=== PATIENT | female | born 1950 | race Caucasian/White ===

== ENCOUNTER 2018-11-11 14:20 | Outpatient (REF) | payer MEDICARE, OTHER, SELFPAY ==
[2018-11-11 16:08] LABS: Bilirubin Negative (Negative); Blood Negative (Negative); Clarity Clear; Glucose Negative (Negative); Ketones Negative (Negative); Leukocyte Esterase Negative (Negative); Nitrite Negative (Negative); Urobilinogen 0.2 EU/dL (Up TO 0.2); pH 5.5 (5-8)
== END 2018-11-11 14:40 ==
LOC: NCHCN 14:20
PROVIDERS: PCP Internal Medicine; Visit Provider Internal Medicine
DX: N39.0 Urinary tract infection, site not specified (principal)
CPT/HCPCS: 87077; 81003; 87086

== ENCOUNTER 2019-03-13 08:30 | Outpatient (CLI) | payer MEDICARE, OTHER, SELFPAY ==
--- NOTE | 2019-03-13 10:46 | DI.RAD_ITS ---
SYMPTOMS/DIAGNOSIS: COUGH, R05 PA AND LATERAL CHEST: Comparison is made with [id number]. The cardiac and mediastinal contours have a normal appearance. The lungs show mild fibrotic changes. No superimposed infiltrate, effusion or pulmonary edema is seen. IMPRESSION: No acute abnormality.
== END 2019-03-13 08:50 ==
PROVIDERS: PCP Internal Medicine; Visit Provider Nurse Practitioner Family
DX: R05 Cough (principal)
CPT/HCPCS: 71046

== ENCOUNTER 2019-08-12 14:28 | Emergency (ER) | payer MEDICARE, OTHER, SELFPAY ==
[2019-08-12] VITALS (8 sets, daily range): BP systolic 141–218; BP diastolic 62–135; PULSE 66–82; RESP 18–20; TEMP 36.5; O2SAT 96–97
[2019-08-12 14:53] LABS: Bilirubin Negative (Negative); Blood Trace-lysed (Negative); Clarity Clear (Clear); Glucose Negative (Negative); Ketones Negative (Negative); Leukocyte Esterase Trace (Negative); Nitrite Negative (Negative); Specific Gravity 1.015 (1.005-1.025); Urobilinogen 0.2 EU/dL (Up TO 0.2)
[2019-08-12 15:09] LABS: Bacteria Negative HPF (Negative); C & S Indicated? No; Casts Negative LPF (Negative); Crystals Negative HPF (Negative); Epithelial Cells Few HPF (Negative); Mucus Negative (Negative); Other Cells Mod Transitional (Negative); RBC 0-2 (0-2)
[2019-08-12] MEDS: Ondansetron 4 MG/2 ML VIAL IVP (15:16)
--- NOTE | 2019-08-12 15:29 | ED.GENADUL_ITS ---
Discharge Plan Disposition Patient Disposition: HOME Condition: Fair Discharge Details Chief Complaint: FlankPain Clinical Impression: Kidney stone on left side Primary Care Provider: Alexandr Youssef ED Provider: Amanda Lee Home Meds and New Rx's Prescriptions: New tamsulosin [Flomax] 0.4 mg capsule 0.4 mg PO QHS Qty: 7 RF: 0 oxycodone 5 mg capsule 5 mg PO Q6H PRN (Reason: use for severe pain ) Qty: 5 RF: 0 ondansetron HCl [Zofran] 4 mg tablet 4 mg PO Q8H Qty: 5 RF: 0 No Action metoprolol succinate 100 MG tablet extended release 24 hr 50 mg PO DAILY RF: 0 glipizide 5 MG tablet 10 mg PO DAILY RF: 0 rosuvastatin [Crestor] 40 MG tablet 40 mg PO DAILY RF: 0 losartan 50 MG tablet 100 mg PO DAILY RF: 0 furosemide 20 MG tablet 20 mg PO DAILY RF: 0 cyclobenzaprine 10 MG tablet 10 mg PO DAILY RF: 0 felodipine 5 MG tablet extended release 24 hr 5 mg PO DAILY RF: 0 (DME) FreeStyle Lite Strips 1 EACH strip 1 ea Miscellaneous TID RF: 0 pantoprazole 20 MG tablet,delayed release (DR/EC) 20 mg PO DAILY RF: 0 Novolin N NPH U-100 Insulin 100 UNIT/1 ML suspension 55 Sub-Q DAILY RF: 0 aspirin 81 MG tablet,chewable 81 mg PO DAILY RF: 0 cholecalciferol (vitamin D3) 2,000 UNIT tablet 4,000 unit PO DAILY RF: 0 Codeine Phosphate/Guaifenesin [Guaifen-Codeine 100-10 mg/5 ml] 5 ML liquid 5 ml PO Q6H PRN RF: 0 Discharge Instructions Instructions: Kidney Stones (ED) Additional Instructions: Drink plenty of fluids. Use Flomax as prescribed until stone expulsion. Use pain medication only if needed for severe pain. Use caution at night due to sedation, do not drive, drink, work while taking this medication. Follow-up closely with your primary care doctor. Use nausea medication if needed for nausea or vomiting. Return for any worsening, concerns, fever, pain lasting greater than 3 days or for worsening symptoms sooner if needed Discharge Data Discharge Date/Time-TO BE ENTERED AT DEPARTURE: 08/12/19 19:00 Medical Decision Making <Walter Noe NP - Last Filed: 08/14/19 14:26> Patient presenting the emergency department for chief complaint of left flank pain. Patient states that she was seated doing some sewing at approximately 10 AM this morning started having sudden severe sharp left-sided flank pain. Patient denies any injury or trauma or lifting mechanisms or motions. Patient does state approximately 30 years ago she had a similar event which was a kidney stone. Patient does state some associated nausea but no vomiting, no fever no chills, no chest pain, denies other symptoms. Physical exam shows mild left CVA tenderness otherwise unremarkable exam. Plan to do labs, urinalysis, and renal colic CT.. Pending results patient given IV fluids, Zofran, and morphine <RAMYA Child - Last Filed: 08/12/19 18:51> Accepted patient sign out pending CAT scan evaluation. Patient's pain was improved with the 4 mg of morphine provided then pain returned another 2 mg of morphine was provided. Patient CT scan ultimately reveals a left distal ureterolithiasis resulting in mild left hydronephrosis. Patient also noted to have renal cysts which were discussed. Patient was unaware of renal cysts. Patient was also noted to have a abdominal aneurysm dilation of the infrarenal abdominal aorta which was measured at 3.1 cm previous imaging reveals an infrarenal abdominal aneurysm on 03/08/2015 so no significant change has been present. Patient is requesting discharge home at this time. Will provide short amount of pain medication in conjunction to nausea medication for symptom medic relief and Flomax until stone expulsion. Patient agrees with plan of care. Discussed follow-up with primary care doctor and expectations for improvement. The patient was stable and requested discharge. Prior to discharge, my usual and customary return precautions were reviewed with the patient - this included follow-up instructions and reasons to return to the Emergency Department if conditions worsens, does not improve as expected, or other new concerns arise. HPI <Walter Noe NP - Last Filed: 08/14/19 14:26> General Mode of arrival: ambulatory . Date/Time Provider Initiated Documentation: 08/12/19 14:38 . Limitations to Documentation: no limitations . Information obtained by: RN notes reviewed . History of Present Illness 68 year old F presents to the emergency department with the chief complaint of Left flank pain, described as moderate, with intensity rated at 8. Quality is described as sharp, and is localized to the left (Flank). Patient started experiencing this hour(s) (4) and it has been constant. No relieving factors improve symptom(s), No exacerbating factors reported . Patient notes no other symptoms.. Patient did receive the following treatments prior to arrival, none Related Data Home Medications Medication Instructions Recorded Confirmed furosemide 20 mg PO DAILY tab-cap 09/14/15 08/12/19 glipizide 10 mg PO DAILY tab-cap 09/14/15 08/12/19 losartan 100 mg PO DAILY tab-cap 09/14/15 08/12/19 metoprolol succinate 50 mg PO DAILY tab-cap 09/14/15 08/12/19 rosuvastatin [Crestor] 40 mg PO DAILY tab-cap 09/14/15 08/12/19 Codeine Phosphate/Guaifenesin 5 ml PO Q6H PRN 11/18/17 [Guaifen-Codeine 100-10 mg/5 ml] aspirin 81 mg PO DAILY tab-cap 11/18/17 08/12/19 blood sugar diagnostic [Freestyle strip 11/18/17 08/12/19 Lite Strips] cholecalciferol (vitamin D3) 4,000 unit PO DAILY 11/18/17 01/31/18 cyclobenzaprine 10 mg PO DAILY tab-cap 11/18/17 01/31/18 felodipine 5 mg PO DAILY tab-cap 11/18/17 08/12/19 insulin NPH isoph U-100 human 55 SUB-Q DAILY 11/18/17 [Novolin N Vial] pantoprazole 20 mg PO DAILY tab-cap 11/18/17 08/12/19 ondansetron HCl [Zofran] 4 mg PO Q8H #5 tab 08/12/19 oxycodone 5 mg PO Q6H PRN #5 cap 08/12/19 tamsulosin [Flomax] 0.4 mg PO QHS #7 cap 08/12/19 Previous Rx's Medication Instructions Recorded ondansetron HCl [Zofran] 4 mg PO Q8H #5 tab 08/12/19 oxycodone 5 mg PO Q6H PRN #5 cap 08/12/19 tamsulosin [Flomax] 0.4 mg PO QHS #7 cap 08/12/19 Allergies Allergy/AdvReac Type Severity Reaction Status Date / Time metformin Allergy Severe Unverified 08/12/19 14:48 amlodipine Allergy Unknown Unverified 08/12/19 14:48 atorvastatin calcium Allergy Unknown Unverified 08/12/19 14:48 [From Lipitor] celecoxib [From Celebrex] Allergy Unknown Unverified 08/12/19 14:48 diltiazem Allergy Unknown Unverified 08/12/19 14:48 duloxetine HCl Allergy Unknown Unverified 08/12/19 14:48 [From Cymbalta] gabapentin Allergy Unknown Unverified 08/12/19 14:48 lansoprazole [From Prevacid] Allergy Unknown Unverified 08/12/19 14:48 lisinopril Allergy Unknown Unverified 08/12/19 14:48 General Stated Complaint: FlankPain YG: 3 Review of Systems <Walter Noe NP - Last Filed: 08/14/19 14:26> Constitutional Constitutional: Denies chills, Denies fever(s) and Reports poor appetite Cardiovascular Cardiovascular: Denies chest pain and Denies dyspnea Respiratory Respiratory: Denies cough and Denies dyspnea Gastrointestinal Gastrointestinal: Reports as per HPI, Denies abdominal pain, Denies melena, Denies change in bowel habits, Denies constipation, Denies diarrhea, Reports nausea and Denies vomiting Genitourinary Genitourinary: Reports as per HPI, Denies hematuria, Denies dysuria, Reports flank pain and Denies urinary incontinence Integumentary/Breasts Skin/Breast: Denies rash PFSH <Walter Noe NP - Last Filed: 08/14/19 14:26> Medical History Adenomatous colon polyp Adrenal adenoma Carpal tunnel syndrome of right wrist Chronic kidney disease, stage 2, mildly decreased GFR Diabetes type 2, uncontrolled Diabetic retinopathy Dyspepsia Fibromyalgia Hyperlipidemia Hypertension Osteoarthritis of both hands Sleep apnea, obstructive Telangiectasia Surgical History Colonoscopy - IV Sedation 2010 EGD - IV Sedation excision cyst of breast 2008 Social History Smoking/Tobacco Use Status: Former Tobacco Use Alcohol Intake: never Drug use: Never Do you feel safe at home: Yes Exam <Walter Noe NP - Last Filed: 08/14/19 14:26> Const General: cooperative Orientation: alert, awake and oriented x3 Resp Effort & Inspection: normal respiratory effort and able to speak in complete sentences Auscultation: clear to auscultation bilaterally Cardio Rate: regular rate Rhythm: regular rhythm Heart Sounds: S1 normal and S2 normal GI Palpation: soft, no hepatosplenomegaly, not firm, no guarding, no masses, no pulsatile masses, not rigid, no splenomegaly and tender Auscultation: normal bowel sounds Back/Spine/Pelvis Back: CVA tenderness (Mild left) Neuro General: alert, awake, oriented x3, gait normal and moves all extremities Course <Walter Noe NP - Last Filed: 08/14/19 14:26> Vital Signs Vital signs: Vital Signs Temperature 36.5 C 08/12/19 14:41 Pulse 70 08/12/19 14:41 Respiratory Rate 18 08/12/19 14:41 Blood Pressure 141/121 H 08/12/19 14:41 Pulse Oximetry 96 08/12/19 14:41 Temperature 36.5 C 08/12/19 14:41 Temperature Source Skin 08/12/19 14:41 Pulse 70 08/12/19 14:41 Respiratory Rate 18 08/12/19 14:41 Respiratory Effort Non-Labored 08/12/19 14:48 Blood Pressure 141/121 H 08/12/19 14:41 Blood Pressure Position Sitting 08/12/19 14:41 Pulse Oximetry 96 08/12/19 14:41 Oxygen Delivery Method Room Air 08/12/19 14:41 Oxygen Flow Rate 0 08/12/19 14:41 Pain Level 10 08/12/19 14:41 Lab/Test Results Lab/Test Results: Laboratory Tests Range/Units 08/12/19 14:43 Urine Color (Yellow) Yellow Urine Clarity (Clear) Clear Urine pH (5-8) 5.0 Ur Specific Kirkman (1.005-1.025) 1.015 Urine Protein (Negative) mg/dL 30 H Urine Ketones (Negative) mg/dL Negative Urine Blood (Negative) Trace-lysed H Urine Nitrite (Negative) Negative Urine Bilirubin (Negative) Negative Urine Urobilinogen (Up TO 0.2) EU/dL 0.2 Ur Leukocyte Esterase (Negative) Trace H Urine RBC (0-2) 0-2 Urine WBC (0-5) HPF 3-5 Ur Epithelial Cells (Negative) HPF Few Urine Crystals (Negative) HPF Negative Urine Bacteria (Negative) HPF Negative Urine Casts (Negative) LPF Negative Urine Mucus (Negative) Negative Urine Other (Negative) Mod transitional Ur Culture Indicated? No Urine Glucose (Negative) mg/dL Negative Sign Out <Walter Noe NP - Last Filed: 08/14/19 14:26> Sign Out Data: Sign Out Comment: Patient presenting to the emergency department for flank pain, patient pending CT imaging. Last updated by Walter Noe NP at 08/12/19 16:10
[2019-08-12 15:36] LABS: Abs Immature Grans 0.02 k/cumm (0.0-0.09); Absolute Basophil Count 0.05 k/cumm (0.0-0.2); Absolute Eosinophil Count 0.08 k/cumm (0.0-0.7); Absolute Lymphocyte Count 1.25 k/cumm (1.2-3.4); Absolute Monocyte Count 0.28 k/cumm (0.11-0.7); Absolute Neutrophil Count 6.69 k/cumm (1.2-6.7); Basophils % 0.6; HCT 42.3 % (36.0-46.0); HGB 13.5 g/dL (12.0-15.5); Immature Grans % 0.2; Lymphocytes % 14.9; Mean Corp. HGB Concentration 31.9 g/dL (32.0-36.0); Mean Corpuscular Hemoglobin 28.7 pg (27.0-33.0); Mean Corpuscular Volume 89.8 fL (80-95); Mean Platelet Volume 12.1 fL (8.0-11.0); Monocytes % 3.3; Platelet Count 184 x1000/uL (130-400); RBC 4.71 m/cumm (4.00-5.20); RBC Distribution Width 14.2 % (11.7-14.6); White Blood Cell Count 8.37 k/cumm (4.4-10.8)
[2019-08-12 15:47] LABS: ALT 10 U/L (14-59); AST 19 U/L (15-37); Albumin 3.8 g/dL (3.4-5.0); Alkaline Phosphatase 86 U/L (46-116); Anion Gap 11.3 mmol/L (3-11); BUN 37 mg/dL (7-18); Bilirubin, Total 0.3 mg/dL (0.2-1.0); CO2 25.7 mmol/L (21.0-32.0); CREATININE 1.94 mg/dL (0.55-1.02); Calcium 9.7 mg/dL (8.5-10.1); Chloride 104 mmol/L (98-107); Estimated GFR 25.59 (mL/min/1.73m2); Glucose 159 mg/dL (70-100); Sodium 141 mmol/L (136-145); Total Protein 8.6 g/dL (6.4-8.2)
[2019-08-12] MEDS: Normal Saline 500 ML IV (16:10)
--- NOTE | 2019-08-12 17:00 | DI.CT_ITS ---
EXAM: CT RENAL COLIC WO CLINICAL HISTORY: Left flank pain, H/O KIDNEY STONES TECHNIQUE: Noncontrast. COMPARISON: UPPER ABD WITHOUT CONTRAST from 05/26/2018 FINDINGS: There is a 3 millimeter stone seen at the distal left ureter causing mild to moderate left hydroneph rosis. The left kidney appears somewhat atrophic. There are bilateral renal cysts. The bladder is unremarkable. The liver, gallbladder, spleen, pancreas, and adrenals appear normal. No bowel dilata tion or inflammatory changes are seen. There is no evidence of appendicitis or free fluid. IMPRESSION: 3 millimeter stone at the distal left ureter causing [id number] left hydronephrosis. Left prabha l atrophy and bilateral renal cysts.
--- NOTE | 2019-08-12 17:25 | DI.VRAD_ITS ---
PROCEDURE INFORMATION: Exam: CT Abdomen And Pelvis Without Contrast Exam date and time: 08/12/2019 4:53 PM Clinical history: 68 years old, female; Abdominal pain; Patient HX: Left sided flank pain. HX of kidney stones in the . TECHNIQUE: Imaging protocol: Computed tomography of the abdomen and pelvis without contrast. Radiation optimization: All CT scans at this facility use at least one of these dose optimization techniques: automated exposure control; mA and/or kV adjustment per patient size (includes targeted exams where dose is matched to clinical indication); or iterative reconstruction. COMPARISON: CT ABD PELVIS WO CONTRAST 03/08/2015 9:23 AM FINDINGS: Lungs: Minimal dependent changes within the lung bases, likely atelectasis. Liver: Unremarkable. No mass. Gallbladder and bile ducts: Normal. No calcified stones. No ductal dilation. Pancreas: Unremarkable. No ductal dilation. Spleen: Unremarkable. No splenomegaly. Adrenals: Normal. No mass. Kidneys and ureters: Right renal cyst measuring 2.4 cm. 3 mm calcification at the anterior cortex of the right kidney midpole on axial image 43 of series 2 is likely vascular (versus nonobstructing stone). Severe left renal atrophy. Exophytic cyst measuring 12 mm within the upper pole of the left kidney. 3 mm stone in the left distal ureter (axial images 99 and 100 of series 2 and coronal reformatted image 64). There is mild left hydroureteronephrosis and stranding of the left peripelvic and periureteral fat. Stomach and bowel: Mild colonic diverticulosis without diverticulitis. Unremarkable stomach and small bowel. Appendix: No evidence of appendicitis. Intraperitoneal space: No free air. No significant fluid collection. Vasculature: Moderate severe atherosclerosis of the abdominal aorta and branch vessels. Mild aneurysmal dilatation of the infrarenal abdominal aorta with an AP diameter of 3.1 cm. Lymph nodes: No enlarged lymph nodes. Bladder: Unremarkable as visualized. Reproductive: Unremarkable as visualized. Bones/joints: Degenerative spondylosis of the lower thoracic and lumbar spine. Soft tissues: Unremarkable. IMPRESSION: 1. Left distal ureterolithiasis resulting in mild left hydroureteronephrosis. 2. Left renal atrophy and cyst. 3. Right renal cyst and probable renal vascular calcification (versus tiny nonobstructing right renal stone). Dictated and Authenticated by: Andrew Cárdenas MD. Ordering:SHIRAZ Watson MD
== END 2019-08-12 19:00 | disposition home or self-care (01) ==
PROVIDERS: Nurse Practitioner Family; Emergency Provider Physician Assistant; PCP Internal Medicine
DX: N13.1 Hydronephrosis with ureteral stricture, not elsewhere classified (principal); N18.9 Chronic kidney disease, unspecified; E11.22 Type 2 diabetes mellitus with diabetic chronic kidney disease; I12.9 Hypertensive chronic kidney disease with stage 1 through stage 4 chronic kidney disease, or unspecified chronic kidney disease
CPT/HCPCS: 36416; 80053; 82962; 96361; 96365; 96375; 96376; 99284; 74176; 81003; 81015; 85025; J2405

== ENCOUNTER 2020-06-13 11:04 | Outpatient (REF) | payer MEDICARE, OTHER, SELFPAY ==
[2020-06-13 21:16] LABS: BUN 30 mg/dL (7-18); CREATININE 1.83 mg/dL (0.55-1.02); Calcium 8.8 mg/dL (8.5-10.1); Chloride 107 mmol/L (98-107); Estimated GFR 27.29 (mL/min/1.73m2); Glucose 210 mg/dL (74-106); Potassium 3.8 mmol/L (3.5-5.1); Sodium 144 mmol/L (136-145)
[2020-06-13 21:27] LABS: Vitamin D 25 Total 36.1 ng/ml (30-100)
== END 2020-06-13 11:24 ==
LOC: NCHCN 11:04
PROVIDERS: PCP Internal Medicine; Visit Provider Internal Medicine
DX: E11.9 Type 2 diabetes mellitus without complications (principal); I10 Essential (primary) hypertension; M81.0 Age-related osteoporosis without current pathological fracture
CPT/HCPCS: 80048; 82306

== ENCOUNTER 2021-03-28 12:45 | Outpatient (REF) | payer MEDICARE, OTHER, SELFPAY ==
[2021-03-28 21:28] LABS: Anion Gap 8.7 mmol/L (3-11); BUN 34 mg/dL (7-18); CO2 28.3 mmol/L (21.0-32.0); CREATININE 1.7 mg/dL (0.55-1.02); Calcium 9.2 mg/dL (8.5-10.1); Chloride 106 mmol/L (98-107); Estimated GFR 29.63 (mL/min/1.73m2); Glucose 256 mg/dL (74-106); Potassium 4.2 mmol/L (3.5-5.1); Sodium 143 mmol/L (136-145)
== END 2021-03-28 12:46 | disposition home or self-care (01) ==
LOC: NCHCN 12:45
PROVIDERS: PCP Internal Medicine; Visit Provider Internal Medicine
DX: I10 Essential (primary) hypertension (principal)
CPT/HCPCS: 80048

== ENCOUNTER 2021-03-30 20:56 | Outpatient (REF) | payer MEDICARE, OTHER, SELFPAY | END 2021-03-30 20:57 | disposition home or self-care (01) | LOC: NCHCN 20:56 | PROVIDERS: PCP Internal Medicine; Visit Provider Internal Medicine | DX: K52.9 Noninfective gastroenteritis and colitis, unspecified (principal) | CPT/HCPCS: 87329; 82272; 83630 ==

== ENCOUNTER 2021-04-10 06:10 | Day surgery (SDC) | payer MEDICARE, OTHER, SELFPAY ==
[2021-04-10] MEDS: Tropicam./Phenyleph. (1/2.5%) 5 ML BTL OD ×3 (06:40→06:50)
[2021-04-10 06:44] VITALS: BP 144/65; PULSE 52; RESP 16; TEMP 36.5; O2SAT 94
--- NOTE | 2021-04-10 07:08 | W.ANESPRE ---
General Info Date of Service Date Performed: 04/10/21 Height: 5 ft 5 in Weight: 88.7 kg Body Mass Index (BMI): 32.5 Surgical Procedure: Operation Date: 04/10/21 07:40 Proposed Procedures Side Surgeon p Cataract Extraction with IOL Implant Right Howie Shabazz MD Meds Allergies and Home Medications Allergies Allergy/AdvReac Type Severity Reaction Status Date / Time metformin Allergy Severe Diarrhea Unverified 04/10/21 06:43 amlodipine Allergy Unknown Diarrhea Unverified 04/10/21 06:43 atorvastatin calcium Allergy Unknown Diarrhea Unverified 04/10/21 06:43 [From Lipitor] celecoxib [From Celebrex] Allergy Unknown Other (See Unverified 04/10/21 06:43 Comment) diltiazem Allergy Unknown Other (See Unverified 04/10/21 06:43 Comment) duloxetine HCl Allergy Unknown Other (See Unverified 04/10/21 06:43 [From Cymbalta] Comment) gabapentin Allergy Unknown Other (See Unverified 04/10/21 06:43 Comment) lansoprazole [From Prevacid] Allergy Unknown Other (See Unverified 04/10/21 06:43 Comment) lisinopril Allergy Unknown Other (See Unverified 04/10/21 06:43 Comment) Home Medication Medication Instructions Recorded furosemide 20 mg PO DAILY tab-cap 09/14/15 glipizide 10 mg PO BID tab-cap 09/14/15 losartan 100 mg PO HS tab-cap 09/14/15 metoprolol succinate 100 mg PO HS tab-cap 09/14/15 rosuvastatin [Crestor] 40 mg PO HS tab-cap 09/14/15 blood sugar diagnostic [Freestyle strip 11/18/17 Lite Strips] felodipine 5 mg PO DAILY tab-cap 11/18/17 pantoprazole 40 mg PO HS tab-cap 11/18/17 semaglutide [Rybelsus] 3 mg PO DAILY 04/07/21 ropinirole 0.5 mg PO HS 04/10/21 Current Visit Medications: Current Medications Generic Name Dose Route Start Last Admin Trade Name Freq PRN Reason Stop Dose Admin Acetaminophen 1,000 mg 04/10/21 06:00 Acetaminophen 500 Mg Tab PO Q4H PRN PRN Miscellaneous Medication 0 ml 04/10/21 06:00 Prednisolone 1%, Moxifloxacin 0.5%, Nepafenac 0.1% 5ml Btl OD DIRECTED MAURICIO Miscellaneous Medication 0 ml 04/10/21 06:00 04/10/21 06:50 Tropicam./Phenyleph. (1/2.5%) 5 Ml Btl OD 1 drp DIRECTED MAURICIO Administration Tetracaine HCl 0 ml 04/10/21 06:00 Tetracaine 0.5% 4 Ml Btl OD DIRECTED MAURICIO PFSH Active Problems Active Problems: Problem Status Onset Code Nuclear sclerotic cataract of right eye H25.11 Posterior subcapsular age-related cataract, right eye H25.041 Medical History Medical History Adenomatous colon polyp Adrenal adenoma Carpal tunnel syndrome of right wrist Chronic kidney disease, stage 2, mildly decreased GFR Diabetes type 2, uncontrolled Diabetic retinopathy Dyspepsia Fibromyalgia Hyperlipidemia Hypertension Osteoarthritis of both hands Sleep apnea, obstructive Telangiectasia Surgical History Surgical History (Updated 04/10/21 @ 06:41 by Shae Gamble) Colonoscopy - IV Sedation 2010 EGD - IV Sedation excision cyst of breast 2009 History of carpal tunnel surgery Hx of tubal ligation Tobacco Smoking/Tobacco Use Status: Former Tobacco Use Alcohol Alcohol Intake: never Substance Use Substance use: Never Substance use type: does not use Vital Signs and Lab Results Vital Signs Most Recent Vital Signs in EMR: Most Recent Vital Signs Temp Pulse Resp BP Pulse Ox 36.5 C 52 L 16 144/65 H 94 04/10/21 06:44 04/10/21 06:44 04/10/21 06:44 04/10/21 06:44 04/10/21 06:44 Point of Care Results Point of Care Results: Finger Stick Blood Glucose 161 04/10/21 06:35 Lab Results Blood Type / Crossmatch: No Data to Display Complete Blood Count: No Data to Display Complete Metabolic Panel: Sodium Level 143 mmol/L (136-145) 03/28/21 12:45 03/28/21 Potassium Level 4.2 mmol/L (3.5-5.1) 03/28/21 12:45 03/28/21 Chloride Level 106 mmol/L (98-107) 03/28/21 12:45 03/28/21 Carbon Dioxide Level 28.3 mmol/L (21.0-32.0) 03/28/21 12:45 03/28/21 Blood Urea Nitrogen 34 mg/dL (7-18) H 03/28/21 12:45 03/28/21 Creatinine 1.7 mg/dL (0.55-1.02) H 03/28/21 12:45 03/28/21 Calcium Level 9.2 mg/dL (8.5-10.1) 03/28/21 12:45 03/28/21 Glucose Level 256 mg/dL (74-106) H 03/28/21 12:45 03/28/21 Liver Function Panel: No Data to Display Coagulation Panel: No Data to Display Cardiac Panel: No Data to Display Arterial Blood Gas: No Data to Display Venous Blood Gas: No Data to Display Pancreas Panel: No Data to Display Thyroid Panel: No Data to Display Infectious Disease: No Data to Display Blood Cultures: No Data to Display Toxicology Panel: No Data to Display Imaging and Studies Imaging and Studies Carotid Artery Summary:: 04/05/2014 Mild right and moderate left carotid stenosis is demonstrated. Please see the cerebrovascular ultrasound worksheet for further details. Anesthesia Assessment and Plan Anesthesia History Personal History: No History of Anesthesia Complications Family History: No Family History of Anesthesia Complications Exercise Tolerance Exercise Tolerance: Metabolic Equivalents>4 Pertinent Negatives Pertinent Negatives: No Symptoms of GERD, No Major Cardiovascular Symptoms or Complaints, No Major Pulmonary Symptoms or Complaints and No History of CVA/TIA Cardiac & Pulmonary Exam Cardiac Exam: Normal S1/S2 Heart Sounds Pulmonary Exam: Clear Bilateral Breath Sounds Airway Exam Known Difficult Airway: No Mallampati Class: 2 Mouth Opening: Normal (> 3cm) Thyromental Distance: Greater than 3 cm Neck Range of Motion: Full ROM Neck Circumference: Normal Teeth Condition: Normal Dentition ASA Classification ASA Score: ASA 2 Emergency Case?: No NPO Status NPO Status: NPO Clears >2 hours, Solids >8 hours Anesthesia Plan Resuscitation Status: Full Code Anesthesia Technique: MAC Anesthesia Airway Planned: Natural Airway Monitors Used: Standard Monitors
[2021-04-10 07:17] VITALS: BMI 32.5
[2021-04-10] MEDS: Balanced Salt Soln.-PLUS 500 ML BAG (07:35)
[2021-04-10] MEDS: Lidocaine 1% Pres-Free 5 ML VIAL (07:36)
[2021-04-10] MEDS: Povidone-Iodine Ophth 30 ML BTL (07:37)
[2021-04-10] MEDS: Lidocaine 2% Jelly 6 ML SYR (07:37)
[2021-04-10] MEDS: Tetracaine 0.5% 4 ML BTL OD (07:39)
--- NOTE | 2021-04-10 07:44 | W.ANESPOSTOP ---
Postoperative Evaluation Date, Time and Location Date Performed: 04/10/21 Time Performed: 08:05 Patient Location: Day Surgery Unit Vital Signs Most Recent Imported Vital Signs: Most Recent Vital Signs Temp Pulse Resp BP Pulse Ox 36.5 C 52 L 16 144/65 H 94 04/10/21 06:44 04/10/21 06:44 04/10/21 06:44 04/10/21 06:44 04/10/21 06:44 Most Recent Manually Entered Vital Signs: Adult Blood Pressure: 136/59 Heart Rate: 66 Respirations: 16 Oxygen Saturation (%): 97 Temperature (C): 36.7 C Pain Score (0-10 Scale): 0 Pain Score Most Recent Pain Score: Most Recent Pain Score Pain Level 0 04/10/21 06:44 Assessment Mental Status: Awake (Alert & Oriented to Patient Baseline) Airway and Respiratory Function: Patent airway with normal (patient baseline) respiratory exam Cardiovascular Function: Hemodynamically Stable Hydration Status: Adequately Hydrated Nausea & Vomiting: No Nausea or Vomiting Pain: Pt. Denies Any Pain Peripheral Nerve Block: Other (Local by Dr. Shabazz)
--- NOTE | 2021-04-10 08:04 | W.PM.DSUDISC ---
Discharge Plan Disposition Patient Disposition: HOME Condition: Good Discharge Details Reason For Visit: CATARACT Attending Provider: Howie Shabazz Primary Care Provider: Alexandr Youssef Home Meds and New Rx's Prescriptions: No Action metoprolol succinate 100 MG tablet extended release 24 hr 100 mg PO HS RF: 0 glipizide 5 MG tablet 10 mg PO BID RF: 0 rosuvastatin [Crestor] 40 MG tablet 40 mg PO HS RF: 0 losartan 50 MG tablet 100 mg PO HS RF: 0 furosemide 20 MG tablet 20 mg PO DAILY RF: 0 felodipine 5 MG tablet extended release 24 hr 5 mg PO DAILY RF: 0 (DME) FreeStyle Lite Strips 1 EACH strip 1 ea Miscellaneous TID RF: 0 pantoprazole 20 MG tablet,delayed release (DR/EC) 40 mg PO HS RF: 0 Rybelsus 3 mg tablet 3 mg PO DAILY RF: 0 ropinirole 0.5 mg tablet 0.5 mg PO HS RF: 0 Discharge Instructions Stand Alone Forms: Post-op Topical Cataract, Magali Gibbs (DSU) Discharge Orders Discharge Orders: Discharge Order (Routine); Ordered 04/10/21 Ordered By: Howie Shabazz DS: Diagnosis Discharge Diagnosis (1) Nuclear sclerotic cataract of right eye: Status: Resolved (2) Posterior subcapsular age-related cataract, right eye: Status: Resolved
[2021-04-10 08:05] VITALS: BP 136/59; PULSE 69; RESP 16; TEMP 36.7; O2SAT 98
--- NOTE | 2021-04-10 08:05 | ROE_ITS ---
Date of service: 04/10/21 Time of Service: 08:05 Operative Note Operative Note DATE OF PROCEDURE: 04/10/21 PRE-OP DIAGNOSIS: Nuclear/posterior subcapsular cataract, right eye POST-OP DIAGNOSIS: same PROCEDURE: Cataract extraction using phacoemulsification with intraocular lens implant, right eye SURGEON: Howie Shabazz ANESTHESIA TYPE: Local By Surgeon and MAC Refer to Anesthesia Record ESTIMATED BLOOD LOSS: 0 PATHOLOGY: none sent COMPLICATIONS: None Patient was transported to: same day Patient's condition: stable Implants: Joshua [employer] / [employer] Tecnis [id number] intraocular lens Indications: Progressive decreased vision due to cataract, right eye Procedure Description: CATARACT SURGERY OPERATIVE REPORT PREOPERATIVE DIAGNOSIS: Nuclear/posterior subcapsular cataract, right eye POSTOPERATIVE DIAGNOSIS: Same OPERATION: Cataract extraction using phacoemulsification with posterior chamber intraocular lens implant, right eye. IOL: IOL Merchandise Team Manager/Model: [employer] / CLAUDIA Tecnis ZCB00 IOL Power: + +22.0 diopters IOL Serial Number: [id number] Optic Diameter: 6.0mm Haptic/Overall Diameter: 13.0mm PHACO INFO: Carmelo [employer] Vision System with OZil and Active [employer]uidics Cumulative Dispersed Energy (CDE): 5.95 seconds SURGEON: Howie Shabazz MD, DARIEL ANESTHESIA: Monitored Anesthesia Care (MAC), with local sub-tenon's anesthetic infiltration COMPLICATIONS: None SPECIMENS: None INDICATIONS FOR PROCEDURE: The patient is a 70-year-old lady with history of diminished visual acuity in her right eye secondary to the development of nuclear and posterior subcapsular cataract. She is significantly symptomatic that she desires cataract surgery and attempt to improve and maximize her vision. The option of cataract surgery was offered to the patient and she felt she was symptomatic enough that she wished to proceed. PROCEDURE: The correct surgical eye was identified and marked as the right eye and the pupil was dilated in the preoperative area using mydriatics and cycloplegics. The dilated pupil size was 7.0 mm. She elected to proceed without oral sedation. The patient was brought to the operating room where cardiopulmonary monitoring was instituted and surgical time-out was performed, confirming the correct operative eye and IOL power. Topical anesthesia was administered and ophthalmic povidone-iodine 5% was instilled into the conjunctival fornices. Lidocaine gel was applied to the cornea and the venice-ocular area was prepped with Betadine 10% solution and draped in the usual sterile fashion for intraocular surgery, including an aperture drape. A Tegaderm transparent film dressing was cut in half and used to cover the lashes and lid margins. Care was taken to sequester the lashes and lid margins under the Tegaderm dressing. A lid speculum was placed between the lids of the operative eye and the Chano-Te operating microscope was maneuvered into position. Bravo scissors were then used to make a conjunctival buttonhole approximately 6mm posterior to the limbus in the inferonasal quadrant. Blunt dissection was carried out to expose bare sclera, and a blunt-tipped sub-tenon?s anesthesia cannula was introduced and passed posteriorly along the globe where non- preserved plain lidocaine was injected into posterior sub-Tenon?s space. A sideport knife was used to make a paracentesis port inferiortemporally. Intraocular phenylephrine/lidocaine was injected into the anterior chamber. The anterior chamber was then filled with viscoelastic. A 2.4mm keratome knife was used to create a half-thickness groove at the limbus and then to construct a three-plane near-clear corneal tunnel extending 2.0mm into clear cornea in the superiortemporal position. . A flap was raised on the anterior capsule and capsulorhexis forceps were used to complete a continuous curvilinear capsulorhexis of 5.0 mm. Balanced salt solution was then used to perform cortical cleaving hydrodissection and nuclear hydrodelineation until the lens could be freely rotated within the capsular bag. The lens nucleus was then disassembled and removed within the capsular bag and iris plane using phacoemulsification. Residual cortical material was removed using the I/A handpiece. The posterior capsule was carefully polished to remove as much residual lens epithelial cells as safely possible. The capsular bag was then inflated and the anterior chamber deepened with viscoelastic. The lens implant described above was inserted into the capsular bag using the CLAUDIA Cachil Dehe Injector. A Kuglen hook was used to dial the IOL into position. Residual viscoelastic was then removed first from posterior to the IOL, then from the anterior chamber using the I/A handpiece. The lens implant was noted to center nicely within the capsular bag. The incisions were stromally hydrated, and the anterior chamber was reformed using BSS. Then 0.5cc of moxifloxacin 1.0mg/ml were injected into the capsular bag and anterior chamber. The incisions were checked with a Weck spear and found to be secure. Several drops of ophthalmic povidone-iodine 5% were then applied to the eye followed by two drops of Imprimis combination prednisolone/moxifloxacin/nepafenac solution. The drapes were removed and a clear plastic protective eye shield was placed over the eye. The patient was then returned to Same Day Surgery in stable condition.
[2021-04-10 08:06] VITALS: BP 136/59; PULSE 66; RESP 16; TEMPC 36.7; O2SAT 97
== END 2021-04-10 08:32 | disposition home or self-care (01) ==
PROVIDERS: PCP Internal Medicine; Visit Provider Ophthalmology
PROC: (CPT 66984; principal; 2021-04-10 07:30)
DX: H25.041 Posterior subcapsular polar age-related cataract, right eye (principal); E11.22 Type 2 diabetes mellitus with diabetic chronic kidney disease; N18.2 Chronic kidney disease, stage 2 (mild); I12.9 Hypertensive chronic kidney disease with stage 1 through stage 4 chronic kidney disease, or unspecified chronic kidney disease
CPT/HCPCS: 66984; V2632

== ENCOUNTER 2021-07-26 02:10 | Outpatient (CLI) | payer MEDICARE, OTHER, SELFPAY ==
--- NOTE | 2021-07-26 | DI.MAMMO_ITS ---
Exam(s) MAMMO SCREENING EXAM: MAMMO SCREENING CLINICAL HISTORY: SCREENING,Z12.31. TECHNIQUE: Bilateral full field digital CC and MLO mammographic images were obtained with 3D tomosyn thesis and utilizing computer aided detection (CAD). COMPARISON: Prior mammograms dating back to 2012, the most recent being July 2017. FINDINGS: There has been no significant change in the appearance and distribution of the fibroglandular tissue. There are no new spiculated masses nor malignant appearing microcalcification groups. There is no significant architectural distortion nor skin thickening-retraction. IMPRESSION: No radiographic evidence of malignancy. BI-RADS Category 1 - Negative Breast Density - Category B - Scattered areas of fibroglandular density Breast density Category C or D implies that the patient has dense breast tissue. Dense breast tissue can make it harder to find cancer on a mammogram. Dense breast tissue is also associated with an incr eased risk of breast cancer. This information about the result of the mammogram report was provided to the patient to raise their awareness. Use this report when you speak with the patient about their risks for breast cancer, which includes their family history. At that time, you may recommend additional screening tests (Ultrasoun d or MRI) as these tests may add significant information. A negative radiographic report should not delay biopsy if a dominant or clinically suspicious mass is present. Up to ten percent of cancers are not identified on mammography. A negative report may reinforce clinical impression. Adenosis and dense breasts may obscure an underlying neoplasm. False positive reports average 6 to 10%. Patient will receive a letter notifying them of these results.
== END 2021-07-26 02:30 ==
PROVIDERS: PCP Internal Medicine; Visit Provider Family Medicine
DX: Z12.31 Encounter for screening mammogram for malignant neoplasm of breast (principal)
CPT/HCPCS: 77063; 77067

== ENCOUNTER 2021-10-10 00:49 | Outpatient (CLI) | payer MEDICARE, OTHER, SELFPAY ==
--- NOTE | 2021-10-10 08:45 | DI.NM_ITS ---
APPROVED REPORT Exam: Exercise Treadmill Patient Location: Out-Patient Room/Bed: Stress Nurse: Lisa Villalba RN Ordering Provider:HUGO BRODY, Contact Number: [phone] BMI: 33.46 Baseline Rhythm: Sinus Rhythm Comment: slight ST depressions noted in inferior leads Indications: EXERTIONAL CHEST PAIN. Medical History Medical History: CKD stage II, Dyspepsia, DM II, Fibromyalgia, Diabetic retinopathy, HTN, HLD, GEOVANNA Cardiac Medications: Semaglutide, Rosuvastatin, Pantoprazole, Metoprolol succinate, Losartan, Glipizi de, Furosemide, Felodipine Allergies: Metformin, amlodipine, atorvastatin, celebrex, diltiazem, cymbalta, gabapentin, lansoprazo le, lisinopril Cardiac Risk Factors: Diabetes (non-insulin), HTN, Hyperlipidemia, Diabetes (non-insulin), Smoking (f ormer) Previous Cardiac Procedures: None Pretest Chest Pain Characteristics: No chest pain Exercise History: Sedentary Physical Disabilities: Hips Lung Sounds: Clear to auscultation Heart Sounds: Regular Stress Test Details Test: Exercise stress testing was performed using a modified Eliu protocol. Nuclear Acquisition: Rest Tc-99m/Stress Tc-99m 1 day Rest Isotope: Tc-99m Sestamibi. Dose: 10.0 Date: 10/10/2021 Injection Time: 0900 Stress Isotope: Tc-99m Sestamibi. Dose: 33.4 Date: 10/10/2021 Injection Time: 1025 HR Resting HR Supine: 77 bpm Max Heart Rate (APMHR): 149.001396 bpm Resting HR Standin bpm Target HR (85% APMHR): 126.527337 bpm Max HR Achieved: 138 bpm % of APMHR: 92.62 Recovery HR: 94 bpm HR response to stress: Normal HR response to stress Comment: Metoprolol succinate held for 48 hours. BP Resting BP Supine: 162/76 mmHg Resting BP Standin/76 mmHg Max BP: 202/62 mmHg Recovery BP: 162/72 mmHg BP response to stress: Normal blood pressure response to stress. Comment: Hypertensive at baseline. ECG Resting ECG: Sinus Rhythm Ectopy: None Comment: slight ST depressions noted in inferior leads Stress ECG: Sinus Tachycardia ST Change: Horizontal ST depression, Upsloping ST depression Lead(s): inferior leads, V6 Stage: [address] Deviation: 1 mm Arrhythmia: None Recovery ECG: Sinus Rhythm Recovery ST Change: Horizontal ST depression Lead(s): inferior leads, V6 Recovery ST Deviation: 2 mm Recovery Arrhythmia: PVCs Comment: ST changes returning to baseline by min 21 of recovery. Clinical Reason for Termination: Dyspnea, Fatigue Stress Symptoms: Dyspnea, General Fatigue Exercise duration: 4 min36 sec Highest Stage Reached: Stage 2: 2.5 mph at 12% grade. Exercise capacity: 5.71 METs Langley Treadmill Score: 0.4 Rate Pressure Product: [id number] Stress ECG Conclusion 1. Electrocardiogram was within normal limits 2. Patient exercised on the Eliu protocol and completed a workload of 5.71 METS, limited by shortnes s of breath and fatigue 3. Normal heart rate and blood pressure response to exercise. Patient achieved 92% of predicted hear t rate for age 4. Electrocardiographically the test was consistent with myocardial ischemia with 2 [address] dep ression noted in the inferior leads, [address] segments became downsloping in rec overy and persisted for approximately 20 minutes 5. Premature ventricular contractions were noted in recovery Langley Treadmill Score is 0.4 which is Moderate risk. Stress Test Summary STAGE Time (mins) Speed (mph) Grade (%) HR BP SYMPTOMS METS Supine 77 162/76 Standing 85 164/76 1 3 1.7 10 121 178/76 94%, mild SOB 4.6 1 min recovery 128 202/62 SpO2 95% 3 min recovery 110 196/64 6 min recovery 100 178/72 Onset of chest pain, lightheadedness 9 min recovery 97 172/70 12 min recovery 94 162/68 Symptoms resolved. 18 97 164/74 21 162/72 Modified Eliu Protocol. Speed decreased in stage II to encourage continuation of exercise post isoto pe injection. Patient reports onset of lightheadedness and 6/10 sternal chest pain described as a bu rning ache at 4 min 43 sec into recovery. 6 min 38 sec into recovery patient reports decrease of ches t discomfort to 3/10 but radiation of pain down right arm. Chest pain and lightheadedness resolved by 10 min 20 sec into recovery periord. MPI Conclusion Normal myocardial perfusion without evidence of ischemia or prior infarction EF 71% Normal wall motion Radiologist Interpretation Radiologist Interpretation by: Andrew Denny MD Interpretation Date/Time: 10/10/2021 16:13:30
== END 2021-10-10 01:09 ==
PROVIDERS: PCP Internal Medicine; Visit Provider Family Medicine
DX: R07.89 Other chest pain (principal); E11.22 Type 2 diabetes mellitus with diabetic chronic kidney disease; I12.9 Hypertensive chronic kidney disease with stage 1 through stage 4 chronic kidney disease, or unspecified chronic kidney disease; N18.2 Chronic kidney disease, stage 2 (mild); E78.5 Hyperlipidemia, unspecified; Z87.891 Personal history of nicotine dependence; I25.5 Ischemic cardiomyopathy; I49.3 Ventricular premature depolarization
CPT/HCPCS: 78452; 93016; 93018; 93017

== ENCOUNTER 2022-01-02 15:49 | Outpatient (REF) | payer MEDICARE, OTHER, SELFPAY ==
[2022-01-02 15:22] LABS: Bilirubin Negative (Negative); Blood Negative (Negative); Clarity Clear (Clear); Glucose Negative (Negative); Ketones Negative (Negative); Leukocyte Esterase Small (Negative); Nitrite Negative (Negative); Urobilinogen 0.2 EU/dL (Up TO 0.2)
[2022-01-02 15:32] LABS: Abs Immature Grans 0.01 10^3/uL (0.0-0.06); Absolute Basophil Count 0.04 10^3/uL (0.0-0.2); Absolute Eosinophil Count 0.12 10^3/uL (0.0-0.7); Absolute Lymphocyte Count 1.13 10^3/uL (1.2-3.4); Absolute Neutrophil Count 3.65 10^3/uL (1.2-6.7); Basophils % 0.8; Eosinophils % 2.3; HCT 32.8 % (36.0-46.0); HGB 9.9 g/dL (11.2-15.7); Immature Grans % 0.2; Lymphocytes % 21.5; MCH 26.4 pg (27.0-33.0); MCHC 30.2 % (32.0-36.0); MCV 87.5 fL (80-95); MPV 12.8 fL (8.0-11.0); Monocytes % 5.7; Neutrophils % 69.5; Nucleated RBC 0 %; Platelet Count 149 10^3/uL (130-400); RBC 3.75 10^6/uL (3.93-5.22); RDW 15.1 % (11.7-14.6); RDW-SD 48.5 fL; WBC 5.25 10^3/uL (4.4-10.8)
[2022-01-02 15:39] LABS: Hemoglobin A1C 7.8 % (<5.7)
[2022-01-02 15:40] LABS: Bacteria Few HPF (Negative); C & S Indicated? Yes; Casts Negative LPF (Negative); Crystals Negative HPF (Negative); Epithelial Cells Few HPF (Negative); Mucus Negative (Negative); RBC Negative HPF (0-2)
[2022-01-02 15:42] LABS: Iron 33 ug/dL (50-170); Total Iron Binding Capacity 448 ug/dL (250-450); Transferrin Sat 7 % (15-50)
[2022-01-02 15:54] LABS: ALT 26 U/L (14-59); AST 17 U/L (15-37); Albumin 3.7 g/dL (3.4-5.0); Alkaline Phosphatase 76 U/L (46-116); Anion Gap 14.7 mmol/L (3-11); BUN 32 mg/dL (7-18); Bilirubin, Total 0.3 mg/dL (0.2-1.0); CO2 20.3 mmol/L (21.0-32.0); CREATININE 1.9 mg/dL (0.55-1.02); Calcium 8.9 mg/dL (8.5-10.1); Chloride 107 mmol/L (98-107); Estimated GFR 25.98 (mL/min/1.73m2); Ferritin 13 ng/mL (8-252); Glucose 179 mg/dL (74-106); Potassium 4.1 mmol/L (3.5-5.1); Sodium 142 mmol/L (136-145); Total Protein 7.8 g/dL (6.4-8.2)
== END 2022-01-02 15:50 | disposition home or self-care (01) ==
LOC: NCHCN 15:49
PROVIDERS: PCP Internal Medicine; Visit Provider Family Medicine
DX: N18.4 Chronic kidney disease, stage 4 (severe) (principal); E11.9 Type 2 diabetes mellitus without complications; I10 Essential (primary) hypertension; D64.9 Anemia, unspecified
CPT/HCPCS: 80053; 81003; 81015; 82728; 83036; 83540; 83550; 85025; 87086

== ENCOUNTER → 2022-01-23 10:50 | Outpatient (BNVA) | payer MEDICARE, OTHER, SELFPAY | PROVIDERS: PCP Internal Medicine; Referring Provider Internal Medicine; Visit Provider Surgery | DX: R06.00 Dyspnea, unspecified (principal); I25.10 Atherosclerotic heart disease of native coronary artery without angina pectoris; D64.9 Anemia, unspecified | CPT/HCPCS: 99214 ==

== ENCOUNTER → 2022-01-25 02:33 | Outpatient (CLI) | payer MEDICARE, OTHER, SELFPAY ==
--- NOTE | 2022-01-25 13:00 | DI.US_ITS ---
APPROVED REPORT EXAM: Comprehensive 2D, Doppler, and color-flow Echocardiogram Patient Location: Out-Patient Director Oncology: Zoe Sinclair RDCS (AE) Indications: HTN, CAD REGALADO Other Information Study Quality: Adequate Conclusion Normal left ventricular wall thickness and chamber size. Estimated ejection fraction is 55 to 60%. Wall motion is normal Normal right ventricular size and systolic function Both atria are normal in size There is no structural or hemodynamically significant valvular disease Normal estimated right ventricular systolic pressure 27 mmHg Wall motion Left Ventricle The left ventricle is normal size. The left ventricular systolic function is normal. The left ventric ular ejection fraction is within the normal range. There is normal left ventricular wall thickness. T here is normal LV segmental wall motion. There is no ventricular septal defect visualized. LVEF is 55 -60%. Right Ventricle The right ventricle is normal size. The right ventricular systolic function is normal. The RVSP is 27 .0mmHg. Atria The left atrium size is normal. The right atrium size is normal. The interatrial septum is intact wit h no evidence for an atrial septal defect. Aortic Valve The aortic valve is normal in structure. Aortic valve is trileaflet. There is no aortic valvular sten osis. No aortic regurgitation is present. Mitral Valve Mitral valve leaflets are mildly thickened. No evidence of mitral valve stenosis. Trace to mild ferny l regurgitation. Tricuspid Valve The tricuspid valve is normal in structure. There is no tricuspid valve stenosis. Trace to mild tricu spid regurgitation. Pulmonic Valve The pulmonary valve is normal in structure. There is no pulmonic valvular stenosis. Trace to mild pul rajwinder regurgitation. Great Vessels The aortic root is normal in size. The ascending aorta is normal in size. IVC is normal in size and c ollapses >50% with inspiration. Pericardium There is no pericardial effusion. 2D Dimensions IVSD d PLAX 0.88 cm F: 0.6-1.0 LV Vol A2C d MOD 84.8 mL LVPW d PLAX 0.90 cm F: 0.6 - 1.0 LV Vol A4C d MOD 92.8 mL LVID d PLAX 4.94 cm F: 3.8 - 5.2 LA vol/ BSA A2C s A-L 13.3 mL/m2 LVDs 3.30 cm F: 2.2 - 3.5 LA Area A2C s MOD 12.61 cm2 Ao Root d 2.59 cm F: 2.7 - 3.3 LV EF A4C MOD 55.5 % RA Area A4C 12.86 cm2 LV EF A2C MOD 60.0 % RA Vol/ BSA A4C s A-L 16.1 mL/m2 LV EF Biplane MOD 57.8 % Ao Asc Diam d 2.82 cm F: 2.3 - 3.1 SV 51.79 mL LV EF Teichholz 61.1 % SV Index 26.82 mL/m2 LVEF (Breen's) 57.81 % F: 54 - 74 LV Volume 68.00 mL F: 46 - 106 LV Volume Index 35.23 mL/m2 F: 29 - 61 LV Vol Biplane MOD 89.6 mL FS 32.80 % M-Mode TAPSE 2.05 cm (M/F) >1.7 LV Diastology MV E' medial 0.094 (>0.07 m/s) E/A Ratio 1.0 LV E/e MED 8.15 (<14) MV E Vmax 0.77 (0.4-1.3 m/s) MV E' lateral 0.097 (>0.1 m/s) MV A Vmax 0.80 (0.4-1.3 m/s) LV E/e LAT 7.95 (<14) MV E/A Ratio 0.94 MV E/E' medial 8.16 MV E/E' lateral 7.95 Aortic Valve LVOT Area 3.07 cm2 AoV Area Vmax 2.39 cm2 LVOT Vmax 1.42 m/s AoV Area/ BSA (Vmax) 1.24 cm2/m2 LVOT Mean Reji. 0.76 m/s JAVID Mean Reji. 2.00 cm2 LVOT Peak Grad 8.0 mmHg JAVID Mean Reji. Index 1.04 cm2/m2 LVOT Mean Grad 3.0 mmHg LVOT VTI 0.343 m LVOT Diam s 1.95 cm AoV Vmax 1.82 m/s Velocity Ratio 0.78 AoV Mean Reji. 1.17 m/s AoV Peak Grad 13.2 mmHg LVOT SV 105.28 mL AoV Mean Grad 6.3 mmHg AoV VTI 0.379 m AoV Area VTI 2.78 cm2 AoV Area/ BSA (VTI) 1.44 cm/m2 Mitral Valve MV DT 231 (160-240 msec) MV PHT 67 msec MV Area PHT 3.29 cm2 MV VTI 0.246 m MV Area VTI 4.27 (4.0-6.0 cm2) Pulmonary Valve PV Vmax 1.11 (0.5-1.5 m/s) RVOT Peak Gr. 2.46 mmHg PV Peak Grad 4.9 mmHg RVOT Mean Gr. 1.15 mmHg PV Mean Grad 2.3 mmHg RVOT VTI 0.202 m PV VTI 0.249 m RVOT Vmax 0.78 m/s Tricuspid Valve TR Peak Grad 23.9 mmHg TR Vmax 2.45 m/s RA Pressure 3.00 mmHg RVSP (TR) 27.0 mmHg
== END ==
PROVIDERS: PCP Family Medicine; Visit Provider Family Medicine
DX: I10 Essential (primary) hypertension (principal); R06.09 Other forms of dyspnea; I25.10 Atherosclerotic heart disease of native coronary artery without angina pectoris
CPT/HCPCS: 93306

== ENCOUNTER 2022-02-05 02:15 | Outpatient (CLI) | payer MEDICARE, OTHER, SELFPAY ==
[2022-02-05 12:13] LABS: Source Nasal/Nares
[2022-02-05 14:45] LABS: COVID-19 PCR Negative (Negative)
== END 2022-02-05 02:16 | disposition home or self-care (01) ==
PROVIDERS: PCP Family Medicine; Visit Provider Surgery
DX: Z20.822 Contact with and (suspected) exposure to COVID-19 (principal); Z01.818 Encounter for other preprocedural examination
CPT/HCPCS: 87635; U0005

== ENCOUNTER 2022-03-02 02:08 | Outpatient (CLI) | payer MEDICARE, OTHER, SELFPAY ==
[2022-03-02 11:10] LABS: Source Nasal/Nares
[2022-03-02 13:14] LABS: COVID-19 PCR Negative (Negative)
== END 2022-03-02 02:09 | disposition home or self-care (01) ==
LOC: LBO 02:08
PROVIDERS: PCP Family Medicine; Visit Provider Surgery
DX: Z20.822 Contact with and (suspected) exposure to COVID-19 (principal); Z01.818 Encounter for other preprocedural examination
CPT/HCPCS: 87635; U0005

== ENCOUNTER 2022-03-05 06:53 | Day surgery (SDC) | payer MEDICARE, OTHER, SELFPAY ==
--- NOTE | 2022-03-05 06:27 | ENDO_ITS ---
Date of service: 03/05/22 Time of Service: 08:51 Endoscopy Report DATE OF PROCEDURE: 03/05/22 PRE-OP DIAGNOSIS: Anemia PROCEDURE: 1. EGD with biopsies 2. Colonoscopy with polypectomy SURGEON: Jessa Paige ANESTHESIA TYPE: General:No Airway PATHOLOGY: other (pylorus, antrum, gastric polyp bx, GE junction bx, polyps x3) COMPLICATIONS: None DISPOSITION: same day INDICATIONS: Ms. Khalil is a pleasant 71-year-old female who was noticed to be anemic.? She also has some shortness of breath for which she is scheduled to have PFTs done at [facility] on January 30.? She had an abnormal stress test and underwent a cardiac catheterization.? This showed nonobstructive cardiovascular disease and the recommendation was for medical management.? She is on a low-dose aspirin as well as some blood pressure medications.? She does have an echo ordered for February 06.? We have rescheduled that with the radiology department to January 25.? We discussed the upper and lower endoscopy and the reason to do these.? I reviewed the risks and the benefits with her especially in light of her cardiac history.? As long as her echo looks okay and her PFTs look okay I think were okay to proceed although she is at higher risk of complications.? I will make sure that anesthesia is okay with it.? We have her tentatively scheduled for February 07. Risks, benefits and complications have been reviewed. Complications include but are not limited to bleeding, pain, perforation, missed small lesion/polyp, sore throat, aspiration and adverse reaction to the medications. Questions were entertained and answered to their satisfaction and they wished to proceed. No guarantees were given or implied. Proceed with colonoscopy and upper endoscopy PREP: Miralax/Dulcolax PROCEDURE START TIME: 08:51 PROCEDURE END TIME: 09:25 COLONOSCOPY RETRACTION TIME: 18 minutes FINDINGS: inflammation of the pylorus and antrum Gastric polyps internal and external hemorrhoids Diverticulosis polyps PROCEDURE DESCRIPTION: After informed consent was obtained the patient was take to the procedure room and placed in a supine position. Monitors were applied and a time out was done. The patients name, date of , procedure type, allergies to medications and metal in their body was reviewed. A bite block was placed and t he patient was sedated. Once sedated and comfortable the gastroscope was advanced through the oropharynx which was grossly normal into the esophagus. The proximal and mid- esophagus were normal. In the distal esophagus there was no inflammation noted. The scope was advanced into the stomach and through the pylorus into the 3rd portion of the duodenum. The duodenum was noted to be normal. The scope was retracted back into the stomach. There was mild inflammation noted in the antrum and at the pylorus. Biopsies were done to rule out H. pylori. There were no ulcers. The scope was retro-flexed. The cardia and fundus were noted to be normal. There was no hiatal hernia noted. The scope was retracted back into the esophagus and biopsies were done of the GE junction to rule out Eastman's. The Z line was regular. The GE junction was at 38 cm. While the patient was still sedated they were placed in a left decubitous position. A rectal exam was done. External exam showed external hemorrhoids and rectal prolapse. Internal exam revealed a normal sphincter tone and no palpable masses. The scope was then introduced and retro-flexed. Internal grade 1 hemorrhoids were identified. No masses or polyps were identified on retroflexion. The scope was then advanced to the cecum without difficulty. The ileocecal valve and appendiceal orifice were identified. The prep was adeuqate. The scope was then slowly retracted over 18 minutes back into the rectum. Polyps were removed with hot snare in the ascending colon and sigmoid colon and with cold forceops in the ascending colon. There was mild diverticulosis noted in the descending and sigmoid colon. The scope was removed and the patient was woken up and taken back to Same day surgery in stable condition. The patient tolerated the procedure well and there were no immediate complications.
--- NOTE | 2022-03-05 06:31 | W.PM.DSUDISC ---
Discharge Plan Disposition Patient Disposition: HOME Condition: Good Discharge Details Reason For Visit: colo/egd Attending Provider: Jessa Paige Primary Care Provider: Rome Guerra Home Meds and New Rx's Prescriptions: New lidocaine 4 % gel 1 applic topical TID PRNQty: 10 0RF Rx Instructions: apply small amount to rectum for pain Continued nitroglycerin 0.4 mg tablet, sublingual 0.4 mg sublingual Q5M PRN0RF Rx Instructions: do not exceed 3 doses per episode ferrous gluconate 324 mg (37.5 mg iron) tablet 324 mg PO DAILY 0RF metoprolol succinate 100 MG tablet extended release 24 hr 100 mg PO HS 0RF Label Comments: 11-20-17 PER PT 200 MG QD. glipizide 5 MG tablet 10 mg PO BID 0RF rosuvastatin [Crestor] 40 MG tablet 40 mg PO HS 0RF losartan 50 MG tablet 100 mg PO HS 0RF furosemide 20 MG tablet 40 mg PO DAILY 0RF felodipine 5 MG tablet extended release 24 hr 10 mg PO DAILY 0RF (DME) FreeStyle Lite Strips 1 EACH strip 1 ea Miscellaneous TID 0RF pantoprazole 20 MG tablet,delayed release (DR/EC) 40 mg PO HS 0RF aspirin [Adult Low Dose Aspirin] 81 mg tablet,delayed release (DR/EC) 81 mg PO DAILY 0RF Januvia 25 mg tablet 25 mg PO DAILY 0RF ropinirole 0.5 mg tablet 0.5 mg PO HS 0RF Label Comments: Take 1 tablet by mouth at bedtime Discontinued bisacodyl [Dulcolax (bisacodyl)] 5 mg tablet,delayed release (DR/EC) 5 mg PO ONCE Qty: 4 0RF Rx Instructions: Take according to provider's instructions for colonoscopy prep. polyethylene glycol 3350 17 gram/dose powder 17 g PO ONCE Qty: 238 0RF Rx Instructions: To be taken as directed by prescriber's office for colonoscopy prep. Discharge Instructions Instructions: Hemorrhoids (DC), Diverticulosis (DC), Colorectal Polyps (DC), Rubber Band Ligation (DC) Additional Instructions: Findings: Inflammation in the stomach colorectal polyps, diverticulosis, internal and external hemorrhoids Follow up: depends on bx results Please call if you develop: fevers >101.5 Nausea or Vomiting Abdominal pain that is not transient Rectal bleeding that is more then a tbsp A hard abdomen and inability to pass gas DAY SURGERY UNIT POST ENDOSCOPY INSTRUCTIONS Instructions for everyone who is given Anesthesia: For your safety, please do the following for the next 24 Hours: a. Do not drive or operate dangerous equipment b. Do not drink alcohol beverages or use any recreational drugs for the first 24 hours or while taking pain medications. The medications in your body may have a reaction that can be dangerous. c. Do not make any important decisions or sign any important papers 1. Generally there are no restrictions on your activity after a day or so has gone by, but you may feel a bit fatigued for a few days. 2. After you arrive home you may have a light meal and return to a normal diet as you can tolerate it without feeling sick to your stomach. 3. After surgery, you may feel pain or discomfort. This should be only transient, but if it persists please contact your doctor. 4. If there are any questions regarding the findings of your procedure, please feel free to contact your doctor. 6. If you are unable to contact your doctor with a problem, contact the hospital at [phone]. 7. Continue all your regular medications unless directed otherwise. I understand the above instructions and have no questions. Signature of Patient or Responsible Adult Escort Date/Time Name of Responsible Adult Escort Signature of Nurse Date/Time Activity:: Activity as Tolerated Diet:: As Tolerated Discharge Orders Discharge Orders: Discharge Order (Routine); Ordered 03/05/22 Ordered By: Jessa Paige
--- NOTE | 2022-03-05 06:32 | W.PREOPHP ---
Assessment and Plan Assessment and plan (1) Anemia: Status: Chronic Assessment and plan: Ms. Khalil is a pleasant 71-year-old female who was noticed to be anemic.? She also has some shortness of breath for which she is scheduled to have PFTs done at [facility] on January 30.? She had an abnormal stress test and underwent a cardiac catheterization.? This showed nonobstructive cardiovascular disease and the recommendation was for medical management.? She is on a low-dose aspirin as well as some blood pressure medications.? She does have an echo ordered for February 06.? We have rescheduled that with the radiology department to January 25.? We discussed the upper and lower endoscopy and the reason to do these.? I reviewed the risks and the benefits with her especially in light of her cardiac history.? We discussed internal hemorrhoid banding today. Risks, benefits and complications have been reviewed. Complications include but are not limited to bleeding, pain, perforation, missed small lesion/polyp, sore throat, aspiration and adverse reaction to the medications. Questions were entertained and answered to their satisfaction and they wished to proceed. No guarantees were given or implied. Proceed with colonoscopy and upper endoscopy (2) Positive fecal occult blood test: Status: Acute History of Present Illness Narrative: Ms. Khalil is a pleasant 71-year-old female who was referred by her primary care physician for a colonoscopy.? She was noted to have some shortness of breath, dizziness and fatigue back in September.? She underwent a stress test which did show some ischemic changes.? She then underwent a cardiac catheterization which showed nonobstructive coronary artery disease with elevated left ventricular end diastolic pressure.? She does have a prescription for nitro but has not used that for over a month.? She has an echocardiogram scheduled for February 06 and a lung test on January 30 at [facility].? While she was being worked up for all of the symptoms she was also noted to be anemic.? Her hemoglobin and hematocrit dropped from 13.5 and 42.3-9.9 and 32.8.? She has had a lot of diarrhea in the past and tried using Imodium and other medications without improvement.? She is now on iron supplementation and has soft stools.? She does state that she does have some stool incontinence at times.? She also complains of intermittent emesis in the morning.? She has noted some blood when she has a bout of emesis.? She is on pantoprazole for reflux. Anesthesia: general (without airway) Previous surgical intolerances: No Previous surgical complications: No Pulmonary risk factors: age > 60 (PFT's at [facility] on 01/30) Date of surgery: 02/07/22 ( as long as ECHO and PFT's are OK) Planned procedure: Yes Sleep apnea risks: No Can climb one flight of stairs (12-13 steps) in less than 30 seconds without stopping and without symptoms: No The surgery proposed for this patient is: moderate to high risk Active cardiac conditions: yes- non-obstructive coronary artery disease Active risk factors: SOB and non-obstructive CAD, anemia ASA (acetylsalicylic acid): yes- stop 5 days prior Beta blockers: yes Review of Systems All systems reviewed & are unremarkable except as noted in HPI and below PFSH All Active Problems Positive fecal occult blood test (Acute) Anemia (Chronic) Coronary artery disease (Chronic) REGALADO (dyspnea on exertion) (Acute) Medical History Adenomatous colon polyp Adrenal adenoma Carpal tunnel syndrome of right wrist Chronic kidney disease, stage 2, mildly decreased GFR Diabetes type 2, uncontrolled Diabetic retinopathy Dyspepsia Fibromyalgia Hyperlipidemia Hypertension Osteoarthritis of both hands Restless leg Sleep apnea, obstructive Telangiectasia Surgical History Colonoscopy - IV Sedation 2010- villous adenoma 2015- Tubular adenoma EGD - IV Sedation excision cyst of breast 2008 History of cardiac cath History of carpal tunnel surgery History of cataract surgery Hx of tubal ligation Social History Smoking/Tobacco Use Status: Former Tobacco Use Quit Date: 05/10/14 Smoking risk assessment performed?: Yes Alcohol Intake: never Drug use: Never Substance use type: does not use Do you feel safe at home: Yes Do you feel safe in your relationship?: Yes Meds Allergies and Home Medications Allergies Allergy/AdvReac Type Severity Reaction Status Date / Time metformin Allergy Severe Diarrhea Unverified 03/05/22 07:34 amlodipine Allergy Unknown Diarrhea Unverified 03/05/22 07:34 atorvastatin calcium Allergy Unknown Diarrhea Unverified 03/05/22 07:34 [From Lipitor] celecoxib [From Celebrex] Allergy Unknown GERD Unverified 03/05/22 07:34 diltiazem Allergy Unknown Other (See Unverified 03/05/22 07:34 Comment) duloxetine HCl Allergy Unknown Other (See Unverified 03/05/22 07:34 [From Cymbalta] Comment) gabapentin Allergy Unknown Other (See Unverified 03/05/22 07:34 Comment) lansoprazole [From Prevacid] Allergy Unknown Other (See Unverified 03/05/22 07:34 Comment) lisinopril Allergy Unknown Other (See Unverified 03/05/22 07:34 Comment) Home Medications Medication Instructions Recorded Confirmed Type furosemide 20 mg tablet 40 mg PO DAILY tab-cap 09/14/15 03/05/22 History glipizide 5 mg tablet 10 mg PO BID tab-cap 09/14/15 03/05/22 History losartan 50 mg tablet 100 mg PO HS tab-cap 09/14/15 03/05/22 History metoprolol succinate 100 mg 100 mg PO HS tab-cap 09/14/15 03/05/22 History tablet,extended release 24 hr rosuvastatin 40 mg tablet (Crestor) 40 mg PO HS tab-cap 09/14/15 03/05/22 History blood sugar diagnostic (FreeStyle strip 11/18/17 03/05/22 History Lite Strips) felodipine 5 mg tablet,extended 10 mg PO DAILY tab-cap 11/18/17 03/05/22 History release 24 hr pantoprazole 20 mg tablet,delayed 40 mg PO HS tab-cap 11/18/17 03/05/22 History release ropinirole 0.5 mg tablet 0.5 mg PO HS 04/10/21 03/05/22 History aspirin 81 mg tablet,delayed 81 mg PO DAILY 01/23/22 03/05/22 History release (Adult Low Dose Aspirin) bisacodyl 5 mg tablet,delayed 5 mg PO ONCE #4 tab 01/23/22 03/05/22 Rx release (Dulcolax (bisacodyl)) ferrous gluconate 324 mg (37.5 mg 324 mg PO DAILY 01/23/22 03/05/22 History iron) tablet nitroglycerin 0.4 mg sublingual 0.4 mg SUBLINGUAL Q5M PRN 01/23/22 03/05/22 History tablet polyethylene glycol 3350 17 17 g PO ONCE #238 g 01/23/22 03/05/22 Rx gram/dose oral powder sitagliptin 25 mg tablet (Januvia) 25 mg PO DAILY 01/23/22 03/05/22 History Exam Const General: cooperative, comfortable and no acute distress HENMT Head: normocephalic and atraumatic Resp Effort & Inspection: normal respiratory effort Auscultation: clear to auscultation bilaterally Cardio Rate: regular rate Rhythm: regular rhythm
[2022-03-05 07:08] VITALS: BP 137/83; PULSE 64; RESP 16; TEMP 36.2; O2SAT 96
[2022-03-05] MEDS: Lactated Ringers 1,000 ML 80 ML IV (07:47)
--- NOTE | 2022-03-05 08:03 | W.ANESPRE ---
General Info Date of Service Date Performed: 03/05/22 Height: 5 ft 4 in Weight: 85.4 kg Body Mass Index (BMI): 32.3 Surgical Procedure: Operation Date: 03/05/22 09:05 Proposed Procedure Side Surgeon p Colonoscopy/Gastroscopy Jessa Paige MD Meds Allergies and Home Medications Allergies Allergy/AdvReac Type Severity Reaction Status Date / Time metformin Allergy Severe Diarrhea Unverified 03/05/22 07:34 amlodipine Allergy Unknown Diarrhea Unverified 03/05/22 07:34 atorvastatin calcium Allergy Unknown Diarrhea Unverified 03/05/22 07:34 [From Lipitor] celecoxib [From Celebrex] Allergy Unknown GERD Unverified 03/05/22 07:34 diltiazem Allergy Unknown Other (See Unverified 03/05/22 07:34 Comment) duloxetine HCl Allergy Unknown Other (See Unverified 03/05/22 07:34 [From Cymbalta] Comment) gabapentin Allergy Unknown Other (See Unverified 03/05/22 07:34 Comment) lansoprazole [From Prevacid] Allergy Unknown Other (See Unverified 03/05/22 07:34 Comment) lisinopril Allergy Unknown Other (See Unverified 03/05/22 07:34 Comment) Home Medication Medication Instructions Recorded furosemide 20 mg tablet 40 mg PO DAILY tab-cap 09/14/15 glipizide 5 mg tablet 10 mg PO BID tab-cap 09/14/15 losartan 50 mg tablet 100 mg PO HS tab-cap 09/14/15 metoprolol succinate 100 mg 100 mg PO HS tab-cap 09/14/15 tablet,extended release 24 hr rosuvastatin 40 mg tablet (Crestor) 40 mg PO HS tab-cap 09/14/15 blood sugar diagnostic (FreeStyle strip 11/18/17 Lite Strips) felodipine 5 mg tablet,extended 10 mg PO DAILY tab-cap 11/18/17 release 24 hr pantoprazole 20 mg tablet,delayed 40 mg PO HS tab-cap 11/18/17 release ropinirole 0.5 mg tablet 0.5 mg PO HS 04/10/21 aspirin 81 mg tablet,delayed 81 mg PO DAILY 01/23/22 release (Adult Low Dose Aspirin) bisacodyl 5 mg tablet,delayed 5 mg PO ONCE #4 tab 01/23/22 release (Dulcolax (bisacodyl)) ferrous gluconate 324 mg (37.5 mg 324 mg PO DAILY 01/23/22 iron) tablet nitroglycerin 0.4 mg sublingual 0.4 mg SUBLINGUAL Q5M PRN 01/23/22 tablet polyethylene glycol 3350 17 17 g PO ONCE #238 g 01/23/22 gram/dose oral powder sitagliptin 25 mg tablet (Januvia) 25 mg PO DAILY 01/23/22 Current Visit Medications: Current Medications Generic Name Dose Route Start Last Admin Trade Name Freq PRN Reason Stop Dose Admin Hyoscyamine Sulfate 0.125 mg 03/05/22 06:34 Hyoscyamine 0.125 Mg Sl/Oral/Chew SL DIRECTED PRN Ringer's Solution 1,000 mls @ 80 mls/hr 03/05/22 06:00 03/05/22 07:47 IV 04/01/22 23:59 80 mls/hr INFUSION MAURICIO Administration IV Miscellaneous Supplies 1 each 03/05/22 06:00 Iv Access IV 04/01/22 23:59 DIRECTED MAURICIO Ondansetron HCl 4 mg 03/05/22 06:34 Ondansetron 4 Mg/2 Ml Vial IVP Q4H PRN PRN Nausea / Vomiting Sodium Chloride 0 ml 03/05/22 06:00 Normal Saline Flush 10 Ml Syr IV 04/01/22 23:59 PRN PRN Sodium Chloride 0 ml 03/05/22 06:00 Normal Saline 10 Ml Vial IJ 04/01/22 23:59 DIRECTED PRN Sterile Water 0 ml 03/05/22 06:00 Water,Injection,Sterile 10 Ml Vial IJ 04/01/22 23:59 DIRECTED PRN PFSH Active Problems Active Problems: Problem Status Onset Code Nuclear sclerotic cataract of right eye H25.11 Posterior subcapsular age-related cataract, right eye H25.041 Positive fecal occult blood test R19.5 Anemia D64.9 Coronary artery disease I25.10 REGALADO (dyspnea on exertion) R06.00 Medical History Medical History Adenomatous colon polyp Adrenal adenoma Carpal tunnel syndrome of right wrist Chronic kidney disease, stage 2, mildly decreased GFR Diabetes type 2, uncontrolled Diabetic retinopathy Dyspepsia Fibromyalgia Hyperlipidemia Hypertension Osteoarthritis of both hands Restless leg Sleep apnea, obstructive Telangiectasia Surgical History Surgical History Colonoscopy - IV Sedation 2010- villous adenoma 2015- Tubular adenoma EGD - IV Sedation excision cyst of breast 2009 History of cardiac cath History of carpal tunnel surgery History of cataract surgery Hx of tubal ligation Tobacco Smoking/Tobacco Use Status: Former Tobacco Use Alcohol Alcohol Intake: never Substance Use Substance use: Never Substance use type: does not use Vital Signs and Lab Results Vital Signs Most Recent Vital Signs in EMR: Most Recent Vital Signs Temp Pulse Resp BP Pulse Ox 36.2 C L 64 16 137/83 96 03/05/22 07:08 03/05/22 07:08 03/05/22 07:08 03/05/22 07:08 03/05/22 07:08 Point of Care Results Point of Care Results: Finger Stick Blood Glucose 217 03/05/22 07:18 Lab Results Blood Type / Crossmatch: No Data to Display Complete Blood Count: No Data to Display Complete Metabolic Panel: No Data to Display Liver Function Panel: No Data to Display Coagulation Panel: No Data to Display Cardiac Panel: No Data to Display Arterial Blood Gas: No Data to Display Venous Blood Gas: No Data to Display Pancreas Panel: No Data to Display Thyroid Panel: No Data to Display Infectious Disease: Coronavirus (COVID-19)(PCR) Negative (Negative) 03/02/22 07:05 03/02/22 Coronavirus 2019 Source Nasal/Nares 03/02/22 07:05 03/02/22 Blood Cultures: No Data to Display Toxicology Panel: No Data to Display Imaging and Studies Imaging and Studies Study information below may be from another EMR and interpreted by another provider. Please see original notes in EMR for more complete details. Stress Test Summary: Stress ECG Conclusion 1. Electrocardiogram was within normal limits 2. Patient exercised on the Eliu protocol and completed a workload of 5.71 METS, limited by shortness of breath and fatigue 3. Normal heart rate and blood pressure response to exercise. Patient achieved 92% of predicted heart rate for age 4. Electrocardiographically the test was consistent with myocardial ischemia with 2 to [address] depression noted in the inferior leads, [address] segments became downsloping in recovery and persisted for approximately 20 minutes 5. Premature ventricular contractions were noted in recovery Langley Treadmill Score is 0.4 which is Moderate risk. Echocardiogram Summary: Conclusion Normal left ventricular wall thickness and chamber size. Estimated ejection fraction is 55 to 60%. Wall motion is normal Normal right ventricular size and systolic function Both atria are normal in size There is no structural or hemodynamically significant valvular disease Normal estimated right ventricular systolic pressure 27 mmHg Carotid Artery Summary:: 04/05/2014 Mild right and moderate left carotid stenosis is demonstrated. Please see the cerebrovascular ultrasound worksheet for further details. Anesthesia Assessment and Plan Anesthesia History Personal History: No History of Anesthesia Complications Family History: No Family History of Anesthesia Complications Exercise Tolerance Exercise Tolerance: Metabolic Equivalents<4 Pertinent Negatives Pertinent Negatives: No Symptoms of GERD (Food related only) and No Major Cardiovascular Symptoms or Complaints Cardiac & Pulmonary Exam Cardiac Exam: Normal S1/S2 Heart Sounds Pulmonary Exam: Clear Bilateral Breath Sounds Cardiac and Pulmonary Comment:: REGALADO secondary to anemia Implantable Cardiac Device Does patient have a Pacemaker or an ICD?: No Airway Exam Known Difficult Airway: No Mallampati Class: 2 Mouth Opening: Normal (> 3cm) Thyromental Distance: Greater than 3 cm Neck Range of Motion: Full ROM Neck Circumference: Normal Teeth Condition: Normal Dentition ASA Classification ASA Score: ASA 3 Emergency Case?: No NPO Status NPO Status: NPO Clears >2 hours, Solids >8 hours Anesthesia Plan Resuscitation Status: Full Code Anesthesia Technique: General Anesthesia Airway Planned: Natural Airway Monitors Used: Standard Monitors
[2022-03-05 08:17] VITALS: BMI 32.3
--- NOTE | 2022-03-05 08:52 | STOM_PTH ---
PATIENT: Brynn Khalil LOC: [facility] U#:[id number] AGE/SX: 71/F ROOM: RE03/05/[address]: Jessa Paige MD : [id number] BED: DIS: 03/05/2022 SPEC #: [id number] RECD: 03/05/22 12:54 STATUS: MARLENE RE #: [id number] DENISE: 03/05/22 08:[address]: Jessa Paige DEPT: Surgical Specimen RECD BY: Reyna Mahan ENTERED: 03/05/22 12:55 SP TYPE: STOMACH OTHR DR: Rome Guerra Tissues: 1 - STOMACH BIOPSY 2 - STOMACH BIOPSY 3 - STOMACH BIOPSY 4 - ESOPHAGUS BIOPSY 5 - BIOPSY BOWEL 6 - BIOPSY BOWEL Procedures: GROSS AND MICRO LEVEL 4 Comments: [id number]
--- NOTE | 2022-03-05 09:38 | W.ANESPOSTOP ---
Postoperative Evaluation Date, Time and Location Date Performed: 03/05/22 Time Performed: 09:38 Patient Location: Day Surgery Unit Vital Signs Most Recent Imported Vital Signs: Most Recent Vital Signs Temp Pulse Resp BP Pulse Ox 36.2 C L 64 16 137/83 96 03/05/22 07:08 03/05/22 07:08 03/05/22 07:08 03/05/22 07:08 03/05/22 07:08 Most Recent Manually Entered Vital Signs: Adult Blood Pressure: 97/58 Heart Rate: 61 Respirations: 12 Oxygen Saturation (%): 97 Temperature (C): 36.4 C Pain Score (0-10 Scale): 0 Pain Score Most Recent Pain Score: Most Recent Pain Score Pain Level 3 03/05/22 07:08 Assessment Mental Status: Awake (Alert & Oriented to Patient Baseline) Airway and Respiratory Function: Patent airway with normal (patient baseline) respiratory exam Cardiovascular Function: Hemodynamically Stable Hydration Status: Adequately Hydrated Nausea & Vomiting: No Nausea or Vomiting Pain: Pt. Denies Any Pain Peripheral Nerve Block: Patient did not receive a nerve block
[2022-03-05 09:39] VITALS: BP 97/58; PULSE 61; RESP 12; TEMPC 36.4; O2SAT 97
[2022-03-05 09:40] VITALS: BP 97/58; PULSE 58; RESP 20; TEMP 36.3; O2SAT 96
[2022-03-05 10:05] VITALS: BP 112/76; PULSE 64; RESP 18; TEMP 36.5; O2SAT 96
== END 2022-03-05 10:56 | disposition home or self-care (01) ==
LOC: SUR 06:53
PROVIDERS: PCP Family Medicine; Visit Provider Surgery
PROC: (CPT 45385; principal; 2022-03-05 09:00)
PROC: (CPT 45385; 2022-03-05 09:00)
DX: D64.9 Anemia, unspecified (principal); R19.5 Other fecal abnormalities; K63.5 Polyp of colon; K31.7 Polyp of stomach and duodenum; K29.70 Gastritis, unspecified, without bleeding; K57.30 Diverticulosis of large intestine without perforation or abscess without bleeding; K64.4 Residual hemorrhoidal skin tags; E11.22 Type 2 diabetes mellitus with diabetic chronic kidney disease; N18.2 Chronic kidney disease, stage 2 (mild); I12.9 Hypertensive chronic kidney disease with stage 1 through stage 4 chronic kidney disease, or unspecified chronic kidney disease; E11.319 Type 2 diabetes mellitus with unspecified diabetic retinopathy without macular edema; K64.0 First degree hemorrhoids; K31.9 Disease of stomach and duodenum, unspecified; K22.89 Other specified disease of esophagus
CPT/HCPCS: 45385; 45380; 43239; 88305

== ENCOUNTER 2022-04-04 10:19 | Outpatient (REF) | payer MEDICARE, OTHER, SELFPAY ==
[2022-04-04 14:27] LABS: HCT 39.7 % (36.0-46.0); HGB 12.7 g/dL (11.2-15.7); MCH 29.7 pg (27.0-33.0); MCV 93 fL (80-95); MPV 11.7 fL (8.0-11.0); Platelet Count 121 10^3/uL (130-400); RBC 4.28 10^6/uL (3.93-5.22); RDW 15.6 % (11.7-14.6); RDW-SD 53.1 fL; WBC 5.23 10^3/uL (4.4-10.8)
[2022-04-04 15:00] LABS: Ferritin 53 ng/mL (8-252)
== END 2022-04-04 10:20 | disposition home or self-care (01) ==
LOC: NCHCN 10:19
PROVIDERS: PCP Family Medicine; Visit Provider Family Medicine
DX: D64.9 Anemia, unspecified (principal)
CPT/HCPCS: 85027; 82728

== ENCOUNTER 2022-07-04 10:15 | Outpatient (REF) | payer MEDICARE, OTHER, SELFPAY ==
[2022-07-04 16:41] LABS: Anion Gap 10.2 mmol/L (3-11); BUN 42 mg/dL (7-18); CO2 22.8 mmol/L (21.0-32.0); Calcium 9.1 mg/dL (8.5-10.1); Chloride 109 mmol/L (98-107); Estimated GFR 26.05 (mL/min/1.73m2); Glucose 225 mg/dL (74-106); Potassium 4.1 mmol/L (3.5-5.1); Sodium 142 mmol/L (136-145)
[2022-07-04 16:51] LABS: Bilirubin Negative (Negative); Blood Trace-intact (Negative); Clarity Clear (Clear); Glucose Negative (Negative); Ketones Negative (Negative); Leukocyte Esterase Trace (Negative); Nitrite Negative (Negative); Urobilinogen 0.2 EU/dL (Up TO 0.2); pH 5.5 (5-8)
[2022-07-04 17:21] LABS: RBC Negative HPF (0-2)
[2022-07-04 17:22] LABS: Bacteria Negative HPF (Negative); C & S Indicated? Yes; Casts Negative LPF (Negative); Crystals Negative HPF (Negative); Epithelial Cells Negative HPF (Negative); Mucus Negative (Negative); Other Cells Few Renal (Negative)
== END 2022-07-04 10:16 | disposition home or self-care (01) ==
LOC: NCHCN 10:15
PROVIDERS: PCP Family Medicine; Visit Provider Family Medicine
DX: I10 Essential (primary) hypertension (principal); E11.9 Type 2 diabetes mellitus without complications; N18.4 Chronic kidney disease, stage 4 (severe); N90.89 Other specified noninflammatory disorders of vulva and perineum; L29.2 Pruritus vulvae; R82.998 Other abnormal findings in urine
CPT/HCPCS: 80048; 81003; 81015; 85014; 85018; 87086

== ENCOUNTER → 2022-07-05 02:18 | Outpatient (CLI) | payer MEDICARE, OTHER, SELFPAY ==
--- NOTE | 2022-07-05 | DI.RAD_ITS ---
Exam(s) XR SHOULDER RT COMPLETE 2+V EXAM: XR SHOULDER RT COMPLETE 2+V CLINICAL HISTORY: TENDINITIS RT SHOULDER, M75.81, PAIN. TECHNIQUE: 2D digital imaging was performed of the right shoulder. Five images were obtained. AP, Grashey, Y-view and axillary views were obtained. COMPARISON: No exams were available for comparison FINDINGS: BONES: No acute fracture is present. No bony destructive lesion is seen. JOINTS: No dislocation present. Mild degenerative changes of the acromioclavicular joint. Glenohumer al joint is well maintained. SOFT TISSUE: Normal. IMPRESSION: Mild degenerative changes of the AC joint. DATA REPOSITORY: RADIATION DOSE DELIVERED:
== END ==
PROVIDERS: PCP Family Medicine; Visit Provider Family Medicine
DX: M19.011 Primary osteoarthritis, right shoulder (principal)
CPT/HCPCS: 73030

== ENCOUNTER 2022-10-04 15:38 | Outpatient (REF) | payer MEDICARE, OTHER, SELFPAY ==
[2022-10-04 20:49] LABS: HCT 36.9 % (36.0-46.0); HGB 11.7 g/dL (11.2-15.7); MCH 29.8 pg (27.0-33.0); MCHC 31.7 % (32.0-36.0); MCV 94 fL (80-95); MPV 12.3 fL (8.0-11.0); Platelet Count 143 10^3/uL (130-400); RBC 3.93 10^6/uL (3.93-5.22); RDW 13.1 % (11.7-14.6); RDW-SD 45.2 fL; WBC 6.16 10^3/uL (4.4-10.8)
[2022-10-04 23:04] LABS: Anion Gap 12.3 mmol/L (3-11); BUN 56 mg/dL (7-18); CO2 23.7 mmol/L (21.0-32.0); CREATININE 2.8 mg/dL (0.55-1.02); Calcium 9.3 mg/dL (8.5-10.1); Chloride 103 mmol/L (98-107); Ferritin 50 ng/mL (8-252); Glucose 239 mg/dL (74-106); Potassium 4.9 mmol/L (3.5-5.1); Sodium 139 mmol/L (136-145)
== END 2022-10-04 15:39 | disposition home or self-care (01) ==
LOC: NCHCN 15:38
PROVIDERS: PCP Family Medicine; Visit Provider Family Medicine
DX: I10 Essential (primary) hypertension (principal); D64.9 Anemia, unspecified; I50.9 Heart failure, unspecified
CPT/HCPCS: 80048; 85027; 82728

== ENCOUNTER 2023-01-02 18:00 | Outpatient (REF) | payer MEDICARE, OTHER, SELFPAY ==
[2023-01-02 21:25] LABS: Anion Gap 10.7 mmol/L (3-11); BUN 59 mg/dL (7-18); CO2 26.3 mmol/L (21.0-32.0); CREATININE 2.6 mg/dL (0.55-1.02); Calcium 10.1 mg/dL (8.5-10.1); Chloride 105 mmol/L (98-107); Glucose 276 mg/dL (74-106); Potassium 5.3 mmol/L (3.5-5.1); Sodium 142 mmol/L (136-145)
== END 2023-01-02 18:01 | disposition home or self-care (01) ==
LOC: NCHCN 18:00
PROVIDERS: PCP Family Medicine; Visit Provider Family Medicine
DX: E11.9 Type 2 diabetes mellitus without complications (principal); I10 Essential (primary) hypertension
CPT/HCPCS: 80048

== ENCOUNTER 2023-04-03 10:37 | Outpatient (REF) | payer MEDICARE, OTHER, SELFPAY ==
[2023-04-03 15:29] LABS: ALT 27 U/L (14-59); AST 18 U/L (15-37); Alkaline Phosphatase 70 U/L (46-116); Anion Gap 8.9 mmol/L (3-11); BUN 63 mg/dL (7-18); Bilirubin, Total 0.4 mg/dL (0.2-1.0); CO2 24.1 mmol/L (21.0-32.0); CREATININE 2.3 mg/dL (0.55-1.02); Calcium 9.7 mg/dL (8.5-10.1); Chloride 106 mmol/L (98-107); Glucose 221 mg/dL (74-106); Potassium 4.9 mmol/L (3.5-5.1); Sodium 139 mmol/L (136-145); Total Protein 8.1 g/dL (6.4-8.2)
== END 2023-04-03 10:38 | disposition home or self-care (01) ==
LOC: NCHCN 10:37
PROVIDERS: PCP Family Medicine; Visit Provider Family Medicine
DX: E11.9 Type 2 diabetes mellitus without complications (principal); N18.4 Chronic kidney disease, stage 4 (severe); I10 Essential (primary) hypertension
CPT/HCPCS: 80053

== ENCOUNTER 2023-07-05 10:39 | Outpatient (CLI) | payer MEDICARE, OTHER, SELFPAY ==
[2023-07-05 10:33] LABS: HGB 12.7 g/dL (11.2-15.7); MCH 29.8 pg (27.0-33.0); MCHC 32.6 % (32.0-36.0); MCV 92 fL (80-95); MPV 12.2 fL (8.0-11.0); Platelet Count 139 10^3/uL (130-400); RBC 4.26 10^6/uL (3.93-5.22); RDW 12.8 % (11.7-14.6); RDW-SD 42.5 fL; WBC 5.53 10^3/uL (4.4-10.8)
[2023-07-05 10:50] LABS: Hemoglobin A1C 8.9 % (<5.7)
[2023-07-05 10:51] LABS: Anion Gap 10.5 mmol/L (3-11); BUN 36 mg/dL (7-18); CO2 23.5 mmol/L (21.0-32.0); CREATININE 2.3 mg/dL (0.55-1.02); Chloride 106 mmol/L (98-107); Glucose 277 mg/dL (74-106); Sodium 140 mmol/L (136-145)
== END 2023-07-05 10:40 | disposition home or self-care (01) ==
LOC: LBO 10:40
PROVIDERS: PCP Family Medicine; Visit Provider Internal Medicine Nephrology
DX: N18.4 Chronic kidney disease, stage 4 (severe) (principal); E87.5 Hyperkalemia; E11.9 Type 2 diabetes mellitus without complications; D64.9 Anemia, unspecified
CPT/HCPCS: 36415; 80048; 85027; 83036

== ENCOUNTER 2023-07-08 06:50 | Inpatient (IN) | payer MEDICARE, OTHER, SELFPAY ==
[2023-07-08] VITALS (93 sets, daily range): BP systolic 125–179; BP diastolic 50–110; PULSE 69–111; RESP 16–39; TEMP 36–37.6; O2SAT 88–99
--- NOTE | 2023-07-08 07:00 | RT.EKG_ITS ---
APPROVED REPORT Exam: Resting ECG Reason for Exam: sob Patient Location: E HR:78 bpm ECG Measurements Heart Rate 78 AXIS LA 157 P 46 QRSd 110 QRS -11 QT 384 T 33 QTc 437 Conclusion Sinus rhythm...normal P axis, V-rate 60- 99 Physician: no stemi
--- NOTE | 2023-07-08 07:15 | DI.RAD_ITS ---
Exam(s) XR PORTABLE CHEST AP EXAM: XR PORTABLE CHEST AP CLINICAL HISTORY: Shortness of breath. TECHNIQUE: 2D digital imaging was performed. COMPARISON: CR XR CHEST 2V PA LATERAL from 03/13/2019 FINDINGS: Single AP portable view. Heart size is upper normal. The mediastinum is not widened. Lungs are clear. No infiltrates nor obvious pleural effusions. IMPRESSION: No acute pulmonary findings on this single AP portable view of the chest. DATA REPOSITORY: RADIATION DOSE DELIVERED:
--- NOTE | 2023-07-08 07:15 | ED.GENADUL_ITS ---
Discharge Plan Discharge Details Chief Complaint: GenMedical Primary Care Provider: Rome Guerra ED Provider: Terence Garcia Home Meds and New Rx's Prescriptions: No Action nitroglycerin 0.4 mg tablet, sublingual 0.4 mg sublingual Q5M PRN Rx Instructions: do not exceed 3 doses per episode ferrous gluconate 324 mg (37.5 mg iron) tablet 324 mg PO DAILY Patient Comments: pt states not taking metoprolol succinate 100 MG tablet extended release 24 hr 100 mg PO HS Patient Comments: 11-20-17 PER PT 200 MG QD. glipizide 5 MG tablet 10 mg PO BID rosuvastatin [Crestor] 40 MG tablet 40 mg PO HS losartan 50 MG tablet 100 mg PO HS Patient Comments: pt states not taking furosemide 20 MG tablet 40 mg PO DAILY felodipine 5 MG tablet extended release 24 hr 10 mg PO DAILY (DME) FreeStyle Lite Strips 1 EACH strip 1 ea Miscellaneous TID pantoprazole 20 MG tablet,delayed release (DR/EC) 40 mg PO HS aspirin [Adult Low Dose Aspirin] 81 mg tablet,delayed release (DR/EC) 81 mg PO DAILY Januvia 25 mg tablet 25 mg PO DAILY lidocaine 4 % gel 1 applic topical TID PRNQty: 10 0RF Rx Instructions: apply small amount to rectum for pain spironolactone 25 mg tablet 25 mg PO DAILY Patient Comments: Take 1 tablet by mouth every morning ropinirole 0.5 mg tablet 0.5 mg PO HS Patient Comments: Take 1 tablet by mouth at bedtime Medical Decision Making HPI This is a 72-year-old diabetic female with a history of hypertension hyperli pidemia arriving to the emergency department via private vehicle in the setting of multiple complaints. Patient reports that for the past week she has not felt well. Last night she noticed a fever cough. She also developed some nausea with vomiting. She has not had any diarrhea but she did develop a generalized throbbing headache. She attempted treatment at home with acetaminophen but subsequently vomited. She has no history of PE nor DVT. She is not having chest pain but she does endorse some shortness of breath. She lives at home with her . She has no sick contacts currently. She has not taken any ibuprofen. She does not have a sore throat. She denies routine tobacco, ethanol, and illicits. She has not taken any recent falls. General: Well-appearing in no acute distress speaking in complete sentences. Head: Normocephalic, atraumatic. Eye: Extraocular eye movements intact. No conjunctival injection. No scleral icterus. Ear, nose, mouth, throat: Grossly normal inspection. Normal voice, handling secretions normally. Neck: Trachea midline. Cardiovascular: Well-perfused distal extremities. Regular rate and rhythm. No murmurs. Respiratory: Nonlabored respiration. Clear lungs bilaterally. Back: Scattered telangiectasias to back diffusely. Gastrointestinal: Nondistended abdomen. Soft nontender. Musculoskeletal: No edema. Moving all 4 extremities spontaneously. Scattered telangiectasias to bilateral lower extremities. Skin: Normal for age and race, grossly normal temperature and turgor. No acute rash. Neurologic: Alert and appropriate, no apparent acute deficits. GCS 15. Cranial nerves II through XII intact grossly. 5 out of 5 bilateral upper and lower extremity strength. Psychiatric: Mood and manner are appropriate. Grooming and personal hygiene are appropriate. MDM This is an overall well-appearing normothermic and not tachycardic 72-year-old female with fever cough nausea vomiting and headache most likely secondary to a viral etiology given lack of focal lung abnormalities. Nonetheless based on the patient's age will obtain a chest x-ray to assess for pneumonia and labs to calculate a port score. Patient's vital signs are notable for a hypertension and she has not yet taken her home furosemide. While she is undergoing her evaluation we will hold this medication at this point in time. Her vitals are not consistent with SIRS criteria and she is not septic appearing so I did not order blood cultures and lactate nor did I treat empirically with antibiotics. She is not having chest pain to suggest ACS however will undergo an ECG given shortness of breath and her age. My suspicion is low for ACS so I did not order a troponin. I considered PE however the patient was not having calf pain, has no prior history of PE and given her cough I felt PE was less likely. No pain out of proportion to suggest necrotizing soft tissue infection. Clear sounds bilaterally so doubt pneumothorax. Patient appears hydrated so we will defer IV fluids at this point in time. No recent foreign travel to suggest an atypical infection. Not immunocompromised beyond diabetes to suggest increased risk for opportunistic infection. No history of tobacco use nor COPD to suggest benefit from steroids nor albuterol and furthermore no wheezes. Patient has been vomiting however does not have chest pain so my suspicion for pneumomediastinum and esophageal rupture are exceedingly low. Patient does endorse that generalized pounding headache which began last night. Her headache was not sudden in onset and so my suspicion for subarachnoid hemorrhage is exceedingly low so I do not feel that she requires a CT head as she is neurologically intact. We will sign patient out to the oncoming daytime provider pending all labs and imaging. HPI General Date/Time Provider Initiated Documentation: 07/08/23 06:55 . Related Data Home Medications Medication Instructions Recorded Confirmed furosemide 20 mg tablet 40 mg PO DAILY 09/14/15 07/08/23 glipizide 5 mg tablet 10 mg PO BID 09/14/15 07/08/23 losartan 50 mg tablet 100 mg PO HS 09/14/15 07/08/23 metoprolol succinate 100 mg 100 mg PO HS 09/14/15 07/08/23 tablet,extended release 24 hr rosuvastatin 40 mg tablet (Crestor) 40 mg PO HS 09/14/15 07/08/23 blood sugar diagnostic (FreeStyle 11/18/17 07/08/23 Lite Strips) felodipine 5 mg tablet,extended 10 mg PO DAILY 11/18/17 07/08/23 release 24 hr pantoprazole 20 mg tablet,delayed 40 mg PO HS 11/18/17 07/08/23 release ropinirole 0.5 mg tablet 0.5 mg PO HS 04/10/21 07/08/23 aspirin 81 mg tablet,delayed 81 mg PO DAILY 01/23/22 07/08/23 release (Adult Low Dose Aspirin) ferrous gluconate 324 mg (37.5 mg 324 mg PO DAILY 01/23/22 07/08/23 iron) tablet nitroglycerin 0.4 mg sublingual 0.4 mg sublingual Q5M PRN 01/23/22 07/08/23 tablet sitagliptin phosphate 25 mg tablet 25 mg PO DAILY 01/23/22 07/08/23 (Januvia) lidocaine 4 % topical gel 1 applic topical TID PRN #10 grams 03/05/22 07/08/23 spironolactone 25 mg tablet 25 mg PO DAILY 07/08/23 07/08/23 Previous Rx's Medication Instructions Recorded lidocaine 4 % topical gel 1 applic topical TID PRN #10 grams 03/05/22 Allergies Allergy/AdvReac Type Severity Reaction Status Date / Time metformin Allergy Severe Diarrhea Unverified 07/08/23 07:00 amlodipine Allergy Unknown Diarrhea Unverified 07/08/23 07:00 atorvastatin calcium Allergy Unknown Diarrhea Unverified 07/08/23 07:00 [From Lipitor] celecoxib [From Celebrex] Allergy Unknown GERD Unverified 07/08/23 07:00 diltiazem Allergy Unknown Other (See Unverified 07/08/23 07:00 Comment) duloxetine HCl Allergy Unknown Other (See Unverified 07/08/23 07:00 [From Cymbalta] Comment) gabapentin Allergy Unknown Other (See Unverified 07/08/23 07:00 Comment) lansoprazole [From Prevacid] Allergy Unknown Other (See Unverified 07/08/23 07:00 Comment) lisinopril Allergy Unknown Other (See Unverified 07/08/23 07:00 Comment) General Stated Complaint: GenMedical YG: 3 PFSH All Active Problems (Updated 03/09/22 @ 07:30 by Christen Shah RN) GERD (gastroesophageal reflux disease) (Chronic) Gastritis (Acute) Tubular adenoma of colon (Acute) Positive fecal occult blood test (Acute) Anemia (Chronic) Coronary artery disease (Chronic) REGALADO (dyspnea on exertion) (Acute) Medical History (Updated 03/09/22 @ 07:30 by Christen Shah RN) Adenomatous colon polyp Adrenal adenoma Carpal tunnel syndrome of right wrist Chronic kidney disease, stage 2, mildly decreased GFR Diabetes type 2, uncontrolled Diabetic retinopathy Dyspepsia Fibromyalgia Hyperlipidemia Hypertension Osteoarthritis of both hands Restless leg Sleep apnea, obstructive Telangiectasia Surgical History (Updated 03/09/22 @ 07:30 by Christen Shah RN) Colonoscopy - IV Sedation 2010- villous adenoma 2015- Tubular adenoma EGD - IV Sedation excision cyst of breast 2008 H/O esophagogastroduodenoscopy (~02/2022) History of cardiac cath History of carpal tunnel surgery History of cataract surgery History of colonoscopy (~02/2022) Hx of tubal ligation Social History Smoking/Tobacco Use Status: Former Tobacco Use Quit Date: 05/10/14 Smoking risk assessment performed?: Yes Alcohol Intake: never Drug use: Never Substance use type: does not use Housing: house Do you feel safe at home: Yes Do you feel safe in your relationship?: Yes Course Vital Signs Vital signs: Vital Signs Temperature 37.6 C 07/08/23 06:53 Pulse 82 07/08/23 06:53 Respiratory Rate 16 07/08/23 06:53 Blood Pressure 179/88 H 07/08/23 06:53 Pulse Oximetry 99 07/08/23 06:53 Temperature 37.6 C 07/08/23 06:53 Temperature Source Oral 07/08/23 06:53 Pulse 82 07/08/23 06:53 Respiratory Rate 16 07/08/23 06:53 Respiratory Effort Normal, Non-Labored 07/08/23 06:58 Blood Pressure 179/88 H 07/08/23 06:53 Blood Pressure Position Sitting 07/08/23 06:53 Pulse Oximetry 99 07/08/23 06:53 Oxygen Delivery Method Room Air 07/08/23 06:53 Oxygen Flow Rate 0 07/08/23 06:53
[2023-07-08 07:37] LABS: Abs Immature Grans 0.02 10^3/uL (0.0-0.06); Absolute Basophil Count 0.04 10^3/uL (0.0-0.2); Absolute Eosinophil Count 0.03 10^3/uL (0.0-0.7); Absolute Lymphocyte Count 0.28 10^3/uL (1.2-3.4); Absolute Monocyte Count 0.57 10^3/uL (0.1-0.8); Absolute Neutrophil Count 4.81 10^3/uL (1.2-6.7); Basophils % 0.7; Eosinophils % 0.5; HCT 37.9 % (36.0-46.0); HGB 12.3 g/dL (11.2-15.7); Immature Grans % 0.3; Lymphocytes % 4.9; MCH 29.9 pg (27.0-33.0); MCHC 32.5 % (32.0-36.0); MCV 92 fL (80-95); MPV 12.1 fL (8.0-11.0); Monocytes % 9.9; Neutrophils % 83.7; Platelet Count 116 10^3/uL (130-400); RBC 4.12 10^6/uL (3.93-5.22); RDW 12.9 % (11.7-14.6); RDW-SD 43.2 fL; WBC 5.75 10^3/uL (4.4-10.8)
[2023-07-08] MEDS: Ondansetron 4 MG/2 ML VIAL IVP (07:37)
[2023-07-08] MEDS: ACETAMINOPHEN 1,000 MG/100 ML BTL 400 MG IVPB (07:38)
[2023-07-08 07:48] LABS: Anion Gap 9.2 mmol/L (3-11); BUN 37 mg/dL (7-18); CO2 24.8 mmol/L (21.0-32.0); CREATININE 2.1 mg/dL (0.55-1.02); Calcium 9.2 mg/dL (8.5-10.1); Chloride 101 mmol/L (98-107); Estimated GFR 24.42 (mL/min/1.73m2); Glucose 248 mg/dL (74-106); Potassium 4.1 mmol/L (3.5-5.1); Sodium 135 mmol/L (136-145)
[2023-07-08 07:50] LABS: Prothrombin Time 10.4 sec (9.3-11.0)
[2023-07-08 08:15] LABS: Influenza A PCR Negative (Negative); Influenza B PCR Negative (Negative); RSV PCR Negative (Negative)
[2023-07-08 08:22] LABS: COVID-19 PCR Positive (Negative); Source Nasopharynx
[2023-07-08] MEDS: Dexamethasone 10 MG/ML VIAL 12 MG IVP (08:30)
--- NOTE | 2023-07-08 08:37 | W.EDPROG ---
Date of service: 07/08/23 Time of Service: 08:37 Medical Decision Making Patient was signed out to me by my colleague Dr. Garcia. Please refer to his HPI, physical exam, assessment and plan. At time of signout we are awaiting laboratory work-up and chest x-ray results. Labs demonstrate lymphopenia, chest x-ray read as negative. Laboratory work-up demonstrates chronic CKD, relatively unchanged. Electrolytes stable. COVID is positive, influenza and RSV are negative. Patient did transition to mild hypoxemia in the mid to high 80s. She was transitioned to 2 L supplemental oxygen. Decision was made to start remdesivir at 200 mg and also administer 12 of Decadron. Patient tolerated this well. She is saturating well on supplemental oxygen 2 L at this time. Discussed the case with the hospitalist , he agrees with the assessment and plan. I have extensively reviewed the treatment plan with the patient. I have addressed all patient concerns at this time. I have also discussed the plan with the admitting physician and they agree with the current assessment and plan and have agreed to assume responsibility for the patient. All parties demonstrate verbal understanding and agreement with our assessment and plan at this time. The documentation in this chart was dictated using [employer] dictation software. Please excuse any dictation errors. Discharge Plan Disposition Patient Disposition: Admit to [facility] Condition: Improving Discharge Details Chief Complaint: GenMedical Clinical Impression: COVID-19, Hypoxemia Primary Care Provider: Rome uGerra ED Provider: Remy Michelle Home Meds and New Rx's Prescriptions: No Action nitroglycerin 0.4 mg tablet, sublingual 0.4 mg sublingual Q5M PRN Rx Instructions: do not exceed 3 doses per episode ferrous gluconate 324 mg (37.5 mg iron) tablet 324 mg PO DAILY Patient Comments: pt states not taking metoprolol succinate 100 MG tablet extended release 24 hr 100 mg PO HS Patient Comments: 18 PER PT 200 MG QD. glipizide 5 MG tablet 10 mg PO BID rosuvastatin [Crestor] 40 MG tablet 40 mg PO HS losartan 50 MG tablet 100 mg PO HS Patient Comments: pt states not taking furosemide 20 MG tablet 40 mg PO DAILY felodipine 5 MG tablet extended release 24 hr 10 mg PO DAILY (DME) FreeStyle Lite Strips 1 EACH strip 1 ea Miscellaneous TID pantoprazole 20 MG tablet,delayed release (DR/EC) 40 mg PO HS aspirin [Adult Low Dose Aspirin] 81 mg tablet,delayed release (DR/EC) 81 mg PO DAILY Januvia 25 mg tablet 25 mg PO DAILY lidocaine 4 % gel 1 applic topical TID PRNQty: 10 0RF Rx Instructions: apply small amount to rectum for pain spironolactone 25 mg tablet 25 mg PO DAILY Patient Comments: Take 1 tablet by mouth every morning ropinirole 0.5 mg tablet 0.5 mg PO HS Patient Comments: Take 1 tablet by mouth at bedtime
[2023-07-08] MEDS: REMDESIVIR 200 MG in Normal Saline 250 ML 250 MG IVPB (08:53)
[2023-07-08 10:08] LABS: Lab Add On Test DONE
[2023-07-08 10:19] LABS: C-Reactive Protein 0.66 mg/dL (0.0-0.3)
[2023-07-08 10:44] LABS: D-Dimer 624 ng/mlFEU (<500)
--- NOTE | 2023-07-08 12:26 | HPE_ITS ---
Date of service: 07/08/23 Time of Service: 12:26 Assessment and Plan Assessment and plan (1) COVID-19: Status: Acute Assessment and plan: Initially she was not hypoxic but during her ED evaluation her O2 saturations decreased into the upper 80's. Admitted while on 2L NC At time of my evaluation she was off NC and O2 saturation was 94%. Remdesivir 200mg IV administered in the ED. Will continue with 100mg IV daily. Dexamethasone 12mg IV given in the ED. Cont with 6mg po daily. IS Prone positioning as tolerated. Monitor CRP and d-dimer. (2) Hypoxemia: Status: Acute Assessment and plan: Secondary to Covid infection. Likely pneumonia even though not noted on CXR. Supplemental O2 as needed. Improved. (3) Anemia: Status: Chronic Assessment and plan: Chronic but now with a normal hgb. (4) Coronary artery disease: Status: Chronic Assessment and plan: Not c/o CP Cont aspirin and metoprolol. (5) Chronic kidney disease, stage 2, mildly decreased GFR: Assessment and plan: Creatinine 2.1. Improved from previous levels during the course of this year. Monitor. Avoid dehydration and nephrotoxic agents. (6) Diabetes type 2, uncontrolled: (7) Hyperlipidemia: Assessment and plan: Cont Januvia Hold glipizide. SS insulin. ACHS glucose monitoring (8) Hypertension: Assessment and plan: Cont Plendil, metoprolol. Monitor. (9) Restless leg: Assessment and plan: Cont ropinirole. History of Present Illness History of Present Illness Chief Complaint: Fever, cough Narrative: This is a 72 yo female with a PMH of CAD, DM, CKD, HTN, HLD, anemia. She presented to the ED and described appx 1 week of not feeling well. The night before presentation she developed a cough and fever along with some nausea and emesis. She also describes a current headache. Acetaminophen taken at home but she subsequently vomited. No CP/palpitations. Mild shortness of breath. No known sick contacts. In the ED she was afebrile with a BP of 179/88. RA saturation initially of 99%; sat. did decrease to 88% and she was placed on 2L NC. WBC count normal. + lymphopenia. Hgb 12.3. Na 135. K normal. Creatinine 2.1. COVID +. CXR showed no acute pulmonary findings. Remdesivir and dexamethasone initiated in the ED. Review of Systems All systems reviewed & are unremarkable except as noted in HPI and below PFSH All Active Problems COVID-19 (Acute) Hypoxemia (Acute) GERD (gastroesophageal reflux disease) (Chronic) Gastritis (Acute) Tubular adenoma of colon (Acute) Positive fecal occult blood test (Acute) Anemia (Chronic) Coronary artery disease (Chronic) REGALADO (dyspnea on exertion) (Acute) Medical History Adenomatous colon polyp Adrenal adenoma Carpal tunnel syndrome of right wrist Chronic kidney disease, stage 2, mildly decreased GFR Diabetes type 2, uncontrolled Diabetic retinopathy Dyspepsia Fibromyalgia Hyperlipidemia Hypertension Osteoarthritis of both hands Restless leg Sleep apnea, obstructive Telangiectasia Surgical History Colonoscopy - IV Sedation 2010- villous adenoma 2015- Tubular adenoma EGD - IV Sedation excision cyst of breast 2008 H/O esophagogastroduodenoscopy (~02/2022) History of cardiac cath History of carpal tunnel surgery History of cataract surgery History of colonoscopy (~02/2022) Hx of tubal ligation Social History Smoking/Tobacco Use Status: Former Tobacco Use Quit Date: 05/10/14 Smoking risk assessment performed?: Yes Alcohol Intake: never Drug use: Never Substance use type: does not use Housing: house Do you feel safe at home: Yes Do you feel safe in your relationship?: Yes Meds Allergies and Home Medications Allergies Allergy/AdvReac Type Severity Reaction Status Date / Time metformin Allergy Severe Diarrhea Unverified 07/08/23 07:00 amlodipine Allergy Unknown Diarrhea Unverified 07/08/23 07:00 atorvastatin calcium Allergy Unknown Diarrhea Unverified 07/08/23 07:00 [From Lipitor] celecoxib [From Celebrex] Allergy Unknown GERD Unverified 07/08/23 07:00 diltiazem Allergy Unknown Other (See Unverified 07/08/23 07:00 Comment) duloxetine HCl Allergy Unknown Other (See Unverified 07/08/23 07:00 [From Cymbalta] Comment) gabapentin Allergy Unknown Other (See Unverified 07/08/23 07:00 Comment) lansoprazole [From Prevacid] Allergy Unknown Other (See Unverified 07/08/23 0 7:00 Comment) lisinopril Allergy Unknown Other (See Unverified 07/08/23 07:00 Comment) Home Medications Medication Instructions Recorded Confirmed Type furosemide 20 mg tablet 40 mg PO DAILY 09/14/15 07/08/23 History glipizide 5 mg tablet 10 mg PO BID 09/14/15 07/08/23 History losartan 50 mg tablet 100 mg PO HS 09/14/15 07/08/23 History metoprolol succinate 100 mg 100 mg PO HS 09/14/15 07/08/23 History tablet,extended release 24 hr rosuvastatin 40 mg tablet (Crestor) 40 mg PO HS 09/14/15 07/08/23 History blood sugar diagnostic (FreeStyle 11/18/17 07/08/23 History Lite Strips) felodipine 5 mg tablet,extended 10 mg PO DAILY 11/18/17 07/08/23 History release 24 hr pantoprazole 20 mg tablet,delayed 40 mg PO HS 11/18/17 07/08/23 History release ropinirole 0.5 mg tablet 0.5 mg PO HS 04/10/21 07/08/23 History aspirin 81 mg tablet,delayed 81 mg PO DAILY 01/23/22 07/08/23 History release (Adult Low Dose Aspirin) ferrous gluconate 324 mg (37.5 mg 324 mg PO DAILY 01/23/22 07/08/23 History iron) tablet nitroglycerin 0.4 mg sublingual 0.4 mg sublingual Q5M PRN 01/23/22 07/08/23 History tablet sitagliptin phosphate 25 mg tablet 25 mg PO DAILY 01/23/22 07/08/23 History (Januvia) lidocaine 4 % topical gel 1 applic topical TID PRN #10 grams 03/05/22 07/08/23 Rx spironolactone 25 mg tablet 25 mg PO DAILY 07/08/23 07/08/23 History Exam Narrative Exam Narrative: Gen: Pt is sitting on edge of bed. NAD. Pleasant and cooperative. HEENT: MMM, sclera clear. Hearing grossly normal. Lungs: clear w/o crackles, wheezes. Nonlabored breathing. CV: RRR Abd: soft, NT Exts: No edema, calf tenderness Psych: A&O x 3. Affect appropriate. Results Labs 07/08/23 07:29 07/08/23 07:29 Labs: Laboratory Results - last 24 hr 07/08/23 07/08/23 07/08/23 07:23 07:29 07:29 WBC 5.75 RBC 4.12 Hgb 12.3 Hct 37.9 MCV 92 MCH 29.9 MCHC 32.5 RDW 12.9 Plt Count 116 L MPV 12.1 H Immature Gran % 0.3 Neutrophils % 83.7 Lymphocytes % 4.9 Monocytes % 9.9 Eosinophils % 0.5 Basophils % 0.7 Nucleated RBC % 0.0 Absolute Neutrophils 4.81 Absolute Lymphocytes 0.28 L Absolute Monocytes 0.57 Absolute Eosinophils 0.03 Absolute Basophils 0.04 PT INR D-Dimer Sodium 135 L Potassium 4.1 Chloride 101 Carbon Dioxide 24.8 Anion Gap 9.2 BUN 37 H Creatinine 2.1 H Est GFR (CKD-EPI 2020) 24.42 Glucose 248 H Calcium 9.2 C-Reactive Protein COVID-19 Source Nasopharynx SARS-CoV-2 (PCR) Positive A Influenza Type A (PCR) Negative Influenza Type B (PCR) Negative RSV (PCR) Negative Add-On Test Request 07/08/23 07/08/23 07/08/23 07:29 07:29 07:29 WBC RBC Hgb Hct MCV MCH MCHC RDW Plt Count MPV Immature Gran % Neutrophils % Lymphocytes % Monocytes % Eosinophils % Basophils % Nucleated RBC % Absolute Neutrophils Absolute Lymphocytes Absolute Monocytes Absolute Eosinophils Absolute Basophils PT 10.4 INR 1.0 D-Dimer Sodium Potassium Chloride Carbon Dioxide Anion Gap BUN Creatinine Est GFR (CKD-EPI 2020) Glucose Calcium C-Reactive Protein 0.66 H COVID-19 Source SARS-CoV-2 (PCR) Influenza Type A (PCR) Influenza Type B (PCR) RSV (PCR) Add-On Test Request DONE 07/08/23 07:29 WBC RBC Hgb Hct MCV MCH MCHC RDW Plt Count MPV Immature Gran % Neutrophils % Lymphocytes % Monocytes % Eosinophils % Basophils % Nucleated RBC % Absolute Neutrophils Absolute Lymphocytes Absolute Monocytes Absolute Eosinophils Absolute Basophils PT INR D-Dimer 624 H Sodium Potassium Chloride Carbon Dioxide Anion Gap BUN Creatinine Est GFR (CKD-EPI 2020) Glucose Calcium C-Reactive Protein COVID-19 Source SARS-CoV-2 (PCR) Influenza Type A (PCR) Influenza Type B (PCR) RSV (PCR) Add-On Test Request Last Vital Signs Temp 37.1 C 07/08/23 10:32 Pulse 73 07/08/23 10:32 Resp 18 07/08/23 10:32 BP 162/68 H 07/08/23 10:32 Pulse Ox 95 07/08/23 10:32 Time Spent Time spent with Patient: 40-54 minutes Time was spent: preparing to see the patient(eg.review tests), obtaining and/or reviewing separately otained hiistory, ordering medications,tests, procedures, referring, communicating with other health customer care manager, indepentently interpreting results, counseling the patient and care coordination
[2023-07-08] MEDS: Insulin Aspart 300 UNITS/3 ML PEN SC ×3 (12:44→22:43)
[2023-07-08] MEDS: Enoxaparin 80 MG/0.8 ML SYR SC (12:46)
[2023-07-08] MEDS: Acetaminophen 325 MG TAB PO ×2 (14:18→21:34)
--- NOTE | 2023-07-08 14:30 | RESPIRATORY ---
DISCUSSED WITH PT IF SHE HAD A CPAP UNIT AND SHE EXPLAINED THAT SHE HAD ISSUES WITH AIR COMING OUT OF HER MOUTH. ADVISED BY RT TO REVISIT WITH WHO PROVIDED HER UNIT TO SEE IF OTHER MASKS WOULD BE OF BENEFIT FOR HER AND HAVE HER TO BE ABLE TO WEAR THE CPAP WHILE SLEEPING
[2023-07-08 17:22] LABS: Glucose 423 mg/dL (74-106)
[2023-07-08] MEDS: Insulin Glargine 300 UNITS/3 ML PEN 20 UNITS SC (17:45)
[2023-07-08] MEDS: Rosuvastatin 10 MG TAB PO (21:17)
[2023-07-08] MEDS: rOPINIRole 0.5 MG TAB PO (21:17)
[2023-07-08] MEDS: Pantoprazole 20 MG TABCR 40 MG PO (21:18)
[2023-07-08] MEDS: Lidocaine 5% Patch 1 PATCH TP (21:19)
[2023-07-08] MEDS: Metoprolol CR 100 MG TABCR PO (21:20)
[2023-07-09 06:05] LABS: Abs Immature Grans 0.01 10^3/uL (0.0-0.06); Absolute Basophil Count 0.01 10^3/uL (0.0-0.2); Absolute Lymphocyte Count 0.65 10^3/uL (1.2-3.4); Absolute Monocyte Count 0.53 10^3/uL (0.1-0.8); Absolute Neutrophil Count 2.29 10^3/uL (1.2-6.7); Basophils % 0.3; HCT 37.5 % (36.0-46.0); HGB 12.5 g/dL (11.2-15.7); Immature Grans % 0.3; Lymphocytes % 18.6; MCH 30.6 pg (27.0-33.0); MCHC 33.3 % (32.0-36.0); MCV 92 fL (80-95); MPV 12.7 fL (8.0-11.0); Monocytes % 15.2; Neutrophils % 65.6; Platelet Count 125 10^3/uL (130-400); RBC 4.08 10^6/uL (3.93-5.22); RDW-SD 43.8 fL; WBC 3.49 10^3/uL (4.4-10.8)
[2023-07-09 06:25] LABS: Anion Gap 9.8 mmol/L (3-11); BUN 49 mg/dL (7-18); C-Reactive Protein 1.74 mg/dL (0.0-0.3); CO2 24.2 mmol/L (21.0-32.0); CREATININE 2.3 mg/dL (0.55-1.02); Calcium 9.5 mg/dL (8.5-10.1); Chloride 103 mmol/L (98-107); Glucose 256 mg/dL (74-106); Potassium 4.7 mmol/L (3.5-5.1); Sodium 137 mmol/L (136-145)
[2023-07-09 06:56] LABS: D-Dimer 612 ng/mlFEU (<500)
--- NOTE | 2023-07-09 07:11 | RESPIRATORY ---
Follow up to the note by Respiratory from yesterday in regards to home cpap unit- patient advised she had so many issues with mask/leak that she sent the cpap machine back to the DME.
--- NOTE | 2023-07-09 07:51 | DSE_ITS ---
Date of service: 07/09/23 Time of Service: 08:03 DS: Diagnosis Discharge Diagnosis (1) COVID-19: Status: Acute Asessment and Plan: Brief period of hypoxia in the ED; now resolved and off supplemental O2. Acute lymphopenia consistent with COVID infection; improving. CXR did not indicate an active pneumonia. She is feeling much better. Appetite is good. No weakness or lethargy. She received only the initial dose of dexamethasone IV in the ED. No further steroids given d/t significant blood glucose elevation. (2) Hypoxemia: Status: Acute Asessment and Plan: Resolved. (3) Anemia: Status: Chronic Asessment and Plan: Currently normocytic. (4) Coronary artery disease: Status: Chronic Asessment and Plan: No angina or other concerns for ACS. Cont aspirin and metoprolol. (5) Chronic kidney disease, stage 2, mildly decreased GFR: Asessment and Plan: Creatinine 2.1, 2.3. This appears to be consistent with her baseline / other values earlier this year. (6) Diabetes type 2, uncontrolled: Asessment and Plan: A1c 8.9 Glucose elevated after dose of IV dexamethasone for COVID treatment. No further steroids administered. Given a dose of Glargine the evening of admission with SS insulin correction dosing. Cont home glipizide and januvia. F/U with PCP regarding poor glucose control. (7) Hyperlipidemia: Asessment and Plan: Rosuvastatin dosage decreased to renal function. (8) Hypertension: (9) Restless leg: Asessment and Plan: On metoprolol and Plendil. Discharge Plan Disposition Patient Disposition: Home Condition: Good Discharge Details Reason For Visit: COVID - 19 Admit Date/Time: 07/08/23 08:36 Admit Provider: Howie Little Attending Provider: Howie Little Primary Care Provider: Rome Guerra Hospital Course Hospital Course: This is a 72 yo female with a PMH of CAD, DM, CKD, HTN, HLD, anemia.? She presented to the ED and described appx 1 week of not feeling well.? The night before presentation she developed a cough and fever along with some nausea and emesis.? She also describes a current headache.? Acetaminophen taken at home but she subsequently vomited.? No CP/palpitations.? Mild shortness of breath.? No known sick contacts. In the ED she was afebrile with a BP of 179/88.? RA saturation initially of 99%; sat. did decrease to 88% and she was placed on 2L NC. WBC count normal.? + lymphopenia.? Hgb 12.3. Na 135. K normal.? Creatinine 2.1. COVID +. CXR showed no acute pulmonary findings. Remdesivir and dexamethasone initiated in the ED. See Diagnosis PCP f/u in 1-2 weeks. Home Meds and New Rx's Prescriptions: New rosuvastatin 10 mg tablet 10 mg PO DAILY Qty: 30 0RF Continued nitroglycerin 0.4 mg tablet, sublingual 0.4 mg sublingual Q5M PRN Rx Instructions: do not exceed 3 doses per episode ferrous gluconate 324 mg (37.5 mg iron) tablet 324 mg PO DAILY Patient Comments: pt states not taking metoprolol succinate 100 MG tablet extended release 24 hr 100 mg PO HS Patient Comments: 11-20-17 PER PT 200 MG QD. glipizide 5 MG tablet 10 mg PO BID losartan 50 MG tablet 100 mg PO HS Patient Comments: pt states not taking furosemide 20 MG tablet 40 mg PO DAILY felodipine 5 MG tablet extended release 24 hr 10 mg PO DAILY pantoprazole 20 MG tablet,delayed release (DR/EC) 40 mg PO HS aspirin [Adult Low Dose Aspirin] 81 mg tablet,delayed release (DR/EC) 81 mg PO DAILY Januvia 25 mg tablet 25 mg PO DAILY lidocaine 4 % gel 1 applic topical TID PRNQty: 10 0RF Rx Instructions: apply small amount to rectum for pain spironolactone 25 mg tablet 25 mg PO DAILY Patient Comments: Take 1 tablet by mouth every morning ropinirole 0.5 mg tablet 0.5 mg PO HS Patient Comments: Take 1 tablet by mouth at bedtime Discontinued rosuvastatin [Crestor] 40 MG tablet 40 mg PO HS No Action (DME) FreeStyle Lite Strips 1 EACH strip 1 ea Miscellaneous TID Discharge Instructions Additional Instructions: Wear the N95 provided mask when in public for 4 days. Stand Alone Forms: Nursing Discharge Form Referrals: Rome Guerra MD [Primary Care Provider] - Activity:: Activity as Tolerated Equipment/Supplies:: No Equipment Needed Diet:: Resume home diet DS: Summary Time Spent with Patient providing and/or coordinating discharge services: Greater than 30 minutes Status at Discharge Functional status at discharge: independent ambulation Overall status at discharge: patient is progressing back to baseline Mental Status: mental status grossly normal Speech and Movement: speech and movement normal Mood: congruent mood Affect: normal affect Exam Narrative Exam Narrative: Gen: Pt is sitting in recliner. NAD. Pleasant and cooperative. States her appetite is good and feels much better. HEENT: MMM, sclera clear. Hearing grossly normal. Lungs: clear w/o crackles, wheezes. Nonlabored breathing. CV: RRR Abd: soft, NT Exts: No edema, calf tenderness Psych: A&O x 3. Affect appropriate. Psych Mental Status: mental status grossly normal Speech and Movement: speech and movement normal Mood: congruent mood Affect: normal affect DS: Data Vitals/I&O Vitals and I&O: Vital Signs Temperature 36.0 C L 07/08/23 19:53 Temperature Source Temporal Artery Scan 07/08/23 19:53 Pulse 88 07/08/23 19:53 Pulse Rhythm Regular 07/08/23 19:09 Pulse 69 07/08/23 10:10 Respiratory Rate 18 07/08/23 19:53 Respiratory Effort Non-Labored 07/08/23 19:09 Respiratory Depth Normal 07/08/23 19:09 Respiratory Pattern Normal 07/08/23 19:09 Blood Pressure 153/78 H 07/08/23 19:53 Blood Pressure Mean 115 07/08/23 10:04 Blood Pressure Position Sitting 07/08/23 06:53 Pulse Oximetry 96 07/08/23 19:53 Oxygen Delivery Method Room Air 07/08/23 19:53 Oxygen Flow Rate 0 07/08/23 19:53 Pain Level 0 07/08/23 19:53 Comment directed by RN to not wake the p.t 07/09/23 03:00 Comment 2L NC 07/08/23 08:10 Intake & Output 07/08/23 07/08/23 07/09/23 11:59 23:59 11:59 Intake Total 360 / 360 Balance 360 / 360 Weight 88.904 kg 89.4 kg Intake: IV 360 / 360 Other: Urine Appearance Clear Comment indepedant Voiding Methods Toilet Toilet Data Completed and Pending Labs on day of discharge: Labs from last 24 hours 07/09/23 07/09/23 07/09/23 05:42 05:42 05:42 WBC 3.49 L RBC 4.08 Hgb 12.5 Hct 37.5 MCV 92 MCH 30.6 MCHC 33.3 RDW 13.0 Plt Count 125 L MPV 12.7 H Immature Gran % 0.3 Neutrophils % 65.6 Lymphocytes % 18.6 Monocytes % 15.2 Eosinophils % 0.0 Basophils % 0.3 Nucleated RBC % 0.0 Absolute Neutrophils 2.29 Absolute Lymphocytes 0.65 L Absolute Monocytes 0.53 Absolute Eosinophils 0.00 Absolute Basophils 0.01 PT INR D-Dimer 612 H Sodium 137 Potassium 4.7 Chloride 103 Carbon Dioxide 24.2 Anion Gap 9.8 BUN 49 H Creatinine 2.3 H Est GFR (CKD-EPI 2020) 21.90 Glucose 256 H Calcium 9.5 C-Reactive Protein 1.74 H COVID-19 Source SARS-CoV-2 (PCR) Influenza Type A (PCR) Influenza Type B (PCR) RSV (PCR) Add-On Test Request 07/08/23 07/08/23 07/08/23 16:58 07:29 07:29 WBC RBC Hgb Hct MCV MCH MCHC RDW Plt Count MPV Immature Gran % Neutrophils % Lymphocytes % Monocytes % Eosinophils % Basophils % Nucleated RBC % Absolute Neutrophils Absolute Lymphocytes Absolute Monocytes Absolute Eosinophils Absolute Basophils PT INR D-Dimer 624 H Sodium Potassium Chloride Carbon Dioxide Anion Gap BUN Creatinine Est GFR (CKD-EPI 2020) Glucose 423 H Calcium C-Reactive Protein 0.66 H COVID-19 Source SARS-CoV-2 (PCR) Influenza Type A (PCR) Influenza Type B (PCR) RSV (PCR) Add-On Test Request 07/08/23 07/08/23 07/08/23 07:29 07:29 07:23 WBC RBC Hgb Hct MCV MCH MCHC RDW Plt Count MPV Immature Gran % Neutrophils % Lymphocytes % Monocytes % Eosinophils % Basophils % Nucleated RBC % Absolute Neutrophils Absolute Lymphocytes Absolute Monocytes Absolute Eosinophils Absolute Basophils PT 10.4 INR 1.0 D-Dimer Sodium Potassium Chloride Carbon Dioxide Anion Gap BUN Creatinine Est GFR (CKD-EPI 2020) Glucose Calcium C-Reactive Protein COVID-19 Source Nasopharynx SARS-CoV-2 (PCR) Positive A Influenza Type A (PCR) Negative Influenza Type B (PCR) Negative RSV (PCR) Negative Add-On Test Request DONE 07/08/23 08:47 Blood Blood Culture - Pending 07/08/23 08:41 Blood Blood Culture - Pending Preliminary micro results at discharge 07/08/23 08:47 Blood Culture - Pending Blood 07/08/23 08:41 Blood Culture - Pending Blood [facility] All Active Problems COVID-19 (Acute) Hypoxemia (Acute) GERD (gastroesophageal reflux disease) (Chronic) Gastritis (Acute) Tubular adenoma of colon (Acute) Positive fecal occult blood test (Acute) Anemia (Chronic) Coronary artery disease (Chronic) REGALADO (dyspnea on exertion) (Acute) Medical History Adenomatous colon polyp Adrenal adenoma Carpal tunnel syndrome of right wrist Chronic kidney disease, stage 2, mildly decreased GFR Diabetes type 2, uncontrolled Diabetic retinopathy Dyspepsia Fibromyalgia Hyperlipidemia Hypertension Osteoarthritis of both hands Restless leg Sleep apnea, obstructive Telangiectasia Surgical History Colonoscopy - IV Sedation 2010- villous adenoma 2015- Tubular adenoma EGD - IV Sedation excision cyst of breast 2008 H/O esophagogastroduodenoscopy (~02/2022) History of cardiac cath History of carpal tunnel surgery History of cataract surgery History of colonoscopy (~02/2022) Hx of tubal ligation Social History Smoking/Tobacco Use Status: Former Tobacco Use Quit Date: 05/10/14 Smoking risk assessment performed?: Yes Alcohol Intake: never Drug use: Never Substance use type: does not use Housing: house Do you feel safe at home: Yes Do you feel safe in your relationship?: Yes Time Spent with Patient Time Spent with Patient: <45 minutes Time was spent: preparing to see the patient(eg.review tests), obtaining and/or reviewing separately otained hiistory, ordering medications,tests, procedures, referring, communicating with other health hospice patient care secretary, indepentently interpreting results and counseling the patient
[2023-07-09] MEDS: Felodipine 2.5 MG TABCR 10 MG PO (08:27)
[2023-07-09] MEDS: Aspirin E.C. 81 MG TABEC PO (08:27)
[2023-07-09] MEDS: Furosemide 20 MG TAB 40 MG PO (08:27)
[2023-07-09] MEDS: Insulin Aspart 300 UNITS/3 ML PEN SC (08:28)
[2023-07-09 08:35] VITALS: BP 146/93; PULSE 62; RESP 18; TEMP 36.6; O2SAT 96
[2023-07-09] MEDS: glipiZIDE 5 MG TAB PO (09:46)
== END 2023-07-09 09:55 | disposition home or self-care (01) | DRG 179 ==
LOC: ER 08:40 → MS 10:44
PROVIDERS: Emergency Medicine; Admitting Provider Family Medicine; Emergency Provider Student in an Organized Health Care Education/Training Program; PCP Family Medicine; Visit Provider Family Medicine
DX: U07.1 COVID-19 (principal); R09.02 Hypoxemia; D64.9 Anemia, unspecified; I25.10 Atherosclerotic heart disease of native coronary artery without angina pectoris; N18.2 Chronic kidney disease, stage 2 (mild); E11.65 Type 2 diabetes mellitus with hyperglycemia; E11.22 Type 2 diabetes mellitus with diabetic chronic kidney disease; E78.5 Hyperlipidemia, unspecified; Z79.84 Long term (current) use of oral hypoglycemic drugs; I12.9 Hypertensive chronic kidney disease with stage 1 through stage 4 chronic kidney disease, or unspecified chronic kidney disease; G25.81 Restless legs syndrome; K21.9 Gastro-esophageal reflux disease without esophagitis; Z86.010 Personal history of colon polyps; E11.319 Type 2 diabetes mellitus with unspecified diabetic retinopathy without macular edema; M79.7 Fibromyalgia; G47.33 Obstructive sleep apnea (adult) (pediatric); M19.042 Primary osteoarthritis, left hand; M19.041 Primary osteoarthritis, right hand; D72.810 Lymphocytopenia; R51.9 Headache, unspecified
CPT/HCPCS: 36415; 80048; 82947; 87040; 87637; 93005; 96365; 96367; 96375; 99285; 71045; 85025; 85379; 85610; 86140; 93010; 99222; 99239; J0131; J0248; J1100; J1650; J2405

== ENCOUNTER 2023-10-24 19:52 | Outpatient (REF) | payer MEDICARE, OTHER, SELFPAY ==
[2023-10-24 17:49] LABS: Hemoglobin A1C 8.5 % (<5.7)
== END 2023-10-24 19:53 | disposition home or self-care (01) ==
LOC: NCHCN 19:52
PROVIDERS: PCP Family Medicine; Visit Provider Family Medicine
DX: E11.9 Type 2 diabetes mellitus without complications (principal)
CPT/HCPCS: 83036

== ENCOUNTER 2024-01-07 17:52 | Outpatient (REF) | payer MEDICARE, OTHER, SELFPAY ==
[2024-01-07 14:37] LABS: Abs Immature Grans 0.04 10^3/uL (0.0-0.06); Absolute Basophil Count 0.09 10^3/uL (0.0-0.2); Absolute Lymphocyte Count 1.01 10^3/uL (1.2-3.4); Absolute Neutrophil Count 7.32 10^3/uL (1.2-6.7); Eosinophils % 2.2; HCT 40.9 % (36.0-46.0); HGB 12.9 g/dL (11.2-15.7); Immature Grans % 0.4; MCH 28.7 pg (27.0-33.0); MCHC 31.5 % (32.0-36.0); MCV 91 fL (80-95); Monocytes % 5.5; Neutrophils % 79.9; Platelet Count 194 10^3/uL (130-400); RBC 4.49 10^6/uL (3.93-5.22); RDW-SD 47.2 fL; WBC 9.16 10^3/uL (4.4-10.8)
[2024-01-07 15:06] LABS: ALT 20 U/L (14-59); AST 13 U/L (15-37); Albumin 3.5 g/dL (3.4-5.0); Alkaline Phosphatase 96 U/L (46-116); Anion Gap 12.5 mmol/L (3-11); BUN 35 mg/dL (7-18); Bilirubin, Total 0.5 mg/dL (0.2-1.0); CO2 26.5 mmol/L (21.0-32.0); CREATININE 2.5 mg/dL (0.55-1.02); Calcium 9.7 mg/dL (8.5-10.1); Chloride 104 mmol/L (98-107); Estimated GFR 19.69 (mL/min/1.73m2); Glucose 233 mg/dL (74-106); Potassium 3.9 mmol/L (3.5-5.1); Sodium 143 mmol/L (136-145); Total Protein 7.8 g/dL (6.4-8.2)
== END 2024-01-07 17:53 | disposition home or self-care (01) ==
LOC: NCHCN 17:52
PROVIDERS: PCP Family Medicine; Referring Provider Family Medicine; Visit Provider Family Medicine
DX: J18.9 Pneumonia, unspecified organism (principal)
CPT/HCPCS: 80053; 85025

== ENCOUNTER 2024-01-11 11:27 | Emergency (ER) | payer MEDICARE, OTHER, SELFPAY ==
[2024-01-11] VITALS (16 sets, daily range): BP systolic 136–149; BP diastolic 52–74; PULSE 78–98; RESP 9–25; TEMP 37; O2SAT 88–100
--- NOTE | 2024-01-11 11:30 | RT.EKG_ITS ---
APPROVED REPORT Exam: Resting ECG Reason for Exam: dyspnea Patient Location: E HR:78 bpm ECG Measurements Heart Rate 78 AXIS NM 164 P 46 QRSd 104 QRS -22 QT 391 T 32 QTc 446 Conclusion Sinus rhythm...normal P axis, V-rate 60- 99 Inferior infarct, old...Q >35mS, II III aVF
--- NOTE | 2024-01-11 11:30 | DI.RAD_ITS ---
Exam(s) XR CHEST 2V PA LATERAL EXAM: XR CHEST 2V PA LATERAL CLINICAL HISTORY: cough, dyspnea. TECHNIQUE: 2D digital imaging was performed. COMPARISON: CR XR PORTABLE CHEST AP from 07/08/2023 FINDINGS: 2 views: Heart size is normal. The mediastinum is not widened. Lungs are clear. No infiltrates nor pleural effusions. IMPRESSION: No acute pulmonary findings. DATA REPOSITORY: RADIATION DOSE DELIVERED:
--- NOTE | 2024-01-11 11:44 | ED.GENADUL_ITS ---
Discharge Plan Disposition Patient Disposition: Home Condition: Stable Discharge Details Clinical Impression: Acute upper respiratory infection Primary Care Provider: Rome Guerra ED Provider: Derek Dye Home Meds and New Rx's Prescriptions: New prednisone 20 mg tablet 60 mg PO DAILY 4 Days Qty: 12 0RF Continued nitroglycerin 0.4 mg tablet, sublingual 0.4 mg sublingual Q5M PRN Rx Instructions: do not exceed 3 doses per episode metoprolol succinate 100 MG tablet extended release 24 hr 100 mg PO HS Patient Comments: 11-20-17 PER PT 200 MG QD. furosemide 20 MG tablet 40 mg PO DAILY felodipine 5 MG tablet extended release 24 hr 10 mg PO DAILY pantoprazole 20 MG tablet,delayed release (DR/EC) 40 mg PO HS aspirin [Adult Low Dose Aspirin] 81 mg tablet,delayed release (DR/EC) 81 mg PO DAILY glipizide 5 mg tablet 10 mg PO DAILY ropinirole 1 mg tablet 1 mg PO DAILY rosuvastatin 40 mg tablet 40 mg PO DAILY Trulicity 1.5 mg/0.5 mL pen injector 1.5 mg subcut QWEEK spironolactone 25 mg tablet 25 mg PO DAILY Patient Comments: Take 1 tablet by mouth every morning amoxicillin-pot clavulanate 875-125 mg tablet 1 tab PO Q12H Patient Comments: TAKE ONE TABLET BY MOUTH EVERY 12 HOURS FOR 7 DAYS melatonin 10 mg capsule 10 mg PO HS PRN acetaminophen [Tylenol] 325 mg capsule 500 mg PO BID insulin glargine [Lantus Solostar U-100 Insulin] 100 unit/mL (3 mL) insulin pen 14 unit SUBCUT DAILY multivitamin [Daily Multi-Vitamin] Tablet 1 tab PO DAILY cholecalciferol (vitamin D3) [Vitamin D3] 25 mcg (1,000 unit) capsule 25 mcg PO DAILY sodium bicarbonate 650 mg tablet 1,300 mg PO DAILY Discontinued ferrous gluconate 324 mg (37.5 mg iron) tablet 324 mg PO DAILY Patient Comments: pt states not taking Tradjenta 5 mg tablet 5 mg PO DAILY lidocaine 4 % gel 1 applic topical TID PRNQty: 10 0RF Rx Instructions: apply small amount to rectum for pain No Action (DME) FreeStyle Lite Strips 1 EACH strip 1 ea Miscellaneous TID Discharge Instructions Additional Instructions: Your blood work did not show any concerning findings from baseline at this time. Your kidney function is at your baseline. Follow-up with your primary care provider especially if not improving this week. You should also discuss with them at some point if you should have formal testing for chronic obstructive pulmonary disease which can occur when you smoke for a prolonged periods of time If you feel more ill, have worsening difficulty breathing or chest pain to the emergency department HPI General Date/Time Provider Initiated Documentation: 01/11/24 11:28 . Limitations to Documentation: no limitations . Information obtained by: patient . History of Present Illness 73 year old F presents to the emergency department with the chief complaint of Cough, described as moderate, Patient started experiencing this week(s) (3) and it has been intermittent. No relieving factors improve symptom(s), No exacerbating factors reported . Patient notes fever/chills and shortness of breath; denies chest pain. Related Data Home Medications Medication Instructions Recorded Confirmed furosemide 20 mg tablet 40 mg PO DAILY 09/14/15 01/11/24 metoprolol succinate 100 mg 100 mg PO HS 09/14/15 01/11/24 tablet,extended release 24 hr blood sugar diagnostic (FreeStyle 11/18/17 01/11/24 Lite Strips) felodipine 5 mg tablet,extended 10 mg PO DAILY 11/18/17 01/11/24 release 24 hr pantoprazole 20 mg tablet,delayed 40 mg PO HS 11/18/17 01/11/24 release aspirin 81 mg tablet,delayed 81 mg PO DAILY 01/23/22 01/11/24 release (Adult Low Dose Aspirin) nitroglycerin 0.4 mg sublingual 0.4 mg sublingual Q5M PRN 01/23/22 01/11/24 tablet spironolactone 25 mg tablet 25 mg PO DAILY 07/08/23 01/11/24 dulaglutide 1.5 mg/0.5 mL 1.5 mg subcut QWEEK 12/11/23 01/11/24 subcutaneous pen injector (Trulicity) glipizide 5 mg tablet 10 mg PO DAILY 12/11/23 01/11/24 ropinirole 1 mg tablet 1 mg PO DAILY 12/11/23 01/11/24 rosuvastatin 40 mg tablet 40 mg PO DAILY 12/11/23 01/11/24 acetaminophen 325 mg capsule 500 mg PO BID 01/11/24 01/11/24 (Tylenol) amoxicillin 875 mg-potassium 1 tab PO Q12H 01/11/24 01/11/24 clavulanate 125 mg tablet cholecalciferol (vitamin D3) 25 25 mcg PO DAILY 01/11/24 01/11/24 mcg (1,000 unit) capsule (Vitamin D3) insulin glargine 100 unit/mL (3 14 unit subcut DAILY 01/11/24 01/11/24 mL) subcutaneous pen (Lantus Solostar U-100 Insulin) melatonin 10 mg capsule 10 mg PO HS PRN 01/11/24 01/11/24 multivitamin (Daily Multi-Vitamin 1 tab PO DAILY 01/11/24 01/11/24 tablet) prednisone 20 mg tablet 60 mg (3 x 20 mg) PO DAILY 4 days 01/11/24 #12 tabs sodium bicarbonate 650 mg tablet 1,300 mg PO DAILY 01/11/24 01/11/24 Previous Rx's Medication Instructions Recorded prednisone 20 mg tablet 60 mg (3 x 20 mg) PO DAILY 4 days 01/11/24 #12 tabs Allergies Allergy/AdvReac Type Severity Reaction Status Date / Time metformin Allergy Severe Diarrhea Unverified 01/11/24 12:16 amlodipine Allergy Unknown Diarrhea Unverified 01/11/24 12:16 atorvastatin calcium Allergy Unknown Diarrhea Unverified 01/11/24 12:16 [From Lipitor] celecoxib [From Celebrex] Allergy Unknown GERD Unverified 01/11/24 12:16 diltiazem Allergy Unknown Other (See Unverified 01/11/24 12:16 Comment) duloxetine HCl Allergy Unknown Other (See Unverified 01/11/24 12:16 [From Cymbalta] Comment) gabapentin Allergy Unknown Other (See Unverified 01/11/24 12:16 Comment) lansoprazole [From Prevacid] Allergy Unknown Other (See Unverified 01/11/24 12:16 Comment) lisinopril Allergy Unknown Other (See Unverified 01/11/24 12:16 Comment) General Stated Complaint: RespSymp YG: 3 Review of Systems All systems reviewed & are unremarkable except as noted in HPI and below Constitutional Constitutional: Reports chills and Denies weakness Cardiovascular Cardiovascular: Denies chest pain and Reports dyspnea Respiratory Respiratory: Reports cough and Reports dyspnea Gastrointestinal Gastrointestinal: Denies abdominal pain, Denies nausea and Denies vomiting Musculoskeletal Musculoskeletal: Denies joint swelling Integumentary/Breasts Skin/Breast: Denies rash Neurologic Neurologic: Denies weakness Exam Const General: no acute distress Orientation: alert HENMT Head: normal to inspection Ears: external ears normal General nose exam: external nose normal Mouth: moist mucous membranes Eyes General: appearance normal, both eyes and all related structures Neck Neck: normal visual inspection Resp Effort & Inspection: able to speak in complete sentences Auscultation: wheezes Cardio Jugular venous pressure: no JVD Rate: regular rate Heart Sounds: no murmurs Skin General skin exam: no rashes or lesions noted Neuro General: patient alert and patient oriented x3 Extrem General: normal to inspection and no calf tenderness bilaterally Psych Mental Status: mental status grossly normal Course Vital Signs Vital signs: Vital Signs Temperature 37.0 C 01/11/24 11:32 Pulse 82 01/11/24 11:32 Respiratory Rate 18 01/11/24 11:32 Blood Pressure 136/74 01/11/24 11:32 Pulse Oximetry 93 01/11/24 11:32 Temperature 37.0 C 01/11/24 11:37 Temperature Source Oral 01/11/24 11:37 Pulse 82 01/11/24 11:37 Respiratory Rate 18 01/11/24 11:37 Respiratory Effort Short of Breath 01/11/24 11:39 Respiratory Depth Shallow 01/11/24 11:39 Blood Pressure 136/74 01/11/24 11:37 Blood Pressure Position Sitting 01/11/24 11:37 Pulse Oximetry 93 01/11/24 11:37 Oxygen Delivery Method Room Air 01/11/24 11:37 Oxygen Flow Rate 0 01/11/24 11:37 Pain Level 0 01/11/24 11:37 Medical Decision Making 73-year-old female with a former history of smoking, coronary artery disease, chronic kidney disease, who comes in with 3 weeks of intermittent cough and chills. Also notes some dyspnea with exertion. She saw her PCP who started her on Augmentin on Saturday but despite this still feels unwell so came here for an evaluation. She arrives oriented x 4 appears mildly fatigued but is able to speak in full sentences. She has wheezing in both upper and lower lobes bilaterally on lung auscultation. No JVD, no leg swelling or calf tenderness. Given her history of smoking and lung exam findings suspect component of COPD, will treat with Solu-Medrol and DuoNeb and reassess. Will also obtain EKG, troponin, CBC, CMP, proBNP, and a chest x-ray to evaluate for infiltrate. She has no evidence of DVT on exam and lung exam findings are consistent with a respiratory illness as are her symptoms so doubt pulmonary embolism at this time Labs shows no significant changes from baseline, kidney function is stable, proBNP minimally elevated. X-ray unremarkable, troponin negative and given well over 3 hours of symptoms do not feel delta troponin indicated. Room air sat currently 95%, she is speaking in full sentences lung sounds now clear and she states she feels much better. Suspect she has underlying COPD, will provide an albuterol inhaler to use as needed and also prednisone for 4 more days. Advised to follow-up with her PCP and return precautions given Differential Diagnosis Differential Diagnosis: Monia, COVID, anemia, CHF, COPD Medical Records Medical records reviewed: Yes I reviewed the patient's medical records. Lab Data Lab results reviewed: Yes I reviewed the patient's lab results. ECG Data Attestation: I personally reviewed and interpreted this ECG (s) as follows: Prior ECG tracings: available for review Interpretation: Sinus rhythm, rate of 78, NC 164, no STEMI Quality:SDOH Health Related Social Needs: No Data to Display PFSH All Active Problems (Updated 01/11/24 @ 13:20 by Derek Dye MD) Acute upper respiratory infection (Acute) COVID-19 (Acute) GERD (gastroesophageal reflux disease) (Chronic) Gastritis (Acute) Tubular adenoma of colon (Acute) Positive fecal occult blood test (Acute) Coronary artery disease (Chronic) REGALADO (dyspnea on exertion) (Acute) Medical History Adenomatous colon polyp Adrenal adenoma Carpal tunnel syndrome of right wrist Chronic kidney disease, stage 2, mildly decreased GFR Diabetes type 2, uncontrolled Diabetic retinopathy Dyspepsia Fibromyalgia Hyperlipidemia Hypertension Osteoarthritis of both hands Restless leg Sleep apnea, obstructive Telangiectasia Surgical History Colonoscopy - IV Sedation 2010- villous adenoma 2015- Tubular adenoma EGD - IV Sedation excision cyst of breast 2008 H/O esophagogastroduodenoscopy (~02/2022) History of cardiac cath History of carpal tunnel surgery History of cataract surgery History of colonoscopy (~02/2022) Hx of tubal ligation Social History Smoking/Tobacco Use Status: Former Tobacco Use Quit Date: 05/10/14 Smoking risk assessment performed?: Yes Alcohol Intake: never Drug use: Never Substance use type: does not use Housing: house Do you feel safe at home: Yes Do you feel safe in your relationship?: Yes
[2024-01-11] MEDS: Albuterol/Ipratropium 3 ML UPD VIAL UPD ×2 (12:06→12:43)
[2024-01-11] MEDS: Normal Saline Flush 10 ML SYR IVP (12:06)
[2024-01-11] MEDS: methylPREDNISolone SUCC 125 MG VIAL IVP (12:06)
[2024-01-11 12:10] LABS: Abs Immature Grans 0.02 10^3/uL (0.0-0.06); Absolute Basophil Count 0.06 10^3/uL (0.0-0.2); Absolute Eosinophil Count 0.19 10^3/uL (0.0-0.7); Absolute Lymphocyte Count 1.32 10^3/uL (1.2-3.4); Absolute Monocyte Count 0.51 10^3/uL (0.1-0.8); BE (Venous) 4 mmol/L (-2-3); Basophils % 0.7; Eosinophils % 2.3; HCO3 (Venous) 28 mmol/L (23-28); HCT 40.3 % (36.0-46.0); HGB 12.8 g/dL (11.2-15.7); Immature Grans % 0.2; Lymphocytes % 15.9; MCH 28.9 pg (27.0-33.0); MCHC 31.8 % (32.0-36.0); MCV 91 fL (80-95); MPV 11.5 fL (8.0-11.0); Monocytes % 6.1; Neutrophils % 74.8; O2 Sat (Venous) 81 %; Platelet Count 175 10^3/uL (130-400); RBC 4.43 10^6/uL (3.93-5.22); RDW 13.8 % (11.7-14.6); RDW-SD 46.1 fL; TCO2 (Venous) 26 mmol/L (24-29); pCO2 (Venous) 45 mmHg (41-51); pH (Venous) 7.41 (7.31-7.41); pO2 (Venous) 44 mmHg
[2024-01-11 12:24] LABS: INR 1.1 (0.9-1.1); PTT Activated 27.3 sec (23.6-32.8); Prothrombin Time 11.1 sec (9.1-11.1)
[2024-01-11 12:42] LABS: ALT 19 U/L (14-59); AST 12 U/L (15-37); Albumin 3.3 g/dL (3.4-5.0); Alkaline Phosphatase 100 U/L (46-116); Anion Gap 9.4 mmol/L (3-11); BUN 25 mg/dL (7-18); Bilirubin, Total 0.5 mg/dL (0.2-1.0); CO2 28.6 mmol/L (21.0-32.0); CREATININE 2.4 mg/dL (0.55-1.02); Calcium 9.7 mg/dL (8.5-10.1); Chloride 102 mmol/L (98-107); Estimated GFR 20.68 (mL/min/1.73m2); Glucose 243 mg/dL (74-106); Magnesium 1.9 mg/dL (1.8-2.4); Potassium 3.5 mmol/L (3.5-5.1); Sodium 140 mmol/L (136-145); TSH (W/Ref FT4) 1.25 uIU/mL (0.36-3.74); Total Protein 8.2 g/dL (6.4-8.2); Troponin I < 50 ng/L (< or =60)
[2024-01-11 12:43] LABS: Bilirubin Negative (Negative); Blood Negative (Negative); Clarity Clear (Clear); Glucose Negative (Negative); Ketones Negative (Negative); Leukocyte Esterase Trace (Negative); Nitrite Negative (Negative); Urobilinogen 0.2 mg/dL (Up to 0.2); pH 5.5 (5-8)
[2024-01-11 12:48] LABS: COVID-19 PCR Negative (Negative); Influenza A PCR Negative (Negative); Influenza B PCR Negative (Negative); RSV PCR Negative (Negative)
[2024-01-11 12:49] LABS: Source Nasopharynx
[2024-01-11 12:51] LABS: Bacteria Rare HPF (Negative); C & S Indicated? Yes; Casts Negative LPF (Negative); Crystals Negative HPF (Negative); Epithelial Cells Few HPF (Negative); Mucus Negative (Negative); Other Cells Few Renal (Negative); RBC Negative HPF (0-2)
[2024-01-11 12:58] LABS: Procalcitonin < 0.1 ng/mL
[2024-01-11 13:01] LABS: NT-proBNP 644 pg/mL (<300)
[2024-01-11] MEDS: Albuterol HFA 8 GM 60 PUFF INH IH (13:36)
[2024-01-11] MEDS: Inhaler, Assist Device 1 EACH MC (13:37)
== END 2024-01-11 13:46 | disposition home or self-care (01) ==
PROVIDERS: Emergency Provider Emergency Medicine; PCP Family Medicine
DX: J06.9 Acute upper respiratory infection, unspecified (principal); E11.319 Type 2 diabetes mellitus with unspecified diabetic retinopathy without macular edema; I12.9 Hypertensive chronic kidney disease with stage 1 through stage 4 chronic kidney disease, or unspecified chronic kidney disease; E11.22 Type 2 diabetes mellitus with diabetic chronic kidney disease; N18.2 Chronic kidney disease, stage 2 (mild); Z11.52 Encounter for screening for COVID-19; Z79.4 Long term (current) use of insulin; Z79.84 Long term (current) use of oral hypoglycemic drugs; E78.5 Hyperlipidemia, unspecified
CPT/HCPCS: 36415; 80053; 82805; 84145; 87637; 93005; 94640; 96374; 99285; 71046; 81003; 81015; 83735; 83880; 84443; 84484; 85025; 85610; 85730; 87086; 93010; 99284; J2930; J7620

== ENCOUNTER 2024-01-28 11:42 | Day surgery (SDC) | payer MEDICARE, OTHER, SELFPAY ==
[2024-01-28 11:58] VITALS: BP 127/82; PULSE 85; RESP 16; TEMP 36.7; O2SAT 96
--- NOTE | 2024-01-28 12:17 | W.PM.DSUDISC ---
Date of service: 01/28/24 Time of Service: 12:18 Discharge Plan Disposition Patient Disposition: Home Condition: Good Discharge Details Reason For Visit: Laura MALONE Attending Provider: Balwinder Fox Primary Care Provider: Rome Guerra Home Meds and New Rx's Prescriptions: New hydrocodone-acetaminophen 5-325 mg tablet 1 tab PO Q6H PRN (Reason: pain) Qty: 10 0RF acetaminophen 500 mg tablet 1,000 mg PO TID Qty: 90 0RF ibuprofen 600 mg tablet 600 mg PO TID PRN (Reason: pain) Qty: 90 0RF Continued nitroglycerin 0.4 mg tablet, sublingual 0.4 mg sublingual Q5M PRN Rx Instructions: do not exceed 3 doses per episode Jardiance 10 mg tablet 10 mg PO DAILY metoprolol succinate 100 MG tablet extended release 24 hr 100 mg PO HS Patient Comments: 11-20-17 PER PT 200 MG QD. furosemide 20 MG tablet 40 mg PO DAILY felodipine 5 MG tablet extended release 24 hr 10 mg PO DAILY (DME) FreeStyle Lite Strips 1 EACH strip 1 ea Miscellaneous TID pantoprazole 20 MG tablet,delayed release (DR/EC) 40 mg PO HS aspirin [Adult Low Dose Aspirin] 81 mg tablet,delayed release (DR/EC) 81 mg PO DAILY glipizide 5 mg tablet 10 mg PO DAILY ropinirole 1 mg tablet 1 mg PO DAILY rosuvastatin 40 mg tablet 40 mg PO DAILY Trulicity 1.5 mg/0.5 mL pen injector 1.5 mg subcut QWEEK spironolactone 25 mg tablet 25 mg PO DAILY Patient Comments: Take 1 tablet by mouth every morning melatonin 10 mg capsule 10 mg PO HS PRN insulin glargine [Lantus Solostar U-100 Insulin] 100 unit/mL (3 mL) insulin pen 14 unit SUBCUT DAILY multivitamin [Daily Multi-Vitamin] Tablet 1 tab PO DAILY cholecalciferol (vitamin D3) [Vitamin D3] 25 mcg (1,000 unit) capsule 25 mcg PO DAILY sodium bicarbonate 650 mg tablet 1,300 mg PO DAILY Discontinued acetaminophen [Tylenol] 325 mg capsule 500 mg PO BID Discharge Instructions Additional Instructions: Open Carpal Tunnel Discharge Instructions Activity: You should keep the hand elevated as much as possible for the first few days. You may use your fingers as tolerated but avoid trying to do too much too soon. You may perform light activities with the splint in place. Dressing/Cast: Your initial dressing should stay in place for at least 48 to 72 hours. You may loosen the WALDO wrap if you feel it is too tight and then rewrap more loosely. After this time, you may take the dressing down and get the hand wet but otherwise keep covered with light gauze or Band-Aid. You also may choose to keep the initial dressing in place until follow-up. Medications: - You should take Tylenol and Ibuprofen for baseline pain control. - You have Hydrocodone for breakthrough pain. - You may apply ice over the thumb. Follow-up: 7-10 days Referrals: Balwinder Fox MD [ [facility] STAFF PHYSICIAN] - Activity:: Elevate Remove Dressings/Wound Care:: Do Not Remove Shower/Bathe:: Cover Diet:: As Tolerated Discharge Orders Discharge Orders: Discharge Order (Routine); Ordered 01/28/24 Ordered By: Nabil Zaragoza
[2024-01-28] MEDS: Sodium Bicarbonate 50 MEQ/50 ML VIAL (13:18)
[2024-01-28] MEDS: Lidocaine 1% Multi-Dose W/EPI 1/100,000 50 ML VIAL (13:18)
[2024-01-28 13:42] VITALS: BP 143/90; PULSE 85; RESP 16; TEMP 36.6; O2SAT 96
--- NOTE | 2024-01-28 13:51 | ROE_ITS ---
Date of service: 01/28/24 Time of Service: 13:15 Operative Note Operative Note DATE OF PROCEDURE: 01/28/24 PRE-OP DIAGNOSIS: Open Carpal Tunnel Release - Left Wrist POST-OP DIAGNOSIS: same PROCEDURE: Open Carpal Tunnel Release - Left Wrist SURGEON: Balwinder Fox ANESTHESIA TYPE: Local By Surgeon Refer to Anesthesia Record ESTIMATED BLOOD LOSS: 0 PATHOLOGY: none sent COMPLICATIONS: None Patient was transported to: same day Patient's condition: stable Indications: Brynn is a 73 year old female who I have seen for carpal tunnel syndrome. She had a previous open carpal tunnel release on the right side with excellent results. I reviewed the risk of the procedure to include bleeding, infection, pain, stiffness, continued numbness, damage to nerves and vessels, damage to muscles and tendons, need for repeat procedures. Despite these risk, patient desired to proceed. Findings: There was a tightened transverse carpal ligament. It was released fully released. The median nerve was inspected and showed no signs of adhesions or injury. Procedure Description: Brynn was greeted in the preoperative holding area. The correct site was identified and marked. The consent was reviewed the patient and signed. The history physical was updated. Patient was taken back to the operating room and placed in the supine position with the left hand placed on a hand table. A nonsterile tourniquet was placed high up onto the arm but not used. The hand and forearm was then prepped with ChloraPrep and draped in standard fashion. Prophylactic antibiotics in the form of cefazolin were given. A timeout was performed for safe surgery. The surgical site was then injected and anesthetized with 1% lidocaine with epinephrine buffered with sodium bicarbonate. The radial border of the fourth ray was marked on the skin as well as any other pertinent surface anatomy. Using 15 blade the skin was incised sharply. Blunt dissection was carried down to the level of the palmar fascia. This was sharply divided making sure to protect any crossing neurovascular branches. Once this was divided the fibers of the transverse carpal ligament were identified. Using a Deforest, I was able to place this underneath a portion of the transverse carpal ligament. A knife was then used to cut directly onto the Deforest. This release the transverse carpal ligament. Using the Deforest to protect underlying tendons and the median nerve, I released the remainder of the transverse carpal ligament. It was notably thickened and tight. A scissor was used to complete the far aspects after making sure there is no interposed tissue. There is notable separation of the leaflets. Elevating, lifting up, the radial flap of the transverse carpal ligament exposed the median nerve. Any adhesions between it and the transverse carpal ligament were released. He was fully inspected and showed no signs of injury or damage. The wound was then fully irrigated. The skin and deeper tissues were closed with a interrupted 4-0 nylon suture. The tourniquet was deflated and there was return of blood flow to all digits. No excessive bleeding from the wound. 4 x 4 gauze was applied followed by Kerlix wrap and an Mekhi wrap. The hand was placed into a removable brace. At the end the case all counts are correct. The patient tolerated the procedure well and was transferred back to the day surgery area in a stable condition.
== END 2024-01-28 13:56 | disposition home or self-care (01) ==
PROVIDERS: PCP Family Medicine; Visit Provider Student in an Organized Health Care Education/Training Program
PROC: (CPT 64721; principal; 2024-01-28 14:30)
DX: G56.02 Carpal tunnel syndrome, left upper limb (principal)
CPT/HCPCS: 64721; J2004

== ENCOUNTER → 2024-02-07 10:53 | Outpatient (BNVA) | payer MEDICARE, OTHER, SELFPAY | PROVIDERS: PCP Family Medicine; Referring Provider Family Medicine | DX: Z47.89 Encounter for other orthopedic aftercare (principal); M25.541 Pain in joints of right hand ==

== ENCOUNTER → 2024-02-27 10:16 | Outpatient (BNVA) | payer MEDICARE, OTHER, SELFPAY | PROVIDERS: PCP Family Medicine; Referring Provider Family Medicine; Visit Provider Student in an Organized Health Care Education/Training Program | DX: Z47.89 Encounter for other orthopedic aftercare (principal); R60.0 Localized edema; G56.02 Carpal tunnel syndrome, left upper limb ==

== ENCOUNTER → 2024-03-09 09:39 | Outpatient (BNVA) | payer MEDICARE, OTHER, SELFPAY | PROVIDERS: PCP Family Medicine; Referring Provider Family Medicine; Visit Provider Student in an Organized Health Care Education/Training Program | DX: Z47.89 Encounter for other orthopedic aftercare (principal); G56.02 Carpal tunnel syndrome, left upper limb ==

== ENCOUNTER 2024-03-19 05:16 | Outpatient (CLI) | payer MEDICARE, OTHER, SELFPAY ==
[2024-03-19 12:29] LABS: Anion Gap 4.4 mmol/L (3-11); BUN 47 mg/dL (7-18); CO2 26.6 mmol/L (21.0-32.0); CREATININE 2.9 mg/dL (0.55-1.02); Calcium 9.4 mg/dL (8.5-10.1); Chloride 109 mmol/L (98-107); Estimated GFR 16.48 (mL/min/1.73m2); Glucose 110 mg/dL (74-106); Sodium 140 mmol/L (136-145)
== END 2024-03-19 05:17 | disposition home or self-care (01) ==
PROVIDERS: PCP Family Medicine; Visit Provider Internal Medicine Nephrology
DX: N18.4 Chronic kidney disease, stage 4 (severe) (principal); E87.5 Hyperkalemia
CPT/HCPCS: 36415; 80048

== ENCOUNTER 2024-08-05 13:35 | Outpatient (CLI) | payer MEDICARE, OTHER, SELFPAY ==
--- NOTE | 2024-08-05 | DI.RAD_ITS ---
Exam(s) XR THUMB LT EXAM: XR THUMB LT CLINICAL HISTORY: PAIN LT THUMB, M79.645. TECHNIQUE: 2D digital imaging was performed. Three views. COMPARISON: None. FINDINGS: BONES: No acute fracture is present. No bony destructive lesion is seen. JOINTS: No dislocation present. Mild degenerative changes of the interphalangeal joint of the thumb. SOFT TISSUE: Normal. IMPRESSION: Mild degenerative changes of the interphalangeal joint of the thumb. DATA REPOSITORY: RADIATION DOSE DELIVERED:
--- NOTE | 2024-08-05 | DI.RAD_ITS ---
Exam(s) XR FINGER RT MIDDLE EXAM: XR FINGER RT MIDDLE CLINICAL HISTORY: PAIN IN FINGER RT HAND, M79.644. TECHNIQUE: 2D digital imaging was performed. Three views. COMPARISON: No exams were available for comparison FINDINGS: BONES: No acute fracture is present. No bony destructive lesion is seen. JOINTS: No dislocation present. Minimal degenerative changes of the interphalangeal joints. SOFT TISSUE: Normal. IMPRESSION: Minimal degenerative changes of the interphalangeal joints. DATA REPOSITORY: RADIATION DOSE DELIVERED:
== END 2024-08-05 13:55 ==
LOC: DI 13:35
PROVIDERS: PCP Family Medicine; Visit Provider Family Medicine
DX: M18.12 Unilateral primary osteoarthritis of first carpometacarpal joint, left hand (principal); M79.644 Pain in right finger(s)
CPT/HCPCS: 73140

== ENCOUNTER 2024-11-16 13:15 | Outpatient (REF) | payer MEDICARE, OTHER, SELFPAY ==
--- OUTSIDE RECORDS SUMMARY | 2024-11-16 13:18 | XMS_ITS | Continuity of Care Document ---
Author Organization [place] - [facility] [place] Address [address] [place] [address] Assessment Encounter Date Assessment Date Assessment LastModified by Organization Details LastModified Time 10/27/2024 10/27/2024 Future Nursing Orders: Lab work to include cmp, phosphorus, pth, cbc in approx 3 weeks. Primary diagnosis includes ckd, dm2, htn. Results to [facility] Winston always. [email or web address] Not available 10/28/2024 21:32:56 Plan of Treatment Reminders Order Date Submit Date Provider Last Modified By Organization Details Last Modified Time Details Appointments Nurse Visit 30 2024 11:30A M Del Valle Nursing Staff Not available Not available Not available Annual Chronic Care (65+) 30 2024 10:00A M ROME BRODY Not available Not available Not available Lab hemoglobi n A1C, fingersti ck 2023 024 [facility], [address] [place] [address], [id number], 10/27/2024 14:55:05 Referral None recorded. Procedures None recorded. Surgeries None recorded. Imaging None recorded. Medication Orders None recorded. Patient TargetsNo targets recorded. Patient Instructions Encounter Date Encounter Id Patient Instructions Last Modified By Organization Details Last Modified Time 10/27/2024 [id number] Dear gdr, Thank you for visiting us today. We appreciate your dedication to managing your health effectively. Here's a summary of the daly points from our discussion: - Continue monitoring your diabetes; your A1C level remains at 7.3. - Stop taking spironolactone and start losartan as per the new prescription. - Maintain your current diabetes medications: glipizide, Jardiance, insulin, and Trulicity. - Avoid turmeric to prevent nosebleeds. - Your blood pressure and weight are stable. - A urine test is due, but we will collect the sample next time. - Blood work is scheduled for around the or of this month. - Ensure your nephrology consult details are correct for the rescheduled appointment on the with Dr. Winston at [facility]. - No new vaccines are needed as your vaccinations are up to date. - Manage hand swelling with caution due to your kidney condition; avoid Advil, and note that Tylenol has been less effective. - Continue to monitor your hand injury and head bump symptoms. Please feel free to reach out if you have any questions or need further clarification on your care plan. Best regards, Dr. Rome Brody MD Family Medicine [email or web address] Not available 10/27/2024 14:47:09 Reason for Referral None Reported. Results Created Date Observation Date Name Description Value Unit Range Abnormal Flag Note LastModifiedBy Organization Detail LastModifiedTime 10/27/20 24 10/27/2024 hemog lobin A1C, finge rstic k hemoglobin A1C 7.3 % <5.7 Not Available [address], [address], 10/27/2024 14:10:57 Result Notes None recorded. Problems Name Problem SNOMED Code Status Onset Date Resolution Date Notes Provider Name and Address Organization Details Recorded Time Obstruct marcelo sleep apnea syndrome 92193411 Active 2008 rec. CPAP, intolera nt. RF 05/10/[address], [place], [address] , [facility] 4 11:16:00 [facility] hyperten devin 79748579 [facility] 4 18:23:15 Type 2 diabetes mellitus without complica tion 227978343 Active 2008 Jasendivina Burger [facility] 4 18:26:43 Hyperlip idemia 21688480 Active [address], [facility] [address] , [facility], [facility] 4 23:23:22 Chronic kidney disease stage 4 065865749 Active 2013 Left renal atrophy on CT scan Jul 2019, 04/2023 Jasen Burger [facility], [facility]. 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 4 18:26:30 Vomiting 387558676 Completed 201504/10/2016 Problem Code: R11.10; Problem Code Type: ICD-10; Not Available [facility] 3 04:28:30 Diarrhea 99449765 Completed 201504/10/2016 Problem Code: R19.7; Problem Code Type: ICD-10; Not Available [facility] 3 04:28:31 Senile osteopor osis 75781674 Active 2016 [facility]. 4 18:26:38 History of urinary stone 885764729 Active 2018 distal left ureteral stone Jul [facility] 4 18:24:15 Adult health examinat ion Active [address], [place], [address] , [facility] 4 08:04:27 Gastroes ophageal reflux disease without esophagi tis 177511233 [facility] 2019 [facility] 4 18:22:38 Disorder of shoulder 273179758 Completed 202109/03/2022 Problem Code: M75.81; Problem Code Type: ICD-10; Not Available [facility] 3 04:28:31 Vulval and/or perineal noninfla mmatory disorder s 302581740 Completed 202109/03/2022 Problem Code: N90.89; Problem Code Type: ICD-10; Not Available [facility] 3 04:28:32 Heart failure 75034277 Active 2021 LVEF >= 50% Jasen Burger [facility] 4 18:23:43 Fibromya lgia 566955439 Active MD [address], [place], [address] , [facility] 4 23:23:16 Hyperten sive disorder 98399537 Completed 200407/24/2023 Not Available [facility] 3 04:28:32 Abdomina l pain 85604284 Completed 201412/05/2015 Problem Code: R10.9; Problem Code Type: ICD-10; Not Available [facility] 3 04:28:32 Cataract 484839246 Completed 202006/30/2021 Problem Code: H26.9; Problem Code Type: ICD-10; Not Available [facility] 3 04:28:33 Pre-surg charlee testing Completed 201407/31/2016 Problem Code: Z01.812; Problem Code Type: ICD-10; Not Available [facility] 3 04:28:33 Plantar fascial fibromat osis 85378651 Completed 201706/30/2021 Problem Code: M72.2; Problem Code Type: ICD-10; Not Available [facility] 3 04:28:33 Disorder of the urinary system 680583795 Completed 201806/30/2021 Problem Code: N39.9; Problem Code Type: ICD-10; Not Available [facility] 3 04:28:33 Adult health examinat ion Completed 201407/31/2016 Problem Code: Z00.00; Problem Code Type: ICD-10; ROME BRODY MD [address], [place], [address] , [facility] 4 08:04:27 Chest pain 93968926 Completed 202001/02/2022 Problem Code: R07.89; Problem Code Type: ICD-10; Not Available [facility] 3 04:28:33 Diarrhea 59151879 Completed 201706/30/2021 Not Available [facility] 3 04:28:34 Dysuria 02137420 Completed 201412/05/2015 Problem Code: R30.0; Problem Code Type: ICD-10; Not Available [facility] 3 04:28:34 Acute pharyngi tis 640559509 Completed 201803/25/2020 Problem Code: J02.9; Problem Code Type: ICD-10; Not Available [facility] 3 04:28:34 Acute bronchit is 85419590 Completed 201612/16/2017 Problem Code: J20.9; Problem Code Type: ICD-10; Not Available [facility] 3 04:28:34 Dyspnea 522153990 Completed 202104/04/2022 Problem Code: R06.09; Problem Code Type: ICD-10; Not Available [facility] 3 04:28:34 Dysuria 47118077 Completed 201802/10/2019 Problem Code: R30.0; Problem Code Type: ICD-10; Not Available [facility] 3 04:28:34 Telangie ctasia disorder 251286487 Completed 200107/24/2023 Not Available [facility] 3 04:28:35 Pain in finger of right hand 41977209644 9109 Completed 201506/30/2021 Problem Code: M79.644; Problem Code Type: ICD-10; ROME BRODY MD [address], [place], [address] , [facility] 5 21:22:25 Pain in right arm 400096914 Completed 201407/31/2016 Problem Code: M79.601; Problem Code Type: ICD-10; Not Available [facility] 3 04:28:35 Hypergly cemia due to type 2 diabetes mellitus 83923174194 9109 Completed 200807/24/2023 Problem Code: E11.65; Problem Code Type: ICD-10; Not Available [facility] 3 04:28:35 Pre-surg charlee evaluati on Completed 202006/30/2021 Problem Code: Z01.818; Problem Code Type: ICD-10; Not Available [facility] 3 04:28:35 Melena 2109067 Completed 202104/04/2022 Problem Code: K92.1; Problem Code Type: ICD-10; Not Available [facility] 3 04:28:36 Retinopa thy Completed 201307/24/2023 Not Available [facility] 3 04:28:36 Sleep apnea 93866713 Completed 200807/24/2023 Not Available [facility] 3 04:28:36 Screenin g mammogra phy Completed 202009/29/2021 Problem Code: Z12.31; Problem Code Type: ICD-10; Not Available [facility] 3 04:28:36 Peripher al nerve disease 225364176 Completed 200507/24/2023 Not Available [facility] 3 04:28:36 Fibromyo sitis 48781312 Completed 200407/24/2023 Not Available [facility] 3 04:28:36 Adjustme nt disorder with depresse d mood 42942463 Completed 201607/29/2017 Problem Code: F43.21; Problem Code Type: ICD-10; Not Available [facility] 3 04:28:37 Indigest ion 362170231 Completed 200407/24/2023 Not Available [facility] 3 04:28:37 Itching of skin 658525529 Completed 202110/05/2022 Problem Code: L29.8; Problem Code Type: ICD-10; Not Available [facility] 3 04:28:37 Kidney stone 01362198 Completed 201803/25/2020 Problem Code: N20.0; Problem Code Type: ICD-10; Not Available [facility] 3 04:28:37 Headache 93061761 Completed 201506/30/2021 Problem Code: R51; Problem Code Type: ICD-10; Not Available [facility] 3 04:28:38 Cough 91742664 Completed 201803/25/2020 Problem Code: R05; Problem Code Type: ICD-10; Not Available [facility] 3 04:28:38 Pain of right shoulder joint 33678655569 994801 Completed 201601/30/2018 Problem Code: M25.511; Problem Code Type: ICD-10; ROME BRODY MD [address], [place], [address] , [facility]. 4 23:23:07 Tobacco dependen ce syndrome 97888328 Completed 200405/20/2015 Problem Code: 305.1; Problem Code Type: ICD-9; Not Available [facility] 3 04:28:38 Pain in right hip joint 15676255227 9102 Completed 201803/25/2020 Problem Code: M25.551; Problem Code Type: ICD-10; Not Available [facility] 3 04:28:38 Carpal tunnel syndrome of right wrist 31490256476 9108 Completed 201406/30/2021 Problem Code: G56.01; Problem Code Type: ICD-10; Not Available [facility] 3 04:28:39 Systemic lupus erythema tosus 98443890 Completed 200106/30/2021 Problem Code: M32.9; Problem Code Type: ICD-10; Not Available [facility] 3 04:28:39 Nonulcer dyspepsi a 1802327 Completed 200406/30/2021 Problem Code: K30; Problem Code Type: ICD-10; Not Available [facility] 3 04:28:39 Chronic kidney disease stage 2 164701045 Completed 201307/24/2023 Problem Code: 585.2; Problem Code Type: ICD-9; Not Available [facility] 3 04:28:39 Paresthe manohar 08661675 Completed 201507/24/2023 Problem Code: R20.2; Problem Code Type: ICD-10; Not Available [facility] 3 04:28:40 Screenin g for osteopor osis Completed 201608/22/2017 Problem Code: Z13.820; Problem Code Type: ICD-10; Not Available [facility] 3 04:28:40 Hydronep hrosis 98877445 Completed 201803/25/2020 Problem Code: N13.39; Problem Code Type: ICD-10; Not Available [facility] 3 04:28:40 Coronary arterios clerosis 42847518 Active 2022 occass. angina ROME BRODY MD [address], [place], [address] , [facility]. 4 21:52:45 History of SARS-CoV -2 18649692677 7515091 Completed 202201/21/2024 Problem Code: Z86.16; Problem Code Type: ICD-10; Jasen Burger null, [facility] 4 18:24:55 Carpal tunnel syndrome 97839047 Active 2015 mild via nerve conducti on test MD [address], [facility] [address] , [facility] 4 08:04:33 Carpal tunnel syndrome of left wrist 55684313568 9102 Active 2023 Catherine Anthony RN null, [facility] 4 16:19:33 Obesity 027267589 Active [address], [address] , [facility] 4 23:23:12 Hemorrho ids 06807631 Active [address], [place] [address] , [facility] 4 23:23:28 Edema of lower extremit y 108201042 Active [address], [facility] [address] , [facility] 5 21:22:05 Problem Notes None recorded. Procedures Surgical History Date Name Laterality Status Provider Name and Address Organization Details Recorded Time 4 Carpal tunnel surgery completed Catherine Anthony RN [facility] 01/28/2024 16:21:07 2 Colonoscopy completed FREDRICK ANDERSEN MA [facility] 10/23/2023 16:53:37 Imaging Results None recorded. Procedure Notes None recorded. Medical Equipment None Reported. Allergies Allergen ID Allergen Name Allergen Category Reaction Reaction Severity Criticality Documentation Date Start Date Code Code System Note Provider Name and Address Organization Details Recorded Time 29288 gabapenti n medicatio n other mild Not available 09/06/20232006 49045 RxNorm GI Aller gyRea ction : 'GI'; Not Available [facility] 3 16:26:01 18126 lisinopri l medicatio n diarrhea mild Not available 09/06/20232004 23017 RxNorm Jasen Burger [facility] 4 18:27:40 14527 Cymbalta medicatio n nausea mild Not available 09/06/20232014 99294 4 RxNorm nause a Not Available [facility] 3 16:26:02 30655 Lipitor medicatio n myalgias (muscle pain) mild Not available 09/06/20232004 92921 5 RxNorm MYALG IA Not Available [facility] 3 16:26:02 72167 Cardizem medicatio n dizziness mild Not available 09/06/20232013 76878 4 RxNorm dizzi ness Not Available [facility] 3 16:26:03 69022 amlodipin e / benazepri l medicatio n dizziness mild Not available 09/06/20232011 77419 3 RxNorm Jasen Burger [facility] 4 18:27:25 78189 Prevacid medicatio n dizziness mild Not available 09/06/20232005 71582 RxNorm Jasen Burger [facility] 4 18:27:46 39312 Celebrex medicatio n other moderate Not available 01/21/20242014 53657 7 RxNorm acid reflu x Jasen Burger [facility] 4 18:28:18 02566 metformin medicatio n other severe Not available 01/21/20242016 6809 RxNorm Renal issue s Jasen Burger [facility] 4 18:29:01 18298 turmeric extract food,medi cation other mild low 10/27/2024 04071 83 RxNorm nose bleed s FREDRICK ANDERSEN MA null, [place] - [facility], [facility]. 14:01:25 Medications Name Sig Start Date Stop Date Status Note LastModified by Organization Details LastModified Time verapamil ER (SR) 120 mg tablet,ex tended release Take 1 tablet by mouth daily 2015 active Not Available Not Available Not Avai lable losartan 50 mg tablet 1 tablet daily active Not Available Not Available No t Available cyclobenz aprine 10 mg tablet Take 1 tab by mouth at bedtime as needed 01/30 completed Not Available Not Available Not Available Flomax 0.4 mg capsule Take 1 tab by mouth daily until stone expulsio n 03/25 completed [facility] Not Available Not Available Not Available furosemid e 40 mg tablet TAKE 1 TABLET EVERY MORNING active Not Available Not Available No t Available pioglitaz one 15 mg tablet Take 1 tablet every day by oral route in the morning. 07/22 completed Not Available Not Available Not Available metformin 500 mg tablet 1TAB bid 07/22 completed Not Available Not Available Not Available imipramin e 50 mg tablet 2 at bedtime 04/13 completed Not Available Not Available Not Available naproxen 375 mg tablet Take 1 tablet by mouth twice a day. 06/15 completed Not Available Not Available Not Available ropinirol e 1 mg tablet TAKE 1 TABLET AT BEDTIME active Not Available Not Available No t Available Vitamin C 500 mg tablet 1 once a day 07/04 completed Not Available Not Available Not Available Phenergan 12.5 mg tablet 1 tab q 8 hr 2014 active Not Available Not Available Not Avai lable azithromy brian 250 mg tablet Take 2 by mouth now, then take 1 by mouth daily x 4 days 11/06 completed Not Available Not Available Not Available Novolin N NPH U-100 Insulin isophane 100 unit/mL subcutane ous susp INJECT 55 UNITS IN THE MORNING 03/25 completed Not Available Not Available Not Available metoprolo l succinate ER 50 mg tablet,ex tended release 24 hr Take 1 by mouth daily 2014 active Not Available Not Available Not Avai lable hydrocodo ne 5 mg-acetam inophen 325 mg tablet TAKE ONE TABLET BY MOUTH EVERY 8 HOURS NEEDED FOR PAIN 04/22 completed Not Available Not Available Not Available Nicorette 2 mg gum 1 gum q 2 hr 06/08 completed Not Available Not Available Not Available sucralfat e 1 gram tablet Take 1 tablet every night 06/30 completed Not Available Not Available Not Available Flonase 50 mcg/DOSE nasal inhaler 2 SPRAY bid 01/23 completed Not Available Not Available Not Available ondansetr on HCl 4 mg tablet 1 q8h prn 03/25 completed Not Available Not Available Not Available glipizide 10 mg tablet TAKE 1 TABLET EVERY MORNING active Not Available Not Available No t Available prednison e 20 mg tablet TAKE THREE TABLETS BY MOUTH EVERY DAY FOR 4 DAYS 01/21 completed Not Available Not Available Not Available felodipin e ER 5 mg tablet,ex tended release 24 hr TAKE 1 TABLET DAILY 10/24 completed Not Available Not Available Not Available alendrona te 70 mg tablet Take 1 tab by mouth once weekly 11/01 completed Not Available Not Available Not Available metoprolo l succinate ER 100 mg tablet,ex tended release 24 hr TAKE 1 TABLET DAILY active Not Available Not Available No t Available Atrovent 0.03 % nasal spray 2 sprays in each nostril twice times daily 05/20 completed Not Available Not Available Not Available Sarina Low Dose Aspirin 81 mg tablet,de layed release active Not Available Not Available Not Available Insulin Syringe MicroFine 1 mL 27 gauge x 5/8 inject insulin daily 03/25 completed Not Available Not Available Not Available clotrimaz ole 1 % vaginal cream Apply 1 a small amount to affected area twice a day Apply external ly for up to 7 days 04/03 completed Not Available Not Available Not Available Nexium 40 mg capsule,d elayed release take 1 capsule daily 05/19 completed Not Available Not Available Not Available metronida zole 500 mg tablet 1 TAB BID 05/01 completed Not Available Not Available Not Available amlodipin e 5 mg tablet 1TAB qd 06/10 completed Not Available Not Available Not Available prochlorp erazine maleate 10 mg tablet take 1 every 6 hours for nausea or headache . 04/13 completed Not Available Not Available Not Available simvastat in 80 mg tablet 1 qhs 04/24 completed Not Available Not Available Not Available Reglan 10 mg tablet 1 ac and hs 01/11 completed Not Available Not Available Not Available spironola ctone 25 mg tablet Take 1 tablet by mouth every morning 04/22 completed Not Available Not Available Not Available amoxicill in 500 mg tablet 1 TAB twice daily 02/15 completed Not Available Not Available Not Available pantopraz ole 20 mg tablet,de layed release Take 2 tabs PO at bedtime. 2017 active Not Available Not Available Not Avai lable Guaiatuss in AC 10 mg-100 mg/5 mL oral liquid Take 1-2 tsp by mouth every six hours as needed for cough 12/16 completed Not Available Not Available Not Available Celebrex 100 mg capsule 1TAB bid 10/02 completed Not Available Not Available Not Available Metrogel Vaginal 0.75 % (37.5 mg/5 gram) 1APP PV QHS 02/21 completed Not Available Not Available Not Available lorazepam 0.5 mg tablet take 1 hour before MRI 04/13 completed Not Available Not Available Not Available calcium 500 mg (as calcium carbonate 1,250 mg) tablet Take 1 tab by mouth daily 03/25 completed Not Available Not Available Not Available Imodium A-D 2 mg tablet Take once a day 03/28 completed Not Available Not Available Not Available ropinirol e 0.25 mg tablet take 1 tab 30 minutes before bed time for 2 nights, then increase to 2 tabs before bed time. 2015 active Not Available Not Available Not Avai lable dexametha sone 1 mg tablet take at 11 PM the night before your fasting blood test the next morning. 08/11 completed Not Available Not Available Not Available amitripty line 10 mg tablet 1 TAB QHS 03/30 completed Not Available Not Available Not Available sodium bicarbona te 650 mg tablet 1 tablet by mouth twice a day One in AM and one in PM- [place] [facility] [place] Kid[place]. active Not Available Not Available No t Available amlodipin e 10 mg tablet 1TAB qd 05/26 completed Not Available Not Available Not Available benzonata te 100 mg capsule TAKE ONE CAPSULE BY MOUTH EVERY 8 HOURS NEEDED FOR COUGH 01/21 completed Not Available Not Available Not Available doxycycli ne monohydra te 100 mg capsule Take 1 tab by mouth twice daily. 11/01 completed Not Available Not Available Not Available cephalexi n 500 mg capsule TAKE ONE CAPSULE BY MOUTH THREE TIMES A DAY FOR 5 DAYS 04/22 completed Not Available Not Available Not Available pantopraz ole 40 mg tablet,de layed release TAKE 1 TABLET DAILY active Not Available Not Available No t Available ferrous sulfate 325 mg (65 mg iron) tablet 1 once a day 07/04 completed Not Available Not Available Not Available ropinirol e 0.5 mg tablet TAKE 2 TABLETS AT BEDTIME 04/03 completed Not Available Not Available Not Available oxycodone 5 mg capsule 1 q 6 hrs prn 03/25 completed er Not Available Not Available Not Available nitroglyc levy 0.4 mg sublingua l tablet Place 1 tablet as needed by sublingu al route as needed. active Not Available Not Available No t Available Prevalite 4 gram powder for susp in a packet 11/02 completed Not Available Not Available Not Available felodipin e ER 10 mg tablet,ex tended release 24 hr TAKE 1 TABLET DAILY (DOSE CHANGE) active Not Available Not Available No t Available verapamil ER (SR) 240 mg tablet,ex tended release Take 1 by mouth daily 05/08 completed Not Available Not Available Not Available furosemid e 20 mg tablet Take 1 tablet once a day 06/20 completed Not Available Not Available Not Available Diltiazem HCL ER 120 mg capsule,e xtended release 1cap daily 06/01 completed Not Available Not Available Not Available lorazepam 1 mg tablet take 30-60 minutes before MRI 10/14 completed Not Available Not Available Not Available ibuprofen 600 mg tablet TAKE ONE TABLET BY MOUTH THREE TIMES A DAY NEEDED FOR PAIN 04/22 completed Not Available Not Available Not Available Garamycin 0.3 % eye drops 3GTTS QID 01/23 completed Not Available Not Available Not Available imipramin e 10 mg tablet 1 qhs 04/13 completed Not Available Not Available Not Available losartan 100 mg tablet Take 1 tablet by mouth once a day 05/06 completed Not Available Not Available Not Available metformin ER 500 mg tablet,ex tended release 24 hr Take 1 tab by mouth daily 04/13 completed Not Available Not Available Not Available imipramin e 25 mg tablet 2TAB qhs 05/05 completed Not Available Not Available Not Available glipizide 5 mg tablet TAKE 2 TABLETS IN THE MORNING AND 2 TABLETS IN THE EVENING 04/03 completed Not Available Not Available Not Available naproxen 500 mg tablet 1 bid 01/17 completed Not Available Not Available Not Available Diltiazem HCl CR 240 mg capsule,e xtended release 1cap daily 10/02 completed Not Available Not Available Not Available amoxicill in 875 mg-potass ium clavulana te 125 mg tablet TAKE ONE TABLET BY MOUTH EVERY 12 HOURS FOR 7 DAYS 01/21 completed Not Available Not Available Not Available Ventolin HFA 90 mcg/actua tion aerosol inhaler 2 puffs every 6 hours 11/01 completed Not Available Not Available Not Available Diltiazem HCl CR 120 mg capsule,e xtended release 1cap daily 10/02 completed Not Available Not Available Not Available Potassium -99 99 mg tablet Take once a day PO 03/25 completed Not Available Not Available Not Available Bactrim 400 mg-80 mg tablet 1 BID 05/20 completed Not Available Not Available Not Available lidocaine 3 %-hydroco rtisone 0.5 % rectal cream Insert 1 applicat orful twice a day by rectal route. 2023 active Not Available Not Available Not Avai lable rosuvasta tin 10 mg tablet TAKE ONE TABLET BY MOUTH EVERY DAY 10/24 completed Not Available Not Available Not Available rosuvasta tin 40 mg tablet TAKE 1 TABLET EVERY NIGHT active Not Available Not Available No t Available Prilosec OTC 20 mg tablet,de layed release 1 CAP bid 06/29 completed Not Available Not Available Not Available Cymbalta 30 mg capsule,d elayed release 1CAP daily 02/28 completed Not Available Not Available Not Available Lyrica 25 mg capsule 1 three times daily 05/20 completed Not Available Not Available Not Available Lyrica 50 mg capsule Take 1 capsule by mouth twice a day 02/05 completed generic lyrica-p regabali n caused lighthea dedness, and stomach issues Not Available Not Available Not Available Tylenol-C odeine #3 1TAB every six hours 03/05 completed Not Available Not Available Not Available BD Ultra-Fin e Short Pen Needle 31 gauge x 5/16 Inject insulin subcutan eously as directed . active Not Available Not Available No t Available Januvia 25 mg tablet Take 1 tablet by mouth every morning 10/24 completed 07/27/23 Not Available Not Available Not Available Celebrex 50 mg capsule 1 q hs 07/19 completed Not Available Not Available Not Available Lantus Solostar U-100 Insulin 100 unit/mL (3 mL) subcutane ous pen START WITH 8 UNITS INJECTED UNDER THE SKIN AT BEDTIME, INCREASE GRADUALL Y TO MAXIMUM OF 20 UNITS AT BEDTIME. active Not Available Not Available No t Available diclofena c 1 % topical gel Apply 1 gram to affected area twice a day right shoulder 02/05 completed Not Available Not Available Not Available 1st Tier Unifine Pentips 31 gauge x 1/4 needle use on pen 12/14 completed Not Available Not Available Not Available Vitamin D3 50 mcg (2,000 unit) capsule 2 QD 03/25 completed [facility] [place] Available Not Available Not Available Aerochamb er Mini use with the inhaler every 6 hours 11/01 completed Not Available Not Available Not Available Tradjenta 5 mg tablet Take 1 tablet by mouth every morning 11/13 completed thigh pain Not Available Not Available Not Available Fiber Gummies active Not Available Not Available Not Available Advocate Syringes 0.5 mL 30 gauge x 5/16 use with NPH insulin as directed 04/11 completed Not Available Not Available Not Available Freestyle InsuLinx Test Strips Use 1 strip via meter four times a day 02/16 completed Not Available Not Available Not Available BD Insulin Syringe Ultra-Fin e 0.5 mL 31 gauge x 5/16 USE WITH NPH INSULIN DIRECTED 2017 active Not Available Not Available Not Avai lable Tanzeum 30 mg/0.5 mL subcutane ous pen injector inject 30 mg subcutan eously once a week. 03/23 completed Not Available Not Available Not Available Bydureon 2 mg/0.65 mL subcutane ous pen injector 2 mg by subcutan ous injectio n once a week 12/05 completed Not Available Not Available Not Available Jardiance 10 mg tablet Take 1 tablet by mouth daily active Not Available Not Available No t Available Trulicity 1.5 mg/0.5 mL subcutane ous pen injector inject 1 1/2 mg subcutan eously once a week 01/21 completed UTD with care Not Available Not Available Not Available Trulicity 0.75 mg/0.5 mL subcutane ous pen injector Inject 3/4 mg subcutan eously once a week for 4 weeks, then 1.5mg weekly 10/24 completed Not Available Not Available Not Available Metamucil 3.4 gram/5.4 gram oral powder 2 teaspoon once a day 04/22 completed Not Available Not Available Not Available turmeric 500 mg-black pepper extract 3 mg capsule Take 1 capsule twice a day by oral route. 10/27 completed Not Available Not Available Not Available Rybelsus 3 mg tablet Take 1 tablet by mouth every morning 05/06 completed Not Available Not Available Not Available Trulicity 3 mg/0.5 mL subcutane ous pen injector Inject 3 mg subcutan eously once a week active Not Available Not Available No t Available albuterol 90 mcg-budes onide 80 mcg/actua tion HFA aerosol inhaler Inhale 2 inhalati ons every 4-6 hours by inhalati on route as needed. 04/22 completed Not Available Not Available Not Available Vitals Date Recorded Body height Body mass index (BMI) Body weight Heart rate Body temperature Systolic blood pressure Diastolic blood pressure Provider Name and Address Organization Details Last Updated DateTime 165.1 cm 32.6 kg/m2 97256.1 g 68 /min 98 [degF] 126 mm[Hg] 76 mm[Hg] [facility] 14:00:40 Social History Question Answer Notes LastModified by Organizat ion Details LastModified Time Tobacco Smoking Status Former Smoker ROME BRODY MD [address], [place], [address], [facility] 01/22/2024 11:14:16 When Did You Quit Smoking? 15+yearssinc elastcigaret te Information not available 01/22/2024 What Was The Date Of Your Most Recent Tobacco Screening? 10/27/2024 [email or web address] Information not available 10/27/2024 What Is Your Current Pack Years? 30ormorepack years Information not available 01/22/2024 At What Age Did You Start Smoking Tobacco? 14 Information not available 01/22/2024 How Many Years Have You Smoked Tobacco? 48 Information not available 01/22/2024 Do You Or Have You Ever Used Any Other Forms Of Tobacco Or Nicotine? No Information not available 01/22/2024 Sex: Female Functional Status None recorded. Mental Status None recorded. Family History Relationship Description Onset Age of this Age Resolved Age Notes LastModified by Organization Details LastModified Time Brother Family history of acute medical disorder reflux [email or web address] Not available 2022 03:50:14 Notes:*Problem: Brother pres umed fundoplication for reflux Family History of: Breast cancer: maternal great aunt breast cancer - post menopause maternal aunt -- deforming arthritis (? Rheumatoid Arthritis?) Medical History No medical history recorded. Gynecological HistoryNo gynecological history recorded. Obstetrics History GPAL:G 0 P 0 0 0 0 Immunizations Vaccine Type Date Status Note Provider Nam e and Address Organization Details Recorded Time COVID-19, mRNA, LNP-S, PF, sanjay-sucrose, 30 mcg/0.3 mL 4 completed MD [address], [place], [address], [facility] 07/26/2024 23:17:36 Influenza, high-dose, trivalent, PF 4 completed MD [address], [place], [address], [facility] 07/26/2024 23:17:36 Td (adult), 5 Lf tetanus toxoid, preservative free, adsorbed 6 completed Not Available [facility] 09/06/2023 06:19:29 Tdap 6 completed Not Available [facility] 09/06/2023 06:19:29 zoster live 2 completed Not Available [facility] 09/06/2023 06:19:29 Pneumococcal conjugate PCV 13 6 completed Not Available [facility] 09/06/2023 06:19:29 Influenza, high-dose, trivalent, PF 8 completed Not Available [facility] 09/06/2023 06:19:29 Influenza, split virus, trivalent, preservative 6 completed Not Available [facility] 09/06/2023 06:19:29 Influenza, split virus, quadrivalent, preservative 7 completed Not Available [facility] 09/06/2023 06:19:29 Influenza, high-dose, quadrivalent, PF 1 completed Not Available [facility] 09/06/2023 06:19:29 Influenza, high-dose, quadrivalent, PF 2 completed Not Available [facility] 09/06/2023 06:19:29 COVID-19, mRNA, LNP-S, PF, 100 mcg/0.5mL dose or 50 mcg/0.25mL dose 1 completed Not Available [facility] 09/06/2023 06:19:30 COVID-19, mRNA, LNP-S, PF, 100 mcg/0.5mL dose or 50 mcg/0.25mL dose 1 completed Not Available [facility] 09/06/2023 06:19:30 COVID-19, mRNA, LNP-S, PF, 100 mcg/0.5mL dose or 50 mcg/0.25mL dose 1 completed Not Available [facility] 09/06/2023 06:19:30 COVID-19, mRNA, LNP-S, bivalent, PF, 50 mcg/0.5 mL or 25mcg/0.25 mL dose 2 completed Not Available [facility] 09/06/2023 06:19:30 pneumococcal polysaccharide PPV23 7 completed Not Available [facility] 09/06/2023 06:19:30 pneumococcal polysaccharide PPV23 8 completed Not Available [facility] 09/06/2023 06:19:30 influenza, unspecified formulation 2 completed Not Available [facility] 09/06/2023 06:19:30 influenza, unspecified formulation 3 completed ARAVIND KERN, [facility] 10/23/2023 16:54:12 Influenza, high-dose, quadrivalent, PF 3 completed Not Available [facility] 11/08/2023 05:31:09 COVID-19, mRNA, LNP-S, PF, sanjay-sucrose, 30 mcg/0.3 mL 3 completed MD [address], [place], [address], [facility] 10/28/2023 21:49:29 Past Encounters Encounter ID Performer Location Encounter Start Date Encounter Closed Date Diagnosis/Indication Diagnosis SNOMED-CT Code Diagnosis ICD10 Code Diagnosis Note [id number] ROME BRODY MD [address] [place] [address] 10/27/2024 13:44:52 10/27/2024 14:51:02 Type 2 diabetes mellitus without complication 739997991 E11.9 A1C 7.3% Continue current diabetic regimen with Lantus and monitor blood glucose levels closely. . Educated the patient on maintainin g a healthy diet and activity level to aid in weight management . Essential hypertension 86713375 I10 Continue prescribed antihypert ensive therapy. Blood pressure is currently well-contr olled Chronic ki dney disease stage 4 276647308 N18.4 continue nephrology consultati ons and monitor kidney function closely. cmp, phos, pth, cbd in a few weeks, forward to Dr [facility] Concerns Section Related Observation LastModified by Organization Detai ls LastModified Time None Recorded Concern Status LastModified by Organization Details LastModified Time None Recorded Payers Encounter Date Sequence Insurance Name Policy Number Policy Schuler Covered Member ID Schuler Member ID Guarantor Name 10/27/2024 1 [place] [employer] Brynn Khalil [id number] Brynn Khalil 10/27/2024 2 FOR LIFE () 000 Brynn Kemar Khalil [id number] Brynn Khalil Notes Date Note Type Note Provider Name and Address Organization Details Recorded Time 10/27/2024 text/html Creatinine has been gradually climbing. The patient presents for a 3-month diabetes check. They report that their diabetes is well controlled with an A1C of 7.3, which is the same as their previous visit. 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 They also report a bump on their head from hitting it with ice, which has not been relieved by Tylenol. Patient seen her hoof and shoe inspector in about a month, will be due for labs. Prefers to get them done up here for convenience. Will get them ordered here week or so prior. Creatinines have been gradually climbing still unfortunately. MD [address], [place], [address], [facility]. 10/28/2024 21:34:31 OBGyn Episode No OBEpisode recorded.
--- OUTSIDE RECORDS SUMMARY | 2024-11-16 13:18 | XMS_ITS | Data Portability ---
Author Organization [place] - [facility] Address Les Mcgreg[address] [facility] [place] [address] Assessment Encounter Date Assessment Date Assessment LastModified by Organization Details LastModified Time 08/05/2024 08/05/2024 Assessment and Plan: Left Thumb Pain and Swelling - Assessment: Presents with left thumb pain and swelling. Not consistent with de Quervain's tendinitis - Plan: - Order x-ray of left thumb to evaluate for arthritis. - Advise patient to rest the thumb and avoid activities that exacerbate pain. - Recommend trying exgz-uyn-pbze ter turmeric capsules (500 mg) for inflammation. - Consider using a thumb splint or neoprene brace for support. - If arthritis is confirmed, consider referral to customer experience specialist for cortisone injections. Right finger pain plan: X-ray of the right mid finger and hand, also told patient likely arthritic pain. Will contact patient with results when i they return gregg Not available 08/09/2024 12:14:14 10/27/2024 10/27/2024 Future Nursing Orders: Lab work to include cmp, phosphorus, pth, cbc in approx 3 weeks. Primary diagnosis includes ckd, dm2, htn. Results to [facility] nephrology Dr Winston always. [email or web address] Not available 10/28/2024 21:32:56 Plan of Treatment Reminders Order Date Submit Date Provider Last Modified By Organization Details Last Modified Time Details Appointments Nurse Visit 2024 11:30A M [place] Nursing Staff Not available Not available Not available Annual Chronic Care (65+) 30 2024 10:00A M ROME BRODY Not available Not available Not available Lab hemoglobi n A1C, fingersti ck 2023 024 gregg [facility], [address] [place] [address], [phone], 01/22/2024 13:02:34 hemoglobi n A1C, fingersti ck 2023 [facility], [address] [place] [address], [phone], 04/22/2024 11:30:24 hemoglobi n A1C, fingersti ck 2023 024 [facility], [address] [place] [address], [phone], 07/22/2024 11:37:52 hemoglobi n A1C, fingersti ck 2023 [facility], [address] [place] [address], [phone], 10/27/2024 14:55:05 Referral None recorded. Procedures None recorded. Surgeries None recorded. Imaging XR, thumb 2023 [facility] ([facility]), [address] [place] [address] [place], [address], 08/12/2024 09:21:17 XR, finger(s) - third 2023 [facility] ([facility]), [address] [place] [address] [place], [address], 08/12/2024 09:21:26 Medication Orders pioglitaz one 15 mg tablet 2023 024 [facility] [place], [address] [facility], [place], [address], 07/22/2024 10:34:24 lidocaine 3 %-hydroco rtisone 0.5 % rectal cream 2023 024 [id number], [address] [facility], [place], [address], 07/22/2024 10:52:33 Patient TargetsNo targets recorded. Patient Instructions Encounter Date Encounter Id Patient Instructions Last Modified By Organization Details Last Modified Time 04/22/2024 [id number] stop Trulicity. cut Lantus to 14U at night. Start pioglitazone every morning no sooner than Wed next week (after sugars start to climb as Trulicity gets out of your system. [email or web address] Not available 04/22/2024 11:27:02 07/22/2024 [id number] learning about healthy weight jdege Not available 07/22/2024 11:37:52 08/05/2024 [id number] Dear gr, Thank you for visiting us today. We appreciate your commitment to improving your health and addressing your concerns. Here is a summary of the daly instructions from today's consultation: - X-ray: Recommended to determine if the pain in your thumb is due to arthritis. - Medications and Supplements: - Turmeric capsules: 500 mg, available [id number], may help with inflammation. - Tylenol: Continue as needed for pain, but do not exceed the recommended dosage. - Lifestyle Adjustments: - Try to avoid activities that exacerbate your thumb pain. - Consider using a neoprene wrist sleeve or thumb splint for support. - Follow-up Appointments: - Follow up with Alina Conde, nurse practitioner, on August 21 regarding your CPAP therapy. - Ensure to attend your scheduled x-ray appointment. - Additional Recommendations: - Rest the affected area and consider using a brace if pain persists. - Continue with CPAP therapy as advised for your sleep apnea. Please ensure to follow these instructions carefully and keep us updated on your progress. If you have any questions or further issues, do not hesitate to contact our office. Best regards, Dr. Rome Brody MD Family Medicine jdege Not available 08/05/2024 12:09:30 10/27/2024 [id number] Dear gdr, Thank you for visiting us [...] appointment on the with Dr. Winston at [facility]. - No new vaccines are needed [...] Abnormal Flag Note LastModifiedBy Organization Detail LastModifiedTime 01/07/20 24 01/07/2024 COMPL ETE BLOOD COUNT W/DIF F WBC 9.16 10_3/ uL 4.4-10 .8 normal Not Available [address] [place], [address] 01/07/2024 14:41:46 01/07/20 24 01/07/2024 COMPL ETE BLOOD COUNT W/DIF F RBC 4.49 10_6/ uL 3.93-5 .22 normal Not Available [address] [place], [address] 01/07/2024 14:41:46 01/07/20 24 01/07/2024 COMPL ETE BLOOD COUNT W/DIF F HGB 12.9 g/dL 11.2-1 5.7 normal Not Available [address] [place], [address] 01/07/2024 14:41:46 01/07/20 24 01/07/2024 COMPL ETE BLOOD COUNT W/DIF F HCT 40.9 % 36.0-4 6.0 normal Not Available [address] [place], [address] 01/07/2024 14:41:46 01/07/20 24 01/07/2024 COMPL ETE BLOOD COUNT W/DIF F MCV 91 fL 80-95 normal Not Available [address] [place], [address] 01/07/2024 14:41:46 01/07/20 24 01/07/2024 COMPL ETE BLOOD COUNT W/DIF F MCH 28.7 pg 27.0-3 3.0 normal Not Available [address] [place], [address] 01/07/2024 14:41:46 01/07/20 24 01/07/2024 COMPL ETE BLOOD COUNT W/DIF F MCHC 31.5 % 32.0-3 6.0 low Not Available [address] [place], [address] 01/07/2024 14:41:46 01/07/20 24 01/07/2024 COMPL ETE BLOOD COUNT W/DIF F RDW 14.0 % 11.7-1 4.6 normal Not Available [address] [place], [address] 01/07/2024 14:41:46 01/07/20 24 01/07/2024 COMPL ETE BLOOD COUNT W/DIF F platelet count 194 10_3/ uL 130-40 0 normal Not Available [address] [place], [address] 01/07/2024 14:41:46 01/07/20 24 01/07/2024 COMPL ETE BLOOD COUNT W/DIF F MPV 12.0 fL 8.0-11 .0 high Not Available [address] [place], [address] 01/07/2024 14:41:46 01/07/20 24 01/07/2024 COMPL ETE BLOOD COUNT W/DIF F neutrophils % 79.9 Not Available [address] [place], [address] 01/07/2024 14:41:46 01/07/20 24 01/07/2024 COMPL ETE BLOOD COUNT W/DIF F lymphocytes % 11.0 Not Available [address] [place], [address] 01/07/2024 14:41:46 01/07/20 24 01/07/2024 COMPL ETE BLOOD COUNT W/DIF F monocytes % 5.5 Not Available [address] [place], [address] 01/07/2024 14:41:46 01/07/20 24 01/07/2024 COMPL ETE BLOOD COUNT W/DIF F eosinophils % 2.2 Not Available [address] [place], [address] 01/07/2024 14:41:46 01/07/20 24 01/07/2024 COMPL ETE BLOOD COUNT W/DIF F basophils % 1.0 Not Available [address] [place], [address] 01/07/2024 14:41:46 01/07/20 24 01/07/2024 COMPL ETE BLOOD COUNT W/DIF F immature grans % 0.4 Not Available [address] [place], [address] 01/07/2024 14:41:46 01/07/20 24 01/07/2024 COMPL ETE BLOOD COUNT W/DIF F nucleated RBC 0.0 % 0.0-0. 3 normal Not Available [address] [place], [address] 01/07/2024 14:41:46 01/07/20 24 01/07/2024 COMPL ETE BLOOD COUNT W/DIF F absolute neutrophil count 7.32 10_3/ uL 1.2-6. 7 high Not Available [address] [place], [address] 01/07/2024 14:41:46 01/07/20 24 01/07/2024 COMPL ETE BLOOD COUNT W/DIF F absolute lymphocyte count 1.01 10_3/ uL 1.2-3. 4 low Not Available [address] [place], [address] 01/07/2024 14:41:46 01/07/20 24 01/07/2024 COMPL ETE BLOOD COUNT W/DIF F absolute monocyte count 0.50 10_3/ uL 0.1-0. 8 normal Not Available [address] [place], [address] 01/07/2024 14:41:46 01/07/20 24 01/07/2024 COMPL ETE BLOOD COUNT W/DIF F absolute eosinophil count 0.20 10_3/ uL 0.0-0. 7 normal Not Available [address] [place], [address] 01/07/2024 14:41:46 01/07/20 24 01/07/2024 COMPL ETE BLOOD COUNT W/DIF F absolute basophil count 0.09 10_3/ uL 0.0-0. 2 normal Not Available [address] [place], [address] 01/07/2024 14:41:46 01/07/20 24 01/07/2024 COMPR EHENS XU METAB OLIC PANEL calcium 9.7 mg/dL 8.5-10 .1 normal Not Available [address] [place], [address] 01/07/2024 15:09:51 01/07/20 24 01/07/2024 COMPR EHENS XU METAB OLIC PANEL glucose 233 mg/dL 74-106 high Not Available [address] [place], [address] 01/07/2024 15:09:51 01/07/20 24 01/07/2024 COMPR EHENS XU METAB OLIC PANEL BUN 35 mg/dL 7-18 high Not Available [address] [place], [address] 01/07/2024 15:09:51 01/07/20 24 01/07/2024 COMPR EHENS XU METAB OLIC PANEL creatinine 2.5 mg/dL 0.55-1 .02 high Not Available [address] [place], [address] 01/07/2024 15:09:51 01/07/20 24 01/07/2024 COMPR EHENS XU METAB OLIC PANEL estimated GFR 19.69 mL/min /1.73m 2 The eGFR is calcu lated from a serum creat inine using the CKD-E PI 2020 equat ion. Other varia bles requi red for the equat ion are gende r and age; this equat ion does not inclu de a race coeff icien t. This equat ion has simil ar overa ll perfo rmanc e to previ ous equat ions excep t value s may diffe r, in parti cular , in patie nts with highe r value s of eGFR and young er-ag ed adult s. Not Available [address] [place], [address] 01/07/2024 15:09:51 01/07/20 24 01/07/2024 COMPR EHENS XU METAB OLIC PANEL total protein 7.8 g/dL 6.4-8. 2 normal Not Available [address] [place], [address] 01/07/2024 15:09:51 01/07/20 24 01/07/2024 COMPR EHENS XU METAB OLIC PANEL albumin 3.5 g/dL 3.4-5. 0 normal Not Available [address] [place], [address] 01/07/2024 15:09:51 01/07/20 24 01/07/2024 COMPR EHENS XU METAB OLIC PANEL bilirubin, total 0.5 mg/dL 0.2-1. 0 normal Not Available [address] [place], [address] 01/07/2024 15:09:51 01/07/20 24 01/07/2024 COMPR EHENS XU METAB OLIC PANEL alk phos 96 U/L 46-116 normal Not Available [address] [place], [address] 01/07/2024 15:09:51 01/07/20 24 01/07/2024 COMPR EHENS XU METAB OLIC PANEL sodium 143 mmol/ L 136-14 5 normal Not Available [address] [place], [address] 01/07/2024 15:09:51 01/07/20 24 01/07/2024 COMPR EHENS XU METAB OLIC PANEL potassium 3.9 mmol/ L 3.5-5. 1 normal Not Available [address] [place], [address] 01/07/2024 15:09:51 01/07/20 24 01/07/2024 COMPR EHENS XU METAB OLIC PANEL chloride 104 mmol/ L 98-107 normal Not Available [address] [place], [address] 01/07/2024 15:09:51 01/07/20 24 01/07/2024 COMPR EHENS XU METAB OLIC PANEL CO2 26.5 mmol/ L 21.0-3 2.0 normal Not Available [address] [place], [address] 01/07/2024 15:09:51 01/07/20 24 01/07/2024 COMPR EHENS XU METAB OLIC PANEL anion gap 12.5 mmol/ L 3-11 high Not Available [address] [place], [address] 01/07/2024 15:09:51 01/07/20 24 01/07/2024 COMPR EHENS XU METAB OLIC PANEL AST 13 U/L 15-37 low Not Available Roxanne siegel [address] [place], [address] 01/07/2024 15:09:51 01/07/20 24 01/07/2024 COMPR EHENS XU METAB OLIC PANEL ALT 20 U/L 14-59 normal Not Available Roxanne siegel [address] [place], [address] 01/07/2024 15:09:51 01/11/20 24 01/11/2024 VENOU S BLOOD GAS pH (venous) 7.41 7.31-7 .41 normal Not Available [address] [place], [address] 01/11/2024 12:13:15 01/11/20 24 01/11/2024 VENOU S BLOOD GAS pCO2 (venous) 45 mmHg 41-51 normal Not Available Shantal rashid [address] [place], [address] 01/11/2024 12:13:15 01/11/2001/11/2024 VENOU S BLOOD GAS pO2 (venous) 44 mmHg Not Available [address] [place], [address] 01/11/2024 12:13:15 01/11/2001/11/2024 VENOU S BLOOD GAS TCO2 (venous) 26 mmol/ L 24-29 normal Not Available [address] [place], [address] 01/11/2024 12:13:15 01/11/2001/11/2024 VENOU S BLOOD GAS HCO3 (venous) 28 mmol/ L 23-28 normal Not Available [address] [place], [address] 01/11/2024 12:13:15 01/11/2001/11/2024 VENOU S BLOOD GAS BE (venous) 4 mmol/ L -2-3 high Not Available [address] [place], [address] 01/11/2024 12:13:15 01/11/2001/11/2024 VENOU S BLOOD GAS O2 sat (venous) 81 % Not Available [address] [place], [address] 01/11/2024 12:13:15 01/11/2001/11/2024 COMPL ETE BLOOD COUNT W/DIF F WBC 8.30 10_3/ uL 4.4-10 .8 normal Not Available [address] [place], [address] 01/11/2024 12:13:17 01/11/2001/11/2024 COMPL ETE BLOOD COUNT W/DIF F RBC 4.43 10_6/ uL 3.93-5 .22 normal Not Available [address] [place], [address] 01/11/2024 12:13:17 01/11/2001/11/2024 COMPL ETE BLOOD COUNT W/DIF F HGB 12.8 g/dL 11.2-1 5.7 normal Not Available [address] [place], [address] 01/11/2024 12:13:17 01/11/20 24 01/11/2024 COMPL ETE BLOOD COUNT W/DIF F HCT 40.3 % 36.0-4 6.0 normal Not Available [address] [place], [address] 01/11/2024 12:13:17 01/11/20 24 01/11/2024 COMPL ETE BLOOD COUNT W/DIF F MCV 91 fL 80-95 normal Not Available [address] [place], [address] 01/11/2024 12:13:17 01/11/20 24 01/11/2024 COMPL ETE BLOOD COUNT W/DIF F MCH 28.9 pg 27.0-3 3.0 normal Not Available [address] [place], [address] 01/11/2024 12:13:17 01/11/20 24 01/11/2024 COMPL ETE BLOOD COUNT W/DIF F MCHC 31.8 % 32.0-3 6.0 low Not Available [address] [place], [address] 01/11/2024 12:13:17 01/11/20 24 01/11/2024 COMPL ETE BLOOD COUNT W/DIF F RDW 13.8 % 11.7-1 4.6 normal Not Available [address] [place], [address] 01/11/2024 12:13:17 01/11/20 24 01/11/2024 COMPL ETE BLOOD COUNT W/DIF F platelet count 175 10_3/ uL 130-40 0 normal Not Available [address] [place], [address] 01/11/2024 12:13:17 01/11/20 24 01/11/2024 COMPL ETE BLOOD COUNT W/DIF F MPV 11.5 fL 8.0-11 .0 high Not Available [address] [place], [address] 01/11/2024 12:13:17 01/11/20 24 01/11/2024 COMPL ETE BLOOD COUNT W/DIF F neutrophils % 74.8 Not Available [address] [facility] [place], [address] 01/11/2024 12:13:17 01/11/20 24 01/11/2024 COMPL ETE BLOOD COUNT W/DIF F lymphocytes % 15.9 Not Available [address] [place], [address] 01/11/2024 12:13:17 01/11/20 24 01/11/2024 COMPL ETE BLOOD COUNT W/DIF F monocytes % 6.1 Not Available [address] [place], [address] 01/11/2024 12:13:17 01/11/20 24 01/11/2024 COMPL ETE BLOOD COUNT W/DIF F eosinophils % 2.3 Not Available [address] [place], [address] 01/11/2024 12:13:17 01/11/20 24 01/11/2024 COMPL ETE BLOOD COUNT W/DIF F basophils % 0.7 Not Available [address] [place], [address] 01/11/2024 12:13:17 01/11/20 24 01/11/2024 COMPL ETE BLOOD COUNT W/DIF F immature grans % 0.2 Not Available [address] [facility] [place], [address] 01/11/2024 12:13:17 01/11/20 24 01/11/2024 COMPL ETE BLOOD COUNT W/DIF F nucleated RBC 0.0 % 0.0-0. 3 normal Not Available [address] [place], [address] 01/11/2024 12:13:17 01/11/20 24 01/11/2024 COMPL ETE BLOOD COUNT W/DIF F absolute neutrophil count 6.20 10_3/ uL 1.2-6. 7 normal Not Available [address] [facility] [place], [address] 01/11/2024 12:13:17 01/11/20 24 01/11/2024 COMPL ETE BLOOD COUNT W/DIF F absolute lymphocyte count 1.32 10_3/ uL 1.2-3. 4 normal Not Available [address] [place], [address] 01/11/2024 12:13:17 01/11/20 24 01/11/2024 COMPL ETE BLOOD COUNT W/DIF F absolute monocyte count 0.51 10_3/ uL 0.1-0. 8 normal Not Available [address] [place], [address] 01/11/2024 12:13:17 01/11/20 24 01/11/2024 COMPL ETE BLOOD COUNT W/DIF F absolute eosinophil count 0.19 10_3/ uL 0.0-0. 7 normal Not Available [address] [place], [address] 01/11/2024 12:13:17 01/11/20 24 01/11/2024 COMPL ETE BLOOD COUNT W/DIF F absolute basophil count 0.06 10_3/ uL 0.0-0. 2 normal Not Available [address] [place], [address] 01/11/2024 12:13:17 01/11/20 24 01/11/2024 PROTH ROMBI N TIME prothrombin time 11.1 sec 9.1-11 .1 normal Not Available [address] [place], [address] 01/11/2024 12:31:17 01/11/20 24 01/11/2024 PROTH ROMBI N TIME INR 1.1 0.9-1. 1 normal Recom sara d INR thera peuti c range s for orall y admin ister ed drugs are as follo ws: -Valeriano dard Inten sity 2.0 to 3.0 -High er Inten sity 3.0 to 4.5 Not Available [address] [place], [address] 01/11/2024 12:31:17 01/11/20 24 01/11/2024 PTT ACTIV ATED PTT activated 27.3 sec 23.6-3 2.8 normal Hepar in Thera peuti c Range for PTT = 52-84 secon ds New Hepar in Thera peuti c Range 12/03 Not Available [address] [place], [address] 01/11/2024 12:31:17 01/11/20 24 01/11/2024 COVID /FLU/ RSV PCR source Shantal rollinsx Not Available [address] [place], [address] 01/11/2024 12:51:19 01/11/20 24 01/11/2024 COVID /FLU/ RSV PCR covid-19 PCR Negati ve negati ve This test has not been FDA clear ed or appro chasity. This test has been autho rized by the FDA under an Emerg ency Use Autho rizat ion for use by autho rized labor atori es. This test has been autho rized only for detec tion of nucle ic acid from the 2018 novel coron a virus (2018 -nCoV ), influ terry A, influ terry B, and respi rator y syncy tial virus (RSV) , and not for the detec tion of any other virus es or patho gens. This test is only autho rized for the durat ion of the decla ratio n that circu mstan maricarmen exist justi fying the autho rizat ion of emerg ency use of in vitro diagn ostic tests for detec tion and/o r diagn osis of nCo under secti on 564(b )(1) of Act, 21 U.S.C ??? 360bb b-3(b )(1), unles s the autho rizat ion is termi nated or revok ed soone r. Negat xu resul ts do not precl ude 2019- nCoV, influ terry, and/o r RSV infec tion and shoul d not be used as the sole basis for treat ment or other patie nt manag ement decis ions. Negat xu resul ts must be combi beatrice with clini maame obser vatio ns, patie nt histo ry, and epide miolo gical infor matio n. Testi ng perfo rmed at [facility] (CLIA #[id number]) on the [employer] id [id number] pert. Not Available [address] [place], [address] 01/11/2024 12:51:19 01/11/20 24 01/11/2024 COVID /FLU/ RSV PCR influenza A PCR Negati ve negati ve Not Available [address] [place], [address] 01/11/2024 12:51:19 01/11/20 24 01/11/2024 COVID /FLU/ RSV PCR influenza B PCR Negati ve negati ve Not Available [address] [place], [address] 01/11/2024 12:51:19 01/11/20 24 01/11/2024 COVID /FLU/ RSV PCR RSV PCR Negati ve negati ve Not Available [address] [place], [address] 01/11/2024 12:51:19 01/11/20 24 01/11/2024 URINA LYSIS color Yellow yellow Not Available Roxanne siegel [address] [place], [address] 01/11/2024 12:53:19 01/11/20 24 01/11/2024 URINA LYSIS clarity Clear clear Not Available Roxanne [address] [place], [address] 01/11/2024 12:53:19 01/11/20 24 01/11/2024 URINA LYSIS specific gravity 1.020 1.005- 1.025 normal Not Available [address] [place], [address] 01/11/2024 12:53:19 01/11/20 24 01/11/2024 URINA LYSIS pH 5.5 5-8 normal Not Available Roxanne [address] [place], [address] 01/11/2024 12:53:19 01/11/20 24 01/11/2024 URINA LYSIS leukocyte esterase Trace negati ve abnormal Not Available [address] [place], [address] 01/11/2024 12:53:19 01/11/20 24 01/11/2024 URINA LYSIS nitrite Negati ve negati ve Not Available [address] [place], [address] 01/11/2024 12:53:19 01/11/20 24 01/11/2024 URINA LYSIS protein Negati ve mg/dL neg-tr lorenzo Not Available [address] [place], [address] 01/11/2024 12:53:19 01/11/20 24 01/11/2024 URINA LYSIS glucose Negati ve mg/dL negati ve Not Available [address] [place], [address] 01/11/2024 12:53:19 01/11/20 24 01/11/2024 URINA LYSIS ketones Negati ve mg/dL negati ve Not Available [address] [place], [address] 01/11/2024 12:53:19 01/11/20 24 01/11/2024 URINA LYSIS urobilinogen 0.2 mg/dL up to 0.2 Not Available [address] [place], [address] 01/11/2024 12:53:19 01/11/20 24 01/11/2024 URINA LYSIS bilirubin Negati ve negati ve Not Available [address] [place], [address] 01/11/2024 12:53:19 01/11/20 24 01/11/2024 URINA LYSIS blood Negati ve negati ve Not Available [address] [place], [address] 01/11/2024 12:53:19 01/11/20 24 01/11/2024 URINA LYSIS color Yellow yellow Not Available Roxanne siegel [address] [place], [address] 01/11/2024 12:53:21 01/11/20 24 01/11/2024 URINA LYSIS clarity Clear clear Not Available Roxanne siegel [address] [place], [address] 01/11/2024 12:53:21 01/11/20 24 01/11/2024 URINA LYSIS specific gravity 1.020 1.005- 1.025 normal Not Available [address] [place], [address] 01/11/2024 12:53:21 01/11/20 24 01/11/2024 URINA LYSIS pH 5.5 5-8 normal Not Available Roxanne siegel [address] [place], [address] 01/11/2024 12:53:21 01/11/20 24 01/11/2024 URINA LYSIS leukocyte esterase Trace negati ve abnormal Not Available [address] [place], [address] 01/11/2024 12:53:21 01/11/20 24 01/11/2024 URINA LYSIS nitrite Negati ve negati ve Not Available [address] [place], [address] 01/11/2024 12:53:21 01/11/20 24 01/11/2024 URINA LYSIS protein Negati ve mg/dL neg-tr lorenzo Not Available [address] [place], [address] 01/11/2024 12:53:21 01/11/20 24 01/11/2024 URINA LYSIS glucose Negati ve mg/dL negati ve Not Available [address] [place], [address] 01/11/2024 12:53:21 01/11/20 24 01/11/2024 URINA LYSIS ketones Negati ve mg/dL negati ve Not Available [address] [place], [address] 01/11/2024 12:53:21 01/11/20 24 01/11/2024 URINA LYSIS urobilinogen 0.2 mg/dL up to 0.2 Not Available [address] [place], [address] 01/11/2024 12:53:21 01/11/20 24 01/11/2024 URINA LYSIS bilirubin Negati ve negati ve Not Available [address] [place], [address] 01/11/2024 12:53:21 01/11/20 24 01/11/2024 URINA LYSIS blood Negati ve negati ve Not Available [address] [place], [address] 01/11/2024 12:53:21 01/11/20 24 01/11/2024 MICRO SCOPI C FINDI NGS WBC 5-10 hpf 0-5 Not Available Roxanne siegel [address] [place], [address] 01/11/2024 12:53:22 01/11/20 24 01/11/2024 MICRO SCOPI C FINDI NGS RBC Negati ve hpf 0-2 Not Available Raquel vernon [address] [place], [address] 01/11/2024 12:53:22 01/11/20 24 01/11/2024 MICRO SCOPI C FINDI NGS epithelial cells Few hpf negati ve Not Available [address] [place], [address] 01/11/2024 12:53:22 01/11/20 24 01/11/2024 MICRO SCOPI C FINDI NGS other cells Few Renal negati ve Not Available [address] [place], [address] 01/11/2024 12:53:22 01/11/20 24 01/11/2024 MICRO SCOPI C FINDI NGS bacteria Rare hpf negati ve Not Available [address] [place], [address] 01/11/2024 12:53:22 01/11/20 24 01/11/2024 MICRO SCOPI C FINDI NGS crystals Negati ve hpf negati ve Not Available [address] [place], [address] 01/11/2024 12:53:22 01/11/20 24 01/11/2024 MICRO SCOPI C FINDI NGS mucus Negati ve negati ve Not Available [address] [place], [address] 01/11/2024 12:53:22 01/11/20 24 01/11/2024 MICRO SCOPI C FINDI NGS casts Negati ve lpf negati ve Not Available [address] [place], [address] 01/11/2024 12:53:22 01/11/20 24 01/11/2024 MICRO SCOPI C FINDI NGS C S indicated? Yes Not Available [address] [place], [address] 01/11/2024 12:53:22 01/11/20 24 01/11/2024 PROCA LCITO GINGER procalcitoni n < 0.1 NG/mL PCT Value (ng/m L): Inter preta tion: <0.5 Low risk for sever e sepsi s/sep tic shock >or=0 .5 and <2.0 Sever e sepsi s/sep tic shock is possi ble >or=2 .0 High risk for sever e sepsi s/sep tic shock Note: Decis ions regar ding antib iotic thera py shoul d NOT be based solel y on proca lcito ginger fabiano ntrat ions. A proca lcito ginger fabiano ntrat ion of <0.5 ng/mL does not entir adina exclu de syste alvaro bacte rial infec tion/ sepsi s. Corre latio n with the full clini maame, imagi ng, and labor atory findi ngs is requi red for a compl ete sepsi s evalu ation . Addit ional ly, eleva ronaldo proca lcito ginger fabiano ntrat ions may not alway s be relat ed to syste alvrao bacte rial infec tion and can be seen in the setti ng of sever e albrecht , major traum a, major surge ry, pancr eatit is, bowel ische jb, asept ic syste alvaro shock (anap hylac tic, hemor rhagi c, or cardi ogeni c), renal insuf ficie ncy, medul niki thyro id cance r, small cell lung cance r, drugs stimu latin g pro-i nflam mator y cytok mae, invas xu funga l infec tions , [place] disea se, among other cause s. Not Available [address] [place], [address] 01/11/2024 12:59:20 01/11/20 24 01/11/2024 COMPR EHENS XU METAB OLIC PANEL calcium 9.7 mg/dL 8.5-10 .1 normal Not Available [address] [place], [address] 01/11/2024 13:04:22 01/11/20 24 01/11/2024 COMPR EHENS XU METAB OLIC PANEL glucose 243 mg/dL 74-106 high Not Available Roxanne siegel [address] [place], [address] 01/11/2024 13:04:22 01/11/20 24 01/11/2024 COMPR EHENS XU METAB OLIC PANEL BUN 25 mg/dL 7-18 high Not Available Roxanne siegel [address] [place], [address] 01/11/2024 13:04:22 01/11/20 24 01/11/2024 COMPR EHENS XU METAB OLIC PANEL creatinine 2.4 mg/dL 0.55-1 .02 high Not Available [address] [place], [address] 01/11/2024 13:04:22 01/11/20 24 01/11/2024 COMPR EHENS XU METAB OLIC PANEL estimated GFR 20.68 mL/min /1.73m 2 The eGFR is calcu lated from a serum creat inine using the CKD-E PI 2020 equat ion. Other varia bles requi red for the equat ion are gende r and age; this equat ion does not inclu de a race coeff icien t. This equat ion has simil ar overa ll perfo rmanc e to previ ous equat ions excep t value s may diffe r, in parti cular , in patie nts with highe r value s of eGFR and young er-ag ed adult s. Not Available [address] [place], [address] 01/11/2024 13:04:22 01/11/20 24 01/11/2024 COMPR EHENS XU METAB OLIC PANEL total protein 8.2 g/dL 6.4-8. 2 normal Not Available [address] [place], [address] 01/11/2024 13:04:22 01/11/20 24 01/11/2024 COMPR EHENS XU METAB OLIC PANEL albumin 3.3 g/dL 3.4-5. 0 low Not Available [address] [place], [address] 01/11/2024 13:04:22 01/11/20 24 01/11/2024 COMPR EHENS XU METAB OLIC PANEL bilirubin, total 0.5 mg/dL 0.2-1. 0 normal Not Available [address] [place], [address] 01/11/2024 13:04:22 01/11/20 24 01/11/2024 COMPR EHENS XU METAB OLIC PANEL alk phos 100 U/L 46-116 normal Not Available [address] [place], [address] 01/11/2024 13:04:22 01/11/20 24 01/11/2024 COMPR EHENS XU METAB OLIC PANEL sodium 140 mmol/ L 136-14 5 normal Not Available [address] [place], [address] 01/11/2024 13:04:22 01/11/20 24 01/11/2024 COMPR EHENS XU METAB OLIC PANEL potassium 3.5 mmol/ L 3.5-5. 1 normal Not Available [address] [place], [address] 01/11/2024 13:04:22 01/11/20 24 01/11/2024 COMPR EHENS XU METAB OLIC PANEL chloride 102 mmol/ L 98-107 normal Not Available [address] [place], [address] 01/11/2024 13:04:22 01/11/20 24 01/11/2024 COMPR EHENS XU METAB OLIC PANEL CO2 28.6 mmol/ L 21.0-3 2.0 normal Not Available [address] [place], [address] 01/11/2024 13:04:22 01/11/20 24 01/11/2024 COMPR EHENS XU METAB OLIC PANEL anion gap 9.4 mmol/ L 3-11 normal Not Available [address] [place], [address] 01/11/2024 13:04:22 01/11/20 24 01/11/2024 COMPR EHENS XU METAB OLIC PANEL AST 12 U/L 15-37 low Not Available Roxanne siegel [address] [place], [address] 01/11/2024 13:04:22 01/11/20 24 01/11/2024 COMPR EHENS XU METAB OLIC PANEL ALT 19 U/L 14-59 normal Not Available Roxanne [address] [place], [address] 01/11/2024 13:04:22 01/11/20 24 01/11/2024 MAGNE SIUM magnesium 1.9 mg/dL 1.8-2. 4 normal Not Available [address] [place], [address] 01/11/2024 13:04:22 01/11/20 24 01/11/2024 TSH (W/RE F FT4) TSH (w/ref FT4) 1.25 uIU/m L 0.36-3 .74 normal Not Available [address] [place], [address] 01/11/2024 13:04:23 01/11/20 24 01/11/2024 TROPO GINGER I troponin I < 50 NG/L < or =60 Not Available [address] [place], [address] 01/11/2024 13:04:23 01/11/20 24 01/11/2024 NT-TX OBNP nt-probnp 644 pg/mL <300 high NT-pr oBNP value s <300 pg/mL have a 98% negat xu predi ctive value for exclu ding acute conge stive heart failu re (CHF) . NT-pr oBNP value s >450 pg/mL are consi stent with CHF in adult s <50 years of age. A diagn ostic cut-o ff of 900 pg/mL has been sugge sted in adult s >50 years of age in the absen ce of renal failu re. A cut-o ff of 1200 pg/mL for patie nts with an eGFR less than 60 yield s a diagn ostic sensi tivit y and speci ficit y of 89% and 72% for acute conge stive failu re. NOTE: Supra -phys iolog ic doses of Bioti n(B7) may cause false negat xu resul ts. Not Available [address] [place], [address] 01/11/2024 13:04:24 01/11/20 24 01/12/2024 URINE CULTU RE urine culture Urine Cultu re Day 1 Resul t NO GROWT H 24 HOURS Not Available [address] [place], [address] 01/12/2024 09:09:26 01/11/20 24 01/13/2024 URINE CULTU RE urine culture Urine Cultu re Day 1 Resul t NO GROWT H 24 HOURS Day 2 Resul t NO GROWT H 48 HOURS Not Available [address] [place], [address] 01/13/2024 09:21:34 01/22/20 24 01/22/2024 hemog lobin A1C, finge rstic k hemoglobin A1C 8.9 % <5.7 Not Available [address], [address], 01/22/2024 11:42:04 03/19/20 24 03/19/2024 BASIC METAB OLIC PANEL calcium 9.4 mg/dL 8.5-10 .1 normal Not Available [address] [place], [address] 03/19/2024 12:39:47 03/19/20 24 03/19/2024 BASIC METAB OLIC PANEL glucose 110 mg/dL 74-106 high Not Available Roxanne siegel [address] [place], [address] 03/19/2024 12:39:47 03/19/20 24 03/19/2024 BASIC METAB OLIC PANEL BUN 47 mg/dL 7-18 high Not Available Roxanne siegel [address] [place], [address] 03/19/2024 12:39:47 03/19/20 24 03/19/2024 BASIC METAB OLIC PANEL creatinine 2.9 mg/dL 0.55-1 .02 high Not Available [address] [place], [address] 03/19/2024 12:39:47 03/19/20 24 03/19/2024 BASIC METAB OLIC PANEL estimated GFR 16.48 mL/min /1.73m 2 The eGFR is calcu lated from a serum creat in using the CKD-E PI 2020 equat ion. Other varia bles requi red for the equat ion are gende r and age; this equat ion does not inclu de a race coeff icien t. This equat ion has simil ar overa ll perfo rmanc e to previ ous equat ions excep t value s may diffe r, in parti cular , in patie nts with highe r value s of eGFR and young er-ag ed adult s. Not Available [address] [place], [address] 03/19/2024 12:39:47 03/19/20 24 03/19/2024 BASIC METAB OLIC PANEL sodium 140 mmol/ L 136-14 5 normal Not Available [address] [place], [address] 03/19/2024 12:39:47 03/19/20 24 03/19/2024 BASIC METAB OLIC PANEL potassium 4.0 mmol/ L 3.5-5. 1 normal Not Available [address] [place], [address] 03/19/2024 12:39:47 03/19/20 24 03/19/2024 BASIC METAB OLIC PANEL chloride 109 mmol/ L 98-107 high Not Available [address] [place], [address] 03/19/2024 12:39:47 03/19/20 24 03/19/2024 BASIC METAB OLIC PANEL CO2 26.6 mmol/ L 21.0-3 2.0 normal Not Available [address] [place], [address] 03/19/2024 12:39:47 03/19/20 24 03/19/2024 BASIC METAB OLIC PANEL anion gap 4.4 mmol/ L 3-11 normal Not Available [address] [place], [address] 03/19/2024 12:39:47 03/19/20 24 03/19/2024 BASIC METAB OLIC PANEL calcium 9.4 mg/dL 8.5-10 .1 normal Not Available [address] [place], [address] 03/19/2024 16:28:30 03/19/20 24 03/19/2024 BASIC METAB OLIC PANEL glucose 110 mg/dL 74-106 high Not Available Roxanne siegel [address] [place], [address] 03/19/2024 16:28:30 03/19/20 24 03/19/2024 BASIC METAB OLIC PANEL BUN 47 mg/dL 7-18 high Not Available Roxanne siegel [address] [place], [address] 03/19/2024 16:28:30 03/19/20 24 03/19/2024 BASIC METAB OLIC PANEL creatinine 2.9 mg/dL 0.55-1 .02 high Not Available [address] [place], [address] 03/19/2024 16:28:30 03/19/20 24 03/19/2024 BASIC METAB OLIC PANEL estimated GFR 16.48 mL/min /1.73m 2 The eGFR is calcu lated from a serum creat inine using the CKD-E PI 2020 equat ion. Other varia bles requi red for the equat ion are gende r and age; this equat ion does not inclu de a race coeff icien t. This equat ion has simil ar overa ll perfo rmanc e to previ ous equat ions excep t value s may diffe r, in parti cular , in patie nts with highe r value s of eGFR and young er-ag ed adult s. Not Available [address] [place], [address] 03/19/2024 16:28:30 03/19/20 24 03/19/2024 BASIC METAB OLIC PANEL sodium 140 mmol/ L 136-14 5 normal Not Available [address] [place], [address] 03/19/2024 16:28:30 03/19/20 24 03/19/2024 BASIC METAB OLIC PANEL potassium 4.0 mmol/ L 3.5-5. 1 normal Not Available [address] [place], [address] 03/19/2024 16:28:30 03/19/20 24 03/19/2024 BASIC METAB OLIC PANEL chloride 109 mmol/ L 98-107 high Not Available [address] [place], [address] 03/19/2024 16:28:30 03/19/20 24 03/19/2024 BASIC METAB OLIC PANEL CO2 26.6 mmol/ L 21.0-3 2.0 normal Not Available [address] [place], [address] 03/19/2024 16:28:30 03/19/20 24 03/19/2024 BASIC METAB OLIC PANEL anion gap 4.4 mmol/ L 3-11 normal Not Available [address] [place], [address] 03/19/2024 16:28:30 04/22/20 24 04/22/2024 hemog lobin A1C, finge rstic k hemoglobin A1C 6.9 % <5.7 Not Available [address], [address], 04/22/2024 11:07:12 07/22/20 24 07/22/2024 hemog lobin A1C, finge rstic k hemoglobin A1C 7.3 % <5.7 Not Available [address], [address], 07/22/2024 10:37:41 10/27/20 24 10/27/2024 hemog lobin A1C, mars kohler hemoglobin A1C 7.3 % <5.7 Not Available [address], [address], 10/27/2024 14:10:57 01/11/20 24 01/11/2024 x-ray imagi ng yolanda t Patiabi t Name: Andrey Khalil Unit #: [id number] Loc: ER Linda will Luna er: Carter Dye M.D. Accoun t #: [id number] Status : REG Primar y On License Of [facility] er: Celina Brody M.D. Date of Exam: Sex: F Admiss ion Date: : 1950 Age: 73 Exam(s ) XR CHEST 2V PA LATERA L EXAM: XR CHEST 2V PA LATERA L CLINIC AL HISTOR Y: cough, dyspne a. TECHNI QUE: 2D digita l imagin g was perfor med. COMPAR ЕЛЕНА: CR XR PORTAB LE CHEST AP from 2022 FINDIN GS: 2 views: Heart size is normal . The medias tinum is not widene d. Lungs are clear. No infilt rates nor pleura l effusi ons. IMPRES DEVIN: No acute pulmon chava findin gs. DATA REPOSI TORY: RADIAT ION DOSE DELIVE RED: Benitez matthews By: Carter Dye M.D. CC: ------ ------ ------ ------ ------ ------ ------ ------ ------ ------ ------ ------ - Dictat ed By: Ant Valiente M.D. 1237 1237 Transc ribed By: Rocco CARBAJAL,Jai pleitez 1237 This is privil eged, confid ential inform ation intend ed only for the provid er named. Any use or distri bution by any person other than this provid er is strict ly prohib ited. If you receiv e this report in error, please notify us immedi rory at and return the origin al report to us at the addres s above. Thank- you. gregg [place] [id number], [place], [address] 01/11/2024 16:34:37 07/13/20 24 07/05/2022 imagi ng/di agnos tic resul t No observ ation record ed. Not Available 07/13 06:56:54 07/13/20 24 07/08/2023 imagi ng/di agnos tic resul t No observ ation record ed. Not Available 07/13 06:56:55 07/13/20 24 07/08/2023 imagi ng/di agnos tic resul t No observ ation record ed. Not Available 07/13 06:57:22 07/13/20 24 10/10/2021 imagi ng/di agnos tic resul t No observ ation record ed. Not Available 07/13 06:57:53 07/13/20 24 01/25/2022 imagi ng/di agnos tic resul t No observ ation record ed. Not Available 07/13 06:58:22 07/13/20 24 03/13/2021 MAMMO , scree royal No observ ation record ed. Not Available 07/13 06:59:13 07/13/20 24 08/13/2019 imagi ng/di agnos tic resul t No observ ation record ed. Not Available 07/13 06:59:16 07/13/20 24 03/13/2019 XR, chest No observ ation record ed. Not Available 07/13 06:59:17 07/13/20 24 07/26/2021 MAMMO , scree royal No observ ation record ed. Not Available 07/13 06:59:20 07/13/20 24 07/26/2021 MAMMO , diagn ostic No observ ation record ed. Not Available 07/13 06:59:23 07/13/20 24 08/12/2019 imagi ng/di agnos tic resul t No observ ation record ed. Not Available 07/13 06:59:36 07/13/20 24 06/30/2021 imagi ng/di agnos tic resul t No observ ation record ed. Not Available 07/13 06:59:49 07/13/20 24 06/20/2024 polys omnog claudio No observ ation record ed. [email or web address] [facility] [address] [place] [address] [address], [place], [address], 07/13/2024 11:41:36 08/05/2008/05/2024 XR, thumb Patien t Name: RemiAndrey Matthews Unit #: [id number] Loc: DI Orderi ng Provid er: Celina Brody M.D. Accoun t #: [id number] Status : REG CLI Primar y Care Provid er: Celina Brody M.D. Date of Exam: Sex: F Admiss ion Date: : 1950 Age: 73 Exam(s ) XR THUMB LT EXAM: XR THUMB LT CLINIC AL HISTOR Y: PAIN LT THUMB, M79.64 5. TECHNI QUE: 2D digita l imagin g was perfor med. Three views. COMPAR ЕЛЕНА: None. FINDIN GS: BONES: No acute fractu re is presen t. No bony destru ctive lesion is seen. JOINTS : No disloc ation presen t. Mild degene rative change s of the interp halang eal joint of the thumb. SOFT TISSUE : Normal . IMPRES DEVIN: Mild degene rative change s of the interp halang eal joint of the thumb. DATA REPOSI TORY: RADIAT ION DOSE DELIVE RED: Benitez matthews By: Celina Brody M.D. CC: ------ ------ ------ ------ ------ ------ ------ ------ ------ ------ ------ ------ - Dictat ed By: Yonny Bailey [id number] Transc ribed By: Micheal Stapleton 1400 This is privil eged, confid ential inform ation intend ed only for the provid er named. Any use or distri bution by any person other than this provid er is strict ly prohib ited. If you receiv e this report in error, please notify us immedi ately at and return the origin al report to us at the addres s above. Thank- you. [email or web address] [facility] (Radiology) [address], [place], [address], 08/12/2024 09:21:17 08/05/20 24 08/05/2024 XRmars(s) Shaun young Name: Andrey Khalil Unit #: [id number] Loc: DI Orderi ng Provid er: Celina Brody M.D. Accoun t #: [id number] Status : REG CLI Primar y Care Provid er: Celina Brody M.D. Date of Exam: Sex: F Admiss ion Date: : 1950 Age: 73 Exam(s ) XR FINGER RT MIDDLE EXAM: XR FINGER RT MIDDLE CLINIC AL HISTOR Y: PAIN IN FINGER RT HAND, M79.64 4. TECHNI QUE: 2D digita l imagin g was perfor med. Three views. COMPAR ЕЛЕНА: No exams were availa ble for compar елена FINDIN GS: BONES: No acute fractu re is presen t. No bony destru ctive lesion is seen. JOINTS : No disloc ation presen t. Cyril hinojosa blanquitacasper rative change s of the interp halang eal joints . SOFT TISSUE : Normal . IMPRES DEVIN: Cyril hinojosa ashley rative change s of the interp halang eal joints . DATA REPOSI TORY: RADIAT ION DOSE DELIVE RED: Ordere d By: Celina Brody M.D. CC: ------ ------ ------ ------ ------ ------ ------ ------ ------ ------ ------ ------ - Dictat ed By: Yonny Bailey 1401 Transc ribed By: Micheal Stapleton 1401 This is privil eged, confid ential inform ation intend ed only for the provid er named. Any use or distri bution by any person other than this provid er is strict ly prohib ited. If you receiv e this report in error, please notify us immedi ately at and return the origin al report to us at the addres s above. Thank- you. [email or web address] [facility] (Radiology) [address], [place], [address], 08/12/2024 09:21:26 Result Notes None recorded. Problems Name Problem SNOMED Code Status Onset Date Resolution Date Notes Provider Name and Address Organization Details Recorded Time Obstruct xu sleep apnea syndrome 12653696 Active 2008 rec. CPAP, intolera nt. RF 05/10/24 ROME BRODY MD [address], [place], [address] , [facility] 4 11:16:00 [facility] hyperten devin 14968993 Active 2004 Jasen ward, [place] - [facility] 4 18:23:15 Type 2 diabetes mellitus without complica tion 958308971 Active [facility] 4 18:26:43 Hyperlip idemia 42635998 Active [address], [address] 4 23:23:22 Chronic kidney disease stage 4 546318725 Active 2013 Left renal atrophy on CT scan Jul 2019, 04[facility]2023 [facility] 4 18:22:07 Other idiopath ic peripher al neuropat hy NOS Active [address], [place] [id number] 3 19:14:23 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 39232689744 9106 Active 2013 [facility] 4 18:25:54 Idiopath ic osteoart hritis 450809749 Active 2014 hands MD [address], [place] [address] , [facility] 5 21:22:16 Benign neoplasm of adrenal gland 85147496 Active 2014 [facility] 4 18:22:53 Restless legs 86976971 Active 2015 [facility] 4 18:26:30 Vomiting 592441826 Completed 201504/10/2016 Problem Code: R11.10; Problem Code Type: ICD-10; Not Available [facility] 3 04:28:30 Diarrhea 20301014 Completed 201504/10/2016 Problem Code: R19.7; Problem Code Type: ICD-10; Not Available [facility] 3 04:28:31 Senile osteopor osis 17006486 Active 2016 Jasen Burger [facility] 4 18:26:38 History of urinary stone 394436000 Active 2018 distal left ureteral stone Jul 2019 [facility] 4 18:24:15 Adult health examinat ion Active [address], [place], [address] , [facility] 4 08:04:27 Gastroes ophageal reflux disease without esophagi tis 202922774 Active 2019 Jasen Burger [facility] 4 18:22:38 Disorder of shoulder 566234726 Completed 202109/03/2022 Problem Code: M75.81; Problem Code Type: ICD-10; Not Available [facility] 3 04:28:31 Vulval and/or perineal noninfla mmatory disorder s 884458486 Completed 202109/03/2022 Problem Code: N90.89; Problem Code Type: ICD-10; Not Available [facility] 3 04:28:32 Heart failure 82569320 Active 2021 LVEF >= 50% Jasen Burger [facility] 4 18:23:43 Fibromya lgia 579128043 Active MD [address], [place], [address] , [facility] 4 23:23:16 Hyperten sive disorder 79126229 Completed 200407/24/2023 Not Available [facility] 3 04:28:32 Abdomina l pain 07166242 Completed 201412/05/2015 Problem Code: R10.9; Problem Code Type: ICD-10; Not Available [facility] 3 04:28:32 Cataract 080886340 Completed 202006/30/2021 Problem Code: H26.9; Problem Code Type: ICD-10; Not Available [facility] 3 04:28:33 Pre-surg charlee testing Completed 201407/31/2016 Problem Code: Z01.812; Problem Code Type: ICD-10; Not Available [facility] 3 04:28:33 Plantar fascial fibromat osis 84026660 Completed 201706/30/2021 Problem Code: M72.2; Problem Code Type: ICD-10; Not Available [facility] 3 04:28:33 Disorder of the urinary system 634080125 Completed 201806/30/2021 Problem Code: N39.9; Problem Code Type: ICD-10; Not Available [facility] 3 04:28:33 Adult health examinat ion Completed 201407/31/2016 Problem Code: Z00.00; Problem Code Type: ICD-10; ROME BRODY MD [address] [place], [address] [facility] 4 08:04:27 Chest pain 38821479 Completed 202001/02/2022 Problem Code: R07.89; Problem Code Type: ICD-10; Not Available [facility] 3 04:28:33 Diarrhea 07820516 Completed 201706/30/2021 Not Available [facility] 3 04:28:34 Dysuria 82378938 Completed 201412/05/2015 Problem Code: R30.0; Problem Code Type: ICD-10; Not Available [facility] 3 04:28:34 Acute pharyngi tis 452598315 Completed 201803/25/2020 Problem Code: J02.9; Problem Code Type: ICD-10; Not Available [facility] 3 04:28:34 Acute bronchit is 43273879 Completed 201612/16/2017 Problem Code: J20.9; Problem Code Type: ICD-10; Not Available [facility] 3 04:28:34 Dyspnea 478897413 Completed 202104/04/2022 Problem Code: R06.09; Problem Code Type: ICD-10; Not Available [facility] 3 04:28:34 Dysuria 96865984 Completed 201802/10/2019 Problem Code: R30.0; Problem Code Type: ICD-10; Not Available [facility] 3 04:28:34 Telangie ctasia disorder 772310179 Completed 200107/24/2023 Not Available [facility] 3 04:28:35 Pain in finger of right hand 02594876960 9109 Completed 201506/30/2021 Problem Code: M79.644; Problem Code Type: ICD-10; ROME BRODY MD [address], [place], [address] , [facility] 5 21:22:25 Pain in right arm 249257470 Completed 201407/31/2016 Problem Code: M79.601; Problem Code Type: ICD-10; Not Available [facility] 3 04:28:35 Hypergly cemia due to type 2 diabetes mellitus 36292445349 9109 Completed 200807/24/2023 Problem Code: E11.65; Problem Code Type: ICD-10; Not Available [facility] 3 04:28:35 Pre-surg charlee evaluati on Completed 202006/30/2021 Problem Code: Z01.818; Problem Code Type: ICD-10; Not Available [facility] 3 04:28:35 Melena 6422454 Completed 202104/04/2022 Problem Code: K92.1; Problem Code Type: ICD-10; Not Available [facility] 3 04:28:36 Retinopa thy Completed 201307/24/2023 Not Available [facility] 3 04:28:36 Sleep apnea 64478529 Completed 200807/24/2023 Not Available [facility] 3 04:28:36 Screenin g mammogra phy Completed 202009/29/2021 Problem Code: Z12.31; Problem Code Type: ICD-10; Not Available [facility] 3 04:28:36 Peripher al nerve disease 394724225 Completed 200507/24/2023 Not Available [facility] 3 04:28:36 Fibromyo sitis 94634124 Completed 200407/24/2023 Not Available [facility] 3 04:28:36 Adjustme nt disorder with depresse d mood 60240244 Completed 201607/29/2017 Problem Code: F43.21; Problem Code Type: ICD-10; Not Available [facility] 3 04:28:37 Indigest ion 090292667 Completed 200407/24/2023 Not Available [facility] 3 04:28:37 Itching of skin 778037368 Completed 202110/05/2022 Problem Code: L29.8; Problem Code Type: ICD-10; Not Available [facility] 3 04:28:37 Kidney stone 37710614 Completed 201803/25/2020 Problem Code: N20.0; Problem Code Type: ICD-10; Not Available [facility] 3 04:28:37 Headache 13330934 Completed 201506/30/2021 Problem Code: R51; Problem Code Type: ICD-10; Not Available [facility] 3 04:28:38 Cough 11125047 Completed 201803/25/2020 Problem Code: R05; Problem Code Type: ICD-10; Not Available [facility] 3 04:28:38 Pain of right shoulder joint 26198868672 205447 Completed 201601/30/2018 Problem Code: M25.511; Problem Code Type: ICD-10; ROME BRODY MD [address], [place], [address] , [facility]. 4 23:23:07 Tobacco dependen ce syndrome 67177119 Completed 200405/20/2015 Problem Code: 305.1; Problem Code Type: ICD-9; Not Available [facility] 3 04:28:38 Pain in right hip joint 74009027884 9102 Completed 201803/25/2020 Problem Code: M25.551; Problem Code Type: ICD-10; Not Available [facility] 3 04:28:38 Carpal tunnel syndrome of right wrist 27813618037 9108 Completed 201406/30/2021 Problem Code: G56.01; Problem Code Type: ICD-10; Not Available [facility] 3 04:28:39 Systemic lupus erythema tosus 07281588 Completed 200106/30/2021 Problem Code: M32.9; Problem Code Type: ICD-10; Not Available [facility] 3 04:28:39 Nonulcer dyspepsi a 1282033 Completed 200406/30/2021 Problem Code: K30; Problem Code Type: ICD-10; Not Available [facility] 3 04:28:39 Chronic kidney disease stage 2 163229003 Completed 201307/24/2023 Problem Code: 585.2; Problem Code Type: ICD-9; Not Available [facility] 3 04:28:39 Paresthe manohar 51074901 Completed 201507/24/2023 Problem Code: R20.2; Problem Code Type: ICD-10; Not Available [facility] 3 04:28:40 Screenin g for osteopor osis Completed 201608/22/2017 Problem Code: Z13.820; Problem Code Type: ICD-10; Not Available [facility] 3 04:28:40 Hydronep hrosis 80197975 Completed 201803/25/2020 Problem Code: N13.39; Problem Code Type: ICD-10; Not Available [facility] 3 04:28:40 Coronary arterios clerosis 72287211 Active 2022 occass. angina ROME BRODY MD [address], [facility] [address] , [facility] 4 21:52:45 History of SARS-CoV -2 [id number] 5749174 Completed 202201/21/2024 Problem Code: Z86.16; Problem Code Type: ICD-10; Jasen Burger null, [facility] 4 18:24:55 Carpal tunnel syndrome 03302856 Active 2015 mild via nerve conducti on test MD [address], [facility] [id number] [place] [address] 4 08:04:33 Carpal tunnel syndrome of left wrist 48241316226 9102 Active 2023 Catherine Anthony RN null, [facility] 4 16:19:33 Obesity 572227195 Active [address], [facility] [address] , [facility] 4 23:23:12 Hemorrho ids 20962798 Active [address], [facility] [address] 4 23:23:28 Edema of lower extremit y 927996247 Active [address], [facility] [address] , [facility] 5 21:22:05 Problem Notes None recorded. Procedures Surgical History Date Name Laterality Status Provider Name and Address Organization Details Recorded Time 4 Carpal tunnel surgery completed Catherine Anthony RN [facility] 01/28/2024 16:21:07 2 Colonoscopy completed FREDRICK ANDERSEN MA [facility] 10/23/2023 16:53:37 Imaging Results Imaging Date Name Status LastModified by Organization Details LastModified Time 01/11/2024 x-ray imaging report completed jdege [place] [address] [facility] [place], [address] 01/11/2024 16:34:37 07/05/2022 imaging/diagnosti c result completed Information not available 07/13/2024 06:56:54 07/08/2023 imaging/diagnosti c result completed Information not available 07/13/2024 06:56:55 07/08/2023 imaging/diagnosti c result completed Information not available 07/13/2024 06:57:22 10/10/2021 imaging/diagnosti c result completed Information not available 07/13/2024 06:57:53 01/25/2022 imaging/diagnosti c result completed Information not available 07/13/2024 06:58:22 03/13/2021 MAMMO, screening completed Informat ion not available 07/13/2024 06:59:13 08/13/2019 imaging/diagnosti c result completed Information not available 07/13/2024 06:59:16 03/13/2019 XR, chest completed Information no t available 07/13/2024 06:59:17 07/26/2021 MAMMO, screening completed Informat ion not available 07/13/2024 06:59:20 07/26/2021 MAMMO, diagnostic completed Informa tion not available 07/13/2024 06:59:23 08/12/2019 imaging/diagnosti c result completed Information not available 07/13/2024 06:59:36 06/30/2021 imaging/diagnosti c result completed Information not available 07/13/2024 06:59:49 06/20/2024 polysomnogram completed [email or web address] [facility] [address] [place] [address] [address], [place], [address], 07/13/2024 11:41:36 08/05/2024 XR, thumb completed [email or web address] [facility] (Radiology) [address] [facility] [place], [address], 08/12/2024 09:21:17 08/05/2024 XR, finger(s) completed [email or web address] [facility] (Radiology) [address] [facility] [place], [address], 08/12/2024 09:21:26 Procedure Notes None recorded. Medical Equipment None Reported. Allergies Allergen ID Allergen Name Allergen Category Reaction Reaction Severity Criticality Documentation Date Start Date Code Code System Note Provider Name and Address Organization Details Recorded Time 36432 gabapenti n medicatio n other mild Not available 09/06/20232006 62957 RxNorm GI Aller gyRea ction : 'GI'; Not Available [facility] 3 16:26:01 02741 lisinopri l medicatio n diarrhea mild Not available 09/06/20232004 54767 [facility] 4 18:27:40 92435 Cymbalta medicatio n nausea mild Not available 09/06/20232014 11083 4 RxNorm nause a Not Available [facility] 3 16:26:02 17889 Lipitor medicatio n myalgias (muscle pain) mild Not available 09/06/20232004 77237 5 RxNorm MYALG IA Not Available [facility] 3 16:26:02 97659 Cardizem medicatio n dizziness mild Not available 09/06/20232013 36739 4 RxNorm dizzi ness Not Available [facility] 3 16:26:03 52858 amlodipin e / benazepri l medicatio n dizziness mild Not available 09/06/20232011 79747 3 [facility] 4 18:27:25 56991 Prevacid medicatio n dizziness mild Not available 09/06/20232005 41657 RxNorm Jasen Burger [facility] 4 18:27:46 20311 Celebrex medicatio n other moderate Not available 01/21/20242014 24456 7 RxNorm acid reflu x Jasen Burger [facility] 4 18:28:18 73642 metformin medicatio n other severe Not available 01/21/20242016 6809 RxNorm Renal issue s Jasen Burger [facility] 4 18:29:01 17540 turmeric extract food,medi cation other mild low 10/27/2024 11782 83 RxNorm nose bleed s FREDRICK ANDERSEN MA [facility], [facility] 4 14:01:25 Medications Name Sig Start Date Stop [...] Available simvastat in 80 mg tablet 1 [facility] 04/24 completed Not Available Not Available Not [...] in AM and one in PM- per Dr at [facility]. For Kidneys. active Not Available Not Available [...] (2,000 unit) capsule 2 QD 03/25 completed [facility] nephrolo gy Not Available Not Available Not [...] height Body mass index (BMI) Body weight Body temperature Oxygen saturation Oxygen saturation in Arterial blood by Pulse oximetry Heart rate Systolic blood pressure Diastolic blood pressure Provider Name and Address Organization Details Last Updated DateTime 165.1 cm 30.6 kg/m2 34682 g 98 [degF] 97 % 97 % 80 /min 130 mm[Hg] 82 mm[Hg] FREDRICK ANDERSEN MA [facility] 4 11:00:51 Date Recorded Body height Body mass index (BMI) Body weight Body temperature Oxygen saturation Oxygen saturation in Arterial blood by Pulse oximetry Heart rate Systolic blood pressure Diastolic blood pressure Provider Name and Address Organization Details Last Updated DateTime 4 165.1 cm 31 kg/m2 91752.1 8 g 97.1 [degF] 98 % 98 % 78 /min 124 mm[Hg] 78 mm[Hg] FREDRICK ANDERSEN MA [facility], [facility]. 4 10:55:07 Date Recorded Body height Body mass index (BMI) Body weight Body temperature Oxygen saturation Oxygen saturation in Arterial blood by Pulse oximetry Heart rate Systolic blood pressure Diastolic blood pressure Provider Name and Address Organization Details Last Updated DateTime 4 165.1 cm 32.8 kg/m2 44739.7 g 97.6 [degF] 98 % 98 % 78 /min 134 mm[Hg] 78 mm[Hg] FREDRICK ANDERSEN MA [facility], [facility] 4 10:14:57 Date Recorded Body height Body temperature Oxygen saturation Oxygen saturation in Arterial blood by Pulse oximetry Heart rate Body mass index (BMI) Body weight Systolic blood pressure Diastolic blood pressure Provider Name and Address Organization Details Last Updated DateTime 4 165.1 cm 97 [degF] 98 % 98 % 74 /min 32.8 kg/m2 04196.7 g 120 mm[Hg] 68 mm[Hg] FREDRICK ANDERSEN MA [facility]. 4 11:35:01 Date Recorded Body height Body mass index (BMI) Body weight Heart rate Body temperature Systolic blood pressure Diastolic blood pressure Provider Name and Address Organization Details Last Updated DateTime 4 165.1 cm 32.6 kg/m2 15733.1 g 68 /min 98 [degF] 126 mm[Hg] 76 mm[Hg] FREDRICK ANDERSEN MA [facility]. 4 14:00:40 Social History Question Answer Notes LastModified by Organizat ion Details LastModified Time Tobacco Smoking Status Former Smoker ROME BRODY MD [address], [place], [address], [facility], [facility]. 01/22/2024 11:14:16 When Did You Quit Smoking? [...] mL 4 completed MD [address], [place], [address], [facility] 07/26/2024 23:17:36 Influenza, high-dose, trivalent, PF 4 completed MD [address], [place], [address], [facility] 07/26/2024 23:17:36 Td (adult), 5 Lf tetanus toxoid, preservative free, adsorbed 6 completed Not Available [facility] 09/06/2023 06:19:29 Tdap 6 completed Not Available [facility] 09/06/2023 06:19:29 zoster live 2 completed Not Available [facility] 09/06/2023 06:19:29 Pneumococcal conjugate PCV 13 6 completed Not Available [facility] 09/06/2023 06:19:29 Influenza, high-dose, trivalent, PF 8 completed Not Available [facility] 09/06/2023 06:19:29 Influenza, split virus, trivalent, preservative 6 completed Not Available [facility] 09/06/2023 06:19:29 Influenza, split virus, quadrivalent, preservative 7 completed Not Available [facility] 09/06/2023 06:19:29 Influenza, high-dose, quadrivalent, PF 1 completed Not Available [facility] 09/06/2023 06:19:29 Influenza, high-dose, quadrivalent, PF 2 completed Not Available [facility] 09/06/2023 06:19:29 COVID-19, mRNA, LNP-S, PF, 100 mcg/0.5mL dose or 50 mcg/0.25mL dose 1 completed Not Available [facility] 09/06/2023 06:19:30 COVID-19, mRNA, LNP-S, PF, 100 mcg/0.5mL dose or 50 mcg/0.25mL dose 1 completed Not Available [facility] 09/06/2023 06:19:30 COVID-19, mRNA, LNP-S, PF, 100 mcg/0.5mL dose or 50 mcg/0.25mL dose 1 completed Not Available [facility] 09/06/2023 06:19:30 COVID-19, mRNA, LNP-S, bivalent, PF, 50 mcg/0.5 mL or 25mcg/0.25 mL dose 2 completed Not Available [facility] 09/06/2023 06:19:30 pneumococcal polysaccharide PPV23 7 completed Not Available [facility] 09/06/2023 06:19:30 pneumococcal polysaccharide PPV23 8 completed Not Available [facility] 09/06/2023 06:19:30 influenza, unspecified formulation 2 completed Not Available [facility] 09/06/2023 06:19:30 influenza, unspecified formulation 3 completed ARAVIND KERN, [place] [facility]. 10/23/2023 16:54:12 Influenza, high-dose, quadrivalent, PF 3 completed Not Available [facility] 11/08/2023 05:31:09 COVID-19, mRNA, LNP-S, PF, sanjay-sucrose, 30 mcg/0.3 mL 3 completed MD [address], [place], [address], [facility] 10/28/2023 21:49:29 Past Encounters Encounter ID Performer Location Encounter Start Date Encounter Closed Date Diagnosis/Indication Diagnosis SNOMED-CT Code Diagnosis ICD10 Code Diagnosis Note [id number] ROME BRODY MD [address] [address] 10/24/2023 10:10:32 10/24/2023 11:37:10 Type 2 diabetes mellitus without complication 901498221 E11.9 Patient's not sure to make of the A1c of 8.9 given her home blood sugars are lower than that. We opted to do a blood draw here to see where things stand. If indeed is remaining high we did discuss institutin g long-actin g insulin, likely Lantus as that is what has been uses and is covered by their insurance Chronic ki dney disease stage 4 785256032 N18.4 Labs up-to-date , blood pressure normal, no changes. Coronary arteriosclerosis 96091339 I25.10 Refilled her nitroglyce rin, changes progress at all she is asked to let me know Active or passive immunization 370339719 Z23 [id number] ROME BRODY MD [address] [address] 11/13/2023 10:17:57 11/13/2023 11:17:55 Hip pain 30008218 M25.559 Some improvemen t since stopping the Tradjenta. There is a good chance that her symptoms are related to this medication side effect. Patient will, let us know if symptoms do not continue to improve Type 2 mikala betes mellitus without complication 104471693 E11.9 We discussed previously about starting long-actin g insulin. Lantus 8 units at bedtime. Increase by no more than 2 units at a time every several nights watching blood sugars closely. She knows to keep carbohydra te source with her. is using Lantus it himself. Target is to have fasting blood sugars in the morning and before meals between 100 150, no hypoglycem ic events [id number] ROME BRODY MD [address] [address] 01/07/2024 10:14:26 01/07/2024 11:52:36 Pneumonia 774422975 J18.9 With recurrence of chills and her history, recent sinus symptoms and going to empiricall y treat with Augmentin for possible pneumonia. Labs drawn including CBC and CMP. She is asked to watch her sugars closely. Tesnick Krueger for her cough. Plenty rest and fluids. If symptoms do not begin to improve with the next several days she is asked to contact us, sooner if any worsening. [id number] ROME BRODY MD [address] [address] 01/22/2024 10:46:18 01/22/2024 11:38:23 Type 2 diabetes mellitus without complication 139067526 E11.9 A1c still up but up to 8.9%. Patient will continue gradually increase her evening Lantus to as high as 20 units before bedtime. She will carry carbohydra binh source with her at all times. Keep an eye on her blood sugars. Let us know if she has any issues with low blood sugars. Return in 3 months for next visit. Pneumonia 783707968 J18. 9 Recent ER visit and symptoms suggestive of possible COPD. X-rays were unremarkab le. Patient declines any current pulm function test. She states she feels asymptomat ic, declines inhalers for preventati ve or as needed use. Education is provided. [id number] ROME BRODY MD [address] [address] 04/22/2024 10:35:38 04/22/2024 12:50:02 Type 2 diabetes mellitus without complication 725414578 E11.9 Chronic ki dney disease stage 4 628602783 N18.4 Labs up-to-date , blood pressure normal, no changes. [id number] ROME BRODY MD [address] [address] 07/22/2024 09:52:33 07/22/2024 11:23:34 Type 2 diabetes mellitus without complication 401916932 E11.9 A1C 7.3% Continue current diabetic regimen with Lantus and monitor blood glucose levels closely. . Educated the patient on maintainin g a healthy diet and activity level to aid in weight management . Essential hypertension 67917546 I10 Continue prescribed antihypert ensive therapy. Blood pressure is currently well-contr olled Obesity 650811918 E66.9 Acknowledg ed recent weight gain. Reinforced lifestyle modificati ons including dietary changes and exercise programs. Advise tracking progress with weight management strategies . Chronic ki dney disease stage 4 628013618 N18.4 Continue nephrology consultati ons and monitor kidney function closely. Maintain current medication regimenThe patient should continue her prescribed water pill with caution due to kidney vulnerabil ity.Labs up-to-date , blood pressure normal, no changes. Hemorrhoids 30045216 K64 .9 Recommend topical lidocaine with hydrocorti sone applicatio n for symptom relief, as discussed. Explore surgical options if there is no improvemen t with medical management , acknowledg ing a past history of banding. Edema of l ower extremity 905510355 R60.0 Encourage wearing lower compressio n stockings, tailored to fit, despite previous fitting issues. Monitor for persistent or worsening symptoms, mindful of potential geothermal operations engineer y implicatio ns. Careful balance of fluid intake recommende d, especially considerin g CKD. Active or passive immunization 938610332 Z23 [id number] ROME BRODY MD [address] [address] 08/05/2024 11:26:42 08/05/2024 12:04:15 Pain in left thumb 5366649549 013684 M79.645 Pain in fi nger of right hand 4033890402 17451 M79.758 [id number] ROME BRODY MD [address] [address] 10/27/2024 13:44:52 10/27/2024 14:51:02 Type 2 diabetes mellitus without complication 015423995 E11.9 A1C 7.3% Continue current diabetic regimen with Lantus and monitor blood glucose levels closely. . Educated the patient on maintainin g a healthy diet and activity level to aid in weight management . Essential hypertension 25920267 I10 Continue prescribed antihypert ensive therapy. Blood pressure is currently well-contr olled Chronic ki dney disease stage 4 596824489 N18.4 continue nephrology consultati ons and monitor kidney function closely. cmp, phos, pth, cbd in a few weeks, forward to Dr Winston Health Concerns Section Related Observation LastModified by Organization Detai ls LastModified Time None Recorded Concern Status LastModified by Organization Details LastModified Time None Recorded Advance Directives Directive None Recorded Payers Encounter Date Sequence Insurance Name Policy Number Policy Schuler Covered Member ID Schuler Member ID Guarantor Name 01/22/2024 1 [place] [employer] Brynn D Remi [id number] Brynn D Remi 01/22/2024 2 [employer] Brynn D Remi [id number] Brynn D Remi 04/22/2024 1 [place] [employer] Brynn D Remi [id number] Brynn D Remi 04/22/2024 2 [facility] Brynn D Remi [id number] Brynn D Remi 07/22/2024 1 [place] Brynn D Remi [id number] Brynn D Remi 07/22/2024 2 [facility] Brynn D Remi [id number] Brynn D Remi 08/05/2024 1 [place] [employer] Brynn D Remi [id number] Brynn D Remi 08/05/2024 2 [facility] Brynn D Remi [id number] Brynn D Remi 10/27/2024 1 [place] [employer] Brynn D Remi [id number] Brynn D Remi 10/27/2024 2 [employer] () 000 Brynn D Remi [id number] Brynn D Remi Notes Date Note Type Note Provider Name and Address Organization Details Recorded Time 01/22/2024 text/html Patient in for 3-month follow-up for diabetes and other issues. Since we saw her last she has had some breast infections, recent visit to emergency room. Was clear and prednisone which did bring her sugars up a bit. She did start some evening Lantus but his not gone past the initial 8 units. Blood sugars have not improved much since then. He has had no hypoglycemic events. Otherwise she is feeling generally well, breathing has improved. Has a history of fairly heavy but remote smoking. Denies a history of dyspnea PND orthopnea or morning coughing. MD [address], [place], [address], [facility], [facility]. 01/27/2024 02:18:28 07/22/2024 text/html 73-year-old fema danika with a history of chronic kidney disease stage 4, type 2 diabetes mellitus without complications, essential hypertension, fibromyalgia, obesity, and edema of the lower extremity presenting for a regular follow-up visit. eye dr recently diagnosed as having phoria or mild double vision. Pt apparently recently on lyrica again - told could potentially be a cause. recent worseming ext hemorrhoidal symptoms - tender, occass bleeding. Declines exam ROME BRODY MD [address], [place], [address], [facility], [facility]. 07/26/2024 23:29:18 08/05/2024 text/html The patient presents with pain at the base of their left thumb, which started yesterday. They report having carpal tunnel surgery on their right hand in January and are right-handed. The patient engages in repetitive activities such as knitting and crocheting, which may contribute to their symptoms. They have tried leftover oxycodone for pain relief without success. The patient denies any tingling pain in the left hand and has no history of carpal tunnel syndrome on that side. They report bruising on their distal lateral forearm proximal to the pain after accidentally hitting it against a door while carrying groceries, with the pain starting after the incident. The patient also experiences pain radiating down their right index finger and general soreness throughout their hand. They have tried various topical treatments, including Aspercreme, Voltaren gel, and Blue Emu, without relief. The patient has not had any x-rays of their hand or wrist and denies any falls or injuries. MD [address], [place], [address], [facility], [facility]. 08/09/2024 12:14:27 10/27/2024 text/html Creatinine has been gradually climbing. The patient presents for a 3-month diabetes check. They report that their diabetes is well controlled with an A1C of 7.3, which is the same as their previous visit. The patient mentions a recent hand injury, which is healing but topline beading machine tender, and has associated bruises. They also report a bump on their head from hitting it with ice, which has not been relieved by Tylenol. Patient seen her case monitor in about a month, will be due for labs. Prefers to get them done up here for convenience. Will get them ordered here week or so prior. Creatinines have been gradually climbing still unfortunately. MD [address], [place], [address], [facility], [facility]. 10/28/2024 21:34:31 OBGyn Episode No OBEpisode recorded.
--- OUTSIDE RECORDS SUMMARY | 2024-11-16 13:18 | XMS_ITS | Clinical Summary ---
Author Organization Formerly [facility] [place] [address] Care Team Providers Care Business Controller Name Role Phone Rome Guerra MD Primary Care Provider [phone] Allergies Active Allergy Reactions Criticality Noted Date Comments Amlodipine Besylate Other (See Comments) 2014 Dizziness Amlodipine-Benazepril Low 06/10/2012 Other Reaction(s): dizziness Celecoxib Other (See Comments) 04/18/2015 Acid reflux Diltiazem Low 06/01/2014 Other Reaction(s): dizziness, Other (See Comment) Duloxetine Nausea Only Low 02/28/2015 Other Reaction(s): Other (See Comment) Gabapentin Nausea Only 04/18/2015 Guaifenesin Rash Medium Atorvastatin Other (See Comments) 04/18/2015 myalgia Lisinopril Diarrhea 04/18/2015 Metformin High 03/05/2022 Other Reaction(s): Diarrhea Lansoprazole Other (See Comments) 04/18/2015 dizziness Medications Medication Sig Dispensed Refills Start Date End Date Status rosuvastatin (CRESTOR) 40 mg Tablet Take 40 mg by mouth daily. Active aspirin 81 mg Tablet, Delayed Release (E.C.)Indications: CKD (chronic kidney disease), unspecified stage,Chronic kidney disease, stage IV (severe) Take 81 mg by mouth daily. Active rOPINIRole (REQUIP) 0.5 mg TabletIndications: CKD (chronic kidney disease), unspecified stage,Chronic kidney disease, stage IV (severe) Take 1 mg by mouth nightly. Active pantoprazole EC (Protonix) 40 mg Tablet, Delayed Release (E.C.) Take 40 mg by mouth daily. 09/04/2021 Active glipiZIDE (Glucotrol) 5 mg Tablet Take 10 mg by mouth daily. Active nitroGLYcerin (Nitrostat) 0.4 mg Tablet, Sublingual Place 1 tablet under the tongue every 5 minutes as needed for Chest pain. 90 tablet 12 11/09/2021 Active furosemide (Lasix) 40 mg tabletIndications: Chronic kidney disease, stage IV (severe) TAKE 1 TABLET DAILY 90 tablet 1 01/14/2023 Active metoprolol succinate XL (Toprol-XL) 100 mg ER 24 hr tabletIndications: Chronic kidney disease, stage IV (severe) Take 1 tablet by mouth daily. 30 tablet 04/23/2023 Active sodium bicarbonate 650 mg tablet Take 2 tablets by mouth daily. 60 tablet 3 04/23/2023 Active felodipine (Plendil) 10 mg ER 24 hr tablet Take 10 mg by mouth daily. Active cholecalciferol (Vitamin D3) 1,000 unit tablet Take 1 tablet by mouth daily. 90 tablet 11 08/19/2023 Active dulaglutide (Trulicity) 3 mg/0.5 mL Pen Injector Inject 3 mg subcutaneously once a week. 08/26/2023 Active Lantus Solostar U-100 Insulin 100 unit/mL (3 mL) pen start 8U sc at bedtime, increase gradually to max 20U 11/13/2023 Active BD Ultra-Fine Short Pen Needle 31 gauge x /16 Needle 11/13/2023 Active losartan (Cozaar) 50 mg tablet Take 1 tablet by mouth daily. 90 tablet 11 03/04/2024 Active Jardiance 10 mg tablet TAKE 1 TABLET DAILY 30 tablet 11 05/12/2024 Active Active Problems Problem Noted Date Diagnosed Date Adenomatous colon polyp 03/04/2024 Adrenal adenoma 03/04/2024 Fibromyalgia 03/04/2024 Overview (03/04/2024): Problem Code: M79.7; Problem Code Type: ICD-10; Gastritis 03/04/2024 History of carpal tunnel surgery 03/04/2024 History of cataract surgery 03/04/2024 H/O esophagogastroduodenoscopy 03/04/2024 Nuclear sclerotic cataract of right eye 03/04/20 Osteoarthritis of both hands 03/04/2024 Positive fecal occult blood test 03/04/2024 Posterior subcapsular age-related cataract, righ t eye 03/04/2024 Tubular adenoma of colon 03/04/2024 Pneumonia 01/07/2024 Muscle pain 11/13/2023 Atherosclerosis of coronary artery 10/24/2023 Overview (03/04/2024): occass. angina History of severe acute resp iratory syndrome coronavirus 2 (SARS-CoV-2) disease 07/23/2023 Overview (03/04/2024): Problem Code: Z86.16; Problem Code Type: ICD-10; Problem Code: Z86.16; Problem Code Type: ICD-10; Disorder of shoulder 07/04/2022 Overview (03/04/2024): Problem Code: M75.81; Problem Code Type: ICD-10; Heart failure 07/04/2022 Overview (03/04/2024): Problem Code: I50.9; Problem Code Type: ICD-10; LVEF >= 50% Noninflammatory disorder of vulva or perineum Overview (03/04/2024): Problem Code: N90.89; Problem Code Type: ICD-10; Pruritus 07/04/2022 Overview (03/04/2024): Problem Code: L29.8; Problem Code Type: ICD-10; Melena 01/05/2022 Overview (03/04/2024): Problem Code: K92.1; Problem Code Type: ICD-10; Anemia 01/02/2022 Overview (03/04/2024): Problem Code: D64.9; Problem Code Type: ICD-10; Dyspnea 12/28/2021 Assessment & Plan (12/28/2021 11:54 AM EST): She most likely has a component of HFpEF due to diastolic dysfunction. Her cardiac cath showed no obstructive CAD but elevated filling pressures and uncontrolled HTN. The two issues to focus on are blood pressure and fluid management. At this time I will start her on spironolactone 25 mg a day. I think she may also benefit from a SGLT2i given new evidence that this is of benefit for patients with HFpEF. I will first start her on the MRA first to get her blood pressure controlled. She is a former smoker and so it is reasonable for her to undergo PFTs as well. Exertional chest pain 11/03/2021 Overview (12/19/2021): Images from the original note were not included. Exercise MPI 10/13/2021: Cardiac Catheterization 2021: Conclusions: * Nonobstructive coronary artery disease * Elevated left ventricular end diastolic pressure Assessment & Plan (12/28/2021 11:53 AM EST): Improved and at this time no further testing given her cardiac cath showed nonobstructive disease. Assessment & Plan (11/09/2021 12:16 PM EST): Her symptoms are typical of angina and given her risk factors she most likely has obstructive CAD. Her stress test was indeterminate given that that nuclear portion of the test was negative but she did have ECG changes with typical symptoms. Given her increased symptoms and history I think it is reasonable to pursue coronary angiogram to define her anatomy. She does have CKD and so I did discuss the increased risks of renal injury. Patient understands and is in agreement to pursue invasive testing. She is currently on a good regimen including ASA, statin, metoprolol. I will also prescribe her sublingual NTG. She is scheduled for [facility]/coronary angiogram on Nov 21. Cataract 03/28/2021 Overview (03/04/2024): Problem Code: H26.9; Problem Code Type: ICD-10; Hydronephrosis 08/14/2019 Overview (03/04/2024): Problem Code: N13.39; Problem Code Type: ICD-10; History of urinary stone 08/13/2019 Overview (03/04/2024): Problem Code: Z87.442; Problem Code Type: ICD-10; distal left ureteral stone Jul 2019 Cough 03/12/2019 Overview (03/04/2024): Problem Code: R05; Problem Code Type: ICD-10; Urologic disorder 02/10/2019 Overview (03/04/2024): Problem Code: N39.9; Problem Code Type: ICD-10; Pain of right hip joint 11/10/2018 Overview (03/04/2024): Problem Code: M25.551; Problem Code Type: ICD-10; Plantar fascial fibromatosis 08/11/2018 Overview (03/04/2024): Problem Code: M72.2; Problem Code Type: ICD-10; Acute bronchitis 10/09/2017 Overview (03/04/2024): Problem Code: J20.9; Problem Code Type: ICD-10; Senile osteoporosis 08/22/2017 Overview (03/04/2024): Problem Code: M81.0; Problem Code Type: ICD-10; Pain in joint of right shoulder 07/29/2017 Overview (03/04/2024): Problem Code: M25.511; Problem Code Type: ICD-10; Problem Code: M25.511; Problem Code Type: ICD-10; Vitamin D deficiency 04/15/2017 Low HDL (under 40) 04/15/2017 Secondary hyperparathyroidism of renal origin Non-nephrotic range proteinuria 04/15/2017 Obesity 04/15/2017 Adjustment disorder with depressed mood 03/14/20 17 Overview (03/04/2024): Problem Code: F43.21; Problem Code Type: ICD-10; Paresthesia 09/14/2016 Overview (03/04/2024): Problem Code: R20.2; Problem Code Type: ICD-10; Pain in finger of right hand 07/31/2016 Overview (03/04/2024): Problem Code: M79.644; Problem Code Type: ICD-10; Diarrhea 03/27/2016 Overview (03/04/2024): Problem Code: R19.7; Problem Code Type: ICD-10; Vomiting 03/27/2016 Overview (03/04/2024): Problem Code: R11.10; Problem Code Type: ICD-10; Pain in right arm 09/26/2015 Overview (03/04/2024): Problem Code: M79.601; Problem Code Type: ICD-10; Carpal tunnel syndrome of right wrist 09/01/2015 Overview (03/04/2024): Problem Code: G56.01; Problem Code Type: ICD-10; mild via nerve conduction test Dysuria 04/21/2015 Overview (03/04/2024): Problem Code: R30.0; Problem Code Type: ICD-10; Problem Code: R30.0; Problem Code Type: ICD-10; Dyspepsia 04/18/2015 DM (diabetes mellitus) 04/18/2015 Assessment & Plan (11/09/2021 12:15 PM EST): Last Hgba1c 7.8%. Emphasized the importance of good diabetes control. Currently being managed by her PCP. 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 Recent hemoglobin A1c is 8.5%, last hemoglobin A1c was 8% in 10/2018. Increased glipizide 5 mg p.o. from 2 tablets to 4 tablets a day. If her blood glucose levels are still not well controlled, then we might consider prescribing her Victoza. Observe for worsening signs and symptoms. We will continue to monitor. Problem Code: E11.9; Problem Code Type: ICD-10; Peripheral nerve disease 10/14/2006 Fibromyositis 04/02/2005 Tobacco dependence syndrome 01/29/2005 Overview (03/04/2024): Problem Code: 305.1; Problem Code Type: ICD-9; Systemic lupus erythematosus 04/21/2002 Overview (03/04/2024): Problem Code: M32.9; Problem Code Type: ICD-10; Telangiectasia 04/21/2002 CKD (chronic kidney disease), stage III/IV HTN (hypertension) Assessment & Plan (12/28/2021 11:53 AM EST): Her BP continues to be elevated and upon review of her BP log it appears that her SBP is generally above 140. The goal will be <130. I will start her spironolactone and she will follow up in 3 months. Assessment & Plan (11/09/2021 12:14 PM EST): Elevated today in clinic. Based on her last clinic note her SBP was 130 mg. I have instructed her to regularly check her BP. In the meantime I will increase her felodipine to 10 mg daily which should also provide more anti-anginal effect for her. Hyperlipidemia Assessment & Plan (11/09/2021 12:14 PM EST): Continue rosuvastatin 40 mg daily. Restless leg Nephrolithiasis Overview (04/15/2017): Occurred in the 1990s; single episode. GEOVANNA (obstructive sleep apnea) Assessment & Plan (12/28/2021 11:50 AM EST): She has been diagnosed with GEOVANNA but does not use a CPAP machine. I explained that controlling her GEOVANNA may improve her HTN as well. I offered her to re-engage with the sleep team but she declines at this time. Diabetic retinopathy Resolved Problems Problem Noted Date Diagnosed Date Resolved Date Hypertension 04/18/2015 04/15/2017 CKD (chronic kidney disease) 04/18/2015 05/01/2017 Cigarette smoker 04/18/2015 04/15/2017 Immunizations Name Administration Dates Next Due Covid-19 Bivalent (Moderna S pikevax) 6mo+ (Age based Dosage) (5222-8533) 10/18/2022 Covid-19 Monovalent (Moderna Spikevax) 12yrs+ (6910-9914) 09/05/2021,02/19/2021,01/19/2021,12/22 Influenza (Fluzone HD) Quadr ivalent High Dose, Preservative Free 07/23/2023,10/04/2022,09/29/2021 Influenza (Fluzone HD) Triva lent High Dose 08/11/2018 Influenza Quadrivalent with Preservative 07/29/2017 Influenza Unspecified Formulation 07/31/2016 Pneumococcal 13-Valent Conju gate (Prevnar 13) 04/13/2016 Pneumococcal 23-Valent Polys accharide (Pneumovax 23) 08/11/2018,05/01/2007 Td Adult (Decavac, Tenivac) 01/16/2016 Tdap (Adacel, Boostrix) 02/18/2006 Zoster LIVE (Zostavax) 04/24/2012 Family History Medical History Relation Comments Hypertension Mother Diabetes Neg Hx Kidney Disease Neg Hx Relation Status Comments Father (Age 34yo) ?choked; may have of illness related to working at [email or web address]. Mother Social History Tobacco Use Types Packs/Day Years Used Date Smoking Tobacco: Former Cigarettes Q uit: 2013 Smokeless Tobacco: Never Tobacco Cessation:Counseling Given: Not Answered Alcohol Use Standard Drinks/Week Comments Not Currently 0 (1 standard drink = 0.6 oz pur e alcohol) Sex and Gender Information Value Date Recorded Sex Assigned at Not on file Gender Identity Not on file Sexual Orientation Not on file Last Filed Vital Signs Vital Sign Reading Time Taken Comments Blood Pressure 138/69 03/04/2024 11:22 AM EDT Pulse 76 03/04/2024 11:22 AM EDT Temperature 36.8 ??C (98.2 ??F) 2021 12:[address] Respiratory Rate 20 2021 12:55 PM EST Oxygen Saturation 99% 03/04/2024 11:22 AM EDT Inhaled Oxygen Concentration - - Weight 84.2 kg (185 lb 9.6 oz) 03/04/2024 11:22 AM EDT Height 162.6 cm (5' 4.02) 03/04/2024 11:22 AM E DT Body Mass Index 31.84 03/04/2024 11:22 AM EDT Plan of Treatment Upcoming Encounters Date Type Department Care Team (Late st Contact Info) Description 11/27/2024 9:00 AM EST Office Visit [place] [address] [facility] [place] [address] Health Maintenance Due Date Last Done Comments CT Colonography 1949 Colonoscopy 1949 Colorectal Cancer Screening 1949 FIT DNA 1949 FIT 1949 Sigmoidoscopy (10 year) with FIT yearly 1949 Sigmoidoscopy 1949 DM Hemoglobin A1c 1959 DM Opthalmology Exam 1959 Breast Cancer Share Decision Needed 1989 Breast Cancer screening 1989 Advance Directive 2004 RSV Vaccine (1 - Risk 60-74 years 1-dose series) 2009 Zoster vaccine (2 of 3) 06/19/2012 04/24/2012 Bone Density Scan 2014 Influenza (Flu) vaccine (1 o f 1 - Influenza standard series) 06/28/2024 07/23/2023, 10/04/2022, 09/29/2021, Additional history exists DM Creatinine yearly 03/04/2025 03/04/2024, 12/05/2023, 08/19/2023, Additional history exists DM Urine Microalbumin yearly 03/04/202505/2024, 12/05/2023, 08/19/2023, Additional history exists Tetanus/Diphtheria/Pertussis Vaccines (3 - Td or Tdap) 01/15/2026 01/16/2016, 02/18/2006 Pneumoccocal Vaccine: 50+ Completed 2017, 04/13/2016, 05/01/2007 Hepatitis C Screening Completed 04/23/2023 Covid-19 Vaccine Completed 10/18/2022, 06/2021, 02/19/2021, Additional history exists Procedures Procedure Name Priority Date/Time Associated Diagnosis Comments U ALBUMIN/CRE RATIO Routine 03/04/2024 1 0:30 AM EDT CKD (chronic kidney disease) stage 4, GFR 15-29 ml/min Sleep apnea, unspecified type Hyperparathyroidism BASIC METABOLIC PANEL Routine 03/04/2024 9:49 AM EDT CKD (chronic kidney disease) stage 4, GFR 15-29 ml/min Sleep apnea, unspecified type Hyperparathyroidism HEPATITIS C ANTIBODY Routine 04/23/2023 10:35 AM EDT CKD (chronic kidney disease) stage 4, GFR 15-29 ml/min from Last 3 Months or Most Recently Relevant to Health Maintenance Results * U Albumin/Cre Ratio (03/04/2024 10:30 AM EDT) Albumin / Creatinin Ratio, Urine 15 0 - 29 mcg/mg Cr [facility] Comment: Reference Ranges: <30 mcg/mg: Normal 30-300 mcg/mg: Moderately increased albuminuria.* >300 mcg/mg: Severely increased albuminuria. * ACEI or ARB recommended if diabetic; suggested if BP>130/80 without diabetes ACEI or ARB strongly recommended if diabetic; recommended if BP>130/80 without diabetes Two of three specimens collected within a 3 to 6 month period should be abnormal before considering a patient to have albuminuria. Transient causes: exercise, fever, infection, CHF, marked hyperglycemia or hypertension. Persistent albuminuria indicates CKD and is an independent risk factor for ASCVD. ADA Standards of Medical Care in Diabetes-2016; KDIGO: Kidney International Supplements (2012) 2, 357? 362 Albumin, Urine 16.1 mg/L [facility] Creatinine, Urine 110 mg/dL [facility] Urine 03/04/2024 10:3 0 AM EDT 03/04/2024 10:33 AM EDT Narrative Resulting Agency Comment Spec In Lab Remi Winston MD URINE ORDERABLES [facility] [place] [address] * (ABNORMAL) Basic Metabolic Panel (non-fasting) (03/04/2024 9:49 AM EDT) Glucose 169 65 - 199 mg/dL [facility] Comment:Diabetes: >=200 mg/d L plus symptoms Blood Urea Nitrogen 34(H) 8 - 18 mg/dL [facility] Creatinine 2.24(H) 0.70 - 1.20 mg/dL [facility] Sodium 144 135 - 145 mmol/L [facility] Potassium 4.3 3.5 - 5.0 mmol/L [facility] Comment: Please note: ??Patients with WBC >100,000 may have falsely elevated Potassium levels. ??For accurate Potassium quantification in these patients send serum separator tube (gold top) for subsequent determinations. ??Contact the Clinical Chemistry Laboratory if there are any questions. Chloride 107 98 - 107 mmol/L [facility] Carbon Dioxide 24 22 - 31 mmol/L [facility] Anion Gap 13 5 - 15 mmol/L [facility] Calcium 9.5 8.5 - 10.5 mg/dL [facility] Est Glomerular Filtration Rate 22(L) >=60 mL/min/1. 73 m?? [facility] Comment: This patient's estimated GFR was calculated using the 2020 CKD-EPI equation. The estimated GFR can vary from the measured GFR by up to 30% in the absence of rapidly changing kidney function. Assessment of the estimated GFR is not appropriate when creatinine concentrations are rapidly changing. For clinical situations in which a more precise estimate of GFR is necessary, consider alternative methods of GFR estimation such as a 24-hour urine creatinine clearance. Assignment of CKD stage 1-5 for patients with an eGFR near the transition point between stages may be based on clinical assessment of muscle mass and symptoms in addition to eGFR. Blood 03/04/2024 9:49 AM EDT 03/04/2024 9:55 AM EDT Narrative Resulting Agency Comment Spec In Lab Remi Winston MD CHEMISTRY ORDERABLES Performing Organization Address City/[facility]/ZIP Co de Phone Number [facility] [place] [address] * Hepatitis C Antibody (04/23/2023 10:35 AM EDT) Hepatitis C Antibody Negative Negative [facility] Blood 04/23/2023 10:3 5 AM EDT 04/23/2023 11:08 AM EDT Narrative Resulting Agency Comment Spec In Lab Remi Winston MD CHEMISTRY ORDERABLES [facility] [place] [address] from Last 3 Months or Most Recently Relevant to Health Maintenance Advance Directives * Attempt Cardiopulmonary Resuscitation - Inpatient (Latest Code Status on File) Date Activated Date Inactivated Comments 2021 9:22 AM 2021 3:55 PM Question Answer Comments Code Status decision made by: Patient Care Teams Business Controller Relationship Specialty Start Date End Date Rome Guerra MD [address] [place] [address] PCP - General Emergency Medicine 10/17/21
--- OUTSIDE RECORDS SUMMARY | 2024-11-16 13:18 | XMS_ITS | Continuity of Care Document ---
Author Organization [place] - [facility] Address [address] [place] [address] Assessment No assessment recorded. Plan of Treatment Reminders Order Date Submit Date Provider Last Modified By Organization Details Last Modified Time Details Appointments Nurse Visit 2024 11:30A M Milton Nursing Staff Not available Not available Not available Annual Chronic Care (65+) 2024 10:00A M HUGO BRODY Not available Not available Not available Lab CMP, serum or plasma - 1T, 1P 2024 025 [facility] (Registration ), [address] [place] [address] [place], [address], 11/16/2024 12:24:08 phosphor us, serum or plasma 2024 025 [facility] (Registration ), [address] [place] [address] [place], [address], 11/16/2024 12:24:08 PTH (parathy roid hormone) , intact, serum or plasma 2024 025 [facility] (Registration ), [address] [place] [address] [place], [address], 11/16/2024 12:24:08 CBC 2024 025 [facility] (Registration ), [address] [place] [address] [place], [address], 11/16/2024 12:24:08 Referral None recorded . Procedures None recorded . Surgeries None recorded . Imaging None recorded . Medication Orders None recorded . Patient TargetsNo targets recorded. Patient InstructionsNo instructions recorded. Reason for Referral None Reported. Problems Name Problem SNOMED Code Status Onset Date Resolution Date Notes Provider Name and Address Organization Details Recorded Time Obstruct marcelo sleep apnea syndrome 88527058 Active 2008 rec. CPAP, intolera nt. RF 05/10/[address], [facility] [address] , [facility] 4 11:16:00 [facility] l hyperten devin 44526306 Active 2004 [facility] 4 18:23:15 Type 2 diabetes mellitus without complica tion 210214853 Active 2008 [facility] 4 18:26:43 Hyperlip idemia 04065133 Active [address], [facility] [address] , [facility] 4 23:23:22 Chronic kidney disease stage 4 009837046 Active 2013 Left renal atrophy on CT scan Jul 2019, 04/2023 [facility] 4 18:22:07 Other idiopath ic peripher al neuropat hy NOS Active [address], [place], [address] , [facility] 3 19:14:23 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 4 18:22:53 Restless legs 68932349 [facility] 4 18:26:30 Vomiting 243928923 Completed 201504/10/2016 Problem Code: R11.10; Problem Code Type: ICD-10; Not Available [facility] 3 04:28:30 Diarrhea 52176786 Completed 201504/10/2016 Problem Code: R19.7; Problem Code Type: ICD-10; Not Available [facility] 3 04:28:31 Senile osteopor osis 18767812 Active 2016 Jasendivina Burger [facility] 4 18:26:38 History of urinary stone 852709873 Active 2018 distal left ureteral stone Jul 2019 Jasendivina Burger [facility] 4 18:24:15 Adult health examinat ion Active 2019 HUGO BRODY MD [facility] [address], [place], [address] [facility] 4 08:04:27 Gastroes ophageal reflux disease without esophagi tis 723135640 Active 2019 Jasendivina Burger [facility] 4 18:22:38 Disorder of shoulder 334406588 Completed 202109/03/2022 Problem Code: M75.81; Problem Code Type: ICD-10; Not Available [facility] 3 04:28:31 Vulval and/or perineal noninfla mmatory disorder s 678505772 Completed 202109/03/2022 Problem Code: N90.89; Problem Code Type: ICD-10; Not Available [facility] 3 04:28:32 Heart failure 76162882 Active 2021 LVEF >= 50% Jasendivina Burger [facility] 4 18:23:43 Fibromya lgia 148314352 Active HUGO BRODY MD [address], [place], [address] , [facility] 4 23:23:16 Hyperten sive disorder 52587742 Completed 200407/24/[address] [facility] 3 04:28:32 Abdomina l pain 19646410 Completed 201412/05/2015 Problem Code: R10.9; Problem Code Type: ICD-10; Not Available [facility] 3 04:28:32 Cataract 484281851 Completed 202006/30/2021 Problem Code: H26.9; Problem Code Type: ICD-10; Not Available [facility] 3 04:28:33 Pre-surg charlee testing Completed 201407/31/2016 Problem Code: Z01.812; Problem Code Type: ICD-10; Not Available [facility] 3 04:28:33 Plantar fascial fibromat osis 48220944 Completed 201706/30/2021 Problem Code: M72.2; Problem Code Type: ICD-10; Not Available [facility] 3 04:28:33 Disorder of the urinary system 399054327 Completed 201806/30/2021 Problem Code: N39.9; Problem Code Type: ICD-10; Not Available [facility] 3 04:28:33 Adult health examinat ion Completed 201407/31/2016 Problem Code: Z00.00; Problem Code Type: ICD-10; HUGO BRODY MD [address], [place], [address] , [facility] 4 08:04:27 Chest pain 45065535 Completed 202001/02/2022 Problem Code: R07.89; Problem Code Type: ICD-10; Not Available [facility] 3 04:28:33 Diarrhea 80270806 Completed 201706/30/[address] [facility] 3 04:28:34 Dysuria 37989898 Completed 201412/05/2015 Problem Code: R30.0; Problem Code Type: ICD-10; Not Available [facility] 3 04:28:34 Acute pharyngi tis 909920719 Completed 201803/25/2020 Problem Code: J02.9; Problem Code Type: ICD-10; Not Available [facility] 3 04:28:34 Acute bronchit is 57674521 Completed 201612/16/2017 Problem Code: J20.9; Problem Code Type: ICD-10; Not Available [facility] 3 04:28:34 Dyspnea 191404819 Completed 202104/04/2022 Problem Code: R06.09; Problem Code Type: ICD-10; Not Available [facility] 3 04:28:34 Dysuria 86423430 Completed 201802/10/2019 Problem Code: R30.0; Problem Code Type: ICD-10; Not Available [facility] 3 04:28:34 Telangie ctasia disorder 460290529 Completed 200107/24/2023 Not Available [facility] 3 04:28:35 Pain in finger of right hand 96537485525 9109 Completed 201506/30/2021 Problem Code: M79.644; Problem Code Type: ICD-10; HUGO BRODY MD [address], [place], [address] , [facility] 5 21:22:25 Pain in right arm 761143696 Completed 201407/31/2016 Problem Code: M79.601; Problem Code Type: ICD-10; Not Available [facility] 3 04:28:35 Hypergly cemia due to type 2 diabetes mellitus 16754486851 9109 Completed 200807/24/2023 Problem Code: E11.65; Problem Code Type: ICD-10; Not Available [facility] 3 04:28:35 Pre-surg charlee evaluati on Completed 202006/30/2021 Problem Code: Z01.818; Problem Code Type: ICD-10; Not Available [facility] 3 04:28:35 Renataena 4020926 Completed 202104/04/2022 Problem Code: K92.1; Problem Code Type: ICD-10; Not Available [facility] 3 04:28:36 Retinopa thy Completed 201307/24/[address] [facility] 3 04:28:36 Sleep apnea 80622359 Completed 200807/24/2023 Not Available [facility] 3 04:28:36 Screenin g mammogra phy Completed 202009/29/2021 Problem Code: Z12.31; Problem Code Type: ICD-10; Not Available [facility] 3 04:28:36 Peripher al nerve disease 745732564 Completed 200507/24/[address] [facility] 3 04:28:36 Fibromyo sitis 66745099 Completed 200407/24/[address] [facility] 3 04:28:36 Adjustme nt disorder with depresse d mood 37580689 Completed 201607/29/2017 Problem Code: F43.21; Problem Code Type: ICD-10; Not Available [facility] 3 04:28:37 Indigest ion 646822117 Completed 200407/24/[address] [facility] 3 04:28:37 Itching of skin 223313266 Completed 202110/05/2022 Problem Code: L29.8; Problem Code Type: ICD-10; Not Available [facility] 3 04:28:37 Kidney stone 49956275 Completed 201803/25/2020 Problem Code: N20.0; Problem Code Type: ICD-10; Not Available [facility] 3 04:28:37 Headache 43607271 Completed 201506/30/2021 Problem Code: R51; Problem Code Type: ICD-10; Not Available [facility] 3 04:28:38 Cough 02202551 Completed 201803/25/2020 Problem Code: R05; Problem Code Type: ICD-10; Not Available [facility] 3 04:28:38 Pain of right shoulder joint 95659253900 550426 Completed 201601/30/2018 Problem Code: M25.511; Problem Code Type: ICD-10; HUGO BRODY MD [address], [place], [address] , [facility] 4 23:23:07 Tobacco dependen ce syndrome 98568971 Completed 200405/20/2015 Problem Code: 305.1; Problem Code Type: ICD-9; Not Available [facility] 3 04:28:38 Pain in right hip joint 06323263085 9102 Completed 201803/25/2020 Problem Code: M25.551; Problem Code Type: ICD-10; Not Available [facility] 3 04:28:38 Carpal tunnel syndrome of right wrist 77656583255 9108 Completed 201406/30/2021 Problem Code: G56.01; Problem Code Type: ICD-10; Not Available [facility] 3 04:28:39 Systemic lupus erythema tosus 97164032 Completed 200106/30/2021 Problem Code: M32.9; Problem Code Type: ICD-10; Not Available [facility] 3 04:28:39 Nonulcer dyspepsi a 0329601 Completed 200406/30/2021 Problem Code: K30; Problem Code Type: ICD-10; Not Available [facility] 3 04:28:39 Chronic kidney disease stage 2 083039513 Completed 201307/24/2023 Problem Code: 585.2; Problem Code Type: ICD-9; Not Available [facility] 3 04:28:39 Paresthe manohar 00169928 Completed 201507/24/2023 Problem Code: R20.2; Problem Code Type: ICD-10; Not Available [facility] 3 04:28:40 Screenin g for osteopor osis Completed 201608/22/2017 Problem Code: Z13.820; Problem Code Type: ICD-10; Not Available [facility] 3 04:28:40 Hydronep hrosis 69664562 Completed 201803/25/2020 Problem Code: N13.39; Problem Code Type: ICD-10; Not Available [facility] 3 04:28:40 Coronary arterios clerosis 97456589 Active 2022 occass. angina MD [address], [place] [address] , [facility] 4 21:52:45 History of SARS-CoV -2 42009942561 1345522 Completed 202201/21/2024 Problem Code: Z86.16; Problem Code Type: ICD-10; Jasen Burger null, [facility] 4 18:24:55 Carpal tunnel syndrome 93744505 Active 2015 mild via nerve conducti on test MD [address], [place] [address] , [facility] 4 08:04:33 Carpal tunnel syndrome of left wrist 93427571067 9102 Active 2023 Catherine Anthony RN null, [facility] 4 16:19:33 Obesity 298350814 Active [address], [facility] [address] , [facility] 4 23:23:12 Hemorrho ids 01806507 Active [address], [facility] [address] , [facility] 4 23:23:28 Edema of lower extremit y 652141554 Active 2023 HUGO BRODY MD [address], [place], [address] , [facility] 5 21:22:05 Problem Notes None recorded. Procedures Surgical History Date Name Laterality Status Provider Name and Address Organization Details Recorded Time 4 Carpal tunnel surgery completed Catherine Anthony RN [facility] 01/28/2024 16:21:07 2 Colonoscopy completed FREDRICK ANDERSEN MA [facility] 10/23/2023 16:53:37 Imaging Results None recorded. Procedure Notes None recorded. Medical Equipment None Reported. Allergies Allergen ID Allergen Name Allergen Category Reaction Reaction Severity Criticality Documentation Date Start Date Code Code System Note Provider Name and Address Organization Details Recorded Time 33013 gabapenti n medicatio n other mild Not available 09/06/20232006 81951 RxNorm GI Aller gyRea ction : 'GI'; Not Available [facility] 3 16:26:01 38862 lisinopri l medicatio n diarrhea mild Not available 09/06/20232004 55654 RxNorm Jasen Burger [facility] 4 18:27:40 77284 Cymbalta medicatio n nausea mild Not available 09/06/20232014 22856 4 RxNorm nause a Not Available [facility] 3 16:26:02 90980 Lipitor medicatio n myalgias (muscle pain) mild Not available 09/06/20232004 59283 5 RxNorm MYALG IA Not Available [facility] 3 16:26:02 37003 Cardizem medicatio n dizziness mild Not available 09/06/20232013 23998 4 RxNorm dizzi ness Not Available [facility] 3 16:26:03 42276 amlodipin e / benazepri l medicatio n dizziness mild Not available 09/06/20232011 02893 3 RxNorm Jasen Burger null, [facility] 4 18:27:25 97724 Prevacid medicatio n dizziness mild Not available 09/06/20232005 83175 RxNorm Jasen Burger [facility], [facility] 4 18:27:46 81253 Celebrex medicatio n other moderate Not available 01/21/20242014 77392 7 RxNorm acid reflu x Jasen Burger [facility], [facility] 4 18:28:18 89071 metformin medicatio n other severe Not available 01/21/20242016 6809 RxNorm Renal issue s Jasen Burger [facility] 4 18:29:01 06325 turmeric extract food,medi cation other mild low 10/27/2024 72045 83 RxNorm nose bleed s FREDRICK ANDERSEN MA [facility], [facility] 4 14:01:25 Medications Name Sig Start Date [...] and one in PM- per Dr at [facility]. For Kidneys. active Not Available Not Available [...] (2,000 unit) capsule 2 QD 03/25 completed [facility] nephrolo gy Not Available Not Available Not [...] Not Available Vitals Date Recorded Body height Systolic blood pressure Diastolic blood pressure Provider Name and Address Organization Details Last Updated DateTime 11/16/2024 165.1 cm 144 mm[Hg] 72 mm[Hg] PATRIC STEVENS [facility] 11/16/2024 11:53:53 Social History Question Answer Notes LastModified by Organizat ion Details LastModified Time Tobacco Smoking Status Former Smoker HUGO BRODY MD [address], [place], [address], [facility] 01/22/2024 11:14:16 When Did You Quit Smoking? [...] mL 4 completed MD [address], [place], [address], [facility] 07/26/2024 23:17:36 Influenza, high-dose, trivalent, PF 4 completed MD [address], [place], [address], [facility] 07/26/2024 23:17:36 Td (adult), 5 Lf tetanus toxoid, preservative free, adsorbed 6 completed Not Available [facility] 09/06/2023 06:19:29 Tdap 6 completed Not Available [facility] 09/06/2023 06:19:29 zoster live 2 completed Not Available [facility] 09/06/2023 06:19:29 Pneumococcal conjugate PCV 13 6 completed Not Available [facility] 09/06/2023 06:19:29 Influenza, high-dose, trivalent, PF 8 completed Not Available [facility] 09/06/2023 06:19:29 Influenza, split virus, trivalent, preservative 6 completed Not Available [facility] 09/06/2023 06:19:29 Influenza, split virus, quadrivalent, preservative 7 completed Not Available [facility] 09/06/2023 06:19:29 Influenza, high-dose, quadrivalent, PF 1 completed Not Available [facility] 09/06/2023 06:19:29 Influenza, high-dose, quadrivalent, PF 2 completed Not Available [facility] 09/06/2023 06:19:29 COVID-19, mRNA, LNP-S, PF, 100 mcg/0.5mL dose or 50 mcg/0.25mL dose 1 completed Not Available [facility] 09/06/2023 06:19:30 COVID-19, mRNA, LNP-S, PF, 100 mcg/0.5mL dose or 50 mcg/0.25mL dose 1 completed Not Available [facility] 09/06/2023 06:19:30 COVID-19, mRNA, LNP-S, PF, 100 mcg/0.5mL dose or 50 mcg/0.25mL dose 1 completed Not Available [facility] 09/06/2023 06:19:30 COVID-19, mRNA, LNP-S, bivalent, PF, 50 mcg/0.5 mL or 25mcg/0.25 mL dose 2 completed Not Available [facility] 09/06/2023 06:19:30 pneumococcal polysaccharide PPV23 7 completed Not Available [facility] 09/06/2023 06:19:30 pneumococcal polysaccharide PPV23 8 completed Not Available [facility] 09/06/2023 06:19:30 influenza, unspecified formulation 2 completed Not Available [facility] 09/06/2023 06:19:30 influenza, unspecified formulation 3 completed FREDRICK ANDERSEN MA null, [facility]. 10/23/2023 16:54:12 Influenza, high-dose, quadrivalent, PF 3 completed [facility] Available [facility] 11/08/2023 05:31:09 COVID-19, mRNA, LNP-S, PF, sanjay-sucrose, 30 mcg/0.3 mL 3 completed MD [address], [place], [address] 10/28/2023 21:49:29 Past Encounters Encounter ID Performer Location Encounter Start Date Encounter Closed Date Diagnosis/Indication Diagnosis SNOMED-CT Code Diagnosis ICD10 Code Diagnosis Note [id number] HUGO BRODY MD [address] [address] 10/27/2024 13:44:52 10/27/2024 14:51:02 Type 2 diabetes mellitus without complication 592328597 E11.9 A1C 7.3% Continue current diabetic regimen with Lantus and monitor blood glucose levels closely. . Educated the patient on maintainin g a healthy diet and activity level to aid in weight management . Essential hypertension 71645036 I10 Continue prescribed antihypert ensive therapy. Blood pressure is currently well-contr olled Chronic ki dney disease stage 4 792517610 N18.4 continue nephrology consultati ons and monitor kidney function closely. cmp, phos, pth, cbd in a few weeks, forward to Dr Winston [id number] PATRIC STEVENS CMA [address] [address] 11/16/2024 11:31:16 11/16/2024 11:58:02 Chronic kidney disease stage 4 482899078 N18.4 Health Concerns Section Related Observation LastModified by Organization Detai ls LastModified Time None Recorded Concern Status LastModified by Organization Details LastModified Time None Recorded Payers Encounter Date Sequence Insurance Name Policy Number Policy Schuler Covered Member ID Schuler Member ID Guarantor Name 11/16/2024 1 [place]ARE [place]: [employer] Brynn Khalil [id number] Brynn Khalil 11/16/2024 2 FOR LIFE () 000 Brynn Khalil [id number] Brynn Khalil OBGyn Episode No OBEpisode recorded.
--- OUTSIDE RECORDS SUMMARY | 2024-11-16 13:18 | XMS_ITS | Encounter Summary ---
[place] [address] Care Team Providers Care Milk Driver Name Role Phone Rome Guerra MD Primary Care Provider [phone] Reason for Visit * Reason Comments Medication Refill Encounter Details Date Type Department Care Team (Late st Contact Info) Description 05/12/2024 Refill Nephrology [place] [phone] Remi Winston MD [facility] [place] [address] Social History Tobacco Use Types Packs/Day Years Used Date Smoking Tobacco: Former Cigarettes Q uit: 2014 Smokeless Tobacco: Never Alcohol Use Standard Drinks/Week Comments Not Currently 0 (1 standard drink = 0.6 oz pur e alcohol) Sex and Gender Information Value Date Recorded Sex Assigned at Not on file Gender Identity Not on file Sexual Orientation Not on file documented as of this encounter Plan of Treatment Upcoming Encounters Date Type Department Care Team (Late st Contact Info) Description 11/27/2024 9:00 AM EST Office Visit Ne[place] [phone] Remi Winston MD [facility] [place] [address] documented as of this encounter Visit Diagnoses Not on filedocumented in this encounter Care Teams Milk Driver Relationship Specialty Start Date End Date Rome Guerra MD [address] [place] [address] PCP - General Emergency Medicine 10/17/21 documented as of this encounter
--- OUTSIDE RECORDS SUMMARY | 2024-11-16 13:18 | XMS_ITS | Encounter Summary ---
Author Organization [facility] [place] [address] Care Team Providers Care Technical Program Manager Name Role Phone Rome Guerra MD Primary Care Provider [phone] Encounter Details Date Type Department Care Team (Latest Contact Info) Description 03/04/2024 Travel Social History Tobacco Use Types Packs/Day Years [...] AM EST Office Visit [place] [address] Remi Winston MD [facility] [place] [address] documented as of this encounter Visit Diagnoses Not on filedocumented in this encounter Care Teams Technical Program Manager Relationship Specialty Start Date End Date Rome Guerra MD [address] [place] [address] PCP - General Emergency Medicine 10/17/21 documented as of this encounter
--- OUTSIDE RECORDS SUMMARY | 2024-11-16 13:19 | XMS_ITS | Encounter Summary ---
Author Organization [facility] Address [facility] [place] [address] Care Team Providers Care Mess Attendant Name Role Phone Rome Guerra MD Primary Care Provider [phone] Encounter Details Date Type Department Care Team (Latest Contact Info) Description 08/19/2023 10:30 AM EDT Office Visit Nephrology [place] [id number] Remi Winston MD [facility] [address] CKD (chronic kidney disease) stage 4, GFR 15-29 ml/min; Hyperparathyroidism Social History Tobacco Use Types Packs/Day Years [...] on file documented as of this encounter Last Filed Vital Signs Vital Sign Reading Time Taken Comments Blood Pressure 119/54 08/19/2023 9:08 AM EDT Pulse 68 08/19/2023 9:08 AM EDT Temperature - - Respiratory Rate - - Oxygen Saturation - - Inhaled Oxygen Concentration - - Weight 85.7 kg (189 lb) 08/19/2023 9:08 AM EDT Height 162.6 cm (5' 4) 08/19/2023 9:08 AM EDT Body Mass Index 32.44 08/19/2023 9:08 AM EDT documented in this encounter Progress Notes * Remi Winston MD - 08/19/2023 10:30 AM EDT Images from the original note were not included. HYPERTENSION/ NEPHROLOGY PROGRESS NOTE PATIENT: Brynn Khalil : 1950 REASON FOR CONSULTATION: Consulted for renal insufficiency HPI: Brynn Khalil is a 72 y.o. female with PMHx significant for DM-2 , HTN, GEOVANNA, HfPEF, renal insufficiency referred by Rome Guerra MD for CKD 4 She is to follow-up with nephrology clinic till 2016, and then lost to follow- up, but re engaged with nephrology in March 2023. DM-2- > 10 yrs, no retinopathy, no neuropathy. HTN- > 10 yrs Sleep apnea- she does not use CPAP machine. Urolithiasis- 2 in lifetime, last one was in 2019, stones not analyzed. Adrenal nodule- biopsied benign. Creatinine (mg/dL) Date Value 05/30/2023 2.51 (H) 04/23/2023 3.90 (H) 11/09/2021 1.40 (H) 08/14/2019 1.94 (H) 04/29/2017 1.68 (H) 04/09/2017 1.51 (H) Creatinine (mg/dL) Date Value 01/02/2023 2.6 OSH 10/04/2022 2.8 OSH 07/04/2022 2.0 OSH 03/14/17- 2.18 egfr 20 03/22/16- 1.42 05/30/2023-ultrasound - atrophic left kidney (left kidney size 7.4) right kidney size 12.6 cm. Of note her ultrasound of her kidneys done in February 2017 showed right kidney size of 12.8 cm and leftkidney size 10.5 cm. She was on Jardiance but was discontinued, she does not know why. Brynn Khalil takes Naproxen OTC gelcap twice a week, which she later stopped. Interval history: She was admitted at [facility] overnight for COVID in June. Now recovered well. Overall doing all right, but has occasional nausea and vomiting, and last time she had some steaks of blood after vomiting which she attributes to retching. Has chronic diarrhea which is well controlled with metamucil. Blood sugars running joy in the 200+ range and has been on Linagliptin and Glipizide 10mg. She checks her blood pressure at home and runs in the 130s on average systolic with diastolic in the 70-80. ROS: 4 point review of sytem was done, everything was negative except for what was mentioned above. . Past Medical History: Diagnosis Date CKD (chronic kidney disease), stage III Diabetic retinopathy HTN (hypertension) Hyperlipidemia Low HDL (under 40) 04/15/2017 Nephrolithiasis Occurred in the ; single episode. Non-nephrotic range proteinuria 04/15/2017 Obesity 04/15/2017 GEOVANNA (obstructive sleep apnea) Restless leg Secondary hyperparathyroidism of renal origin 04/15/2017 Vitamin D deficiency 04/15/2017 Past Surgical History: Procedure Laterality Date PRG CATH PLMT LEFT HEART CATH & ARTS W/INJ & ANGIO IMG S&I N/A 2021 CORONARY ANGIOGRAPHY; W C,POSSIBLE PCI performed by Beny Monahan MD at [facility] CATH LABS Family History Problem Relation Age of Onset Hypertension Mother Kidney Disease Neg Hx Diabetes Neg Hx Social History Socioeconomic History Marital status: Spouse name: Not on file Number of children: Not on file Years of education: Not on file Highest education level: Not on file Occupational History Not on file Tobacco Use Smoking status: Former Types: Cigarettes Quit date: 2013 Years since quittin.8 Smokeless tobacco: Never Vaping Use Vaping Use: Never used Substance and Sexual Activity Alcohol use: Not Currently Drug use: Never Sexual activity: Not on file Other Topics Concern Not on file Social History Narrative Lives with her partner of >30 years. He has a spinal cord injury due to motorcycle accident <2 years ago; Brynn has been caring for him at home. Prior tobacco; quite in 2013. No EtOH. No recreational drugs. Social Determinants of Health Financial Resource Strain: Not on file Food Insecurity: Not on file Transportation Needs: Not on file Physical Activity: Not on file Housing Stability: Not on file Outpatient medications: Current Outpatient Medications on File Prior to Visit Medication Sig Dispense Refill felodipine (Plendil) 10 mg ER 24 hr tablet Take 10 mg by mouth daily. Psyllium Seed-Sucrose (0) Powder Take by mouth daily. 2 teaspoons daily metoprolol succinate XL (Toprol-XL) 100 mg ER 24 hr tablet Take 1 tablet by mouth daily. 30 tablet sodium bicarbonate 650 mg tablet Take 2 tablets by mouth daily. 60 tablet 3 furosemide (Lasix) 40 mg tablet TAKE 1 TABLET DAILY 90 tablet 1 spironolactone (Aldactone) 25 mg Tablet Take 1 tablet by mouth daily. 90 tablet 3 nitroGLYcerin (Nitrostat) 0.4 mg Tablet, Sublingual Place 1 tablet under the tongue every 5 minutesas needed for Chest pain. 90 tablet 12 Januvia 25 mg Tablet Take 25 mg by mouth daily. pantoprazole EC (Protonix) 40 mg Tablet, Delayed Release (E.C.) Take 40 mg by mouth daily. glipiZIDE (Glucotrol) 5 mg Tablet Take 10 mg by mouth daily. aspirin 81 mg Tablet, Delayed Release (E.C.) Take 81 mg by mouth daily. rOPINIRole (REQUIP) 0.5 mg Tablet Take 1 mg by mouth nightly. rosuvastatin (CRESTOR) 40 mg Tablet Take 40 mg by mouth daily. No current facility-administered medications on file prior to visit. MEDICATIONS: Allergies Allergen Reactions Guaifenesin Rash Amlodipine Besylate Other (See Comments) Dizziness Celebrex [Celecoxib] Other (See Comments) Acid reflux Gabapentin Nausea Only Lipitor [Atorvastatin] Other (See Comments) myalgia Lisinopril Diarrhea Prevacid [Lansoprazole] Other (See Comments) dizziness PHYSICAL EXAM: Last value Temperature Heart Rate Blood Pressure Respiratory Rate SpO2 Patient is awake alert notin acute distress No jaundice Neck- supple trachea central Chest- bilateral air entry present clear to auscultation no wheeze no crepitation CVS-S1-S2 present, irregular. Abdomen-nontender nondistended, bowel sounds present. Extremities-peripheral pulses present, no edema Neuro-patient is awake alert, moving all 4 limbs, motor examination is grossly normal. No asterixis. STUDIES: Labs: CBC: Recent Labs 05/30/2382004/23/23 1035 WBC 5.2 7.8 HGB 12.7 11.8 PLATELET 141* 133* Chemistry: Recent Labs 05/30/23 0821 04/23/23 1035 NA 139 140 K 4.6 5.1* CL 104 106 CO2 24 19* BUN 47* 77* CREATININE 2.51* 3.90* GLUCOSE 362* 173 Recent Labs 05/30/23 0821 04/23/23 1035 CALCIUM 9.5 9.7 MAGNESIUM -- 0.99 PHOS -- 4.4 LFT's: Recent Labs 05/30/23 0821 04/23/23 1035 ALBUMIN 3.9 4.5 Prot/Cre Ratio Date Value Ref Range Status 05/30/2023 0.2 ratio Final Prot/Cre Ratio (ratio) Date Value 05/30/2023 0.2 04/23/2023 0.2 04/09/2017 0.1 Alb/Cr Ratio, Random (mcg/mg Cr) Date Value 05/30/2023 44 (H) 04/23/2023 39 (H) 04/09/2017 10 Lab Results Component Value Date PTH 100 (H) 04/23/2023 CALCIUM 9.5 05/30/2023 PHOS 4.4 04/23/2023 25-OH Vit D Total (ng/mL) Date Value Status 04/09/2017 23 (L) Final IMPRESSION/ RECOMMENDATIONS: Brynn Khalil is a 72 y.o. female with PMHx significant for DM-2 , HTN, GEOVANNA, HfPEF, renal insufficiency referred by Rome Guerra MD for CKD 4 She is to follow-up with Dr. Nelda Watts and was last seen in April 2017, and then lost to follow-up. Urine-few WBCs, squamous epithelial cells, few transitional cells as well as rare RTE is noted (unremarkable) She has history of adrenal nodule which was biopsied which showed benign tissue. #CKD Stage 4/5 -Most likely secondary to long standing DM, HTN and possible cardio renal syndrome in the setting of NSAID intake and atrophic left kidney. -She has left renal atrophy, her atrophy has progressed since the last ultrasound,? Recent for further decline in creatinine recently. -Creatinine has improved after stopping her losartan, she could not tolerate Rybelsus (semaglutide)due to nausea and vomiting, and she states it has not helped her much, she was on Jardiance which was discontinued? Due to nausea or GI side effects. -Her ACR is 44 with UPC of 0.2. I do not see a strong indication to start her on RAAS inhibition atleast at this point of time but that is something which can be considered later on. -Based on the stability of creatinine will consider SGLT2 inhibitor at a later date -Kidney function has stabilized -CV protection on statin # Electorlytes Sodium and potassium are normal. #Acid Base - has metabolic acidosis which is well controlled on OTC bicarbonate pills # BMM Calcium normal. Her vitamin D is low, will start her on vitamin D3 at 1000 units daily. PTH elevated, likely due to secondary hyperparathyroidism. #Hemodynamics -She had bradycardia with heart rate of 36 during prior evaluation. -Currently on felodipine 10 mg, Lasix 40 mg, metoprolol succinate 100 mg daily, spironolactone 25 mg p.o. daily. -She checks her blood pressure at home is running around 130s on average systolic, with diastolics between 70 and 80. -We will consider RAAS inhibition next visit, based on the stability of your creatinine. , #Hemoglobin - She is not anemic. # Bradycardia- - resolved. -Currently on metoprolol to 100 mg p.o. (she was previously on metoprolol XL 200 mg p.o. daily) #History of urolithiasis- -Her stone was not analyzed before. - No stones detected in kidneys on US done on 05/30/2023, Plan/Recommendations: I discussed her case with Rome Guerra MD's nurse Kassie today due to her elevated blood glucose levels, they will be reaching out to her today afternoon. She was advised to reach out her PCP's office too. A total of 40 minutes was spent for reviewing chart, [id number] encounter, ordering labs/medication,documentation in the chart, and coordinating care. RTC-3 month with labs. CC-Rome Guerra MD This note was created using [employer] speech detection software which can cause occasional typographical errors. I apologize in advance if the situation occurs. Please don't hesitate to to contact us for any clarifications. Remi Winston MD 08/19/2023 Hypertension-Nephrology documented in this encounter Plan of Treatment Upcoming Encounters Date Type Department Care Team (Late st Contact Info) Description 11/27/2024 9:00 AM EST Office Visit Nephrology [place] [address] Remi Winston MD [facility] [place] [address] documented as of this encounter Results * (ABNORMAL) Protein/Creatinine Ratio, urine (08/19/2023 9:30 AM EDT) Creatinine, Urine 167 mg/dL [facility] Protein, Urine 45(H) 0 - 12 mg/dL [facility] Protein / Creatinine Ratio, Urine 0.3 ratio [facility] Urine 08/19/2023 9:30 AM EDT 08/19/2023 10:04 AM EDT Narrative Resulting Agency Comment Spec In Lab Remi Winston MD URINE ORDERABLES [facility] [place] [address] * (ABNORMAL) U Albumin/Cre Ratio (08/19/2023 9:30 AM EDT) Albumin / Creatinin Ratio, Urine 61(H) 0 - 29 mcg/mg Cr [facility] Comment: Reference Ranges: <30 mcg/mg: Normal [...] Supplements (2012) 2, 357? 362 Albumin, Urine 102.7 mg/L [facility] Creatinine, Urine 167 mg/dL [facility] Urine 08/19/2023 9:30 AM EDT 08/19/2023 10:04 AM EDT Narrative Resulting Agency Comment Spec In Lab Remi Winston MD URINE ORDERABLES [facility] [place] [address] * Vitamin D, 25-Hydroxy (08/19/2023 8:40 AM EDT) Vitamin D Total 25 OH 28 21 - 100 ng/mL [facility] Vit D Interp Insufficient [facility] Blood 08/19/2023 8:40 AM EDT 08/19/2023 8:59 AM EDT Narrative Resulting Agency Comment Spec In Lab Remi Winston MD CHEMISTRY ORDERABLES Performing Organization Address City/[facility] Co de Phone Number [facility] [place] [address] * (ABNORMAL) PTH (08/19/2023 8:40 AM EDT) Parathyroid Hormone 87(H) 15 - 65 pg/mL [facility] Blood 08/19/2023 8:40 AM EDT 08/19/2023 8:59 AM EDT Narrative Resulting Agency Comment Spec In Lab Remi Winston MD CHEMISTRY ORDERABLES Performing Organization Address City/[facility]/ZIP Co de Phone Number [facility] [place] [address] * Albumin Level (08/19/2023 8:40 AM EDT) Albumin 4.1 3.2 - 5.2 g/dL [facility] Blood 08/19/2023 8:40 AM EDT 08/19/2023 8:59 AM EDT Narrative Resulting Agency Comment Spec In Lab Remi Winston MD CHEMISTRY ORDERABLES Performing Organization Address City/[facility]/ZIP Co de Phone Number [facility] [place] [address] * (ABNORMAL) Basic Metabolic Panel (non-fasting) (08/19/2023 8:40 AM EDT) Glucose 439(H) 65 - 199 mg/dL [facility] Comment:Diabetes: >=200 mg/d L plus symptoms Blood Urea Nitrogen 41(H) 8 - 18 mg/dL [facility] Creatinine 2.29(H) 0.70 - 1.20 mg/dL [facility] Sodium 138 135 - 145 mmol/L [facility] Potassium 4.1 3.5 - 5.0 mmol/L [facility] Comment: Please note: ??Patients with WBC >100,000 may have falsely elevated Potassium levels. ??For accurate Potassium quantification in these patients send serum separator tube (gold top) for subsequent determinations. ??Contact the Clinical Chemistry Laboratory if there are any questions. Chloride 101 98 - 107 mmol/L [facility] Carbon Dioxide 23 22 - 31 mmol/L [facility] Anion Gap 14 5 - 15 mmol/L [facility] Calcium 9.5 8.5 - 10.5 mg/dL [facility] Est Glomerular Filtration Rate 22(L) >=60 mL/min/1. 73 m?? [facility] Comment: This patient's estimated GFR was [...] and symptoms in addition to eGFR. Blood 08/19/2023 8:40 AM EDT 08/19/2023 8:59 AM EDT Narrative Resulting Agency Comment Spec In Lab Remi Winston MD CHEMISTRY ORDERABLES [facility] [place] [address] documented in this encounter Visit Diagnoses Diagnosis CKD (chronic kidney disease) stage 4, GFR 15-29 ml/min Chronic kidney disease, Stage IV (severe) Hyperparathyroidism Hyperparathyroidism, unspecified documented in this encounter Care Teams Mess Attendant Relationship Specialty Start Date End Date Rome Guerra MD [address] [place] [address] PCP - General Emergency Medicine 10/17/21 documented as of this encounter
--- OUTSIDE RECORDS SUMMARY | 2024-11-16 13:19 | XMS_ITS | Encounter Summary ---
Author Organization [facility] [place] [address] Care Team Providers Care Modeling Manager Name Role Phone Rome Guerra MD Primary Care Provider [phone] Encounter Details Date Type Department Care Team (Late st Contact Info) Description 01/26/2022 Telephone [place] [address] Farheen Alejo Social History Tobacco Use Types Packs/Day Years [...] AM EST Office Visit Nephrology [place] [address] Remi Winston MD [facility] [place] [place] [address] documented as of this encounter Visit Diagnoses Not on filedocumented in this encounter Care Teams Modeling Manager Relationship Specialty Start Date End Date Rome Guerra MD [address] [place] [address] PCP - General Emergency Medicine 10/17/21 documented as of this encounter
--- OUTSIDE RECORDS SUMMARY | 2024-11-16 13:19 | XMS_ITS | Encounter Summary ---
Author Organization [facility] [place] [address] Care Team Providers Care Technical Mgr Name Role Phone Rome Guerra MD Primary Care Provider [phone] Encounter Details Date Type Department Care Team (Late st Contact Info) Description 11/24/2021 Refill Cardiology at [address] [phone] Ki Perla, RN Social History Tobacco Use Types Packs/Day Years [...] on file documented as of this encounter Miscellaneous Notes * Telephone Encounter - Ki Perla, RN - 11/24/2021 7:42 AM EST Requested Prescriptions Pending Prescriptions Disp Refills ??? furosemide (Lasix) 40 mg Tablet 90 tablet 3 Sig: Take 1 tablet by mouth daily. Received a faxed prescription refill request for above Lasix from [facility], [place], [place]. Refill request for 90 days with 3 refills advanced, anticipating follow up (post Cath) within the month. (Scheduling remains in process). Reviewed Epic record and last office note from Dr. Monahan and Dr. Michaels dated 11/09/2021. Also noted most recent discharge medication list - and adjustment in Lasix dosing - dated 2021. furosemide 40 mg Oral DAILY Refill prepped and forwarded to Provider for authorization Martin Perla RNsenior environmental technician Team Nurse [facility] documented in this encounter Plan of Treatment Upcoming Encounters Date Type Department Care Team (Late st Contact Info) Description 11/27/2024 9:00 AM EST Office Visit [place] [address] Remi Winston MD [facility] [place] [address] documented as of this encounter Visit Diagnoses Diagnosis Chronic kidney disease, stage IV (severe) Chronic kidney disease, Stage IV (severe) documented in this encounter Care Teams Technical Mgr Relationship Specialty Start Date End Date Rome Guerra MD [address] [place] [address] PCP - General Emergency Medicine 10/17/21 documented as of this encounter
--- OUTSIDE RECORDS SUMMARY | 2024-11-16 13:19 | XMS_ITS | Encounter Summary ---
Author Organization [facility] [place] [address] Care Team Providers Care Contract Design Agent Name Role Phone Rome Guerra MD Primary Care Provider [phone] Encounter Details Date Type Department Care Team (Latest Contact Info) Description 04/23/2023 Travel Social History Tobacco Use Types Packs/Day [...] AM EST Office Visit Ne[place] [address] Remi Winston MD [facility] [place] [address] documented as of this encounter Visit Diagnoses Not on filedocumented in this encounter Care Teams Contract Design Agent Relationship Specialty Start Date End Date Rome Guerra MD [address] [place] [id number] PCP - General Emergency Medicine 10/17/21 documented as of this encounter
--- OUTSIDE RECORDS SUMMARY | 2024-11-16 13:19 | XMS_ITS | Encounter Summary ---
[place] [address] Care Team Providers Care Metal Refiner Name Role Phone Rome Guerra MD Primary Care Provider [phone] Encounter Details Date Type Department Care Team (Late st Contact Info) Description 11/03/2021 Telephone Cardiology at [address] [phone] Josie Elizondo LNA Social History Tobacco Use Types Packs/Day Years Used Date Smoking Tobacco: Former Cigarettes Q uit: 2013 Sex and Gender Information Value Date Recorded Sex Assigned at Not on file Gender Identity Not on file Sexual Orientation Not on file documented as of this encounter Miscellaneous Notes * Telephone Encounter - Josie Elizondo LNA - 11/07/2021 10:36 AM EST All medications, allergies and pharmacy have been updated for upcoming clinic visit with Dr. Brewer/Taniya on 11/09/21. documented in this encounter Plan of Treatment Upcoming Encounters Date Type Department Care Team (Late st Contact Info) Description 11/27/2024 9:00 AM EST Office Visit Nephrology [place] [address] Remi Winston MD [facility] [place] [address] documented as of this encounter Visit Diagnoses Not on filedocumented in this encounter Care Teams Metal Refiner Relationship Specialty Start Date End Date Rome Guerra MD [address] [place] [id number] PCP - General Emergency Medicine 10/17/21 documented as of this encounter
--- OUTSIDE RECORDS SUMMARY | 2024-11-16 13:19 | XMS_ITS | Encounter Summary ---
Author Organization [place] [address] Care Team Providers Care Family Assessment Worker Name Role Phone Rome Guerra MD Primary Care Provider [phone] Encounter Details Date Type Department Care Team (Latest Contact Info) Description 12/05/2023 8:00 AM EST Laboratory Appointment Lab [address] [place] [address] CKD (chronic kidney disease) stage 4, GFR 15-29 ml/min Social History Tobacco Use Types Packs/Day Years [...] AM EST Office Visit Ne[place] [address] Remi Winston MD [facility] [place] [address] documented as of this encounter Procedures Procedure Name Priority Date/Time Associated Diagnosis Comments PROTEIN/CREATININE RATIO, URINE Routine 12/05/2023 9:30 AM EST CKD (chronic kidney disease) stage 4, GFR 15-29 ml/min U ALBUMIN/CRE RATIO Routine 12/05/2023 9 :30 AM EST CKD (chronic kidney disease) stage 4, GFR 15-29 ml/min PTH Routine 12/05/2023 7:56 AM EST CKD (chronic kidney disease) stage 4, GFR 15-29 ml/min HEMOGRAM Routine 12/05/2023 7:56 AM EST CKD (chronic kidney disease) stage 4, GFR 15-29 ml/min DIFFERENTIAL, AUTOMATED Routine 12/05/2023 7:56 AM EST CKD (chronic kidney disease) stage 4, GFR 15-29 ml/min VITAMIN D, 25-HYDROXY Routine 12/05/2023 7:56 AM EST CKD (chronic kidney disease) stage 4, GFR 15-29 ml/min CBC (WITH DIFF) Routine 12/05/2023 7:56 AM EST CKD (chronic kidney disease) stage 4, GFR 15-29 ml/min ALBUMIN LEVEL Routine 12/05/2023 7:56 AM EST CKD (chronic kidney disease) stage 4, GFR 15-29 ml/min BASIC METABOLIC PANEL Routine 12/05/2023 7:56 AM EST CKD (chronic kidney disease) stage 4, GFR 15-29 ml/min documented in this encounter Results * (ABNORMAL) U Albumin/Cre Ratio (12/05/2023 9:30 AM EST) Albumin / Creatinin Ratio, Urine 32(H) 0 - 29 mcg/mg Cr [facility] Comment: Reference Ranges: <30 mcg/mg: Normal [...] Supplements (2012) 2, 357? 362 Albumin, Urine 26.6 mg/L [facility] Creatinine, Urine 83 mg/dL [facility] Urine 12/05/2023 9:30 AM EST 12/05/2023 10:42 AM EST Narrative Resulting Agency Comment Spec In Lab Remi Winston MD URINE ORDERABLES Performing Organization Address City/[facility] Co de Phone Number [facility] [place] [address] * Protein/Creatinine Ratio, urine (12/05/2023 9:30 AM EST) Creatinine, Urine 83 mg/dL [facility] Protein, Urine 12 0 - 12 mg/dL [facility] Protein / Creatinine Ratio, Urine 0.1 ratio [facility] Urine 12/05/2023 9:30 AM EST 12/05/2023 10:42 AM EST Narrative Resulting Agency Comment Spec In Lab Remi Winston MD URINE ORDERABLES Performing Organization Address City/[facility] Co de Phone Number [facility] [place] [address] * Differential, Automated (12/05/2023 7:56 AM EST) Neutrophil % 71.2 % [facility] Neutrophil Absolute 4.69 1.70 - 6.10 x10(3)/[facility] Lymph % 18.7 % [facility] Lymphocytes Abs 1.2 0.9 - 3.2 x10(3)/[facility] Monocyte % 7.3 % [facility] Monocyte Abs 0.5 0.3 - 0.9 x10(3)/[facility] Eos % 1.8 % [facility] Eosinophils Abs 0.1 0.0 - 0.4 x10(3)/[facility] Basophil % 0.8 % [facility] Baso Absolute 0.0 0.0 - 0.1 x10(3)/[facility] Immature Gran % 0.20 % [facility] Comment: Immature granulocytes(IG's)percentage and absolute count will include metamyelocytes, myelocytes, and promyelocytes. Blood smears from CBCs yielding IG's will be scanned manually for concordance. If this scan disagrees with the automated IG or if promyelocytes are noted, a manual differential will be performed. Immature Gran Absolute 0.01 0.00 - 0.04 x10(3)/[facility] Blood 12/05/2023 7:56 AM EST 12/05/2023 8:00 AM EST Narrative Resulting Agency Comment Spec In Lab Remi Winston MD HEMATOLOGY ORDERABLE S Performing Organization Address City/State/[facility] Co de Phone Number [facility] [place] [address] * (ABNORMAL) Hemogram (12/05/2023 7:56 AM EST) White Blood Cell 6.6 4.0 - 9.5 x10(3)/mc L [facility] Red Blood Cell 4.31 4.00 - 5.21 x10(6)/mc L [facility] Hemoglobin 12.7 11.7 - 15.5 g/dL [facility] Hematocrit 39.3 35.7 - 45.8 % [facility] Mean Cell Volume 91.2 82.6 - 94.4 fL [facility] Mean Cell Hemoglobin 29.5 27.1 - 32.0 pg [facility] Mean Cell Hemoglobin Concentration 32.3 31.7 - 35.0 g/dL [facility] Platelet 144(L) 145 - 357 x10(3)/mc L [facility] RDW Standard Deviation 45.4 37.0 - 46.0 fL [facility] RDW coefficient of variation 13.6 11.5 - 14.1 % [facility] Mean Platelet Volume 11.8 7.6 - 12.9 fL [facility] NRBC% auto 0.0 % [facility] NRBC Absolute 0.000 0.000 - 0.000 x10(3)/mc L [facility] Blood 12/05/2023 7:56 AM EST 12/05/2023 8:00 AM EST Narrative Resulting Agency Comment Spec In Lab Remi Winston MD HEMATOLOGY ORDERABLE S [facility] [place] [address] * (ABNORMAL) Basic Metabolic Panel (non-fasting) (12/05/2023 7:56 AM EST) Glucose 208(H) 65 - 199 mg/dL [facility] Comment:Diabetes: >=200 mg/d L plus symptoms Blood Urea Nitrogen 39(H) 8 - 18 mg/dL [facility] Creatinine 2.18(H) 0.70 - 1.20 mg/dL [facility] Sodium 142 135 - 145 mmol/L [facility] Potassium 4.3 3.5 - 5.0 mmol/L [facility] Comment: Please note: ??Patients with WBC >100,000 may have falsely elevated Potassium levels. ??For accurate Potassium quantification in these patients send serum separator tube (gold top) for subsequent determinations. ??Contact the Clinical Chemistry Laboratory if there are any questions. Chloride 105 98 - 107 mmol/L [facility] Carbon Dioxide 22 22 - 31 mmol/L [facility] Anion Gap 15 5 - 15 mmol/L [facility] Calcium 9.6 8.5 - 10.5 mg/dL [facility] Est Glomerular Filtration Rate 23(L) >=60 mL/min/1. 73 m?? [facility] Comment: This patient's estimated GFR was [...] and symptoms in addition to eGFR. Blood 12/05/2023 7:56 AM EST 12/05/2023 8:00 AM EST Narrative Resulting Agency Comment Spec In Lab Remi Winston MD CHEMISTRY ORDERABLES Performing Organization Address [facility] Co de Phone Number [facility] [place] [address] * Albumin Level (12/05/2023 7:56 AM EST) Albumin 4.3 3.2 - 5.2 g/dL [facility] Blood 12/05/2023 7:56 AM EST 12/05/2023 8:00 AM EST Narrative Resulting Agency Comment Spec In Lab Remi Winston MD CHEMISTRY ORDERABLES Performing Organization Address [facility] Phone Number [facility] [place] [address] * (ABNORMAL) PTH (12/05/2023 7:56 AM EST) Parathyroid Hormone 111(H) 15 - 65 pg/mL [facility] Blood 12/05/2023 7:56 AM EST 12/05/2023 8:00 AM EST Narrative Resulting Agency Comment Spec In Lab Remi Winston MD CHEMISTRY ORDERABLES Performing Organization Address [facility] Co de Phone Number [facility] [place] [address] * Vitamin D, 25-Hydroxy (12/05/2023 7:56 AM EST) Vitamin D Total 25 OH 43 21 - 100 ng/mL [facility] Vit D Interp Sufficient [facility] Blood 12/05/2023 7:56 AM EST 12/05/2023 8:00 AM EST Narrative Resulting Agency Comment Spec In Lab Remi Winston MD [place] [address] documented in this encounter Visit Diagnoses Diagnosis CKD (chronic kidney disease) stage 4, GFR 15-29 ml/min Chronic kidney disease, Stage IV (severe) documented in this encounter Care Teams Family Assessment Worker Relationship Specialty Start Date End Date Rome Guerra MD [address] [place] [address] PCP - General Emergency Medicine 10/17/21 documented as of this encounter
--- OUTSIDE RECORDS SUMMARY | 2024-11-16 13:19 | XMS_ITS | Encounter Summary ---
Author Organization [facility] [place] [address] Care Team Providers Care Machine Stone Polisher Apprentice Name Role Phone Rome Guerra MD Primary Care Provider [phone] Encounter Details Date Type Department Care Team (Latest Contact Info) Description 08/19/2023 Travel Social History Tobacco Use Types Packs/Day [...] AM EST Office Visit [place] [address] Rmei Winston MD [facility] [place] [address] documented as of this encounter Visit Diagnoses Not on filedocumented in this encounter Care Teams Machine Stone Polisher Apprentice Relationship Specialty Start Date End Date Rome Guerra MD [address] [place] [address] PCP - General Emergency Medicine 10/17/21 documented as of this encounter
--- OUTSIDE RECORDS SUMMARY | 2024-11-16 13:19 | XMS_ITS | Encounter Summary ---
Author Organization [facility] [place] [address] Care Team Providers Care Service Desk Analyst Name Role Phone Rome Guerra MD Primary Care Provider [phone] Encounter Details Date Type Department Care Team (Latest Contact Info) Description 04/21/2023 Travel Social History Tobacco Use Types Packs/Day [...] AM EST Office Visit [place] [address] Remi Winston MD [facility] [place] [address] documented as of this encounter Visit Diagnoses Not on filedocumented in this encounter Care Teams Service Desk Analyst Relationship Specialty Start Date End Date Rome Guerra MD [address] [place] [address] PCP - General Emergency Medicine 10/17/21 documented as of this encounter
--- OUTSIDE RECORDS SUMMARY | 2024-11-16 13:19 | XMS_ITS | Encounter Summary ---
Author Organization [facility] Address [facility] [place] [address] Care Team Providers Care Review Specialist Name Role Phone Rome Guerra MD Primary Care Provider [phone] Encounter Details Date Type Department Care Team (Latest Contact Info) Description 05/30/2023 7:39 AM EDT - 05/30/2023 11:59 PM EDT Hospital [place] [id number] David Barrera MD [facility] [place] [address] CKD (chronic kidney disease) stage 4, GFR 15-29 ml/min; Bradycardia; Chronic kidney disease, stage IV (severe) ; Hyperkalemia Discharge Disposition: Home Social History Tobacco Use Types Packs/Day Years Used Date Smoking Tobacco: Former Cigarettes Q uit: 2013 Smokeless Tobacco: Never Alcohol Use Standard Drinks/Week Comments Not Currently 0 (1 standard drink = 0.6 oz pur e alcohol) Sex and Gender Information Value Date Recorded Sex Assigned at Not on file Gender Identity Not on file Sexual Orientation Not on file documented as of this encounter Medications at Time of Discharge Medication Sig Dispensed Refills Start Date End Date felodipine (Plendil) 10 mg ER 24 hr tablet Take 10 mg by mouth daily. metoprolol succinate XL (Toprol-XL) 100 mg ER 24 hr tabletIndications:Chron ic kidney disease, stage IV (severe) Take 1 tablet by mouth daily. 30 tablet 04/23/2023 sodium bicarbonate 650 mg tablet Take 2 tablets by mouth daily. 60 tablet 3 04/23/2023 furosemide (Lasix) 40 mg tabletIndications:Chron ic kidney disease, stage IV (severe) TAKE 1 TABLET DAILY 90 tablet 1 01/14/2023 nitroGLYcerin (Nitrostat) 0.4 mg Tablet, Sublingual Place 1 tablet under the tongue every 5 minutes as needed for Chest pain. 90 tablet 12 11/09/2021 pantoprazole EC (Protonix) 40 mg Tablet, Delayed Release (E.C.) Take 40 mg by mouth daily. 09/04/2021 glipiZIDE (Glucotrol) 5 mg Tablet Take 10 mg by mouth daily. aspirin 81 mg Tablet, Delayed Release (E.C.)Indications:CKD (chronic kidney disease), unspecified stage,Chronic kidney disease, stage IV (severe) Take 81 mg by mouth daily. rOPINIRole (REQUIP) 0.5 mg TabletIndications:CKD (chronic kidney disease), unspecified stage,Chronic kidney disease, stage IV (severe) Take 1 mg by mouth nightly. rosuvastatin (CRESTOR) 40 mg Tablet Take 40 mg by mouth daily. ferrous gluconate (Ferate) 324 mg (38 mg iron) tablet daily. 01/23/2022 12/05/2023 lidocaine 4 % Gel Three times a day 03/05/202212/05 losartan (Cozaar) 50 mg tablet Bedtime 09/14/2015 12/05/2023 promethazine (Phenergan) 12.5 mg tablet 1 tab q 8 hr 02/28/2015 12/05/2023 verapamiL SR (Calan-SR) 120 mg ER (SR) tablet Take 1 tablet by mouth daily. 03/22/2016 12/05/2023 Psyllium Seed-Sucrose (0) Powder Take by mouth daily. 2 teaspoons daily 12/05/2023 spironolactone (Aldactone) 25 mg Tablet Take 1 tablet by mouth daily. 90 tablet 3 12/28/2021 03/04/2024 Januvia 25 mg Tablet Take 25 mg by mouth daily. 09/29/2021 08/19/2023 documented as of this encounter Plan of Treatment Upcoming Encounters Date Type Department Care Team (Late st Contact Info) Description 11/27/2024 9:00 AM EST Office Visit [place] [address] David Barrera MD [facility] [place] [address] documented as of this encounter Procedures Procedure Name Priority Date/Time Associated Diagnosis Comments US RETROPERITONEAL COMPLETE Routine 05/30/2023 8:06 AM EDT CKD (chronic kidney disease) stage 4, GFR 15-29 ml/min Bradycardia Chronic kidney disease, stage IV (severe) Hyperkalemia documented in this encounter Results * US Retroperitoneal Complete (05/30/2023 8:06 AM EDT) Anatomical Region Laterality Modality Abdomen Ultrasound 05/30/2023 8:03 AM EDT Impressions 05/30/2023 9:22 AM EDT 1. Normal size right kidney with small benign cyst. No hydronephrosis to suggest obstruction. 2. Small left kidney with cortical thinning. 1.6 cm simple interpolar cyst. No hydronephrosis to suggest obstruction. Thank you for letting us participate in the care of this patient. If you are a health care provider and have any questions regarding this report, please contact the number above. For patients who have questions, please contact the health family day carer that requested your imaging first. ?Elvis Jiménze, Staff Physician Electronically Signed Final Report ?? 05/30/2023 09:21 am Narrative 05/30/2023 9:22 AM EDT Renal ? (Signed Final 05/30/2023 09:21 am) PATIENT INFO: ID #: ? [id number] ?: ??[birth year] (72 yrs)(F) Name: ? BRYNN HERNANDEZ ? Visit Date: 05/30/2023 08:03 am PERFORMED BY: Attending: ?Jessy CARBAJAL, Elvis Juan Performed By: ? Clementina Frank RDMS Referred By: ?DAVID BARRERA Location: ? [place] SERVICE(S) PROVIDED: URETRO - Retroperitoneal Complete - [id number] ? [id number] INDICATIONS: ckd, hyperkalemia COMPARISON: CT scan: 08/12/19 RIGHT KIDNEY: Size (cm) ?L: ??12.6 Cortical Thickness: ?Normal Cortical Echogenicity: ?? Normal Hydronephrosis: ?No sonographic evidence Comment: ?Cyst with tiny avascular septation seen in the mid ? pole measuring 2.2 x 2.3 x 2.1 cm. LEFT KIDNEY: Size (cm) ?L: ??7.4 Cortical Thickness: ?Cortical thinning Cortical Echogenicity: ?? Echogenic Hydronephrosis: ?No sonographic evidence Comment: ?Simple cyst seen in the mid pole measuring 1.6 x ? 1.6 x 1.4 cm. URINARY BLADDER: Pre-void (cm) ? L: ??2.6 ? AP: ??4.3 ? TV: ??6.7 Vol (ml): ?39.2 Comment: ?Partially distended, normal contour. Procedure Note Elvis Jiménez MD - 05/30/2023 Renal (Signed Final 05/30/2023 09:21 am) PATIENT INFO: ID #: [id number] : [birth year] (72 yrs)(F) Name: BRYNN HERNANDEZ Visit Date: 05/30/2023 08:03 am PERFORMED BY: Attending: Elvis Jiménez MD Performed By: Clementina Frank RDMS Referred By: DAVID BARRERA Location: [place] SERVICE(S) PROVIDED: URETRO - Retroperitoneal Complete - [id number] INDICATIONS: ckd, hyperkalemia COMPARISON: CT scan: 08/12/19 RIGHT KIDNEY: Size (cm) L: 12.6 Cortical Thickness: Normal Cortical Echogenicity: Normal Hydronephrosis: No sonographic evidence Comment: Cyst with tiny avascular septation seen in the mid pole measuring 2.2 x 2.3 x 2.1 cm. LEFT KIDNEY: Size (cm) L: 7.4 Cortical Thickness: Cortical thinning Cortical Echogenicity: Echogenic Hydronephrosis: No sonographic evidence Comment: Simple cyst seen in the mid pole measuring 1.6 x 1.6 x 1.4 cm. URINARY BLADDER: Pre-void (cm) L: 2.6 AP: 4.3 TV: 6.7 Vol (ml): 39.2 Comment: Partially distended, normal contour. IMPRESSION 1. Normal size right kidney with small benign cyst. No hydronephrosis to suggest obstruction. 2. Small left kidney with cortical thinning. 1.6 cm simple interpolar cyst. No hydronephrosis to suggest obstruction. Electronically signed by: Elvis Jiménez MD, [facility] ([phone]), at 05/30/2023 9:15 AM Thank you for letting us participate in the care of this patient. If you are a health care provider and have any questions regarding this report, please contact the number above. For patients who have questions, please contact the health family day carer that requested your imaging first. Elvis Jiménez, Staff Physician Electronically Signed Final Report 05/30/2023 09:21 am David Barrera MD IMG US GEN ORDERABLE S documented in this encounter Visit Diagnoses Diagnosis CKD (chronic kidney disease) stage 4, GFR 15-29 ml/min Chronic kidney disease, Stage IV (severe) Bradycardia Other specified cardiac dysrhythmias Chronic kidney disease, stage IV (severe) Chronic kidney disease, Stage IV (severe) Hyperkalemia Hyperpotassemia documented in this encounter Care Teams Review Specialist Relationship Specialty Start Date End Date Rome Guerra MD [address] [place] [address] PCP - General Emergency Medicine 10/17/21 documented as of this encounter
--- OUTSIDE RECORDS SUMMARY | 2024-11-16 13:19 | XMS_ITS | Encounter Summary ---
Author Organization formerly [place] [address] Care Team Providers Care Risk Advisor Name Role Phone Rome Guerra MD Primary Care Provider [phone] Encounter Details Date Type Department Care Team (Latest Contact Info) Description 08/19/2023 9:00 AM EDT Laboratory Appointment Lab [address] [place] [address] CKD (chronic kidney disease) stage [...] AM EST Office Visit Nephrology [place] [address] Remi Winston MD [facility] [place] [address] documented as of this encounter Procedures Procedure Name Priority Date/Time Associated Diagnosis Comments PROTEIN/CREATININE RATIO, URINE Routine 08/19/2023 9:30 AM EDT CKD (chronic kidney disease) stage 4, GFR 15-29 ml/min Hyperparathyroidism U ALBUMIN/CRE RATIO Routine 08/19/2023 9 :30 AM EDT CKD (chronic kidney disease) stage 4, GFR 15-29 ml/min Hyperparathyroidism PTH Routine 08/19/2023 8:40 AM EDT CKD (chronic kidney disease) stage 4, GFR 15-29 ml/min Hyperparathyroidism HEMOGRAM Routine 08/19/2023 8:40 AM EDT CKD (chronic kidney disease) stage 4, GFR 15-29 ml/min Hyperparathyroidism DIFFERENTIAL, AUTOMATED Routine 08/19/2023 8:40 AM EDT CKD (chronic kidney disease) stage 4, GFR 15-29 ml/min Hyperparathyroidism VITAMIN D, 25-HYDROXY Routine 08/19/2023 8:40 AM EDT CKD (chronic kidney disease) stage 4, GFR 15-29 ml/min Hyperparathyroidism CBC (WITH DIFF) Routine 08/19/2023 8:40 AM EDT CKD (chronic kidney disease) stage 4, GFR 15-29 ml/min Hyperparathyroidism ALBUMIN LEVEL Routine 08/19/2023 8:40 AM EDT CKD (chronic kidney disease) stage 4, GFR 15-29 ml/min Hyperparathyroidism BASIC METABOLIC PANEL Routine 08/19/2023 8:40 AM EDT CKD (chronic kidney disease) stage 4, GFR 15-29 ml/min Hyperparathyroidism documented in this encounter Results * (ABNORMAL) U Albumin/Cre Ratio (08/19/2023 9:30 AM EDT) Albumin / Creatinin Ratio, Urine 61(H) 0 - 29 mcg/mg Cr [facility] Comment: Reference Ranges: <30 mcg/mg: Normal [...] 2, 357? 362 Albumin, Urine 102.7 mg/L [facility] Creatinine, Urine 167 mg/dL [facility] Urine 08/19/2023 9:30 AM EDT 08/19/2023 10:04 AM EDT Narrative Resulting Agency Comment Spec In Lab Remi Winston MD URINE ORDERABLES Performing Organization Address City/[facility]/ZIP Co de Phone Number [facility] [place] [address] * (ABNORMAL) Protein/Creatinine Ratio, urine (08/19/2023 9:30 AM EDT) Creatinine, Urine 167 mg/dL [facility] Protein, Urine 45(H) 0 - 12 mg/dL [facility] Protein / Creatinine Ratio, Urine 0.[address] [facility] Urine 08/19/2023 9:30 AM EDT 08/19/2023 10:04 AM EDT Narrative Resulting Agency Comment Spec In Lab Remi Winston MD URINE ORDERABLES Performing Organization Address City/[facility]/ZIP Co de Phone Number [facility] [place] [address] * Differential, Automated (08/19/2023 8:40 AM EDT) Neutrophil % 74.9 % [facility] Neutrophil Absolute 4.92 1.70 - 6.10 x10(3)/[facility] Lymph % 16.1 % [facility] Lymphocytes Abs 1.1 0.9 - 3.2 x10(3)/[facility] Monocyte % 6.2 % [facility] Monocyte Abs 0.4 0.3 - 0.9 x10(3)/[facility] Eos % 1.2 % [facility] Eosinophils Abs 0.1 0.0 - 0.4 x10(3)/[facility] Basophil % 1.1 % [facility] Baso Absolute 0.1 0.0 - 0.1 x10(3)/[facility] Immature Gran % 0.50 % [facility] Comment: Immature granulocytes(IG's)percentage and absolute count will include metamyelocytes, myelocytes, and promyelocytes. Blood smears from CBCs yielding IG's will be scanned manually for concordance. If this scan disagrees with the automated IG or if promyelocytes are noted, a manual differential will be performed. Immature Gran Absolute 0.03 0.00 - 0.04 x10(3)/[facility] Blood 08/19/2023 8:40 AM EDT 08/19/2023 8:59 AM EDT Narrative Resulting Agency Comment Spec In Lab Remi Winston MD HEMATOLOGY ORDERABLE S [facility] [place] [address] * (ABNORMAL) Hemogram (08/19/2023 8:40 AM EDT) White Blood Cell 6.6 4.0 - 9.5 x10(3)/mc L [facility] Red Blood Cell 4.07 4.00 - 5.21 x10(6)/mc L [facility] Hemoglobin 12.3 11.7 - 15.5 g/dL [facility] Hematocrit 37.8 35.7 - 45.8 % [facility] Mean Cell Volume 92.9 82.6 - 94.[address] [facility] Mean Cell Hemoglobin 30.2 27.1 - 32.[address] [facility] Mean Cell Hemoglobin Concentration 32.5 31.7 - 35.0 g/dL [facility] Platelet 138(L) 145 - 357 x10(3)/mc L [facility] RDW Standard Deviation 44.6 37.0 - 46.[address] [facility] RDW coefficient of variation 13.2 11.5 - 14.1 % [facility] Mean Platelet Volume 12.9 7.6 - 12.9 fL [facility] NRBC% auto 0.0 % [facility] NRBC Absolute 0.000 0.000 - 0.000 x10(3)/mc L [facility] Blood 08/19/2023 8:40 AM EDT 08/19/2023 8:59 AM EDT Narrative Resulting Agency Comment Spec In Lab Remi Winston MD HEMATOLOGY ORDERABLE S [facility] [address] [place] [address] * (ABNORMAL) Basic Metabolic Panel (non-fasting) (08/19/2023 8:40 AM EDT) Glucose 439(H) 65 - 199 mg/dL [facility] Comment:Diabetes: >=200 mg/d L plus symptoms Blood Urea Nitrogen 41(H) 8 - 18 mg/dL [facility] Creatinine 2.29(H) 0.70 - 1.20 mg/dL [facility] Sodium 138 135 - 145 mmol/L [facility] Potassium 4.1 3.5 - 5.0 mmol/L [facility] Comment: Please note: ??Patients with WBC >100,000 may have falsely elevated Potassium levels. ??For accurate Potassium quantification in these patients send serum separator tube (gold top) for subsequent determinations. ??Contact the Clinical Chemistry Laboratory if there are any questions. Chloride 101 98 - 107 mmol/L [facility] Carbon Dioxide 23 22 - 31 mmol/L [facility] Anion Gap 14 5 - 15 mmol/L [facility] Calcium 9.5 8.5 - 10.5 mg/dL [facility] Est Glomerular Filtration Rate 22(L) >=60 mL/min/1. 73 m?? [facility] Comment: This patient's estimated GFR was [...] In Lab Remi Winston MD CHEMISTRY ORDERABLES [facility] [place] [address] * Albumin Level (08/19/2023 8:40 AM EDT) Albumin 4.1 3.2 - 5.2 g/dL [facility] Blood 08/19/2023 8:40 AM EDT 08/19/2023 8:59 AM EDT Narrative Resulting Agency Comment Spec In Lab Remi Winston MD CHEMISTRY ORDERABLES Performing Organization Address City/[facility] Co de Phone Number [facility] [place] [address] * (ABNORMAL) PTH (08/19/2023 8:40 AM EDT) Parathyroid Hormone 87(H) 15 - 65 pg/mL [facility] Blood 08/19/2023 8:40 AM EDT 08/19/2023 8:59 AM EDT Narrative Resulting Agency Comment Spec In Lab Remi Winston MD CHEMISTRY ORDERABLES Performing Organization Address City/[facility]/ZIP Co de Phone Number [facility] [place] [address] * Vitamin D, 25-Hydroxy (08/19/2023 8:40 AM EDT) Vitamin D Total 25 OH 28 21 - 100 ng/mL [facility] Vit D Interp Insufficient [facility] Blood 08/19/2023 8:40 AM EDT 08/19/2023 8:59 AM EDT Narrative Resulting Agency Comment Spec In Lab Remi Winston MD CHEMISTRY ORDERABLES [facility] [place] [address] documented in this encounter Visit Diagnoses Diagnosis CKD (chronic kidney disease) stage 4, GFR 15-29 ml/min Chronic kidney disease, Stage IV (severe) Hyperparathyroidism Hyperparathyroidism, unspecified documented in this encounter Care Teams Risk Advisor Relationship Specialty Start Date End Date Rome Guerra MD [address] [place] [id number] PCP - General Emergency Medicine 10/17/21 documented as of this encounter
--- OUTSIDE RECORDS SUMMARY | 2024-11-16 13:19 | XMS_ITS | Encounter Summary ---
Author Organization [facility] Address [facility] [place] [address] Care Team Providers Care Fire Alarm Inspector Name Role Phone Rome Guerra MD Primary Care Provider [phone] Encounter Details Date Type Department Care Team (Latest Contact Info) Description 05/30/2023 9:30 AM EDT Office Visit [place] [phone] Remi Winston MD [facility] [place] [address] CKD (chronic kidney disease) stage 4, GFR 15-29 ml/min; Hyperkalemia Social History Tobacco Use Types Packs/Day Years [...] Sign Reading Time Taken Comments Blood Pressure 132/43 05/30/2023 9:51 AM EDT Pulse 62 05/30/2023 9:51 AM EDT Temperature - - Respiratory Rate - - Oxygen Saturation - - Inhaled Oxygen Concentration - - Weight 87.5 kg (193 lb) 05/30/2023 9:06 AM EDT Height 162.6 cm (5' 4) 05/30/2023 9:06 AM EDT Body Mass Index 33.13 05/30/2023 9:06 AM EDT documented in this encounter Progress Notes * Remi Winston MD - 05/30/2023 9:30 AM EDT Images from the original note were not included. HYPERTENSION/ NEPHROLOGY CONSULT NOTE PATIENT: Brynn Khalil : 1950 REASON [...] OSH 03/14/17- 2.18 egfr 20 03/22/16- 1.42 She was on Jardiance but was discontinued, she does not know why. Brynn Khalil takes Naproxen OTC gelcap twice a week Interval history: She had ultrasound done earlier today which showed atrophic left kidney (left kidney size 7.4) right kidney size 12.6 cm. Of note her ultrasound of her kidneys done in February 2017 showed right kidney size of 12.8 cm and leftkidney size 10.5 cm. Overall she is doing all right and feels better. Her creatinine has improved. She completely stopped taking NSAID S. ROS: 4 point review of sytem was done, everything was negative except for what was mentioned above. . Past Medical History: Diagnosis Date CKD (chronic kidney disease), stage III Diabetic retinopathy HTN (hypertension) Hyperlipidemia Low HDL (under 40) 04/15/2017 Nephrolithiasis Occurred in the 1990s; single episode. Non-nephrotic range proteinuria 04/15/2017 Obesity 04/15/2017 GEOVANNA (obstructive sleep apnea) Restless leg Secondary hyperparathyroidism of renal origin 04/15/2017 Vitamin D deficiency 04/15/2017 Past Surgical History: Procedure Laterality Date PRG CATH PLMT LEFT HEART CATH & ARTS W/INJ & ANGIO IMG S&I N/A 2021 CORONARY ANGIOGRAPHY; W [facility],POSSIBLE PCI performed by Beny Monahan MD at [facility] CATH LABS Family History Problem Relation [...] Types: Cigarettes Quit date: 2013 Years since quittin.5 Smokeless tobacco: Never Vaping Use Vaping Use: [...] Tablet Take 40 mg by mouth daily. [DISCONTINUED] semaglutide (Rybelsus) 3 mg tablet Take 3 mg by mouth daily. [DISCONTINUED] felodipine ER (Plendil) 5 mg Tablet Sustained Release 24 hr Take 2 tablets by mouth daily. 90 tablet 5 [DISCONTINUED] losartan (COZAAR) 100 mg Tablet Take 100 mg by mouth daily. No current facility-administered medications on file prior to visit. MEDICATIONS: Allergies Allergen Reactions Guaifenesin Rash Amlodipine Besylate Other (See Comments) Dizziness Celebrex [Celecoxib] Other (See Comments) Acid reflux Gabapentin Nausea Only Lipitor [Atorvastatin] Other (See Comments) myalgia Lisinopril Diarrhea Prevacid [Lansoprazole] Other (See Comments) dizziness PHYSICAL EXAM: Last value Temperature Heart Rate Heart Rate: 66 Blood Pressure BP: 112/62 Respiratory Rate SpO2 Patient is awake alert notin acute distress No jaundice Neck- supple trachea central Chest- bilateral air entry present clear to auscultation no wheeze no crepitation CVS-S1-S2 present, irregular. Abdomen-nontender nondistended, bowel sounds present. Extremities-peripheral pulses present, no edema Neuro-patient is awake alert, moving all 4 limbs, motor examination is grossly normal. No asterixis. STUDIES: Labs: CBC: Recent Labs 05/30/23 0821 04/23/23 1035 WBC 5.2 7.8 HGB 12.7 11.8 [...] Prot/Cre Ratio Date Value Ref Range Status 04/23/2023 0.2 ratio Final Prot/Cre Ratio (ratio) Date Value 04/23/2023 0.2 04/09/2017 0.1 Alb/Cr Ratio, Random (mcg/mg Cr) Date Value 04/23/2023 39 (H) 04/09/2017 10 Lab Results [...] renal syndrome in the setting of NSAID intake. -She has left renal atrophy, her atrophy has progressed since the last ultrasound,? Recent for further decline in creatinine recently. -Creatinine has improved after stopping her losartan, ? Low blood pressure, nausea vomiting due to semaglutide and bradycardia during last time contributed to rise in creatinine. -Her ACR is 44 with UPC of 0.2. I do not see a strong indication to start her on RAAS inhibition atleast at this point of time but that is something which can be considered later on. -Based on the stability of creatinine will consider SGLT2 inhibitor at a later date -Her renal function has significantly deteriorated. -She was advised not to take NSAIDs. # Electorlytes Sodium and potassium are normal. #Acid Base - has metabolic acidosis which is well controlled on OTC bicarbonate pills # BMM Calcium normal PTH elevated #Hemodynamics -blood pressures is well controlled, heart rate is 36 today EKG showed sinus arrhythmia. #Hemoglobin - She is not anemic. # Bradycardia- - resolved. - We will continue metoprolol to 100 mg p.o. (she was previously on metoprolol XL 200 mg p.o. daily) #History of urolithiasis- -Her stone was not analyzed before. - No stones detected in kidneys on US done on 05/30/2023, Plan/Recommendations: Can restart Rybelsus. Avoid nephrotoxic medications Please renally dose all meds. Thanks for letting us participate in the care of this patient. A total of 30 minutes was spent for reviewing chart, [id number] encounter, ordering labs/medication,documentation in the chart, and coordinating care. RTC-2 month with labs. CC-Rome Guerra MD This note was created using [employer] speech detection software which can cause occasional typographical errors. I apologize in advance if the situation occurs. Please don't hesitate to to contact us for any clarifications. Remi Winston MD 05/30/2023 Hypertension-Nephrology documented in this encounter Plan of Treatment Upcoming Encounters Date Type Department Care Team (Late st Contact Info) Description 11/27/2024 9:00 AM EST Office Visit [place] [address] Remi Winston MD [facility] [place] [address] documented as of this encounter Visit Diagnoses Diagnosis CKD (chronic kidney disease) stage 4, GFR 15-29 ml/min Chronic kidney disease, Stage IV (severe) Hyperkalemia Hyperpotassemia documented in this encounter Care Teams Fire Alarm Inspector Relationship Specialty Start Date End Date Rome Guerra MD [address] [place] [id number] PCP - General Emergency Medicine 10/17/21 documented as of this encounter
--- OUTSIDE RECORDS SUMMARY | 2024-11-16 13:19 | XMS_ITS | Encounter Summary ---
Author Organization [facility] [place] [address] Care Team Providers Care Refrigeration Technician Name Role Phone Rome Guerra MD Primary Care Provider [phone] Encounter Details Date Type Department Care Team (Latest Contact Info) Description 11/09/2021 10:15 AM EST Laboratory Appointment Lab [address] [place] [phone] Exertional chest pain Social History Tobacco Use Types Packs/Day Years Used Date Smoking Tobacco: Former Cigarettes Q uit: 2014 Smokeless Tobacco: Never Sex and Gender Information Value Date Recorded Sex Assigned at Not on file Gender Identity Not on file Sexual Orientation Not on file documented as of this encounter Plan of Treatment Upcoming Encounters Date Type Department Care Team (Late st Contact Info) Description 11/27/2024 9:00 AM EST Office Visit [place]ph[place] [phone] Remi Winston MD [facility] [place] [address] documented as of this encounter Procedures Procedure Name Priority Date/Time Associated Diagnosis Comments HEMOGRAM Routine 11/09/2021 10:30 AM EST Exertional chest pain DIFFERENTIAL, AUTOMATED Routine 11/09/2021 10:30 AM EST Exertional chest pain HC CBC,PLT & AUTO DIFF Routine 11/09/2021 10:30 AM EST Exertional chest pain HC VENIPUNCTURE Routine 11/09/2021 10:30 AM EST Exertional chest pain documented in this encounter Results * Differential, Automated (11/09/2021 10:30 AM EST) Neutrophil % 72.6 % [facility] Neutrophil Absolute 5.10 1.70 - 6.10 x10(3)/[facility] Lymph % 18.7 % [facility] Lymphocytes Abs 1.3 0.9 - 3.2 x10(3)/[facility] Monocyte % 6.4 % [facility] Monocyte Abs 0.4 0.3 - 0.9 x10(3)/[facility] Eos % 1.4 % [facility] Eosinophils Abs 0.1 0.0 - 0.4 x10(3)/[facility] Basophil % 0.6 % [facility] Baso Absolute 0.0 0.0 - 0.1 x10(3)/[facility] Immature Gran % 0.30 % [facility] Comment: Immature granulocytes(IG's)percentage and absolute count will include metamyelocytes, myelocytes, and promyelocytes. Blood smears from CBCs yielding IG's will be scanned manually for concordance. If this scan disagrees with the automated IG or if promyelocytes are noted, a manual differential will be performed. Immature Gran Absolute 0.02 0.00 - 0.04 x10(3)/[facility] Blood 11/09/2021 10:3 0 AM EST 11/09/2021 10:42 AM EST Narrative Resulting Agency Comment Spec In Lab Yifan Michaels MD HEMATOLOGY ORDERABLE S [facility] [place] [address] * (ABNORMAL) Hemogram (11/09/2021 10:30 AM EST) White Blood Cell 7.0 4.0 - 9.5 x10(3)/mc L [facility] Red Blood Cell 3.41(L) 4.00 - 5.21 x10(6)/mc L [facility] Hemoglobin 9.5(L) 11.7 - 15.5 g/dL [facility] Hematocrit 30.4(L) 35.7 - 45.8 % [facility] Mean Cell Volume 89.1 82.6 - 94.4 fL [facility] Mean Cell Hemoglobin 27.9 27.1 - 32.0 pg [facility] Mean Cell Hemoglobin Concentration 31.3(L) 31.7 - 35.0 g/dL [facility] Platelet 178 145 - 357 x10(3)/mc L [facility] RDW Standard Deviation 47.1(H) 37.0 - 46.0 fL [facility] RDW coefficient of variation 14.6(H) 11.5 - 14.1 % [facility] Mean Platelet Volume 11.1 7.6 - 12.9 fL [facility] NRBC% auto 0.3 % [facility] NRBC Absolute 0.020(H) 0.000 - 0.000 x10(3)/mc L [facility] Blood 11/09/2021 10:3 0 AM EST 11/09/2021 10:42 AM EST Narrative Resulting Agency Comment Spec In Lab Yifan Michaels MD HEMATOLOGY ORDERABLE S [facility] [place] [address] * (ABNORMAL) Basic Metabolic Panel (non-fasting) (11/09/2021 10:30 AM EST) Glucose 174 65 - 199 mg/dL [facility] Comment:Diabetes: >=200 mg/d L plus symptoms Blood Urea Nitrogen 23(H) 8 - 18 mg/dL [facility] Creatinine 1.40(H) 0.70 - 1.20 mg/dL [facility] Sodium 140 135 - 145 mmol/L [facility] Potassium 4.6 3.5 - 5.0 mmol/L [facility] Comment: Please note: ??Patients with WBC >100,000 may have falsely elevated Potassium levels. ??For accurate Potassium quantification in these patients send serum separator tube (gold top) for subsequent determinations. ??Contact the Clinical Chemistry Laboratory if there are any questions. Chloride 110(H) 98 - 107 mmol/L [facility] Carbon Dioxide 23 22 - 31 mmol/L [facility] Anion Gap 7 5 - 15 mmol/L [facility] Calcium 9.3 8.5 - 10.5 mg/dL [facility] Est Glomerular Filtration Rate 38(L) >=60 mL/min/1. 73 m?? [facility] Comment: This patient? s estimated glomerular filtration rate (eGFR) is between 38 mL/min/1.73 m2 (patients with less muscle mass) and 44 mL/min/1.73 m2 (patients with more muscle mass) as determined by the CKD-EPI equation. Assessment of eGFR is not appropriate when creatinine concentrations are rapidly changing. For clinical decisions where creatinine clearance will affect therapy, a 24-hour urine creatinine clearance may be advised. Assignment of CKD stage 1 - 5 for patients with an eGFR near the transition point between stages may be based on clinical assessment of muscle mass and symptoms in addition to eGFR. Blood 11/09/2021 10:3 0 AM EST 11/09/2021 10:42 AM EST Narrative Resulting Agency Comment Spec In Lab Beny Monahan MD CHEMISTRY ORDERABLES [facility] [place] [address] documented in this encounter Visit Diagnoses Diagnosis Exertional chest pain Chest pain, unspecified documented in this encounter Care Teams Refrigeration Technician Relationship Specialty Start Date End Date Rome Guerra MD [address] [place] [address] PCP - General Emergency Medicine 10/17/21 documented as of this encounter
--- OUTSIDE RECORDS SUMMARY | 2024-11-16 13:19 | XMS_ITS | Encounter Summary ---
[place] [address] Care Team Providers Care Nba Player Name Role Phone Rome Guerra MD Primary Care Provider [phone] Reason for Referral * Consultation (Routine) - Closed Specialty Diagnoses / Procedures Referred By Contac t Referred To Contact Nephrology Diagnoses CKD (chronic kidney disease), stage IV Rome Guerra MD [address] [place] [address] [facility] [address] [place] [id number] Referral ID Status Reason Start Date Expiration Date V isits Requested Visits Authorized [id number] Closed Consult, Test & Treat PCP Updated and/or Approved 04/10/2023 04/09/2024 6 6 Encounter Details Date Type Department Care Team (Latest Contact Info) Description 04/10/2023 Transcribe Orders eDH Incoming Referrals [phone] Rome Guerra MD [address] [place] [address] CKD (chronic kidney disease), stage IV Social History Tobacco Use Types Packs/Day Years [...] AM EST Office Visit [place] [address] Remi Winston MD [facility] [place] [address] Scheduled Referrals Name Type Priority Associated Diagnoses Order Schedule Referral to Nephrology Outpatient Referral Routine CKD (chronic kidney disease), stage IV Ordered: 04/10/2023 documented as of this encounter Visit Diagnoses Diagnosis CKD (chronic kidney disease), stage IV Chronic kidney disease, Stage IV (severe) documented in this encounter Care Teams Nba Player Relationship Specialty Start Date End Date Rome Guerra MD [address] [place] [id number] PCP - General Emergency Medicine 10/17/21 documented as of this encounter
--- OUTSIDE RECORDS SUMMARY | 2024-11-16 13:19 | XMS_ITS | Encounter Summary ---
Author Organization [facility] [place] [address] Care Team Providers Care Supervisor Plate Forming Name Role Phone Rome Guerra MD Primary Care Provider [phone] Encounter Details Date Type Department Care Team (Late st Contact Info) Description 2021 9:00 AM EST - 2021 10:00 AM EST [place] [phone] Beny Monahan MD [facility] [address] CARDIAC CATHETERIZATION Social History Tobacco Use Types Packs/Day Years [...] Sign Reading Time Taken Comments Blood Pressure 171/60 2021 10:00 AM EST Pulse 63 2021 10:00 AM EST Temperature 36.3 ??C (97.3 ??F) 2021 9:16 AM ES T Respiratory Rate 15 2021 10:00 AM EST Oxygen Saturation 97% 2021 10:00 AM EST Inhaled Oxygen Concentration - - Weight 88.5 kg (195 lb 1.6 oz) 2021 9:16 A M EST Height 162.6 cm (5' 4) 2021 9:16 AM EST Body Mass Index 33.49 2021 9:16 AM EST documented in this encounter Discharge Instructions * Discharge Instructions* Anastasia Lara RN - 2021 1:11 PM EST Radial Access for Heart Cath Activity If you are discharged the same day as your procedure, do not drive yourself home. Arrange to have another person drive. You may walk around when you get home, but keep your activity at a minimum until the morning. Try to avoid bending your wrist for the first 12-24 hours after the procedure to allow the artery to fully heal. Do not participate in active sports for 48 hours. Do not lift anything greater than 5 lbs. You may engage in sexual activity after 48 hours. Catheter Insertion Area Care Take the dressing off of the catheter insertion site the morning following the procedure. Leave thesite open to air. If the site is oozing you may cover it with a band aid. You may take a shower if you wish. Look for signs of infection over the next several days. It is uncommon to have any visible blood at the site, any obvious bleeding is abnormal. A bruise around the wrist or small lump under the skin is normal: they generally disappear in 3-5 days. Expect some mild tenderness over the area where the catheter was inserted. You will notice this after the local anesthetic (numbing medicine) wears off. This should improve during the 24-48 hours after the procedure. You may use acetaminophen (tylenol) if needed. Contact your doctor if the discomfort worsens. Problems to Watch for If there is bright red blood flowing from the catheter insertion area: *stop what you are doing *hold pressure steadily on the area for 15 minutes *call for help *if the bleeding does not stop in 15 minutes call 911 for an ambulance. If there is swelling with black and blue color at the catheter insertion site, there may be bleeding inside. Contact the doctor if there is any increase in size. Look at the insertion site for the first few days at home. Signs of infection are: *redness *swelling *yellow, white, green or brown foul smelling drainage. *increased soreness If you think there is an infection, take your temperature. Then call your doctor. The limb on the side where you had your catheterization should look and feel normal in color, sensation, and temperature. If your hand or fingers become cool, pale, blue or change color contact your doctor. If you are having numbness or tingling in your fingers or hand contact your doctor. If you feel faint or dizzy, lie down with your feet elevated. Have someone call the doctor. If you are alert, drink fluids. How to Deal with Chest Pain If you had only the cardiac catheterization, treat any angina or chest discomfort as instructed. Stop what you are doing, and sit or lie down. If prescribed, take nitroglycerin under your tongue. If the angina isn't relieved, take another nitroglycerin in 5 minutes. After another 5 minutes, a third nitroglycerin may be taken. If the angina isn't improved you should call for an ambulance to bring you to the nearest hospital emergency room. If your angina is more frequent or severe than before, contact your doctor. We usually would not expect you to have angina after an angioplasty. If you do get angina, treat itas you did before, but also contact your doctor. Return to Work The doctor will usually have told you when to return to work. If you do not perform heavy physical labor, most people can return to work in a few days. Diet Follow your previous diet unless otherwise instructed. Cardiac Risk Factor If you have coronary artery disease, it is important that you help control it by reducing your cardiac risk factors. If you smoke, we urge you to stop now. If you think this is going to be a problem,let us know so that we may help you. We have dieticians who can help you learn about a low fat, lowcholesterol diet. Cardiac rehabilitation programs can help you set up a regular exercise program. Work with your doctor if you have high blood pressure or sugar diabetes to keep these under control. Medications Take your usual medications medication changes If you are taking medications prescribed by your doctor, do not take any szwv-nig-coayive medicinesor herbal preparations without first discussing this with your doctor or pharmacist. There is the possibility of side effects and interactions when these are combined. Follow Up Care Who to call with questions or problems If there are any questions or problems that you think might be related to your cardiac cath or angioplasty, contact the federal java developer collections associate by calling [facility] at . documented in this encounter Medications at Time of Discharge Medication Sig Dispensed Refills Start Date End Date nitroGLYcerin (Nitrostat) 0.4 mg Tablet, Sublingual Place [...] Tablet Take 40 mg by mouth daily. losartan (Cozaar) 50 mg tablet Bedtime 09/14/2015 12/05/2023 promethazine (Phenergan) 12.5 mg tablet 1 tab q 8 hr 02/28/2015 12/05/2023 verapamiL SR (Calan-SR) 120 mg ER (SR) tablet Take 1 tablet by mouth daily. 03/22/2016 12/05/2023 furosemide (Lasix) 40 mg TabletIndications:Chroni c kidney disease, stage IV (severe) Take 1 tablet by mouth daily. 90 tablet 3 2021 11/24/2021 Januvia 25 mg Tablet Take 25 mg by mouth daily. 09/29/2021 08/19/2023 Prevalite 4 gram Powder in Packet Take by mouth daily. 11/02/2021 04/23/2023 Ibuprofen 200 mg CapsuleIndications:CKD (chronic kidney disease), unspecified stage,Chronic kidney disease, stage IV (severe) Take by mouth daily as needed. 04/23/2023 losartan (COZAAR) 100 mg TabletIndications:CKD (chronic kidney disease), unspecified stage,Chronic kidney disease, stage IV (severe) Take 100 mg by mouth daily. 05/30/2023 meTOPROLOL succinate (TOPROL-XL) 100 mg Tablet Sustained Release 24 hrIndications:CKD (chronic kidney disease), unspecified stage,Chronic kidney disease, stage IV (severe) Take 200 mg by mouth daily. 04/23/2023 felodipine (PLENDIL) 5 mg Tablet Sustained Release 24 hr Take 10 mg by mouth daily. 12/28/2021 documented as of this encounter H&P Notes * Yifan Michaels MD - 2021 9:08 AM EST Images from the original note were not included. Pre Cardiac Catheterization Note 71 y.o. female presents with angina and positive stress test who is here today for C/coronary angiogram. Patient last saw Dr. Michaels on 11/09/2021. Notes symptoms may have improved but this is in the setting of taking NTG tablets. Has taken 5 over the past couple of weeks. Took ASA today. Denies planned upcoming surgeries. Denies recent or ongoing bleeding events. There were no vitals taken for this visit. Gen: Pleasant female in no apparent distress, able to lay flat Heart: Regular rate and rhythm, s1/s2 of nl character and amplitude, no murmurs/rubs/gallops. JVP not elevated Pulm: Clear to auscultation bilaterally. Ext: Bilateral Nikhil's Test demonstrates adequate reperfusion via the ulnar artery alone. Femoral arteries are with adequate upstroke and without overlying evidence of infection. DP/PT 2+ symmetrically. Neuro: sans focal deficit Current Outpatient Medications Medication Instructions ??? aspirin EC 81 mg, Oral, DAILY ??? felodipine ER (PLENDIL) 5 mg, Oral, DAILY ??? furosemide (LASIX) 20 mg, Oral, DAILY ??? glipiZIDE (GLUCOTROL) 10 mg, Oral, 2 TIMES DAILY BEFORE MEALS ??? Ibuprofen 200 mg Capsule Oral, DAILY PRN ??? Januvia 25 mg Tablet No dose, route, or frequency recorded. ??? losartan (COZAAR) 100 mg, Oral, DAILY ??? metoprolol succinate XL (TOPROL-XL) 100 mg, Oral, DAILY ??? nitroGLYcerin (NITROSTAT) 0.4 mg, Sublingual, EVERY 5 MIN PRN ??? pantoprazole EC (PROTONIX) 40 mg, Oral, DAILY ??? Prevalite 4 gram Powder in Packet Oral, DAILY ??? rOPINIRole (REQUIP) 1 mg, Oral, NIGHTLY ??? rosuvastatin (CRESTOR) 40 mg, Oral, DAILY Last 3 wbc, hgb, hct plt Recent Labs 11/09/21 1030 WBC 7.0 HGB 9.5* HCT 30.4* PLATELET 178 Last 3 Lytes Recent Labs 11/09/21 1030 NA 140 K 4.6 CL 110* CO2 23 BUN 23* CREATININE 1.40* Sedation evaluation: Mallampati class: III: only the base of the uvula can be seen ASA: 2: Patient with mild systemic disease Previous Catheterization: The indications, expected benefits, and potential risks of heart catheterization were reviewed in detail with the patient. The potential for , heart attack, stroke, kidney failure, hemorrhage, allergic reaction, vascular complications and infection were reviewed in detail. The possibility of stenting and other percutaneous intervention, with associated risk, was reviewed. The possible need for emergent coronary artery bypass surgery was reviewed. Alternatives were discussed and the patient's questions were answered in full. Following this discussion, the patient consented to the procedure and signed a form attesting to this, which is in the chart. Yifan Michaels MD Interventional Template Checker, PGY-7 P: [id number] Associated attestation - Beny Monahan MD - 2021 2:13 PM EST Images from the original note were not included. I have seen the patient and reviewed the above history/examination and I agree with the details as written. I have personally reviewed all available ECG tracings, echo images and prior cath films. The assessment and plan were formulated in discussion with me and I agree with them as documented. Beny Monahan MD 2021 2:13 PM documented in this encounter Plan of Treatment Upcoming Encounters Date Type Department Care Team (Late st Contact Info) Description 11/27/2024 9:00 AM EST Office Visit Neph[place] [address] Remi Winston MD [facility] [place] [address] documented as of this encounter Procedures Procedure Name Priority Date/Time Associated Diagnosis Comments POCT GLUCOSE Routine 2021 11:41 AM EST EKG 12-LEAD STAT 2021 11:31 AM EST Exertional chest pain CARDIAC CATHETERIZATION Routine 11/21/19 10:32 AM EST Exertional chest pain Cath Plmt Left Heart Cath & Arts W/Inj & Angio Img S&I ([id number]) 2021 9:44 AM EST Exertional chest pain POCT GLUCOSE Routine 2021 9:14 AM EST documented in this encounter Results * POCT Glucose (2021 11:41 AM EST) Pathologist [facility] Glucose, POC 123 65 - 199 mg/dL [facility] Comment: Supplemental ranges: <140 mg/dL before meals <180 mg/dL all other times of the day Blood 2021 11:4 1 AM EST 2021 11:41 AM EST Beny Monahan MD POINT OF CARE TEST O RDERABLES [facility] [place] [address] * EKG 12 Lead (2021 11:31 AM EST) Ventricular rate 51 BPM MUSE SYSTEM Atrial Rate 51 BPM MUSE SYSTEM P-R Interval 168 ms MUSE SYSTEM QRS Duration 94 ms MUSE SYSTEM Q-T Interval 452 ms MUSE SYSTEM QTC Calculated (Bezet) 416 ms MUSE SYSTEM Calculated P [place] 50 degrees MUSE SYSTEM Calculated R [place] 20 degrees MUSE SYSTEM Calculated T [place] 32 degrees MUSE SYSTEM INTERPRETATION Sinus bradycardia with marked sinus arrhythmia Low voltage QRS Borderline ECG When compared with ECG of 09-NOV-2021 09:15, No significant change was found Confirmed by MD MOHAMUD SALVATORE ([id number]) on 2021 1:13:52 PM MUSE SYSTEM 2021 11:3 1 AM EST 2021 1:13 PM EST Beny Monahan MD ECG ORDERABLES MUSE SYSTEM * CARDIAC CATHETERIZATION (2021 10:32 AM EST) Anatomical Region Laterality Modality Other Narrative 2021 10:39 AM EST ?[facility] ? Cardiac Catheterization/Intervention Report ? Patient Name: Brynn Khalil J. ? Procedure Date: 2021 ? A #: [id number] ? Primary Physician: Beny Monahan ? Case #: [id number] ? File Name: [id number] ? Catheterization Order Number: [id number] ? [facility] ? Final Report [place], [place] ? Patient Name: ? Brynn J. Remi ?ID#: ?[id number] ? : ?1950 ? Procedure Date: ? 2021 ? Case #: ? [id number] ? Room: ? 6 ? Case Physician: ? Beny Monahan M.D. ? Start: ?10:00 ?Fellow: ? Yifan Michaels M.D. ?Admission: ??2021 ? Procedures: ?* Coronary Angiography ?* Left Heart Catheterization ? History ?Brynn Khalil is a 71 year old woman. She has hypertension. The patient's ?smoking status is Former. She has hypercholesterolemia. The patient also ?has diabetes managed with oral medication. Prior to the initiation of ?this procedure, the patient was designated as ASA Class III. The CSHA ?clinical frailty scale is 3: Managing Well. ? Diagnostic Tests: ?Electrocardiography: ? EKG was assessed by ECG. EKG was Normal. ?Medications Prior to Procedure: ? Aspirin, Angiotensin II Receptor Mahendra, Beta Mahendra and Statin. ? Indications for Diagnostic Cath: ?The priority of the diagnostic procedure was Elective. The indication for ?the laboratory technology teacher visit is new onset angina less than or equal to 2 months. ?Chest pain symptom assessment was: Typical Angina. ? Technique: ?A 6 SLFr sheath was inserted in the right radial artery utilizing the ?Seldinger technique. The left coronary artery was injected utilizing a ?5Fr TIG 4.0 catheter. A 5Fr TIG 4.0 catheter was used to inject the right ?coronary artery. Left ventricular pressure was performed utilizing a 5Fr ?TIG 4.0 catheter. 5,000 units of heparin were administered. A total of ?100cc of Omnipaque were opened, 67cc of Omnipaque were administered and ?33cc of Omnipaque were wasted. Radiation: Fluoro time was 9.3 minutes, ?dose area product was 21,700 mGYcm2 and air kerma was 329 mGY. See the ?case log for additional details. ?The patient received the following medications prior to and during the ?procedure: ? Unfractionated Heparin. ? Hemodynamics: ?Left Heart Pressures ? Resting: ? Syst Diast ? EDP ?a ?v ? m ?Ao 175 ?? 58 ?98 ?LV 175 ? 23 ? Coronary Angiography: ?Dominance: Right ?Left Main ? The left main was normal, free of disease. ?Left Anterior Descending ? There was mild diffuse (<=25% stenosis) disease of the entire vessel ? segment of the left anterior descending artery (LAD). ?Left Circumflex ? There was mild diffuse (<=25% stenosis) disease of the entire vessel ? segment of the left circumflex artery (LCX). ?Right Coronary Artery ? There was mild diffuse (<=25% stenosis) disease of the entire vessel ? segment of the right coronary artery (RCA). ? High anterior takeoff. ? Vascular Access: ?Vascular Access Management: ? Mechanical Compression of the right radial artery access site was ? performed. ? Conclusions: ?* Nonobstructive coronary artery disease ?* Elevated left ventricular end diastolic pressure ? Complications/Events: ?The patient had no complications during these procedures. ? Recommendations: ?Based upon the results of this procedure, it was recommended that the ?patient be managed with medical therapy. ?The attending physician was present for the entire procedure. ?Dr. Beny Monahan M.D. was present during the moderate sedation ?intraservice time as documented by the sedation nurse. ??Case time = 00:28. ?Dr. Beny Monahan M.D. performed the coronary angiography and left ?heart catheterization. ? Beny Monahan M.D. ? Electronically Signed by: Beny Monahan M.D. ? Report Finalized: 2021 ??10:33 ? Beny Monahan MD CARDIAC CATH ORDERAB LES * POCT Glucose (2021 9:14 AM EST) Glucose, POC 169 65 - 199 mg/dL [facility] Comment: Supplemental ranges: <140 mg/dL before meals <180 mg/dL all other times of the day Blood 2021 9:14 AM EST 2021 9:14 AM EST Beny Monahan MD POINT OF CARE TEST O RDERABLES Performing Organization Address City/State/[facility] Co de Phone Number [facility] [place] [address] documented in this encounter Visit Diagnoses Diagnosis Exertional chest pain Chest pain, unspecified Chronic kidney disease, stage IV (severe) Chronic kidney disease, Stage IV (severe) Exertional chest pain Chest pain, unspecified documented in this encounter Administered Medications Inactive Administered Medications - up to 3 most recent administrations Medication Order MAR Action Action Date Dose Rate Site fentaNYL (pf) (50 mcg/mL) multi-dose injection ONCE PRN, Starting on Sat11/21/21 at 0954, Until Sat11/21/21 at 1354, Cath (Intra-Procedure), Routine Given 2021 10:01 AM EST 25 mcg Given 2021 9:54 AM EST 25 mcg heparin (porcine) (1,000 units/mL) injection ONCE PRN, Starting on Sat11/21/21 at 1005, Until Sat11/21/21 at 1354, Cath (Intra-Procedure), Routine Given 2021 10:05 AM EST 5,000 Units iohexoL (Omnipaque) (350 mg/mL) solution ONCE PRN, Starting on Sat11/21/21 at 1022, Until Sat11/21/21 at 1354, Cath (Intra-Procedure), Routine Given 2021 10:22 AM EST 67 mLs midazolam (pf) (Versed) (1 mg/mL) multi-dose injection ONCE PRN, Starting on Sat11/21/21 at 0954, Until Sat11/21/21 at 1354, Cath (Intra-Procedure), Routine Given 2021 9:54 AM EST 1 mg nitroGLYcerin 100 mcg/mL intracoronary dilution ONCE PRN, Starting on Sat11/21/21 at 1002, Until Sat11/21/21 at 1354, Cath (Intra-Procedure), Routine Given 2021 10:02 AM EST 150 mcg sodium chloride 0.9% infusion 200 mL/hr, Intravenous, CONTINUOUS, Starting on Sat11/21/21 at 0930, Until Sat11/21/21 at 1354, Cath (Day of Procedure) New Bag 2021 9:31 AM EST 200 mL/hr 200 mL/hr sodium chloride 0.9% infusion 75 mL/hr, Intravenous, CONTINUOUS, Starting on Sat11/21/21 at 1100, Until Sat11/21/21 at 1259, Recovery (Recovery-Hospital Unit) Continued Bag 2021 10:40 AM EST 75 mL/hr 75 mL/hr verapamiL (Isoptin) (2.5 mg/mL) injection ONCE PRN, Starting on Sat11/21/21 at 1002, Until Sat11/21/21 at 1354, Administer over 2 Minutes, Cath (Intra-Procedure) Given 2021 10:02 AM EST 2.5 mg documented in this encounter Active and Recently Administered Medications Times are shown in EST. Continuous Medication Order 11/19/2021 11/20/2021 2021 sodium chloride 0.9% infusion (CANCELED) 200 mL/hr, Intravenous, CONTINUOUS, Starting on Sat11/21/21 at 0930, Until Sat11/21/21 at 1354, Cath (Day of Procedure) 0931 (New Bag - Prov ider: Jessy Pathak RN) sodium chloride 0.9% infusion 75 mL/hr, Intravenous, CONTINUOUS, Starting on Sat11/21/21 at 1100, Until Sat11/21/21 at 1259, Recovery (Recovery-Hospital Unit) 1040 (Continued Bag - Provider: Sandra Lewis RN) PRN Medication Order 11/19/2021 11/20/2021 2021 fentaNYL (pf) (50 mcg/mL) multi-dose injection (CANCELED) ONCE PRN, Starting on Sat11/21/21 at 0954, Until Sat11/21/21 at 1354, Cath (Intra-Procedure), Routine 0954 (Given - Provid er: Terence Damon RN)1001 (Given - Provider: Terence Damon RN) heparin (porcine) (1,000 units/mL) injection (CANCELED) ONCE PRN, Starting on Sat11/21/21 at 1005, Until Sat11/21/21 at 1354, Cath (Intra-Procedure), Routine 1005 (Given - Provid er: Terence Damon RN) iohexoL (Omnipaque) (350 mg/mL) solution (CANCELED) ONCE PRN, Starting on Sat11/21/21 at 1022, Until Sat11/21/21 at 1354, Cath (Intra-Procedure), Routine 1022 (Given - Provid er: Terence Damon RN) midazolam (pf) (Versed) (1 mg/mL) multi-dose injection (CANCELED) ONCE PRN, Starting on Sat11/21/21 at 0954, Until Sat11/21/21 at 1354, Cath (Intra-Procedure), Routine 0954 (Given - Provid er: Terence Damon RN) nitroGLYcerin 100 mcg/mL intracoronary dilution (CANCELED) ONCE PRN, Starting on Sat11/21/21 at 1002, Until Sat11/21/21 at 1354, Cath (Intra-Procedure), Routine 1002 (Given - Provid er: Yifan Michaels MD) verapamiL (Isoptin) (2.5 mg/mL) injection (CANCELED) ONCE PRN, Starting on Sat11/21/21 at 1002, Until Sat11/21/21 at 1354, Administer over 2 Minutes, Cath (Intra-Procedure) 1002 (Given - Provid er: Yifan Michaels MD) documented in this encounter Care Teams Supervisor Plate Forming Relationship Specialty Start Date End Date Rome Guerra MD [address] [place] [id number] PCP - General Emergency Medicine 10/17/21 documented as of this encounter
--- OUTSIDE RECORDS SUMMARY | 2024-11-16 13:19 | XMS_ITS | Encounter Summary ---
Author Organization [facility] [place] [address] Care Team Providers Care Game And Fish Protector Name Role Phone Rome Guerra MD Primary Care Provider [phone] Encounter Details Date Type Department Care Team (Latest Contact Info) Description 05/30/2023 8:30 AM EDT Laboratory Appointment Lab [address] [place] [address] CKD (chronic kidney disease) stage 4, GFR 15-29 ml/min; Bradycardia; Chronic kidney disease, stage IV (severe) ; Hyperkalemia Social History Tobacco Use Types Packs/Day [...] AM EST Office Visit [place] [address] Remi Winston MD [facility] [place] [address] documented as of this encounter Procedures Procedure Name Priority Date/Time Associated Diagnosis Comments PROTEIN/CREATININE RATIO, URINE Routine 05/30/2023 9:17 AM EDT CKD (chronic kidney disease) stage 4, GFR 15-29 ml/min Bradycardia Chronic kidney disease, stage IV (severe) Hyperkalemia U ALBUMIN/CRE RATIO Routine 05/30/2023 9 :17 AM EDT CKD (chronic kidney disease) stage 4, GFR 15-29 ml/min Bradycardia Chronic kidney disease, stage IV (severe) Hyperkalemia HEMOGRAM Routine 05/30/2023 8:21 AM EDT CKD (chronic kidney disease) stage 4, GFR 15-29 ml/min Bradycardia Chronic kidney disease, stage IV (severe) Hyperkalemia DIFFERENTIAL, AUTOMATED Routine 05/30/2023 8:21 AM EDT CKD (chronic kidney disease) stage 4, GFR 15-29 ml/min Bradycardia Chronic kidney disease, stage IV (severe) Hyperkalemia CBC (WITH DIFF) Routine 05/30/2023 8:21 AM EDT CKD (chronic kidney disease) stage 4, GFR 15-29 ml/min Bradycardia Chronic kidney disease, stage IV (severe) Hyperkalemia ALBUMIN LEVEL Routine 05/30/2023 8:21 AM EDT CKD (chronic kidney disease) stage 4, GFR 15-29 ml/min Bradycardia Chronic kidney disease, stage IV (severe) Hyperkalemia BASIC METABOLIC PANEL Routine 05/30/2023 8:21 AM EDT CKD (chronic kidney disease) stage 4, GFR 15-29 ml/min Bradycardia Chronic kidney disease, stage IV (severe) Hyperkalemia documented in this encounter Results * (ABNORMAL) U Albumin/Cre Ratio (05/30/2023 9:17 AM EDT) Albumin / Creatinin Ratio, Urine 44(H) 0 - 29 mcg/mg Cr [facility] Comment: Reference Ranges: <30 mcg/mg: Normal [...] Supplements (2012) 2, 357? 362 Albumin, Urine 35.0 mg/L [facility] Creatinine, Urine 80 mg/dL [facility] Urine 05/30/2023 9:17 AM EDT 05/30/2023 9:32 AM EDT Narrative Resulting Agency Comment Spec In Lab Remi Winston MD URINE ORDERABLES Performing Organization Address City/[facility] Co de Phone Number [facility] [place] [address] * (ABNORMAL) Protein/Creatinine Ratio, urine (05/30/2023 9:17 AM EDT) Creatinine, Urine 80 mg/dL [facility] Protein, Urine 14(H) 0 - 12 mg/dL [facility] Protein / Creatinine Ratio, Urine 0.2 ratio [facility] Urine 05/30/2023 9:17 AM EDT 05/30/2023 9:32 AM EDT Narrative Resulting Agency Comment Spec In Lab Remi Winston MD URINE ORDERABLES Performing Organization Address City/[facility] Co de Phone Number [facility] [place] [address] * Differential, Automated (05/30/2023 8:21 AM EDT) Neutrophil % 67.6 % [facility] Neutrophil Absolute 3.51 1.70 - 6.10 x10(3)/mcL [facility] Lymph % 21.0 % [facility] Lymphocytes Abs 1.1 0.9 - 3.2 x10(3)/[facility] Monocyte % 8.1 % [facility] Monocyte Abs 0.4 0.3 - 0.9 x10(3)/[facility] Eos % 2.1 % [facility] Eosinophils Abs 0.1 0.0 - 0.4 x10(3)/[facility] Basophil % 1.0 % [facility] Baso Absolute 0.0 0.0 - 0.1 x10(3)/[facility] Immature Gran % 0.20 % [facility] Comment: Immature granulocytes(IG's)percentage and absolute count will include metamyelocytes, myelocytes, and promyelocytes. Blood smears from CBCs yielding IG's will be scanned manually for concordance. If this scan disagrees with the automated IG or if promyelocytes are noted, a manual differential will be performed. Immature Gran Absolute 0.01 0.00 - 0.04 x10(3)/[facility] Blood 05/30/2023 8:21 AM EDT 05/30/2023 8:31 AM EDT Narrative Resulting Agency Comment Spec In Lab Remi Winston MD HEMATOLOGY ORDERABLE S [facility] [place] [address] * (ABNORMAL) Hemogram (05/30/2023 8:21 AM EDT) White Blood Cell 5.2 4.0 - 9.5 x10(3)/mc L [facility] Red Blood Cell 4.20 4.00 - 5.21 x10(6)/mc L [facility] Hemoglobin 12.7 11.7 - 15.5 g/dL [facility] Hematocrit 39.8 35.7 - 45.8 % [facility] Mean Cell Volume 94.8(H) 82.6 - 94.4 fL [facility] Mean Cell Hemoglobin 30.2 27.1 - 32.0 pg [facility] Mean Cell Hemoglobin Concentration 31.9 31.7 - 35.0 g/dL [facility] Platelet 141(L) 145 - 357 x10(3)/mc L [facility] RDW Standard Deviation 47.2(H) 37.0 - 46.0 fL [facility] RDW coefficient of variation 13.5 11.5 - 14.1 % [facility] Mean Platelet Volume 12.3 7.6 - 12.9 fL [facility] NRBC% auto 0.0 % [facility] NRBC Absolute 0.000 0.000 - 0.000 x10(3)/mc L [facility] Blood 05/30/2023 8:21 AM EDT 05/30/2023 8:31 AM EDT Narrative Resulting Agency Comment Spec In Lab Remi Winston MD HEMATOLOGY ORDERABLE S [facility] [place] [address] * (ABNORMAL) Basic Metabolic Panel (non-fasting) (05/30/2023 8:21 AM EDT) Glucose 362(H) 65 - 199 mg/dL [facility] Comment:Diabetes: >=200 mg/d L plus symptoms Blood Urea Nitrogen 47(H) 8 - 18 mg/dL [facility] Creatinine 2.51(H) 0.70 - 1.20 mg/dL [facility] Sodium 139 135 - 145 mmol/L [facility] Potassium 4.6 3.5 - 5.0 mmol/L [facility] Comment: Please note: ??Patients with WBC >100,000 may have falsely elevated Potassium levels. ??For accurate Potassium quantification in these patients send serum separator tube (gold top) for subsequent determinations. ??Contact the Clinical Chemistry Laboratory if there are any questions. Chloride 104 98 - 107 mmol/L [facility] Carbon Dioxide 24 22 - 31 mmol/L [facility] Anion Gap 11 5 - 15 mmol/L [facility] Calcium 9.5 8.5 - 10.5 mg/dL [facility] Est Glomerular Filtration Rate 20(L) >=60 mL/min/1. 73 m?? [facility] Comment: This patient's estimated GFR was [...] and symptoms in addition to eGFR. Blood 05/30/2023 8:21 AM EDT 05/30/2023 8:31 AM EDT Narrative Resulting Agency Comment Spec In Lab Remi Winston MD CHEMISTRY ORDERABLES Performing Organization Address City/[facility]/ZIP Co de Phone Number [facility] [place] [address] * Albumin Level (05/30/2023 8:21 AM EDT) Albumin 3.9 3.2 - 5.2 g/dL [facility] Blood 05/30/2023 8:21 AM EDT 05/30/2023 8:31 AM EDT Narrative Resulting Agency Comment Spec In Lab Remi Winston MD CHEMISTRY ORDERABLES Performing Organization Address City/[facility]/[place] [address] documented in this encounter Visit Diagnoses Diagnosis CKD (chronic kidney disease) stage 4, GFR 15-29 ml/min Chronic kidney disease, Stage IV (severe) Bradycardia Other specified cardiac dysrhythmias Chronic kidney disease, stage IV (severe) Chronic kidney disease, Stage IV (severe) Hyperkalemia Hyperpotassemia documented in this encounter Care Teams Game And Fish Protector Relationship Specialty Start Date End Date Rome Guerra MD [address] [place] [address] PCP - General Emergency Medicine 10/17/21 documented as of this encounter
--- OUTSIDE RECORDS SUMMARY | 2024-11-16 13:19 | XMS_ITS | Encounter Summary ---
Author Organization [facility] Address [facility] [place] [address] Care Team Providers Care Automatic Spinning Lathe Operator Name Role Phone Rome Guerra MD Primary Care Provider [phone] Reason for Visit * Reason Comments Medication Refill Encounter Details Date Type Department Care Team (Late st Contact Info) Description 01/13/2023 Refill Cardiology at [address] [phone] Beny Monahan MD [facility] [place] [address] Medication Refill Social History Tobacco Use Types Packs/Day Years [...] Miscellaneous Notes * Telephone Encounter - Ki Perla RN - 01/14/2023 7:39 AM EDT Images from the original note were not included. Requested Prescriptions Pending Prescriptions Disp Refills ??? furosemide (Lasix) 40 mg tablet [Pharmacy Med Name: FUROSEMIDE TABS 40MG] 90 tablet 3 Sig: TAKE 1 TABLET DAILY Received an electronic prescription refill request for above Lasix from [facility], [place], [place]. Refill request for 90 days with ONE refill advanced, anticipating follow up soon with the team. Noted to be well overdue for recommended follow up - note routed to the [facility] Scheduling Team for patient contact. Reviewed Epic record and last office note from Dr. Collins and Dr. Michaels dated 12/28/2021. (From [facility]): Refill prepped and forwarded to Provider for authorization Martin Perla RNdude ranch manager Team Nurse [facility] Ambulatory Cardiology documented in this encounter Plan of Treatment Upcoming Encounters Date Type Department Care Team (Late st Contact Info) Description 11/27/2024 9:00 AM EST Office Visit Ne[place] [address] Remi Winston MD [facility] [place] [address] documented as of this encounter Visit Diagnoses Diagnosis Chronic kidney disease, stage IV (severe) Chronic kidney disease, Stage IV (severe) documented in this encounter Care Teams Automatic Spinning Lathe Operator Relationship Specialty Start Date End Date Rome Guerra MD [address] [place] [address] PCP - General Emergency Medicine 10/17/21 documented as of this encounter
--- OUTSIDE RECORDS SUMMARY | 2024-11-16 13:19 | XMS_ITS | Encounter Summary ---
Author Organization [facility] [place] [address] Care Team Providers Care Head Miller Name Role Phone Rome Guerra MD Primary Care Provider [phone] Encounter Details Date Type Department Care Team (Late st Contact Info) Description 12/07/2021 Refill Cardiology at [address] [phone] Ki Perla, RN Social History Tobacco Use [...] Telephone Encounter - Ki Perla RN - 12/07/2021 11:15 AM EST Requested Prescriptions Pending Prescriptions Disp Refills ??? furosemide (Lasix) 40 mg Tablet 90 tablet 3 Sig: Take 1 tablet by mouth daily. Received a faxed prescription refill request for above Lasix from [facility], [place], [place]. Refill request refused. Already addressed 11/24/2021. Martin Perla RNmanager unit Team Nurse [facility] Ambulatory Cardiology documented in this encounter Plan of Treatment Upcoming Encounters Date Type Department Care Team (Late st Contact Info) Description 11/27/2024 9:00 AM EST Office Visit [place] [address] Remi Winston MD [facility] [place] [address] documented as of this encounter Visit Diagnoses Diagnosis Chronic kidney disease, stage IV (severe) Chronic kidney disease, Stage IV (severe) documented in this encounter Care Teams Head Miller Relationship Specialty Start Date End Date Rome Guerra MD [address] [place] [address] PCP - General Emergency Medicine 10/17/21 documented as of this encounter
--- OUTSIDE RECORDS SUMMARY | 2024-11-16 13:19 | XMS_ITS | Encounter Summary ---
Author Organization Formerly [facility] Address [facility] [place] [address] Care Team Providers Care Horse Doctor Name Role Phone Rome Guerra MD Primary Care Provider [phone] Reason for Visit * Consultation (Routine) - Closed Specialty Diagnoses / Procedures Referred By Contac t Referred To Contact Cardiology Diagnoses Other chest pain exertional chest pain, positive stress test *scanned docs* Rome Guerra MD [address] [place] [address] [facility] [address] [place] [id number] Referral ID Status Reason Start Date Expiration Date Visits Re quested Visits Authorized [id number] Closed 10/13/2021 01/05/2022 12 12 Encounter Details Date Type Department Care Team (Latest Contact Info) Description 11/09/2021 9:00 AM EST Office Visit Cardiology at [address] [phone] Beny Monahan MD [facility] [place] [address] Yifan Michaels MD Hyperlipidemia, unspecified hyperlipidemia type; Secondary hypertension; GEOVANNA (obstructive sleep apnea); Exertional chest pain Social History Tobacco Use Types Packs/Day Years Used Date Smoking Tobacco: Former Cigarettes Q uit: 2013 Smokeless Tobacco: Never Sex and Gender Information Value Date Recorded Sex Assigned at Not on file Gender Identity Not on file Sexual Orientation Not on file documented as of this encounter Last Filed Vital Signs Vital Sign Reading Time Taken Comments Blood Pressure 162/66 11/09/2021 9:11 AM EST Pulse 56 11/09/2021 9:11 AM EST Temperature - - Respiratory Rate - - Oxygen Saturation 98% 11/09/2021 9:11 AM EST Inhaled Oxygen Concentration - - Weight 88.5 kg (195 lb) 11/09/2021 9:11 AM EST p atient reported Height 162.6 cm (5' 4) 11/09/2021 9:11 AM EST p atient reported Body Mass Index 33.47 11/09/2021 9:11 AM EST documented in this encounter Patient Instructions * Patient Instructions* Yifan Michaels MD - 11/09/2021 9:00 AM EST Your cath is scheduled for November 21 at 9AM. Please take all of your medications regularly except for your lasix. You will increase your felodipine to 10 mg a day. I want you to start checking your blood pressure at home. documented in this encounter Progress Notes * Yifan Michaels MD - 11/09/2021 9:00 AM EST Images from the original note were not included. [facility] [place] [id number] CARDIOLOGY OUTPATIENT NEW PATIENT NOTE PRIMARY CARE PROVIDER: Rome Guerra MD Subjective: Patient ID: Brynn Khalil is a 70 y.o. female PMH HTN, HLD, DM Hgba1c 7.8%, CKD, GEOVANNA who presents for consultation of chest pain. HPI: Patient saw her PCP in September for exertional chest pain and was referred for an exercise nuclear stress test. She reports the chest pain for started in July. She describes the pain as substernalpressure with radiation to bilateral arms. She also has associated dyspnea with the chest pressure.She reports that she had an uneventful summer. She has a dog that she walks twice a day about 15 to20 minutes each time. She reports that she was able to perform this activity over the summer without any issues. Since July she now reports chest pressure and dyspnea whenever she exerts herself. She needs to stop for 5 minutes and the pressure would then be alleviated. She reports that the symptoms have now increased in severity and frequency. She denies any symptoms at rest though. She was referred for a nuclear stress test by her PCP. She exercised 5.7 METS and test was stopped due to fatigue and SOB. She was found to have STD in the inferior and anterolateral leads. There wasno evidence of ischemia on the nuclear study with an LVEF of 71%. She was subsequently started on aspirin and referred to cardiology. Overall she is relatively sedentary but does walk her dog twice a day. She was at home with her . 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 She is a former smoker and quit in 2013. She does not drink alcohol. She does have a family history of heart disease. She does not check her blood pressure at home. She has had diabetes and high cholesterol for many years. Review Of Systems: As above, otherwise 12 point review of systems is unremarkable. Family history: Family History Problem Relation Age of Onset ??? Hypertension Mother ??? Kidney Disease Neg Hx ??? Diabetes Neg Hx Social history: Social History Tobacco Use ??? Smoking status: Former Smoker Quit date: 2013 Years since quittin.0 ??? Smokeless tobacco: Never Used Substance Use Topics ??? Alcohol use: Not on file ??? Drug use: Not on file PROBLEM LIST: Patient Active Problem List Diagnosis ??? Exertional chest pain Exercise MPI 10/13/2021: ??? Vitamin D deficiency ??? Low HDL (under 40) ??? Secondary hyperparathyroidism of renal origin ??? Non-nephrotic range proteinuria ??? Obesity ??? CKD (chronic kidney disease), stage III/IV ??? HTN (hypertension) ??? Hyperlipidemia ??? Restless leg ??? Nephrolithiasis Occurred in the ; single episode. ??? GEOVANNA (obstructive sleep apnea) ??? Diabetic retinopathy ??? Dyspepsia ??? DM (diabetes mellitus) MEDICATIONS: Current Outpatient Medications Medication Sig Dispense Refill ??? Januvia 25 mg Tablet ??? pantoprazole EC (Protonix) 40 mg Tablet, Delayed Release (E.C.) Take 40 mg by mouth daily. ??? Prevalite 4 gram Powder in Packet Take by mouth daily. ??? glipiZIDE (Glucotrol) 5 mg Tablet Take 10 mg by mouth 2 times daily (before meals). ??? aspirin 81 mg Tablet, Delayed Release (E.C.) Take 81 mg by mouth daily. ??? furosemide (LASIX) 20 mg Tablet Take 20 mg by mouth daily. ??? Ibuprofen 200 mg Capsule Take by mouth daily as needed. ??? losartan (COZAAR) 100 mg Tablet Take 100 mg by mouth daily. ??? meTOPROLOL succinate (TOPROL-XL) 100 mg Tablet Sustained Release 24 hr Take 100 mg by mouth daily. ??? rOPINIRole (REQUIP) 0.5 mg Tablet Take 1 mg by mouth nightly. ??? rosuvastatin (CRESTOR) 40 mg Tablet Take 40 mg by mouth daily. ??? felodipine (PLENDIL) 5 mg Tablet Sustained Release 24 hr Take 5 mg by mouth daily. ??? nitroGLYcerin (Nitrostat) 0.4 mg Tablet, Sublingual Place 1 tablet under the tongue every 5 minutes as needed for Chest pain. 90 tablet 12 No current facility-administered medications for this visit. Objective: Patient Vitals for the past 24 hrs: Pulse BP SpO2 11/09/21 0911 56 162/66 98 % Physical Exam Vitals reviewed. Constitutional: Appearance: She is well-developed. HENT: Head: Normocephalic and atraumatic. Eyes: Pupils: Pupils are equal, round, and reactive to light. Cardiovascular: Rate and Rhythm: Normal rate and regular rhythm. Pulses: Normal pulses. Heart sounds: Normal heart sounds. No murmur heard. No friction rub. Comments: +1 bilateral leg edema to freedman Pulmonary: Effort: Pulmonary effort is normal. No respiratory distress. Breath sounds: Normal breath sounds. No wheezing or rales. Abdominal: General: Bowel sounds are normal. Palpations: Abdomen is soft. Skin: General: Skin is warm and dry. Neurological: Mental Status: She is alert and oriented to person, place, and time. EKG: NSR Nuclear stress: STD in inferior and anterolateral leads MPI with no evidence of ischemia. LVEF 71% Assessment and Plan: Exertional chest pain Her symptoms are typical of angina and [...] her sublingual NTG. She is scheduled for [facility]/coronary angiogram on Nov 21. HTN (hypertension) Elevated today in clinic. Based on her last clinic note her SBP was 130 mg. I have instructed her to regularly check her BP. In the meantime I will increase her felodipine to 10 mg daily which shouldalso provide more anti-anginal effect for her. Hyperlipidemia Continue rosuvastatin 40 mg daily. DM (diabetes mellitus) Last Hgba1c 7.8%. Emphasized the importance of good diabetes control. Currently being managed by her PCP. Case discussed with Dr. Taniya Reinoso. MD [facility] Interventional Clinical Education Consultant, PGY-7 P: [id number] I have seen the patient and reviewed the above history/examination and I agree with the details as written. I have personally reviewed all available ECG tracings, echo images and prior cath films. The assessment and plan were formulated in discussion with me and I agree with them as documented. 70 yo with typical cp and + stress test, will plan for cath and uptitration of medical therapy. Beny Monahan MD 11/09/2021 3:55 PM documented in this encounter Miscellaneous Notes * Assessment & Plan Note - Yifan Michaels MD - 11/09/2021 12:15 PM EST Associated Problem(s): DM (diabetes mellitus) Last Hgba1c 7.8%. Emphasized the importance of good diabetes control. Currently being managed by her PCP. * Assessment & Plan Note - Yifan Michaels MD - 11/09/2021 12:14 PM EST Associated Problem(s): Hyperlipidemia Continue rosuvastatin 40 mg daily. * Assessment & Plan Note - Yifan Michaels MD - 11/09/2021 12:13 PM EST Associated Problem(s): HTN (hypertension) Elevated today in clinic. Based on her last clinic note her SBP was 130 mg. I have instructed her to regularly check her BP. In the meantime I will increase her felodipine to 10 mg daily which shouldalso provide more anti-anginal effect for her. * Assessment & Plan Note - Yifan Michaels MD - 11/09/2021 12:02 PM EST Associated Problem(s): Exertional chest pain Her symptoms are typical of angina and [...] her sublingual NTG. She is scheduled for [facility]/coronary angiogram on Nov 21. documented in this encounter Plan of Treatment Upcoming Encounters Date Type Department Care Team (Late st Contact Info) Description 11/27/2024 9:00 AM EST Office Visit [place] [address] Remi Winston MD [facility] [place] [address] documented as of this encounter Procedures Procedure Name Priority Date/Time Associated Diagnosis Comments EKG 12-LEAD Routine 11/09/2021 9:15 AM EST Hyperlipidemia, unspecified hyperlipidemia type Secondary hypertension GEOVANNA (obstructive sleep apnea) Exertional chest pain documented in this encounter Results * (ABNORMAL) Basic Metabolic Panel (non-fasting) (11/09/2021 10:30 AM EST) Glucose 174 65 - 199 mg/dL [facility] Comment:Diabetes: >=200 mg/d L plus symptoms Blood Urea Nitrogen 23(H) 8 - 18 mg/dL [facility] Creatinine 1.40(H) 0.70 - 1.20 mg/dL [facility] Sodium 140 135 - 145 mmol/L [facility] Potassium 4.6 3.5 - 5.0 mmol/L [facility] Comment: Please note: ??Patients with WBC >100,000 may have falsely elevated Potassium levels. ??For accurate Potassium quantification in these patients send serum separator tube (gold top) for subsequent determinations. ??Contact the Clinical Chemistry Laboratory if there are any questions. Chloride 110(H) 98 - 107 mmol/L [facility] Carbon Dioxide 23 22 - 31 mmol/L [facility] Anion Gap 7 5 - 15 mmol/L [facility] Calcium 9.3 8.5 - 10.5 mg/dL [facility] Est Glomerular Filtration Rate 38(L) >=60 mL/min/1. 73 m?? [facility] Comment: This patient? s estimated glomerular [...] In Lab Beny Monahan MD CHEMISTRY ORDERABLES Performing Organization Address City/[facility]/ZIP Co de Phone Number [facility] [place] [address] * EKG 12 Lead (11/09/2021 9:15 AM EST) Ventricular rate 57 BPM MUSE SYSTEM Atrial Rate 57 BPM MUSE SYSTEM P-R Interval 156 ms MUSE SYSTEM QRS Duration 92 ms MUSE SYSTEM Q-T Interval 446 ms MUSE SYSTEM QTC Calculated (Bezet) 434 ms MUSE SYSTEM Calculated P [place] 51 degrees MUSE SYSTEM Calculated R [place] 13 degrees MUSE SYSTEM Calculated T [place] 34 degrees MUSE SYSTEM INTERPRETATION Sinus bradycardia Otherwise normal ECG No previous ECGs available Confirmed by MD KAREN, ALEC ([id number]) on 11/09/2021 5:34:09 PM MUSE SYSTEM 11/09/2021 9:15 AM EST 11/09/2021 5:34 PM EST Beny Monahan MD ECG ORDERABLES Performing Organization Address City/[facility] Co de Phone Number MUSE SYSTEM documented in this encounter Visit Diagnoses Diagnosis Hyperlipidemia, unspecified hyperlipidemia type Secondary hypertension Other secondary hypertension, unspecified GEOVANNA (obstructive sleep apnea) Obstructive sleep apnea (adult) (pediatric) Exertional chest pain Chest pain, unspecified documented in this encounter Care Teams Horse Doctor Relationship Specialty Start Date End Date Rome Guerra MD [address] [place] [address] PCP - General Emergency Medicine 10/17/21 documented as of this encounter
--- OUTSIDE RECORDS SUMMARY | 2024-11-16 13:19 | XMS_ITS | Encounter Summary ---
Author Organization [facility] [place] [address] Care Team Providers Care Regional Dedicated Truck Driver Name Role Phone Rome Guerra MD Primary Care Provider [phone] Encounter Details Date Type Department Care Team (Latest Contact Info) Description 2021 8:12 AM EST - 2021 1:45 PM EST Hospital Encounter [place] [phone] Beny Monahan MD [facility] [place] [address] Exertional chest pain; Chronic kidney disease, stage IV (severe) Discharge Disposition: Home Social History Tobacco Use [...] Sign Reading Time Taken Comments Blood Pressure 177/67 2021 1:09 PM EST Pulse 52 2021 12:45 PM EST Temperature 36.8 ??C (98.2 ??F) 2021 12:[address] Respiratory Rate 20 2021 12:55 PM EST Oxygen Saturation 96% 2021 1:09 PM EST Inhaled Oxygen Concentration - - Weight [...] by your doctor, do not take any [id number]-[id number] medicinesor herbal preparations without first discussing this with your doctor or pharmacist. There is the possibility of side effects and interactions when these are combined. Follow Up Care Who to call with questions or problems If there are any questions or problems that you think might be related to your cardiac cath or angioplasty, contact the rawhide trimmer economics analyst by calling [facility] at . documented in this encounter Medications [...] stress test who is here today for [facility]/coronary angiogram. Patient last saw Dr. Michaels on [...] in the chart. Yifan Michaels MD Interventional Shot Tube Machine Tender, PGY-7 P: [id number] Associated attestation - Beny Monahan MD - [...] AM EST Office Visit [place] [address] Remi Winston MD [facility] [place] [address] documented as of this encounter Procedures Procedure Name Priority Date/Time Associated Diagnosis Comments POCT GLUCOSE Routine 2021 11:41 AM EST EKG 12-LEAD STAT 2021 11:31 AM EST Exertional chest pain CARDIAC CATHETERIZATION Routine 11/21/19 10:32 AM EST Exertional chest pain Cath Plmt Left Heart Cath & Arts W/Inj & Angio Img S&I ([id number]) 2021 9:44 AM EST Exertional chest pain POCT GLUCOSE Routine 2021 9:14 AM EST documented in this encounter Results * POCT Glucose (2021 11:41 AM EST) Pathologist [facility] Glucose, POC 123 65 - 199 mg/dL [facility] Comment: Supplemental ranges: <140 mg/dL before meals <180 mg/dL all other times of the day Blood 2021 11:4 1 AM EST 2021 11:41 AM EST Beny Monahan MD POINT OF CARE TEST O RDERABLES [facility] [place] [address] * EKG 12 Lead (2021 11:31 AM EST) Ventricular rate 51 BPM MUSE SYSTEM Atrial Rate 51 BPM MUSE SYSTEM P-R Interval 168 ms MUSE SYSTEM QRS Duration 94 ms MUSE SYSTEM Q-T Interval 452 ms MUSE SYSTEM QTC Calculated (Bezet) 416 ms MUSE SYSTEM Calculated P [place] 50 degrees MUSE SYSTEM Calculated R [place] 20 degrees MUSE SYSTEM Calculated T [place] 32 degrees MUSE SYSTEM INTERPRETATION Sinus bradycardia [...] Modality Other Narrative 2021 10:39 AM EST ?[facility] ? Cardiac Catheterization/Intervention Report ? Patient Name: Remi, Brynn J. ? Procedure Date: 2021 ? A #: [id number] ? Primary Physician: Beny Monahan ? Case #: [id number] ? File Name: [id number] ? Catheterization Order Number: [id number] ? [facility] ? Final Report [place], [place] ? Patient Name: ? Brynn J. Remi ?ID#: ?[id number] ? : ?1950 ? Procedure Date: ? [...] procedure was Elective. The indication for ?the label maker visit is new onset angina less than [...] Glucose, POC 169 65 - 199 mg/dL [facility] Comment: Supplemental ranges: <140 mg/dL before meals <180 mg/dL all other times of the day Blood 2021 9:14 AM EST 2021 9:14 AM EST Beny Monahan MD POINT OF CARE TEST O RDERABLES [facility] [place] [address] documented in this encounter Visit Diagnoses Diagnosis Exertional chest pain Chest pain, unspecified Chronic kidney disease, stage IV (severe) Chronic kidney disease, Stage IV (severe) Exertional chest pain Chest pain, unspecified documented in this encounter Administered Medications Inactive Administered Medications - up to 3 most recent administrations Medication Order MAR Action Action Date Dose Rate Site sodium chloride 0.9% infusion 200 mL/hr, Intravenous, CONTINUOUS, Starting on Sat11/21/21 at 0930, Until Sat11/21/21 at 1354, Cath (Day of Procedure) New Bag 2021 9:31 AM EST 200 mL/hr 200 mL/hr sodium chloride 0.9% infusion 75 mL/hr, Intravenous, CONTINUOUS, Starting on Sat11/21/21 at 1100, Until Sat11/21/21 at 1259, Recovery (Recovery-Hospital Unit) Continued Bag 2021 10:40 AM EST 75 mL/hr 75 mL/hr documented in this encounter Active and Recently [...] MD) documented in this encounter Care Teams Regional Dedicated Truck Driver Relationship Specialty Start Date End Date Rome Guerra MD [address] [place] [id number] PCP - General Emergency Medicine 10/17/21 documented as of this encounter
--- OUTSIDE RECORDS SUMMARY | 2024-11-16 13:19 | XMS_ITS | Encounter Summary ---
Author Organization [facility] [place] [address] Care Team Providers Care Lumber Chain Offbearer Name Role Phone Rome Guerra MD Primary Care Provider [phone] Encounter Details Date Type Department Care Team (Latest Contact Info) Description 05/30/2023 Travel Social History Tobacco Use Types Packs/Day [...] AM EST Office Visit Neph[place] [address] Remi Winston MD [facility] [place] [address] documented as of this encounter Visit Diagnoses Not on filedocumented in this encounter Care Teams Lumber Chain Offbearer Relationship Specialty Start Date End Date Rome Guerra MD [address] [place] [id number] PCP - General Emergency Medicine 10/17/21 documented as of this encounter
--- OUTSIDE RECORDS SUMMARY | 2024-11-16 13:19 | XMS_ITS | Encounter Summary ---
Author Organization [facility] [place] [address] Care Team Providers Care Condominium Property Manager Name Role Phone Rome Guerra MD Primary Care Provider [phone] Encounter Details Date Type Department Care Team (Latest Contact Info) Description 03/04/2024 10:00 AM EDT Laboratory Appointment Lab [address] [place] [address] CKD (chronic kidney disease) stage 4, GFR 15-29 ml/min; Sleep apnea, unspecified type; Hyperparathyroidism Social History Tobacco Use Types Packs/Day [...] AM EST Office Visit [place] [address] Remi Winston MD [facility] [place] [address] documented as of this encounter Procedures Procedure Name Priority Date/Time Associated Diagnosis Comments PROTEIN/CREATININE RATIO, URINE Routine 03/04/2024 10:30 AM EDT CKD (chronic kidney disease) stage 4, GFR 15-29 ml/min Sleep apnea, unspecified type Hyperparathyroidism U ALBUMIN/CRE RATIO Routine 03/04/2024 1 0:30 AM EDT CKD (chronic kidney disease) stage 4, GFR 15-29 ml/min Sleep apnea, unspecified type Hyperparathyroidism PTH Routine 03/04/2024 9:49 AM EDT CKD (chronic kidney disease) stage 4, GFR 15-29 ml/min Sleep apnea, unspecified type Hyperparathyroidism HEMOGRAM Routine 03/04/2024 9:49 AM EDT CKD (chronic kidney disease) stage 4, GFR 15-29 ml/min Sleep apnea, unspecified type Hyperparathyroidism DIFFERENTIAL, AUTOMATED Routine 03/04/2024 9:49 AM EDT CKD (chronic kidney disease) stage 4, GFR 15-29 ml/min Sleep apnea, unspecified type Hyperparathyroidism VITAMIN D, 25-HYDROXY Routine 03/04/2024 9:49 AM EDT CKD (chronic kidney disease) stage 4, GFR 15-29 ml/min Sleep apnea, unspecified type Hyperparathyroidism CBC (WITH DIFF) Routine 03/04/2024 9:49 AM EDT CKD (chronic kidney disease) stage 4, GFR 15-29 ml/min Sleep apnea, unspecified type Hyperparathyroidism ALBUMIN LEVEL Routine 03/04/2024 9:49 AM EDT CKD (chronic kidney disease) stage 4, GFR 15-29 ml/min Sleep apnea, unspecified type Hyperparathyroidism BASIC METABOLIC PANEL Routine 03/04/2024 9:49 AM EDT CKD (chronic kidney disease) stage 4, GFR 15-29 ml/min Sleep apnea, unspecified type Hyperparathyroidism documented in this encounter Results * U Albumin/Cre Ratio (03/04/2024 10:30 AM EDT) Albumin / Creatinin Ratio, Urine 15 0 - 29 mcg/mg Cr [facility] Comment: Reference Ranges: <30 mcg/mg: [...] 2, 357? 362 Albumin, Urine 16.1 mg/L [facility] Creatinine, Urine 110 mg/dL [facility] Urine 03/04/2024 10:3 0 AM EDT 03/04/2024 10:33 AM EDT Narrative Resulting Agency Comment Spec In Lab Remi Winston MD URINE ORDERABLES Performing Organization Address City/[facility]/ZIP Co de Phone Number [facility] [place] [address] * (ABNORMAL) Protein/Creatinine Ratio, urine (03/04/2024 10:30 AM EDT) Creatinine, Urine 110 mg/dL [facility] Protein, Urine 17(H) 0 - 12 mg/dL [facility] Protein / Creatinine Ratio, Urine 0.[address] [facility] Urine 03/04/2024 10:3 0 AM EDT 03/04/2024 10:33 AM EDT Narrative Resulting Agency Comment Spec In Lab Remi Winston MD URINE ORDERABLES [facility] [place] [address] * Differential, Automated (03/04/2024 9:49 AM EDT) Pathologist [facility] Neutrophil % 64.6 % [facility] Neutrophil Absolute 3.56 1.70 - 6.10 x10(3)/[facility] Lymph % 24.1 % [facility] Lymphocytes Abs 1.3 0.9 - 3.2 x10(3)/[facility] Monocyte % 7.6 % [facility] Monocyte Abs 0.4 0.3 - 0.9 x10(3)/[facility] Eos % 2.2 % [facility] Eosinophils Abs 0.1 0.0 - 0.4 x10(3)/[facility] Basophil % 1.1 % [facility] Baso Absolute 0.1 0.0 - 0.1 x10(3)/[facility] Immature Gran % 0.40 % [facility] Comment: Immature granulocytes(IG's)percentage and absolute count will include metamyelocytes, myelocytes, and promyelocytes. Blood smears from CBCs yielding IG's will be scanned manually for concordance. If this scan disagrees with the automated IG or if promyelocytes are noted, a manual differential will be performed. Immature Gran Absolute 0.02 0.00 - 0.04 x10(3)/[facility] Blood 03/04/2024 9:49 AM EDT 03/04/2024 9:55 AM EDT Narrative Resulting Agency Comment Spec In Lab Remi Winston MD HEMATOLOGY ORDERABLE S [facility] [place] [address] * (ABNORMAL) Hemogram (03/04/2024 9:49 AM EDT) Pathologist [facility] White Blood Cell 5.5 4.0 - 9.5 x10(3)/mc L [facility] Red Blood Cell 4.63 4.00 - 5.21 x10(6)/ L [facility] Hemoglobin 13.8 11.7 - 15.5 g/dL [facility] Hematocrit 43.9 35.7 - 45.8 % [facility] Mean Cell Volume 94.8(H) 82.6 - 94.[address] [facility] Mean Cell Hemoglobin 29.8 27.1 - 32.[address] [facility] Mean Cell Hemoglobin Concentration 31.4(L) 31.7 - 35.0 g/dL [facility] Platelet 138(L) 145 - 357 x10(3)/mc L [facility] RDW Standard Deviation 51.1(H) 37.0 - 46.[address] [facility] RDW coefficient of variation 14.7(H) 11.5 - 14.1 % [facility] Mean Platelet Volume 11.6 7.6 - 12.[address] [facility] NRBC% auto 0.0 % [facility] NRBC Absolute 0.000 0.000 - 0.000 x10(3)/mc L [facility] Blood 03/04/2024 9:49 AM EDT 03/04/2024 9:55 AM EDT Narrative Resulting Agency Comment Spec In Lab Remi Winston MD HEMATOLOGY ORDERABLE S [facility] [place] [address] * (ABNORMAL) Basic Metabolic Panel (non-fasting) (03/04/2024 9:49 AM EDT) Glucose 169 65 - 199 mg/dL [facility] Comment:Diabetes: >=200 mg/d L plus symptoms Blood Urea Nitrogen 34(H) 8 - 18 mg/dL [facility] Creatinine 2.24(H) 0.70 - 1.20 mg/dL [facility] Sodium 144 135 - 145 mmol/L [facility] Potassium 4.3 3.5 - 5.0 mmol/L [facility] Comment: Please note: ??Patients with WBC >100,000 may have falsely elevated Potassium levels. ??For accurate Potassium quantification in these patients send serum separator tube (gold top) for subsequent determinations. ??Contact the Clinical Chemistry Laboratory if there are any questions. Chloride 107 98 - 107 mmol/L [facility] Carbon Dioxide 24 22 - 31 mmol/L [facility] Anion Gap 13 5 - 15 mmol/L [facility] Calcium 9.5 8.5 - 10.5 mg/dL [facility] Est Glomerular Filtration Rate 22(L) >=60 mL/min/1. 73 m?? [facility] Comment: This patient's estimated GFR [...] Winston MD CHEMISTRY ORDERABLES Performing Organization Address City/State/[facility] Co de Phone Number [facility] [place] [address] * Albumin Level (03/04/2024 9:49 AM EDT) Albumin 4.3 3.2 - 5.2 g/dL [facility] Blood 03/04/2024 9:49 AM EDT 03/04/2024 9:55 AM EDT Narrative Resulting Agency Comment Spec In Lab Remi Winston MD CHEMISTRY ORDERABLES Performing Organization Address City/[facility]/ZIP Co de Phone Number [facility] [place] [address] * (ABNORMAL) PTH (03/04/2024 9:49 AM EDT) Parathyroid Hormone 99(H) 15 - 65 pg/mL [facility] Blood 03/04/2024 9:49 AM EDT 03/04/2024 9:55 AM EDT Narrative Resulting Agency Comment Spec In Lab Remi Winston MD CHEMISTRY ORDERABLES Performing Organization Address [facility] Co de Phone Number [facility] [place] [address] * Vitamin D, 25-Hydroxy (03/04/2024 9:49 AM EDT) Vitamin D Total 25 OH 48 21 - 100 ng/mL [facility] Vit D Interp Sufficient [facility] Blood 03/04/2024 9:49 AM EDT 03/04/2024 9:55 AM EDT Narrative Resulting Agency Comment Spec In Lab Remi Winston MD CHEMISTRY ORDERABLES Performing Organization Address [facility] Co de Phone Number [facility] [place] [address] documented in this encounter Visit Diagnoses Diagnosis CKD (chronic kidney disease) stage 4, GFR 15-29 ml/min Chronic kidney disease, Stage IV (severe) Sleep apnea, unspecified type Hyperparathyroidism Hyperparathyroidism, unspecified documented in this encounter Care Teams Condominium Property Manager Relationship Specialty Start Date End Date Rome Guerra MD [address] [place] [address] PCP - General Emergency Medicine 10/17/21 documented as of this encounter
--- OUTSIDE RECORDS SUMMARY | 2024-11-16 13:19 | XMS_ITS | Encounter Summary ---
[place] [address] Care Team Providers Care Digital Content Producer Name Role Phone Rome Guerra MD Primary Care Provider [phone] Reason for Visit * Consultation (Routine) - Closed Specialty Diagnoses / Procedures Referred By Contlaura t Referred To Contact Nephrology Diagnoses CKD (chronic kidney disease), stage IV Rome Guerra MD [phone] [facility] [place] [facility] [address] [place] [phone] Referral ID Status Reason Start Date Expiration Date V isits Requested Visits Authorized [id number] Closed Consult, Test & Treat PCP Updated and/or Approved 04/10/2023 04/09/2024 6 6 Encounter Details Date Type Department Care Team (Latest Contact Info) Description 04/23/2023 9:00 AM EDT Office Visit [place] [address] Remi Barrera MD [facility] [place] [address] CKD (chronic kidney disease) stage 4, GFR [...] Sign Reading Time Taken Comments Blood Pressure 112/64 04/23/2023 9:03 AM EDT Pulse 36 04/23/2023 9:03 AM EDT Temperature - - Respiratory Rate - - Oxygen Saturation 97% 04/23/2023 9:03 AM EDT Inhaled Oxygen Concentration - - Weight 87.3 kg (192 lb 6.4 oz) 04/23/2023 9:03 A M EDT Height - - Body Mass Index 33.03 12/28/2021 10:50 AM EST documented in this encounter Patient Instructions * Patient Instructions* Remi Barrera MD - 04/23/2023 9:00 AM EDT Check blood pressure ( BP) every day in the morning around the same time before breakfast before taking any BP medications. Empty your bladder before your reading. Sit in a comfortable chair with your back supported for at least 5 minutes before your reading. Put both feet flat on the ground and keep your legs uncrossed. Rest your arm with the cuff on a table at chest height. Make sure the blood pressure cuff is snug but not too tight. The cuff should be against your bare skin, not over clothing. Do not talk while your blood pressure is being measured. Keep a log of your blood pressure medication and bring it with you next visit. Please refer to [email or web address].validatebp.org/ for complete and updated list of validated Blood Pressure monitors: Some of them include but not limited to: Omron Complete??? Wireless [id number] Omron 10 Series?? Wireless [id number] Omron 3 Series?? [id number] Omron 5 Series?? [id number] Omron 5 Series?? Wireless [id number] Omron Evolv?? Wireless Upper Arm Blood Pressure Monitor [id number] [place] Premium Arm Blood Pressure Monitor [id number] Wrist Monitors include: Omron [id number] Omron [id number] Omron [id number] Omron [id number] documented in this encounter Progress Notes * Remi Barrera MD - 04/23/2023 9:00 AM EDT Images from the original note were not included. HYPERTENSION/ NEPHROLOGY CONSULT NOTE PATIENT: Brynn Hernandez : 1950 REASON FOR CONSULTATION: Consulted for renal insufficiency HPI: Brynn Hernandez is a 72 y.o. female with PMHx significant for DM-2 , HTN, GEOVANNA, HfPEF, renal insufficiency referred by Rome Guerra MD for CKD 4 She is to follow-up with Dr. Nelda Watts and was last seen in April 2017, and then lost to follow-up. DM-2- > 10 yrs, no retinopathy, no neuropathy. HTN- > 10 yrs Sleep apnea- she does not use CPAP machine. Urolithiasis- 2 in lifetime, last one was in 2019, stones not analyzed. Adrenal nodule- biopsied benign. Creatinine (mg/dL) Date Value 04/23/2023 3.90 (H) 11/09/2021 1.40 (H) 08/14/2019 1.94 (H) 04/29/2017 1.68 (H) 04/09/2017 1.51 (H) Creatinine (mg/dL) Date Value 01/02/2023 2.6 OSH 10/04/2022 2.8 OSH 07/04/2022 2.0 OSH 03/14/17- 2.18 egfr 20 03/22/16- 1.42 She was on Jardiance but was discontinued, she does not know why. Brynn Hernandez takes Naproxen OTC gelcap twice a week, no gout attack in the past No gross hematuria, frothy urine, no burning, nocturia once.No feeling of incomplete emptying. Has nausea with semaglutide, has occasional vomiting, takes metamucil for constipation. No rash suggestive of palpable purpura, photo sensitivity, chronic sinusitis, oral ulcers, hemoptysis, hematemesis, BRBPR, melena, small joint pain with stiffness or severe fatigue. Review of system- A 10 point review of system including cardiovascular, neurological, pulmonary, gastrointestinal wasdone, everything was negative except for what was mentioned above. Past Medical History: Diagnosis Date CKD (chronic [...] IMG S&I N/A 2021 CORONARY ANGIOGRAPHY; [facility],POSSIBLE PCI performed by Beny Monahan MD at [facility] CATH LABS Family History Problem Relation [...] Types: Cigarettes Quit date: 2013 Years since quittin.4 Smokeless tobacco: Never Vaping Use Vaping Use: [...] Prior to Visit Medication Sig Dispense Refill Psyllium Seed-Sucrose (0) Powder Take by mouth daily. 2 teaspoons daily semaglutide (Rybelsus) 3 mg tablet Take 3 mg by mouth daily. furosemide (Lasix) 40 mg tablet TAKE 1 TABLET DAILY 90 tablet 1 spironolactone (Aldactone) 25 mg Tablet Take 1 tablet by mouth daily. 90 tablet 3 felodipine ER (Plendil) 5 mg Tablet Sustained Release 24 hr Take 2 tablets by mouth daily. 90 tablet 5 nitroGLYcerin (Nitrostat) 0.4 mg Tablet, Sublingual Place [...] (E.C.) Take 81 mg by mouth daily. losartan (COZAAR) 100 mg Tablet Take 100 mg by mouth daily. rOPINIRole (REQUIP) 0.5 mg Tablet Take 1 mg by mouth nightly. [DISCONTINUED] Ibuprofen 200 mg Capsule Take by mouth daily as needed. [DISCONTINUED] meTOPROLOL succinate (TOPROL-XL) 100 mg Tablet Sustained Release 24 hr Take 200 mg by mouth daily. rosuvastatin (CRESTOR) 40 mg Tablet Take 40 mg by mouth daily. [DISCONTINUED] Lyrica 50 mg capsule [DISCONTINUED] Prevalite 4 gram Powder in Packet Take by mouth daily. No current facility-administered medications on file prior to visit. MEDICATIONS: Allergies Allergen Reactions Guaifenesin Rash Amlodipine Besylate Other (See Comments) Dizziness Celebrex [Celecoxib] Other (See Comments) Acid reflux Gabapentin Nausea Only Lipitor [Atorvastatin] Other (See Comments) myalgia Lisinopril Diarrhea Prevacid [Lansoprazole] Other (See Comments) dizziness PHYSICAL EXAM: Last value Temperature Heart Rate Heart Rate: (!) 36 Blood Pressure BP: 112/64 Respiratory Rate SpO2 SpO2: 97 % Patient is awake alert notin acute distress No jaundice Neck- supple trachea central Chest- bilateral air entry present clear to auscultation no wheeze no crepitation CVS-S1-S2 present, irregular. Abdomen-nontender nondistended, bowel sounds present. Extremities-peripheral pulses present, no edema Neuro-patient is awake alert, moving all 4 limbs, motor examination is grossly normal. No asterixis. STUDIES: Labs: CBC: Recent Labs 04/23/23 1035 WBC 7.8 HGB 11.8 PLATELET 133* Chemistry: Recent Labs 04/23/23 1035 NA 140 K 5.1* CL 106 CO2 19* BUN 77* CREATININE 3.90* GLUCOSE 173 Recent Labs 04/23/23 1035 CALCIUM 9.7 LFT's: Recent Labs 04/23/23 1035 ALBUMIN 4.5 Prot/Cre Ratio Date Value Ref Range Status 04/23/2023 0.2 ratio Final Prot/Cre Ratio (ratio) Date Value 04/23/2023 0.2 04/09/2017 0.1 Alb/Cr Ratio, Random (mcg/mg Cr) Date Value 04/23/2023 39 (H) 04/09/2017 10 Lab Results Component Value Date PTH 100 (H) 04/23/2023 CALCIUM 9.7 04/23/2023 PHOS 3.1 04/29/2017 25-OH Vit D Total (ng/mL) Date Value Status 04/09/2017 23 (L) Final IMPRESSION/ RECOMMENDATIONS: Brynn Hernandez is a 72 y.o. female with PMHx significant for DM-2 , HTN, GEOVANNA, HfPEF, renal insufficiency referred by Rome Guerra MD for CKD 4 She is to follow-up with Dr. Nelda Watts and was last seen in April 2017, and then lost to follow-up. Urine-few WBCs, squamous epithelial cells, few transitional cells as well as rare RPE is noted (unremarkable) She has history of adrenal nodule which was biopsied which showed benign tissue. #CKD Stage 4/5 -Most likely secondary to long standing DM, HTN and possible cardio renal syndrome in the setting of NSAID intake. -Her renal function has significantly deteriorated. -We will hold her losartan for the time being. -She was advised not to take NSAIDs. # Electorlytes Sodium Potassium, mildly elevated in the setting of acidosis, spironolactone, and losartan. #Acid Base - has metabolic acidosis # BMM Calcium normal Phosphorus #Hemodynamics -blood pressures is well controlled, heart rate is 36 today EKG showed sinus arrhythmia. #Hemoglobin - At target for his level of CKD # Bradycardia- EKG- Sinus jeff. Irregular with sinus arrhthmia Will decrease her metoprolol to 100 mg p.o. daily from 200 mg p.o. daily #History of urolithiasis- -Her stone was not analyzed before. Plan/Recommendations: Avoid nephrotoxic medications Please renally dose all meds. Thanks for letting us participate in the care of this patient. A total of 60 minutes was spent for reviewing chart, [id number] encounter, ordering labs/medication,documentation in the chart, and coordinating care. RTC-4 weeks with labs and ultrasound. CC-Rome Guerra MD This note was created using [employer] speech detection software which can cause occasional typographical errors. I apologize in advance if the situation occurs. Please don't hesitate to to contact us for any clarifications. Remi Barrera MD 04/23/2023 Hypertension-Nephrology documented in this encounter Plan of Treatment Upcoming Encounters Date Type Department Care Team (Late st Contact Info) Description 11/27/2024 9:00 AM EST Office Visit [place] [address] Remi Barrera MD [facility] [place] [address] documented as of this encounter Procedures Procedure Name Priority Date/Time Associated Diagnosis Comments IMMUNOGLOBULIN FREE LIGHT CHAINS, SERUM Routine 04/23/2023 10:35 AM EDT CKD (chronic kidney disease) stage 4, GFR 15-29 ml/min PTH Routine 04/23/2023 10:35 AM EDT CKD (chronic kidney disease) stage 4, GFR 15-29 ml/min HEMOGRAM Routine 04/23/2023 10:35 AM EDT CKD (chronic kidney disease) stage 4, GFR 15-29 ml/min DIFFERENTIAL, AUTOMATED Routine 04/23/20 10:35 AM EDT CKD (chronic kidney disease) stage 4, GFR 15-29 ml/min GOLD TUBE HOLD Routine 04/23/2023 10:35 AM EDT CKD (chronic kidney disease) stage 4, GFR 15-29 ml/min HEPATITIS C ANTIBODY Routine 04/23/2023 10:35 AM EDT CKD (chronic kidney disease) stage 4, GFR 15-29 ml/min HIV SCREEN, 4TH GENERATION ([facility] [place]/CGP/APD/NLH)PERFO RMABLE Routine 04/23/2023 10:35 AM EDT CKD (chronic kidney disease) stage 4, GFR 15-29 ml/min HEPATITIS B SURFACE ANTIGEN Routine 04/23/2023 10:35 AM EDT CKD (chronic kidney disease) stage 4, GFR 15-29 ml/min CBC (WITH DIFF) Routine 04/23/2023 10:35 AM EDT CKD (chronic kidney disease) stage 4, GFR 15-29 ml/min PROTEIN ELECTROPHORESIS, SERUM Routine 04/23/2023 10:35 AM EDT CKD (chronic kidney disease) stage 4, GFR 15-29 ml/min PHOSPHORUS Routine 04/23/2023 10:35 AM EDT MAGNESIUM Routine 04/23/2023 10:35 AM EDT ALBUMIN LEVEL Routine 04/23/2023 10:35 AM EDT CKD (chronic kidney disease) stage 4, GFR 15-29 ml/min BASIC METABOLIC PANEL Routine 04/23/2023 10:35 AM EDT CKD (chronic kidney disease) stage 4, GFR 15-29 ml/min EKG 12-LEAD Routine 04/23/2023 9:48 AM EDT CKD (chronic kidney disease) stage 4, GFR 15-29 ml/min Bradycardia PROTEIN/CREATININE RATIO, URINE Routine 04/23/2023 9:00 AM EDT U ALBUMIN/CRE RATIO Routine 04/23/2023 9 :00 AM EDT PROTEIN ELECTROPHORESIS, URINE, RANDOM Routine 04/23/2023 9:00 AM EDT CKD (chronic kidney disease) stage 4, GFR 15-29 ml/min Bradycardia Chronic kidney disease, stage IV (severe) Hyperkalemia documented in this encounter Results * (ABNORMAL) Protein/Creatinine Ratio, urine (05/30/2023 9:17 AM EDT) Creatinine, Urine 80 mg/dL [facility] Protein, Urine 14(H) 0 - 12 mg/dL [facility] Protein / Creatinine Ratio, Urine 0.2 ratio [facility] Urine 05/30/2023 9:17 AM EDT 05/30/2023 9:32 AM EDT Narrative Resulting Agency Comment Spec In Lab Remi Barrera MD URINE ORDERABLES Performing Organization Address City/[facility]/ZIP Co de Phone Number [facility] [place] [address] * (ABNORMAL) U Albumin/Cre Ratio (05/30/2023 9:17 AM EDT) Albumin / Creatinin Ratio, Urine 44(H) 0 - 29 mcg/mg Cr [facility] Comment: Reference Ranges: <30 mcg/mg: [...] 2, 357? 362 Albumin, Urine 35.0 mg/L [facility] Creatinine, Urine 80 mg/dL [facility] Urine 05/30/2023 9:17 AM EDT 05/30/2023 9:32 AM EDT Narrative Resulting Agency Comment Spec In Lab Remi Barrera MD URINE ORDERABLES [facility] [place] [address] * Albumin Level (05/30/2023 8:21 AM EDT) Albumin 3.9 3.2 - 5.2 g/dL [facility] Blood 05/30/2023 8:21 AM EDT 05/30/2023 8:31 AM EDT Narrative Resulting Agency Comment Spec In Lab Remi Barrera MD CHEMISTRY ORDERABLES [facility] [place] [address] * (ABNORMAL) Basic Metabolic Panel (non-fasting) (05/30/2023 8:21 AM EDT) Glucose 362(H) 65 - 199 mg/dL [facility] Comment:Diabetes: >=200 mg/d L plus symptoms Blood Urea Nitrogen 47(H) 8 - 18 mg/dL [facility] Creatinine 2.51(H) 0.70 - 1.20 mg/dL [facility] Sodium 139 135 - 145 mmol/L [facility] Potassium 4.6 3.5 - 5.0 mmol/L [facility] Comment: Please note: ??Patients with WBC >100,000 may have falsely elevated Potassium levels. ??For accurate Potassium quantification in these patients send serum separator tube (gold top) for subsequent determinations. ??Contact the Clinical Chemistry Laboratory if there are any questions. Chloride 104 98 - 107 mmol/L [facility] Carbon Dioxide 24 22 - 31 mmol/L [facility] Anion Gap 11 5 - 15 mmol/L [facility] Calcium 9.5 8.5 - 10.5 mg/dL [facility] Est Glomerular Filtration Rate 20(L) >=60 mL/min/1. 73 m?? [facility] Comment: This patient's estimated GFR [...] Resulting Agency Comment Spec In Lab Remi Barrera MD CHEMISTRY ORDERABLES [facility] [place] [address] * US Retroperitoneal Complete (05/30/2023 8:06 AM [...] who have questions, please contact the health resident care manager rn that requested your imaging first. ?Elvis Jiménez, Staff Physician Electronically Signed Final Report ?? 05/30/2023 09:21 am Narrative 05/30/2023 9:22 AM EDT Renal ? (Signed Final 05/30/2023 09:21 am) PATIENT INFO: ID #: ? [id number] ?: ??[birth year] (72 yrs)(F) Name: ? BRYNN HERNANDEZ ? Visit Date: 05/30/2023 08:03 am PERFORMED BY: Attending: ?Jessy CARBAJAL, Elvis Juan Performed By: ? Zac RDClementina DONOVAN Referred By: ?REMI BARRERA Location: ? [place] SERVICE(S) PROVIDED: URETRO - Retroperitoneal Complete - [id number] ? [id number] INDICATIONS: ckd, hyperkalemia COMPARISON: CT scan: 08/12/19 [...] 05/30/2023 09:21 am) PATIENT INFO: ID #: [id number] : [birth year] (72 yrs)(F) Name: BRYNN HERNANDEZ Visit Date: 05/30/2023 08:03 am PERFORMED BY: Attending: Elvis Jiménez MD Performed By: Clementina Frank RDMS Referred By: REMI BARRERA Location: [place] SERVICE(S) PROVIDED: URETRO - Retroperitoneal Complete - [id number] INDICATIONS: ckd, hyperkalemia COMPARISON: CT scan: 08/12/19 [...] who have questions, please contact the health resident care manager rn that requested your imaging first. Elvis Jiménez, Staff Physician Electronically Signed Final Report 05/30/2023 09:21 am Remi Barrera MD IM US GEN ORDERABLE S * Magnesium (04/23/2023 10:35 AM EDT) Magnesium 0.99 0.69 - 1.07 mmol/L [facility] Blood Venous Draw / Unknown 04/23/2023 10:35 AM EDT 04/23/2023 11:12 AM EDT Narrative Resulting Agency Comment Spec In Lab Remi Barrera MD CHEMISTRY ORDERABLES Performing Organization Address City/[facility]/ZIP Co de Phone Number [facility] [place] [address] * Phosphorus (04/23/2023 10:35 AM EDT) Phosphorus 4.4 2.5 - 4.5 mg/dL [facility] Blood Venous Draw / Unknown 04/23/2023 10:35 AM EDT 04/23/2023 11:12 AM EDT Narrative Resulting Agency Comment Spec In Lab Remi Barrera MD CHEMISTRY ORDERABLES Performing Organization Address City/[facility] Co de Phone Number [facility] [place] [address] * Differential, Automated (04/23/2023 10:35 AM EDT) Neutrophil % 71.2 % [facility] Neutrophil Absolute 5.58 1.70 - 6.10 x10(3)/[facility] Lymph % 18.2 % [facility] Lymphocytes Abs 1.4 0.9 - 3.2 x10(3)/[facility] Monocyte % 8.2 % [facility] Monocyte Abs 0.6 0.3 - 0.9 x10(3)/[facility] Eos % 1.5 % [facility] Eosinophils Abs 0.1 0.0 - 0.4 x10(3)/[facility] Basophil % 0.6 % [facility] Baso Absolute 0.0 0.0 - 0.1 x10(3)/[facility] Immature Gran % 0.30 % [facility] Comment: Immature granulocytes(IG's)percentage and absolute count will include metamyelocytes, myelocytes, and promyelocytes. Blood smears from CBCs yielding IG's will be scanned manually for concordance. If this scan disagrees with the automated IG or if promyelocytes are noted, a manual differential will be performed. Immature Gran Absolute 0.02 0.00 - 0.04 x10(3)/[facility] Blood 04/23/2023 10:3 5 AM EDT 04/23/2023 11:08 AM EDT Narrative Resulting Agency Comment Spec In Lab Remi Barrera MD HEMATOLOGY ORDERABLE S [facility] [place] [address] * (ABNORMAL) Hemogram (04/23/2023 10:35 AM EDT) White Blood Cell 7.8 4.0 - 9.5 x10(3)/mc L [facility] Red Blood Cell 3.95(L) 4.00 - 5.21 x10(6)/mc L [facility] Hemoglobin 11.8 11.7 - 15.5 g/dL [facility] Hematocrit 37.0 35.7 - 45.8 % [facility] Mean Cell Volume 93.7 82.6 - 94.4 fL [facility] Mean Cell Hemoglobin 29.9 27.1 - 32.0 pg [facility] Mean Cell Hemoglobin Concentration 31.9 31.7 - 35.0 g/dL [facility] Platelet 133(L) 145 - 357 x10(3)/mc L [facility] RDW Standard Deviation 47.0(H) 37.0 - 46.0 fL [facility] RDW coefficient of variation 13.7 11.5 - 14.1 % [facility] Mean Platelet Volume 12.9 7.6 - 12.9 fL [facility] NRBC% auto 0.0 % [facility] NRBC Absolute 0.000 0.000 - 0.000 x10(3)/mc L [facility] Blood 04/23/2023 10:3 5 AM EDT 04/23/2023 11:08 AM EDT Narrative Resulting Agency Comment Spec In Lab Remi Barrera MD HEMATOLOGY ORDERABLE S [facility] [place] [address] * Gold Tube HOLD (04/23/2023 10:35 AM EDT) Gold Hold Sample in lab. [facility] Blood 04/23/2023 10:3 5 AM EDT 04/23/2023 11:08 AM EDT Remi Barrera MD CHEMISTRY ORDERABLES Performing Organization Address City/[facility] Co de Phone Number [facility] [place] [address] * (ABNORMAL) PTH (04/23/2023 10:35 AM EDT) Parathyroid Hormone 100(H) 15 - 65 pg/mL [facility] Blood 04/23/2023 10:3 5 AM EDT 04/23/2023 11:08 AM EDT Narrative Resulting Agency Comment Spec In Lab Remi Barrera MD CHEMISTRY ORDERABLES Performing Organization Address [facility] de Phone Number [facility] [place] [address] * HIV Screen, 4th Generation ([facility]/CGP/APD/NLH) (04/23/2023 10:35 AM EDT) HIV Ab/Ag Screen Negative Negative [facility] Comment: This 4th Generation HIV test screens for the presence of the HIV-1 p24 antigen as well as antibodies reactive against HIV-1 and HIV-2. A negative screen does not rule out an acute HIV infection. If acute HIV infection is suspected, testing should be repeated in 2 - 3 weeks or HIV nucleic acid testing performed. HIV Comment Low Risk of HIV Infection [facility] Blood 04/23/2023 10:3 5 AM EDT 04/23/2023 11:08 AM EDT Narrative Resulting Agency Comment Spec In Lab Remi Barrera MD CHEMISTRY ORDERABLES Performing Organization Address [facility] Co de Phone Number [facility] [place] [address] * Hepatitis B Surface Antigen (04/23/2023 10:35 AM EDT) Hepatitis B Surface Antigen Negative Negative [facility] Blood 04/23/2023 10:3 5 AM EDT 04/23/2023 11:08 AM EDT Narrative Resulting Agency Comment Spec In Lab Remi Barrera MD CHEMISTRY ORDERABLES Performing Organization Address [facility] Co de Phone Number [facility] [place] [address] * Hepatitis C Antibody (04/23/2023 10:35 AM EDT) Pathologist [facility] Hepatitis C Antibody Negative Negative [facility] Blood 04/23/2023 10:3 5 AM EDT 04/23/2023 11:08 AM EDT Narrative Resulting Agency Comment Spec In Lab Remi Barrera MD CHEMISTRY ORDERABLES Performing Organization Address [facility] de Phone Number [facility] [place] [address] * (ABNORMAL) Protein Electrophoresis, serum (04/23/2023 10:35 AM EDT) Pathologist [facility] Total Prot Electrophoresis 7.6 6.1 - 8.0 g/dL [facility] Albumin Electrophoresis 4.67 3.20 - 5.20 g/dL [facility] Alpha 1 Globulin 0.17 0.10 - 0.30 g/dL [facility] Alpha 2 Globulin 0.91(H) 0.40 - 0.90 g/dL [facility] Beta Globulin 0.86 0.50 - 1.00 g/dL [facility] Gamma Globulin 1.00 0.50 - 1.30 g/dL [facility] M1 Band None Detected None Detected [facility] Blood 04/23/2023 10:3 5 AM EDT 04/23/2023 11:08 AM EDT Narrative Resulting Agency Comment Spec In Lab Remi Barrera MD CHEMISTRY ORDERABLES Performing Organization Address [facility] Co de Phone Number [facility] [place] [address] * (ABNORMAL) Free Light Chains, Serum (04/23/2023 10:35 AM EDT) Pathologist [facility] [place] Free Light Chain 8.52(H) 0.72 - 2.75 mg/dL [facility] Lambda Free Light Chain 5.33(H) 0.57 - 2.15 mg/dL [facility] [place]/Lambda FLC Ratio 1.5985 0.4000 - 2.5800 [facility] Blood 04/23/2023 10:3 5 AM EDT 04/23/2023 11:08 AM EDT Narrative Resulting Agency Comment Spec In Lab Remi Barrera MD CHEMISTRY ORDERABLES Performing Organization Address City/[facility] Co de Phone Number [facility] [place] [address] * Albumin Level (04/23/2023 10:35 AM EDT) Albumin 4.5 3.2 - 5.2 g/dL [facility] Blood 04/23/2023 10:3 5 AM EDT 04/23/2023 11:08 AM EDT Narrative Resulting Agency Comment Spec In Lab Remi Barrera MD CHEMISTRY ORDERABLES Performing Organization Address [facility] [facility] de Phone Number [facility] [place] [address] * (ABNORMAL) Basic Metabolic Panel (non-fasting) (04/23/2023 10:35 AM EDT) Glucose 173 65 - 199 mg/dL [facility] Comment:Diabetes: >=200 mg/d L plus symptoms Blood Urea Nitrogen 77(H) 8 - 18 mg/dL [facility] Creatinine 3.90(H) 0.70 - 1.20 mg/dL [facility] Sodium 140 135 - 145 mmol/L [facility] Potassium 5.1(H) 3.5 - 5.0 mmol/L [facility] Comment: Please note: ??Patients with WBC >100,000 may have falsely elevated Potassium levels. ??For accurate Potassium quantification in these patients send serum separator tube (gold top) for subsequent determinations. ??Contact the Clinical Chemistry Laboratory if there are any questions. Chloride 106 98 - 107 mmol/L [facility] Carbon Dioxide 19(L) 22 - 31 mmol/L [facility] Anion Gap 15 5 - 15 mmol/L [facility] Calcium 9.7 8.5 - 10.5 mg/dL [facility] Est Glomerular Filtration Rate 12(L) >=60 mL/min/1. 73 m?? [facility] Comment: This patient's estimated GFR [...] and symptoms in addition to eGFR. Blood 04/23/2023 10:3 5 AM EDT 04/23/2023 11:08 AM EDT Narrative Resulting Agency Comment Spec In Lab Remi Barrera MD CHEMISTRY ORDERABLES Performing Organization Address City/[facility]/ZIP Co de Phone Number [facility] [place] [address] * EKG 12 Lead (04/23/2023 9:48 AM EDT) Ventricular rate 46 BPM MUSE SYSTEM Atrial Rate 46 BPM MUSE SYSTEM P-R Interval 162 ms MUSE SYSTEM QRS Duration 94 ms MUSE SYSTEM Q-T Interval 482 ms MUSE SYSTEM QTC Calculated (Bezet) 421 ms MUSE SYSTEM Calculated P Delta 63 degrees MUSE SYSTEM Calculated R Delta 17 degrees MUSE SYSTEM Calculated T Delta 32 degrees MUSE SYSTEM INTERPRETATION Sinus bradycardia with marked sinus arrhythmia Low voltage QRS Borderline ECG When compared with ECG of 28-DEC-2021 10:55, No significant change was found Confirmed by MD Andi, Bob ([id number]) on 04/23/2023 9:39:23 PM MUSE SYSTEM 04/23/2023 9:48 AM EDT 04/23/2023 9:39 PM EDT Remi Barrera MD ECG ORDERABLES Performing Organization Address City/[facility]/ZIP Co de Phone Number MUSE SYSTEM * (ABNORMAL) Protein/Creatinine Ratio, urine (04/23/2023 9:00 AM EDT) Creatinine, Urine 161 mg/dL [facility] Protein, Urine 32(H) 0 - 12 mg/dL [facility] Protein / Creatinine Ratio, Urine 0.2 ratio [facility] Urine Urine / Unknown 04/23/2023 9 :00 AM EDT 04/23/2023 1:34 PM EDT Narrative Resulting Agency Comment Spec In Lab Remi Barrera MD URINE ORDERABLES Performing Organization Address City/[facility]/ZIP Co de Phone Number [facility] [place] [address] * (ABNORMAL) U Albumin/Cre Ratio (04/23/2023 9:00 AM EDT) Albumin / Creatinin Ratio, Urine 39(H) 0 - 29 mcg/mg Cr [facility] Comment: Reference Ranges: <30 mcg/mg: [...] Supplements (2012) 2, 357? 362 Albumin, Urine 62.7 mg/L [facility] Creatinine, Urine 161 mg/dL [facility] Urine Urine / Unknown 04/23/2023 9 :00 AM EDT 04/23/2023 1:34 PM EDT Narrative Resulting Agency Comment Spec In Lab Remi Barrera MD URINE ORDERABLES Performing Organization Address City/[facility]/ZIP Co de Phone Number [facility] [place] [address] * (ABNORMAL) Protein Electrophoresis, urine, random (04/23/2023 9:00 AM EDT) Protein, Urine 32(H) 0 - 12 mg/dL [facility] U Albumin 33 % total [facility] Globulin, Urine 67 % total [facility] M1 Band, Urine None Detected [facility] UPEP Comments See Note [facility] Comment: There is no evidence of clonal free light chains in this patient's urine sample. Urine 04/23/2023 9:00 AM EDT 04/23/2023 1:34 PM EDT Narrative Resulting Agency Comment Spec In Lab Remi Barrera MD URINE ORDERABLES Performing Organization Address City/State/[facility] Co de Phone Number [facility] [place] [address] documented in this encounter Visit Diagnoses Diagnosis CKD (chronic kidney disease) stage 4, GFR 15-29 ml/min Chronic kidney disease, Stage IV (severe) Bradycardia Other specified cardiac dysrhythmias Chronic kidney disease, stage IV (severe) Chronic kidney disease, Stage IV (severe) Hyperkalemia Hyperpotassemia CKD (chronic kidney disease) stage 4, GFR 15-29 ml/min Chronic kidney disease, Stage IV (severe) Bradycardia Other specified cardiac dysrhythmias Chronic kidney disease, stage IV (severe) Chronic kidney disease, Stage IV (severe) Hyperkalemia Hyperpotassemia documented in this encounter Care Teams Digital Content Producer Relationship Specialty Start Date End Date Rome Guerra MD [address] [place] [id number] PCP - General Emergency Medicine 10/17/21 documented as of this encounter
--- OUTSIDE RECORDS SUMMARY | 2024-11-16 13:19 | XMS_ITS | Encounter Summary ---
Author Organization [facility] Address [facility] [place] [address] Care Team Providers Care Waste Machine Tender Name Role Phone Rome Guerra MD Primary Care Provider [phone] Reason for Referral * Consultation (Routine) - Closed Specialty Diagnoses / Procedures Referred By Contac t Referred To Contact Sleep Center Diagnoses Suspected sleep apnea Remi Winston MD [facility] [place] [address] [address] [place] [address] Referral ID Status Reason Start Date Expiration Date V isits Requested Visits Authorized [id number] Closed Consult, Test & Treat 03/04/2024 08/31/2024 1 1 Encounter Details Date Type Department Care Team (Latest Contact Info) Description 03/04/2024 11:30 AM EDT Office Visit [place] [address] Remi Winston MD [facility] [place] [address] CKD (chronic kidney disease) stage 4, GFR 15-29 ml/min; Hyperkalemia; Suspected sleep apnea Social History Tobacco Use Types Packs/Day Years [...] Pulse 76 03/04/2024 11:22 AM EDT Temperature - - Respiratory Rate - - Oxygen Saturation 99% 03/04/2024 11:22 AM EDT Inhaled Oxygen Concentration - - Weight 84.2 kg (185 lb 9.6 oz) 03/04/2024 11:22 AM EDT Height 162.6 cm (5' 4.02) 03/04/2024 11:22 AM E DT Body Mass Index 31.84 03/04/2024 11:22 AM EDT documented in this encounter Patient Instructions * Patient Instructions* Remi Winston MD - 03/04/2024 11:30 AM EDT Check blood pressure at home in the morning, before taking any blood pressure medications, empty bladder, resting comfortably on a chair, back resting, feet on the floor, hands resting on a table, ideally before taking any coffee or tea and keep a log. Low salt diet. BMP at [facility] in 2 weeks documented in this encounter Progress Notes * Remi Winston MD - 03/04/2024 11:30 AM EDT Images from the original note were not included. HYPERTENSION/ NEPHROLOGY PROGRESS NOTE PATIENT: Brynn Khalil : 1950 REASON FOR CONSULTATION: Consulted for renal insufficiency HPI: Brynn Khalil is a 73 y.o. female with PMHx significant for DM-2 , HTN, GEOVANNA, HfPEF, renal insufficiency seen in nephrology clinic for CKD 4 She is to follow-up with nephrology clinic till 2017, and then lost to follow- up, but re engaged with nephrology in March 2023. DM-2- > 10 yrs, no retinopathy, no neuropathy. HTN- > 10 yrs Sleep apnea- she does not use CPAP machine. Urolithiasis- 2 in lifetime, last one was in 2019, stones not analyzed. Adrenal nodule- biopsied benign. Creatinine (mg/dL) Date Value 03/04/2024 2.24 (H) 12/05/2023 2.18 (H) 08/19/2023 2.29 (H) 05/30/2023 2.51 (H) 04/23/2023 3.90 (H) 11/09/2021 [...] 12.8 cm and leftkidney size 10.5 cm. Brynn Khalil takes Naproxen OTC gelcap twice a week, which she later stopped. She was admitted at [facility] overnight for COVID in June 2023. Interval history: Had upper respiratory infection with shortness of breath during this winter for which she was on prednisone and was treated at [facility]. She started gaining weight and has some leg edema related to that and she is currently off prednisone for more than a month. Does not take any NSAIDs, checks her blood pressure at home usually runs in the 130s but see forgotto bring her log. She was referred to sleep medicine, but unfortunately she has not received any call regarding appointment yet will refill refer her to [facility]. ROS: 4 point review of sytem was [...] IMG S&I N/A 2021 CORONARY ANGIOGRAPHY; W LHC,POSSIBLE PCI performed by Beny Monahan MD at [facility] CATH LABS Family History Problem Relation Age [...] Types: Cigarettes Quit date: 2013 Years since quittin.3 Smokeless tobacco: Never Vaping Use Vaping Use: [...] on file Physical Activity: Not on file Intimate Partner Violence: Not on file Housing Stability: Not on file Outpatient medications: Current Outpatient Medications on File Prior to Visit Medication Sig Dispense Refill dulaglutide (Trulicity) 3 mg/0.5 mL Pen Injector Inject 3 mg subcutaneously once a week. Lantus Solostar U-100 Insulin 100 unit/mL (3 mL) pen start 8U sc at bedtime, increase gradually to max 20U BD Ultra-Fine Short Pen Needle 31 gauge x 5/16 Needle empagliflozin (Jardiance) 10 mg tablet Take 1 tablet by mouth daily. 30 tablet 5 cholecalciferol (Vitamin D3) 1,000 unit tablet Take 1 tablet by mouth daily. 90 tablet 11 felodipine (Plendil) 10 mg ER 24 hr [...] needed for Chest pain. 90 tablet 12 pantoprazole EC (Protonix) 40 mg Tablet, Delayed Release (E.C.) Take 40 mg by mouth daily. glipiZIDE (Glucotrol) 5 mg Tablet Take 10 mg by mouth daily. aspirin 81 mg Tablet, Delayed Release (E.C.) Take 81 mg by mouth daily. rOPINIRole (REQUIP) 0.5 mg Tablet Take 1 mg by mouth nightly. rosuvastatin (CRESTOR) 40 mg Tablet Take 40 mg by mouth daily. [DISCONTINUED] amoxicillin-clavulanate (Augmentin) 875-125 mg tablet [DISCONTINUED] benzonatate (Tessalon) 100 mg capsule [DISCONTINUED] cephALEXin (Keflex) 500 mg capsule [DISCONTINUED] HYDROcodone-acetaminophen ([place]) 5-325 mg tablet [DISCONTINUED] ibuprofen (Advil) 600 mg tablet Take 1 tablet by mouth every 8 hours as needed for Pain. [DISCONTINUED] predniSONE (Deltasone) 20 mg tablet No current facility-administered medications on file prior to visit. MEDICATIONS: Allergies Allergen Reactions Metformin Other Reaction(s): Diarrhea Guaifenesin Rash Amlodipine Besylate Other (See Comments) Dizziness Celebrex [Celecoxib] Other (See Comments) Acid reflux Gabapentin Nausea Only Lipitor [Atorvastatin] Other (See Comments) myalgia Lisinopril Diarrhea Prevacid [Lansoprazole] Other (See Comments) dizziness Amlodipine-Benazepril Other Reaction(s): dizziness Diltiazem Other Reaction(s): dizziness, Other (See Comment) Duloxetine Nausea Only Other Reaction(s): Other (See Comment) PHYSICAL EXAM: Last value Temperature Heart Rate Heart Rate: 76 Blood Pressure BP: 138/69 Respiratory Rate SpO2 SpO2: 99 % Patient is awake alert notin acute distress No jaundice Neck- supple trachea central Chest- bilateral air entry present clear to auscultation no wheeze no crepitation CVS-S1-S2 present, irregular. Abdomen-nontender nondistended, bowel sounds present. Extremities-peripheral pulses present, no edema Neuro-patient is awake alert, moving all 4 limbs, motor examination is grossly normal. No asterixis. STUDIES: Labs: CBC: Recent Labs 03/04/24 0949 12/05/23 0756 08/19/23 0840 WBC 5.5 6.6 6.6 HGB 13.8 12.7 12.3 PLATELET 138* 144* 138* Chemistry: Recent Labs 03/04/24 0949 12/05/23 0756 08/19/23 0840 NA 144 142 138 K 4.3 4.3 4.1 CL 107 105 101 CO2 BUN 34* 39* 41* CREATININE 2.24* 2.18* 2.29* GLUCOSE 169 208* 439* Recent Labs 03/04/24 0949 12/05/23 0756 08/19/23 0840 CALCIUM 9.5 9.6 9.5 LFT's: Recent Labs 03/04/24 0949 12/05/23 0756 08/19/23 0840 ALBUMIN 4.3 4.3 4.1 Prot/Cre Ratio Date Value Ref Range Status 12/05/2023 0.1 ratio Final Prot/Cre Ratio (ratio) Date Value 12/05/2023 0.1 08/19/2023 0.3 05/30/2023 0.2 04/23/2023 0.2 04/09/2017 0.1 Alb/Cr Ratio, Random (mcg/mg Cr) Date Value 12/05/2023 32 (H) 08/19/2023 61 (H) 05/30/2023 44 (H) 04/23/2023 39 (H) 04/09/2017 10 Lab Results Component Value Date PTH 99 (H) 03/04/2024 CALCIUM 9.5 03/04/2024 PHOS 4.4 04/23/2023 25-OH Vit D Total (ng/mL) Date Value Status 03/04/2024 48 Final IMPRESSION/ RECOMMENDATIONS: Brynn Khalil is a 72 y.o. female with PMHx significant for DM-2 , HTN, GEOVANNA, HfPEF, renal insufficiency referred by Rome Guerra MD for CKD 4 Urine-few WBCs, squamous epithelial cells, few transitional [...] atrophy has progressed since the last ultrasound,? - Creat stable. -On Jardiance, on GLP-1 receptor agonist. -Restarted losartan -CV protection on statin # Electorlytes Sodium and potassium are normal. #Acid Base - has metabolic acidosis which is well controlled on OTC bicarbonate pills # BMM Calcium normal. Her vitamin D within normal limits on vitamin D3 at 1000 units daily. PTH elevated, likely due to secondary hyperparathyroidism. #Hemodynamics -She had bradycardia with heart rate of 36 during previous evaluations, but her heart rate is normal with -Currently on felodipine 10 mg, Lasix 40 mg, metoprolol succinate 100 mg daily, spironolactone 25 mg p.o. daily - -She was started on Spironolactone by her antique dealer Dr. Michaels for better control of her blood pressure on 12/28/22 -Will stop her spironolactone will start her on losartan 50 mg, -BMP in 2 weeks at [facility] #Hemoglobin - She is not anemic. # Bradycardia- - resolved. -Currently on metoprolol to 100 mg p.o. (she was previously on metoprolol XL 200 mg p.o. daily) #History of urolithiasis- -Her stone was not analyzed before. - No stones detected in kidneys on US done on 05/30/2023, - Avised her to increase her fluid intake to ~ 90 Oz daily Plan/Recommendations: Continue Jardiance. Stop spironolactone Will start losartan 50 mg, with plan to increase it to 100 mg Continued home blood pressure monitoring. Discussed about her CKD 4 and need for dialysis in the future years. Referral to sleep medicine. A total of 40 minutes was spent for reviewing chart, [id number] encounter, ordering labs/medication,documentation in the chart, and coordinating care. RTC-early August CC-Rome Guerra MD This note was created using [employer] speech detection software which can cause occasional typographical errors. I apologize in advance if the situation occurs. Please don't hesitate to to contact us for any clarifications. Remi Winston MD 03/04/2024 Hypertension-Nephrology documented in this encounter Plan of Treatment Upcoming Encounters Date Type Department Care Team (Late st Contact Info) Description 11/27/2024 9:00 AM EST Office Visit [place] [address] Remi Winston MD [facility] [place] [address] Scheduled Orders Name Type Priority Associated Diagnoses Orde r Schedule Basic Metabolic Panel (non-fasting) Lab Routine CKD (chronic kidney disease) stage 4, GFR 15-29 ml/min Hyperkalemia Expected: 03/18/2024 (Approximate), Expires: 03/04/2025 Scheduled Referrals Name Type Priority Associated Diagnoses Orde r Schedule Referral to Sleep Disorders Center Outpatient Referral Routine Suspected sleep apnea Ordered: 03/04/2024 documented as of this encounter Visit Diagnoses Diagnosis CKD (chronic kidney disease) stage 4, GFR 15-29 ml/min Chronic kidney disease, Stage IV (severe) Hyperkalemia Hyperpotassemia Suspected sleep apnea documented in this encounter Care Teams Waste Machine Tender Relationship Specialty Start Date End Date Rome Guerra MD [address] [place] [address] PCP - General Emergency Medicine 10/17/21 documented as of this encounter
--- OUTSIDE RECORDS SUMMARY | 2024-11-16 13:19 | XMS_ITS | Encounter Summary ---
Author Organization [facility] Address [facility] [place] [address] Care Team Providers Care Vault Cashier Name Role Phone Rome Guerra MD Primary Care Provider [phone] Encounter Details Date Type Department Care Team (Latest Contact Info) Description 12/05/2023 Travel Social History Tobacco Use Types Packs/Day [...] AM EST Office Visit [place] [address] [facility] [place] [address] documented as of this encounter Visit Diagnoses Not on filedocumented in this encounter Care Teams Vault Cashier Relationship Specialty Start Date End Date Rome Guerra MD [address] [place] [id number] PCP - General Emergency Medicine 10/17/21 documented as of this encounter
--- OUTSIDE RECORDS SUMMARY | 2024-11-16 13:19 | XMS_ITS | Encounter Summary ---
Author Organization Formerly [facility] [place] [address] Care Team Providers Care Shank Breaker Name Role Phone Rome Guerra MD Primary Care Provider [phone] Reason for Visit * Consultation (Routine) - Closed Specialty Diagnoses / Procedures Referred By Contac t Referred To Contact Cardiology Diagnoses Other chest pain exertional chest pain, positive stress test *scanned docs* Rome Guerra MD [address] [place] [address] [facility] Card[facility] [address] [place] [phone] Referral ID Status Reason Start Date Expiration Date Visits Re quested Visits Authorized [id number] Closed 10/13/2021 01/05/2022 12 12 Encounter Details Date Type Department Care Team (Latest Contact Info) Description 12/28/2021 11:00 AM EST Office Visit Cardiology at [address] [phone] Yonathan Collins MD Liu, Spencer D, MD Secondary hypertension; Hyperlipidemia, unspecified hyperlipidemia type; GEOVANNA (obstructive sleep apnea); Exertional chest pain; Dyspnea, unspecified type Social History Tobacco Use Types Packs/Day Years [...] Sign Reading Time Taken Comments Blood Pressure 150/75 12/28/2021 10:50 AM EST Pulse 76 12/28/2021 10:50 AM EST Temperature - - Respiratory Rate - - Oxygen Saturation 99% 12/28/2021 10: 50 AM EST Inhaled Oxygen Concentration - - Weight 88.8 kg (195 lb 11.2 oz) 022 10:50 AM EST Height 162.6 cm (5' 4) 12/28/2021 10:5 0 AM EST reported Body Mass Index 33.59 12/28/2021 10:50 AM EST documented in this encounter Patient Instructions * Patient Instructions* Yifan Michaels MD - 12/28/2021 11:20 AM EST You will start a new medication called spironolactone. It is 25 mg a day. We will order you a lung function test. documented in this encounter Progress Notes * Yifan Michaels MD - 12/28/2021 11:00 AM EST Images from the original note were not included. [facility] [place] [phone] CARDIOLOGY OUTPATIENT NEW PATIENT NOTE PRIMARY CARE PROVIDER: Rome Guerra MD Subjective: Patient ID: Brynn Khalil is a 71 y.o. female PMH HTN, HLD, DM, CKD, GEOVANNA (doesn't use CPAP) who presents for follow up. HPI: She was last seen by me on 11/09/2021. At that time she noted continued angina/dyspnea and her nuclear stress was equivocal for ischemia. She underwent a coronary angiogram on 2021 and was found to have nonobstructive CAD but elevated filling pressures (EDP 23 mmHg). She was therefore started on lasix 40 mg daily. Today she returns for follow-up. Unfortunately she continues to complain of dyspnea on exertion andoccasional dyspnea at rest. She does not report any improvement in her symptoms since starting Lasix. She reports that however her chest pain has improved. She notes that she does get easily winded when walking around her house. She has been recording her blood pressure at home and upon review today her systolic blood pressure is on average above 140. She has been taking all of her medications without any side effects. She occasionally has some dizziness. Review Of Systems: As above, otherwise 12 point review of systems is unremarkable. Family history: Family History Problem Relation Age of Onset ??? Hypertension Mother ??? Kidney Disease Neg Hx ??? Diabetes Neg Hx Social history: Social History Tobacco Use ??? Smoking status: Former Smoker Quit date: 2013 Years since quittin.1 ??? Smokeless tobacco: Never Used Substance Use Topics ??? Alcohol use: Not Currently ??? Drug use: Never PROBLEM LIST: Patient Active Problem List Diagnosis ??? Dyspnea ??? Exertional chest pain Exercise MPI 10/13/2021: Cardiac Catheterization 2021: Conclusions: * Nonobstructive coronary artery disease * Elevated left ventricular end diastolic pressure ??? Vitamin D deficiency ??? Low HDL [...] Outpatient Medications Medication Sig Dispense Refill ??? furosemide (Lasix) 40 mg Tablet Take 1 tablet by mouth daily. 90 tablet 3 ??? nitroGLYcerin (Nitrostat) 0.4 mg Tablet, Sublingual Place 1 tablet under the tongue every 5 minutes as needed for Chest pain. (Patient taking differently: Place 0.4 mg under the tongue every 5 minutes as needed for Chest pain.) 90 tablet 12 ??? Januvia 25 mg Tablet ??? pantoprazole EC (Protonix) 40 mg Tablet, Delayed Release (E.C.) Take 40 mg by mouth daily. ??? Prevalite 4 gram Powder in Packet Take by mouth daily. ??? glipiZIDE (Glucotrol) 5 mg Tablet Take 10 mg by mouth 2 times daily (before meals). ??? aspirin 81 mg Tablet, Delayed Release (E.C.) Take 81 mg by mouth daily. ??? Ibuprofen 200 [...] Take 40 mg by mouth daily. ??? spironolactone (Aldactone) 25 mg Tablet Take 1 tablet by mouth daily. 90 tablet 3 ??? felodipine ER (Plendil) 5 mg Tablet Sustained Release 24 hr Take 2 tablets by mouth daily. 90 tablet 5 No current facility-administered medications for this visit. Objective: Patient Vitals for the past 24 hrs: Pulse BP SpO2 12/28/21 1050 76 150/75 99 % Physical Exam Vitals reviewed. Constitutional: Appearance: She is well-developed. HENT: Head: Normocephalic and atraumatic. Eyes: Pupils: Pupils are equal, round, and reactive to light. Cardiovascular: Rate and Rhythm: Normal rate and regular rhythm. Heart sounds: Normal heart sounds. No murmur heard. No friction rub. Pulmonary: Effort: Pulmonary effort is normal. No respiratory distress. Breath sounds: Normal breath sounds. No wheezing or rales. Abdominal: General: Bowel sounds are normal. Palpations: Abdomen is soft. Skin: General: Skin is warm and dry. Neurological: Mental Status: She is alert and oriented to person, place, and time. Last 3 wbc, hgb, hct plt Recent Labs 11/09/21 1030 WBC 7.0 HGB 9.5* HCT 30.4* PLATELET 178 Last 3 Lytes Recent Labs 11/09/21 1030 NA 140 K 4.6 CL 110* CO2 23 BUN 23* CREATININE 1.40* EKG: Sinus arrhythmia with bradycardia Cath: 10/2021 Resting: Syst Diast EDP a v m Ao 175 58 98 LV 175 23 Coronary Angiography: Dominance: Right Left Main The left main was normal, free of disease. Left Anterior Descending There was mild diffuse (<=25% stenosis) disease of the entire vessel segment of the left anterior descending artery (LAD). Left Circumflex There was mild diffuse (<=25% stenosis) disease of the entire vessel segment of the left circumflex artery (LCX). Right Coronary Artery There was mild diffuse (<=25% stenosis) disease of the entire vessel segment of the right coronary artery (RCA). High anterior takeoff. Vascular Access: Vascular Access Management: Mechanical Compression of the right radial artery access site was performed. Conclusions: * Nonobstructive coronary artery disease * Elevated left ventricular end diastolic pressure Assessment and Plan: GEOVANNA (obstructive sleep apnea) She has been diagnosed with GEOVANNA but does not use a CPAP machine. I explained that controlling her GEOVANNA may improve her HTN as well. I offered her to re-engage with the sleep team but she declines at this time. Dyspnea She most likely has a component of [...] undergo PFTs as well. Exertional chest pain Improved and at this time no further testing given her cardiac cath showed nonobstructive disease. HTN (hypertension) Her BP continues to be elevated and upon review of her BP log it appears that her SBP is generally above 140. The goal will be <130. I will start her spironolactone and she will follow up in 3 months. Yifan Mihcaels MD Interventional Alarm Signaler, PGY-7 P: [id number] documented in this encounter Miscellaneous Notes * Assessment & Plan Note - Yifan Michaels MD - 12/28/2021 11:53 AM EST Associated Problem(s): HTN (hypertension) Her BP continues to be elevated and upon review of her BP log it appears that her SBP is generally above 140. The goal will be <130. I will start her spironolactone and she will follow up in 3 months. * Assessment & Plan Note - Yifan Michaels MD - 12/28/2021 11:53 AM EST Associated Problem(s): Exertional chest pain Improved and at this time no further testing given her cardiac cath showed nonobstructive disease. * Assessment & Plan Note - Yifan Michaels MD - 12/28/2021 11:51 AM EST Associated Problem(s): Dyspnea She most likely has a component of [...] for her to undergo PFTs as well. * Assessment & Plan Note - Yifan Michaels MD - 12/28/2021 11:50 AM EST Associated Problem(s): GEOVANNA (obstructive sleep apnea) She has been diagnosed with GEOVANNA but does not use a CPAP machine. I explained that controlling her GEOVANNA may improve her HTN as well. I offered her to re-engage with the sleep team but she declines at this time. documented in this encounter Plan of Treatment Upcoming Encounters Date Type Department Care Team (Late st Contact Info) Description 11/27/2024 9:00 AM EST Office Visit Nephrology Hypertension at [facility] [place], [facility] [address] [facility] [place] [address] documented as of this encounter Procedures Procedure Name Priority Date/Time Associated Diagnosis Comments EKG 12-LEAD Routine 12/28/2021 10:55 AM EST Secondary hypertension Hyperlipidemia, unspecified hyperlipidemia type GEOVANNA (obstructive sleep apnea) Exertional chest pain documented in this encounter Results * EKG 12 Lead (12/28/2021 10:55 AM EST) Ventricular rate 50 BPM MUSE SYSTEM Atrial Rate 50 BPM MUSE SYSTEM P-R Interval 148 ms MUSE SYSTEM QRS Duration 98 ms MUSE SYSTEM Q-T Interval 436 ms MUSE SYSTEM QTC Calculated (Bezet) 397 ms MUSE SYSTEM Calculated P [place] 40 degrees MUSE SYSTEM Calculated R [place] 10 degrees MUSE SYSTEM Calculated T [place] 35 degrees MUSE SYSTEM INTERPRETATION Sinus bradycardia with marked sinus arrhythmia Otherwise normal ECG When compared with ECG of 21-NOV-2021 11:31, No significant change was found Confirmed by MD Senthil, Bob Hernandez ([id number]) on 12/28/2021 12:08:04 PM MUSE SYSTEM 12/28/2021 10:5 5 AM EST 12/28/2021 12:08 PM EST Yonathan Collins MD ECG ORDERABLES MUSE SYSTEM documented in this encounter Visit Diagnoses Diagnosis Secondary hypertension Other secondary hypertension, unspecified Hyperlipidemia, unspecified hyperlipidemia type GEOVANNA (obstructive sleep apnea) Obstructive sleep apnea (adult) (pediatric) Exertional chest pain Chest pain, unspecified Dyspnea, unspecified type documented in this encounter Care Teams Shank Breaker Relationship Specialty Start Date End Date Rome Guerra MD [address] [place] [address] PCP - General Emergency Medicine 10/17/21 documented as of this encounter
--- OUTSIDE RECORDS SUMMARY | 2024-11-16 13:19 | XMS_ITS | Encounter Summary ---
Author Organization [facility] Address [facility] [place] [address] Care Team Providers Care Bookmobile Driver Name Role Phone Rome Guerra MD Primary Care Provider [phone] Reason for Referral * Consultation (Routine) - Closed Specialty Diagnoses / Procedures Referred By Contlaura t Referred To Contact Sleep Center Diagnoses CKD (chronic kidney disease) stage 4, GFR 15-29 ml/min Sleep apnea, unspecified type Remi Winston MD [facility] [place] [address] [facility] [address] [place] [address] Referral ID Status Reason Start Date Expiration Date V isits Requested Visits Authorized [id number] Closed Consult, Test & Treat 12/05/2023 12/04/2024 1 1 Encounter Details Date Type Department Care Team (Latest Contact Info) Description 12/05/2023 9:30 AM EST Office Visit Nephrology [place] [address] Remi Winston MD [facility] [place] [address] CKD (chronic kidney disease) stage 4, GFR [...] Sign Reading Time Taken Comments Blood Pressure 132/66 12/05/2023 9:10 AM EST Pulse 76 12/05/2023 9:10 AM EST Temperature - - Respiratory Rate - - Oxygen Saturation 94% 12/05/2023 9:10 AM EST Inhaled Oxygen Concentration - - Weight 84.1 kg (185 lb 6.4 oz) 12/05/2023 9:10 A M EST Height 162.6 cm (5' 4.02) 12/05/2023 9:10 AM ES T Body Mass Index 31.81 12/05/2023 9:10 AM EST documented in this encounter Patient Instructions * Patient Instructions* Remi Winston MD - 12/05/2023 9:30 AM EST RE: SGLT-2 inhibitors Patients experiencing metabolically stressful events are at increased risk of ketoacidosis (eg. surgery, myocardial infarction, stroke, severe infections, and prolonged fasting) Patients on canagliflozin (Invokana), dapagliflozin (Farxiga), empagliflozin (Jardiance) should stop taking medications, including combination containing SGLT-2, 3 days prior to the procedure. documented in this encounter Progress Notes * Remi Winston MD - 12/05/2023 9:30 AM EST Images from the original note [...] nodule- biopsied benign. Creatinine (mg/dL) Date Value 12/05/2023 2.18 (H) 08/19/2023 2.29 (H) 05/30/2023 [...] she later stopped. She was admitted at [facility] overnight for COVID in June 2023. Interval history: Has occasional nausea but no vomiting. Not taking oral semaglutide anymore. Blood pressure at home has been in the 130s / 70-80 mm Hg. No hypoglycemic episodes. Has not been using CPAP. ROS: 4 point review of sytem was [...] IMG S&I N/A 2021 CORONARY ANGIOGRAPHY; [facility],POSSIBLE PCI performed by Beny Monahan MD at [facility] CATH [facility] Family History Problem Relation [...] Types: Cigarettes Quit date: 2013 Years since quittin.1 Smokeless tobacco: Never Vaping Use Vaping Use: [...] Prior to Visit Medication Sig Dispense Refill Trulicity 1.5 mg/0.5 mL Pen Injector Inject 1 1/2 mg subcutaneously once a week Lantus Solostar U-100 Insulin 100 unit/mL (3 mL) pen start 8U sc at bedtime, increase gradually to max 20U BD Ultra-Fine Short Pen Needle 31 gauge x 5/16 Needle cholecalciferol (Vitamin D3) 1,000 unit tablet Take [...] daily. rOPINIRole (REQUIP) 0.5 mg Tablet Take 0.5 mg by mouth nightly. rosuvastatin (CRESTOR) 40 mg Tablet Take 40 mg by mouth daily. [DISCONTINUED] Trulicity 0.75 mg/0.5 mL Pen Injector [DISCONTINUED] ferrous gluconate (Ferate) 324 mg (38 mg iron) tablet daily. [DISCONTINUED] lidocaine 4 % Gel Three times a day [DISCONTINUED] losartan (Cozaar) 50 mg tablet Bedtime [DISCONTINUED] promethazine (Phenergan) 12.5 mg tablet 1 tab q 8 hr [DISCONTINUED] verapamiL SR (Calan-SR) 120 mg ER (SR) tablet Take 1 tablet by mouth daily. [DISCONTINUED] linaGLIPtin (Tradjenta) 5 mg tablet Take 5 mg by mouth daily. [DISCONTINUED] Psyllium Seed-Sucrose (0) Powder Take by mouth daily. 2 teaspoons daily No current facility-administered medications on file prior [...] Rate Heart Rate: 76 Blood Pressure BP: 132/66 Respiratory Rate SpO2 SpO2: 94 % Patient is awake alert notin acute distress No jaundice Neck- supple trachea central Chest- bilateral air entry present clear to auscultation no wheeze no crepitation CVS-S1-S2 present, irregular. Abdomen-nontender nondistended, bowel sounds present. Extremities-peripheral pulses present, no edema Neuro-patient is awake alert, moving all 4 limbs, motor examination is grossly normal. No asterixis. STUDIES: Labs: CBC: Recent Labs 12/05/23 0756 08/19/23 0840 05/30/23 0821 WBC 6.6 6.6 5.2 HGB 12.7 12.3 12.7 PLATELET 144* 138* 141* Chemistry: Recent Labs 12/05/23 0756 08/19/23 0840 05/30/23 0821 NA 142 138 139 K 4.3 4.1 4.6 CL 105 101 104 CO2 BUN 39* 41* 47* CREATININE 2.18* 2.29* 2.51* GLUCOSE 208* 439* 362* Recent Labs 12/05/23 0756 08/19/23 0840 05/30/23 0821 04/23/23 1035 CALCIUM 9.6 9.5 9.5 9.7 MAGNESIUM -- -- -- 0.99 PHOS -- -- -- 4.4 LFT's: Recent Labs 12/05/23 0756 08/19/23 0840 05/30/23 0821 ALBUMIN 4.3 4.1 3.9 Prot/Cre Ratio Date Value Ref Range Status 08/19/2023 0.3 ratio Final Prot/Cre Ratio (ratio) Date Value 08/19/2023 0.3 05/30/2023 0.2 04/23/2023 0.2 04/09/2017 0.1 Alb/Cr Ratio, Random (mcg/mg Cr) Date Value 08/19/2023 61 (H) 05/30/2023 44 (H) 04/23/2023 39 (H) 04/09/2017 10 Lab Results Component Value Date PTH 111 (H) 12/05/2023 CALCIUM 9.6 12/05/2023 PHOS 4.4 04/23/2023 25-OH Vit D Total (ng/mL) Date Value Status 08/19/2023 28 Final IMPRESSION/ RECOMMENDATIONS: Brynn Khalil is a [...] since the last ultrasound,? - Creat stable. -Will restart Jardiance today 12/05/2023 . -CV protection on statin # Electorlytes Sodium and potassium are normal. #Acid Base - has metabolic acidosis which is well controlled on OTC bicarbonate pills # BMM Calcium normal. Her vitamin D is low, on vitamin D3 at 1000 units daily. PTH elevated, likely due to secondary hyperparathyroidism. #Hemodynamics -She had bradycardia with heart rate of 36 during prior evaluation. -Currently on felodipine 10 mg, Lasix 40 mg, metoprolol succinate 100 mg daily, spironolactone 25 mg p.o. daily - -She was started on Spironolactone by her steward/stewardess Dr. Michaels for better control of her blood pressure on 12/28/22 and she is currently on it. -She checks her blood pressure at home is running around 130s on average systolic, with diastolics between 70 and 80. , #Hemoglobin - She is not anemic. # Bradycardia- - resolved. -Currently on metoprolol to 100 mg p.o. (she was previously on metoprolol XL 200 mg p.o. daily) #History of urolithiasis- -Her stone was not analyzed before. - No stones detected in kidneys on US done on 05/30/2023, - Avised her to increase her fluid intake to ~ 90 Oz daily Plan/Recommendations: Plan to restart Jardiance. Caution regarding SGLT-2 inhibitors were discussed and print out given. Will consider starting Losartan next visit based on her labs. I might discontinue her guy, since there is no hard indication for that. Referral to sleep medicine. A total of 30 minutes was spent for reviewing chart, [id number]-[id number] encounter, ordering labs/medication,documentation in the chart, and coordinating care. RTC-3 month with labs. CC-Rome Guerra MD This note was created using [employer] speech detection software which can cause occasional typographical errors. I apologize in advance if the situation occurs. Please don't hesitate to to contact us for any clarifications. Remi Winston MD 12/05/2023 Hypertension-Nephrology documented in this encounter Plan of Treatment Upcoming Encounters Date Type Department Care Team (Late st Contact Info) Description 11/27/2024 9:00 AM EST Office Visit Nephrology [place] [address] Remi Winston MD [facility] [place] [address] Scheduled Referrals Name Type Priority Associated Diagnoses Orde r Schedule Referral to Sleep Disorders Center Outpatient Referral Routine CKD (chronic kidney disease) stage 4, GFR 15-29 ml/min Sleep apnea, unspecified type Ordered: 12/05/2023 documented as of this encounter Results * (ABNORMAL) Protein/Creatinine Ratio, urine (03/04/2024 10:30 AM EDT) Creatinine, Urine 110 mg/dL [facility] Protein, Urine 17(H) 0 - 12 mg/dL [facility] Protein / Creatinine Ratio, Urine 0.2 ratio [facility] Urine 03/04/2024 10:3 0 AM EDT 03/04/2024 10:33 AM EDT Narrative Resulting Agency Comment Spec In Lab Remi Winston MD URINE ORDERABLES [facility] [place] [address] * U Albumin/Cre Ratio (03/04/2024 10:30 AM EDT) Albumin / Creatinin Ratio, Urine 15 0 - 29 mcg/mg Cr [facility] Comment: Reference Ranges: <30 mcg/mg: [...] 2, 357? 362 Albumin, Urine 16.1 mg/L [facility] Creatinine, Urine 110 mg/dL [facility] Urine 03/04/2024 10:3 0 AM EDT 03/04/2024 10:33 AM EDT Narrative Resulting Agency Comment Spec In Lab Remi Winston MD URINE ORDERABLES Performing Organization Address City/[facility]/ZIP Co de Phone Number [facility] [place] [address] * Vitamin D, 25-Hydroxy (03/04/2024 9:49 AM EDT) Vitamin D Total 25 OH 48 21 - 100 ng/mL [facility] Vit D Interp Sufficient [facility] Blood 03/04/2024 9:49 AM EDT 03/04/2024 9:55 AM EDT Narrative Resulting Agency Comment Spec In Lab Remi Winston MD CHEMISTRY ORDERABLES [facility] [place] [address] * (ABNORMAL) PTH (03/04/2024 9:49 AM EDT) Parathyroid Hormone 99(H) 15 - 65 pg/mL [facility] Blood 03/04/2024 9:49 AM EDT 03/04/2024 9:55 AM EDT Narrative Resulting Agency Comment Spec In Lab Remi Winston MD CHEMISTRY ORDERABLES Performing Organization Address City/[facility]/ZIP Co de Phone Number [facility] [address] * Albumin Level (03/04/2024 9:49 AM EDT) Albumin 4.3 3.2 - 5.2 g/dL [facility] Blood 03/04/2024 9:49 AM EDT 03/04/2024 9:55 AM EDT Narrative Resulting Agency Comment Spec In Lab Remi Winston MD CHEMISTRY ORDERABLES Performing Organization Address [facility] Co de Phone Number [facility] [place] [address] * (ABNORMAL) Basic Metabolic Panel (non-fasting) (03/04/2024 9:49 AM EDT) Glucose 169 65 - 199 mg/dL [facility] Comment:Diabetes: >=200 mg/d L plus symptoms Blood Urea Nitrogen 34(H) 8 - 18 mg/dL [facility] Creatinine 2.24(H) 0.70 - 1.20 mg/dL [facility] Sodium 144 135 - 145 mmol/L [facility] Potassium 4.3 3.5 - 5.0 mmol/L [facility] Comment: Please note: ??Patients with WBC >100,000 may have falsely elevated Potassium levels. ??For accurate Potassium quantification in these patients send serum separator tube (gold top) for subsequent determinations. ??Contact the Clinical Chemistry Laboratory if there are any questions. Chloride 107 98 - 107 mmol/L [facility] Carbon Dioxide 24 22 - 31 mmol/L [facility] Anion Gap 13 5 - 15 mmol/L [facility] Calcium 9.5 8.5 - 10.5 mg/dL [facility] Est Glomerular Filtration Rate 22(L) >=60 mL/min/1. 73 m?? [facility] Comment: This patient's estimated GFR [...] Winston MD CHEMISTRY ORDERABLES Performing Organization Address City/[facility]/ZIP Co de Phone Number [facility] [place] [address] * Protein/Creatinine Ratio, urine (12/05/2023 9:30 AM EST) Creatinine, Urine 83 mg/dL [facility] Protein, Urine 12 0 - 12 mg/dL [facility] Protein / Creatinine Ratio, Urine 0.1 ratio [facility] Urine 12/05/2023 9:30 AM EST 12/05/2023 10:42 AM EST Narrative Resulting Agency Comment Spec In Lab Remi Winston MD URINE ORDERABLES Performing Organization Address City/[facility] Co de Phone Number [facility] [address] * (ABNORMAL) U Albumin/Cre Ratio (12/05/2023 9:30 AM EST) Albumin / Creatinin Ratio, Urine 32(H) 0 - 29 mcg/mg Cr [facility] Comment: Reference Ranges: <30 mcg/mg: Normal [...] 2, 357? 362 Albumin, Urine 26.6 mg/L [facility] Creatinine, Urine 83 mg/dL [facility] Urine 12/05/2023 9:30 AM EST 12/05/2023 10:42 AM EST Narrative Resulting Agency Comment Spec In Lab Remi Winston MD URINE ORDERABLES Performing Organization Address City/[facility]/ZIP Co de Phone Number [facility] [place] [address] * Vitamin D, 25-Hydroxy (12/05/2023 7:56 AM EST) Vitamin D Total 25 OH 43 21 - 100 ng/mL [facility] Vit D Interp Sufficient [facility] Blood 12/05/2023 7:56 AM EST 12/05/2023 8:00 AM EST Narrative Resulting Agency Comment Spec In Lab Remi Winston MD CHEMISTRY ORDERABLES Performing Organization Address City/[facility] Co de Phone Number [facility] [address] * (ABNORMAL) PTH (12/05/2023 7:56 AM EST) Parathyroid Hormone 111(H) 15 - 65 pg/mL [facility] Blood 12/05/2023 7:56 AM EST 12/05/2023 8:00 AM EST Narrative Resulting Agency Comment Spec In Lab Remi Winston MD CHEMISTRY ORDERABLES Performing Organization Address City/[facility]/ZIP Co de Phone Number [facility] [address] * Albumin Level (12/05/2023 7:56 AM EST) Albumin 4.3 3.2 - 5.2 g/dL [facility] Blood 12/05/2023 7:56 AM EST 12/05/2023 8:00 AM EST Narrative Resulting Agency Comment Spec In Lab Remi Winston MD CHEMISTRY ORDERABLES [facility] [address] * (ABNORMAL) Basic Metabolic Panel (non-fasting) (12/05/2023 7:56 AM EST) Glucose 208(H) 65 - 199 mg/dL [facility] Comment:Diabetes: >=200 mg/d L plus symptoms Blood Urea Nitrogen 39(H) 8 - 18 mg/dL [facility] Creatinine 2.18(H) 0.70 - 1.20 mg/dL [facility] Sodium 142 135 - 145 mmol/L [facility] Potassium 4.3 3.5 - 5.0 mmol/L [facility] Comment: Please note: ??Patients with WBC >100,000 may have falsely elevated Potassium levels. ??For accurate Potassium quantification in these patients send serum separator tube (gold top) for subsequent determinations. ??Contact the Clinical Chemistry Laboratory if there are any questions. Chloride 105 98 - 107 mmol/L [facility] Carbon Dioxide 22 22 - 31 mmol/L [facility] Anion Gap 15 5 - 15 mmol/L [facility] Calcium 9.6 8.5 - 10.5 mg/dL [facility] Est Glomerular Filtration Rate 23(L) >=60 mL/min/1. 73 m?? [facility] Comment: This patient's estimated GFR was [...] In Lab Remi Winston MD CHEMISTRY ORDERABLES [facility] [address] documented in this encounter Visit Diagnoses Diagnosis CKD (chronic kidney disease) stage 4, GFR 15-29 ml/min Chronic kidney disease, Stage IV (severe) Sleep apnea, unspecified type Hyperparathyroidism Hyperparathyroidism, unspecified documented in this encounter Care Teams Bookmobile Driver Relationship Specialty Start Date End Date Rome Guerra MD [address] [place] [id number] PCP - General Emergency Medicine 10/17/21 documented as of this encounter
--- OUTSIDE RECORDS SUMMARY | 2024-11-16 13:20 | XMS_ITS | Encounter Summary ---
Author Organization [facility] Address [address] [place] [address] Care Team Providers Care Hvac Instructor Name Role Phone Unavailable Primary Care Provider Unavailabl e Encounter Details Date Type Department Care Team (Late st Contact Info) Description 04/20/2011 Results Only [address] [id number] Belkis Johnson MD Social History Tobacco Use Types Packs/Day Years Used Date Smoking Tobacco: Never Assessed Comments Unknown Sex and Gender Information Value Date Recorded Sex Assigned at Not on file Legal Sex Female 18:12 EST Gender Identity Not on file Sexual Orientation Not on file documented as of this encounter Plan of Treatment Not on file documented as of this encounter Procedures Procedure Name Priority Date/Time Associated Diagnosis Comments PAP TEST- RESULT ONLY Routine 04/20/2011 0:00 EDT documented in this encounter Results * PAP TEST- RESULT ONLY (04/20/2011 0:00 EDT) Pathology Report: CYTOPATHOLOGY REPORT ? Reports generated via electronic interface contain original data; ? however they are lacking the format of the original report. ? Caution should be taken when reading/interpreti ng unformatted reports. ? Name: ? BRYNN HERNANDEZ ? Accession #: ? [id number] ? : ? 1950 (Age: 60) ??F ?Collect Date: ? 04/20/2011 ? Location: ? [facility] ? Receive Date: ? 04/23/2011 ? Provider: BELKIS FINE MD ? Copy to: ? Final Report ? SPECIMEN ADEQUACY ? Satisfactory for Evaluation ? - transformation zone component present ? GENERAL CATEGORIZATION ? Negative for Intraepithelial Lesion or Malignancy ? INTERPRETATION ? Reactive cellular changes associated with inflammation present (includes ?? repair). ? Shift in gio present suggestive of bacterial vaginosis. ? Last Menstural Period: MALDONADO ? Specimen/Source: ??Pap Test, Cervix, ThinPrep Imaging System with manual ? evaluation ? Document reviewed and electronically signed by: ? ABDELMONEM ELHOSSEINY MD ? Report ??Date: 05/01/2011 11:33 ? HPV with Pap Test ? Date Ordered: ? 05/01/2011 ? Status: ?? Signed Out ?Date Complete: ? 05/03/2011 ? By: ??System Interface ? Date Reported: ? 05/03/2011 ? Interpretation ? RESULT: Negative for HPV types 16, 18, 31, 33, 35, 39, 45, 51, 52, ? 56, 58, 59, and 68. ? Comments ? Document reviewed and electronically signed by: ? System Interface ? Report date: 05/03/2011 ? By the signature above, the attending physician certifies that he/she has ? personally conducted a gross and/or microscopic examination of the described ? specimens and rendered or confirmed the above diagnosis. ? End of Report ? [facility] 04/20/2011 04/23/2011 us Belkis Johnson MD PATHOLOGY ORDERABLES Final Resul t [facility] [address] [place] [address] documented in this encounter Visit Diagnoses Not on filedocumented in this encounter
--- OUTSIDE RECORDS SUMMARY | 2024-11-16 13:20 | XMS_ITS | Encounter Summary ---
Author Organization [facility] [place] [address] Care Team Providers Care Computer Recycling Worker Name Role Phone Alexandr Youssef MD Primary Care Provider [phone] Encounter Details Date Type Department Care Team (Late st Contact Info) Description 04/08/2017 Orders Only Ne[place] [phone] Nelda Watts MD [facility] [place] [address] Social History Tobacco Use Types Packs/Day Years [...] AM EST Office Visit Neph[place] [phone] Remi Winston MD [facility] [place] [address] documented as of this encounter Visit Diagnoses Not on filedocumented in this encounter Care Teams Computer Recycling Worker Relationship Specialty Start Date End Date Alexandr Youssef MD [address] [place] [address] PCP - General 09/19/10 10/16/21 documented as of this encounter
--- OUTSIDE RECORDS SUMMARY | 2024-11-16 13:20 | XMS_ITS | Encounter Summary ---
Author Organization [facility] [place] [address] Care Team Providers Care Stock Turner Name Role Phone Alexandr Youssef MD Primary Care Provider [phone] Encounter Details Date Type Department Care Team (Late st Contact Info) Description 11/26/2017 Abstract [place] [address] Yancy Pereira RN Social History Tobacco Use Types Packs/Day [...] AM EST Office Visit [place] [address] Remi Winston MD [facility] [place] [address] documented as of this encounter Visit Diagnoses Not on filedocumented in this encounter Care Teams Stock Turner Relationship Specialty Start Date End Date Alexandr Youssef MD [address] [place] [address] PCP - General 09/19/10 10/16/21 documented as of this encounter
--- OUTSIDE RECORDS SUMMARY | 2024-11-16 13:20 | XMS_ITS | Encounter Summary ---
[place] [address] Care Team Providers Care Interior Painter Name Role Phone Alexandr Youssef MD Primary Care Provider [phone] Reason for Referral * Consultation (Routine) - Closed Specialty Diagnoses / Procedures Referred By Mary Grace young Referred To Contact Urology Diagnoses Renal stone Walter Barber MD [facility] [place] [address] [facility] [place] [address] Referral ID Status Reason Start Date Expiration Date V isits Requested Visits Authorized [id number] Closed Consult, Test & Treat 08/14/2019 08/13/2020 1 1 Reason for Visit * Reason Comments Kidney Stone w/ known kidney ston e - see LYLA note Fever Encounter Details Date Type Department Care Team (Late st Contact Info) Description 08/14/2019 6:18 PM EDT - 08/14/2019 11:49 PM EDT Emergency [place] [address] Walter Barber MD [facility] [place] [address] Renal stone Discharge Disposition: Home Social History Tobacco Use Types Packs/Day Years Used Date Smoking Tobacco: Former Cigarettes Q uit: 2013 Sex and Gender Information Value Date Recorded Sex Assigned at Not on file Gender Identity Not on file Sexual Orientation Not on file documented as of this encounter Last Filed Vital Signs Vital Sign Reading Time Taken Comments Blood Pressure 175/73 08/14/2019 2:36 PM EDT Pulse 70 08/14/2019 2:36 PM EDT Temperature 36.6 ??C (97.9 ??F) 08/14/2019 8:00 PM ED T Respiratory Rate 16 08/14/2019 2:36 PM EDT Oxygen Saturation - - Inhaled Oxygen Concentration - - Weight 90.7 kg (200 lb) 08/14/2019 2:36 PM EDT Height 162.6 cm (5' 4) 08/14/2019 2:36 PM EDT Body Mass Index 34.33 08/14/2019 2:36 PM EDT documented in this encounter Discharge Instructions * Discharge Instructions* Walter Barber MD - 08/14/2019 10:34 PM EDT Return immediately if you develop fevers chills weakness body aches or worsening pain. They continue to follow-up with urology call on Saturday for an appointment. * Attachments The following attachments cannot be sent through Care Everywhere. * Kidney Stone ([place]) * Kidney Stone Prevention Diet: General Info ([place]) documented in this encounter Medications at Time of Discharge Medication Sig Dispensed Refills Start Date End Date aspirin 81 mg Tablet, Delayed Release (E.C.)Indications:CKD [...] tablet by mouth daily. 03/22/2016 12/05/2023 furosemide (LASIX) 20 mg TabletIndications:CKD (chronic kidney disease), unspecified stage,Chronic kidney disease, stage IV (severe) Take 20 mg by mouth daily. 2021 Ibuprofen 200 mg CapsuleIndications:CK D (chronic kidney disease), unspecified stage,Chronic kidney disease, stage IV (severe) Take by mouth daily as needed. 04/23/2023 insulin NPH (HUMULIN N;NOVOLIN N) Insulin PenIndications:CKD (chronic kidney disease), unspecified stage,Chronic kidney disease, stage IV (severe) Inject 35 Units subcutaneously 2 times daily (before meals). 11/07/2021 losartan (COZAAR) 100 mg TabletIndications:CKD (chronic kidney disease), unspecified stage,Chronic kidney disease, stage IV (severe) Take 100 mg by mouth daily. 05/30/2023 meTOPROLOL succinate (TOPROL-XL) 100 mg Tablet Sustained Release 24 hrIndications:CKD (chronic kidney disease), unspecified stage,Chronic kidney disease, stage IV (severe) Take 200 mg by mouth daily. 04/23/2023 glipiZIDE (GLUCOTROL) 5 mg Tablet Take 10 mg by mouth 2 times daily (before meals). 11/07/2021 esomeprazole (NEXIUM) 40 mg Capsule, Delayed Release(E.C.) Take 40 mg by mouth every morning (before breakfast). 11/07/2021 felodipine (PLENDIL) 5 mg Tablet Sustained Release 24 hr Take 10 mg by mouth daily. 12/28/2021 documented as of this encounter ED Notes * Refugio Chan RN - 08/14/2019 11:48 PM EDT Patient discharged in stable and ambulatory condition and tolerating well. Pt and son educated regarding discharge paperwork and follow-up appointments. Pt ambulates independently out of department with no difficulty and with steady gait. * Walter Barber MD - 08/14/2019 10:16 PM EDT Patient Name: Brynn Khalil Patient Age: 68 y.o. Birthdate: 1950 Admit date: 08/14/2019 Attending Physician: Walter Barber MD Brief Attending Note ?? HPI: This is a pleasant 68-year-old female who came by private vehicle. She was diagnosed this morning at an outside hospital with a 3 mm distal left ureteral stone she has had stones before. She reports that early this morning she had a fever which was low-grade and some chills however she states that all day she has not had any fevers chills or illness. She states that now her pain is resolved completely and she feels very well. She is now pain-free. ?? ROS: Pertinent positives and negatives are included in the history of present illness, otherwise 10 systems are reviewed and negative ?? Gen: well appearing, NAD HENT: atraumatic, oropharynx clear, mmm Pulm: CTA b/l, no respiratory distress Card: RRR Abd: soft, non-tender, non-distended Skin: warm and dry Neuro: no focal weakness, alert and oriented x 3 MS: No obvious deformity Psych: Normal mood ? Assessment: Patient is extremely well-appearing nontoxic no acute distress her blood work is reassuring she hasa slight increase in her creatinine from baseline. However she is well-appearing nontoxic and is able to eat and drink and tolerate fluids by mouth. We did obtain imaging and spoke with urology and consulted them formally. They felt that since patient was well-appearing and afebrile and nontoxic that she could be discharged with strict return precautions which I given to the patient. I did explain to the patient that the safest option will be to observe her overnight to make sure that she does not have infected stone and that she was at risk of if she developed a infection associated with this stone and she did verbalize full understanding of this and states that she feels well and has no symptoms anymore therefore she is giving rational reason for refusal of care would like to go home. As an alternative she will follow-up with urology on Sudheer or permanent disability and her sonwho is very responsible and with her tonight will watch her very closely overnight and during the weekend and bring her back immediately if she develops any signs and symptoms of infection which I discussed with her in detail. I encouraged her to return at any time if she changed her mind as well. At this time she does not have evidence of urinary tract infection she is afebrile well-appearing without leukocytosis I do not feel that she requires antibiotics at this time clinically she does not appear to have an infected stone at this time. Walter Barber MD 08/14/192237 * Refugio Chan RN - 08/14/2019 8:13 PM EDT Patient stating she wants to leave if she is able. PT states is at home and in need of insulin and is unable to do this himself. Pt states she lives an hour away and would like to leave if medically able. Pt is afebrile at this time and is reporting pain has decreased since arrival. MD notified. * Valarie Velasco RN - 08/14/2019 6:23 PM EDT Pt reported just having gone to the bathroom to urinate that she had blood in her urine * Levi Thompson MD - 08/14/2019 12:58 PM EDT EM attending brief outside phone call note: Brynn Celina Khalil is a 68 y.o. who I was called about from the Vero Kim NP at [facility] The patient will be evaluated in the Emergency Department for fever, chills, worsening pain in the face of a known kidney stone Brief Summary: 68 yo f who was seen in an [facility] ED on 08/12 and diagnosed with a kidney stone. Presented today with new fever and chills along with worsening pain that has migrated to the right groin. VSS. Will present to our ED by POV for evaluation. LOURDES Kim will fax the resut of the recent CT scan to our ED fax [phone]) Levi Thompson MD 08/14/19 130 documented in this encounter Miscellaneous Notes * Med Student Progress Note - Devi Magda H - 08/14/2019 6:59 PM EDT ED MedicalStudent Note Brynn Khalil is an 68 y.o. female who presents to the ED with: Chief Complaint Patient presents with ??? Kidney Stone w/ known kidney stone - see LYLA note ??? Fever I saw this patient on 08/14/2019. History is from 08/14/2019. HPI Brynn Khalil is a 68 y.o. female with history of DM, HTN, HLD, secondary hyperparathyroidism, CKD Stage III/IV who presents to the Emergency Department as a transfer from [facility] in [facility] for possible nephrolithiasis. Patient began having abdominal on Saturday along with nausea. Patient described the pain as similar to when she had kidney stones in the past including pressure in her vaginal area. Patient went to the ED At that time and had a CT scan performed at which time she was diagnosed with kidney stones. Patient given anti-nausea medication and oxycodeine for pain andsent home. Patient said she was feeling much better yesterday but then started feeling worse again today. She noted spiking fevers along with chills in addition to having 1-2 episodes of gross hematuria. Patient then presented back to the ED at [facility] who then transferred her to [facility] due to concerns of an infection kidney stone given patient's fevers, chills, and worsening pain. Patient was advised not to eat/drink upon discharge from prior ED. PMH: Past Medical History: Diagnosis Date ??? CKD (chronic kidney disease), stage III ??? Diabetic retinopathy ??? HTN (hypertension) ??? Hyperlipidemia ??? Low HDL (under 40) 04/15/2017 ??? Nephrolithiasis Occurred in the ; single episode. ??? Non-nephrotic range proteinuria 04/15/2017 ??? Obesity 04/15/2017 ??? GEOVANNA (obstructive sleep apnea) ??? Restless leg ??? Secondary hyperparathyroidism of renal origin 04/15/2017 ??? Vitamin D deficiency 04/15/2017 Review of Systems: Review of Systems Constitutional: Positive for chills and fever. Negative for appetite change, diaphoresis and fatigue. HENT: Negative for congestion, ear pain and rhinorrhea. Eyes: Negative for visual disturbance. Respiratory: Negative for cough, chest tightness and shortness of breath. Cardiovascular: Negative for chest pain and palpitations. Gastrointestinal: Positive for diarrhea (chronic), nausea and vomiting. Negative for abdominal distention, abdominal pain, anal bleeding, blood in stool and constipation. Genitourinary: Positive for decreased urine volume, flank pain, hematuria, pelvic pain and vaginal pain. Negative for dyspareunia, vaginal bleeding and vaginal discharge. Neurological: Negative for weakness, light-headedness and headaches. Physical Exam: Temp: [36.4 ??C (97.5 ??F)] Heart Rate: [70] Resp: [16] BP: (175)/(73) SpO2: -- Heart Rate from SpO2: -- General: AAOx4, in NAD. Patient appears her stated age. HEENT: normocephalic/atraumatic, EOMI, PERRL, MMM. Oropharynx clear, pink, mildly dry without erythema/exudates. Neck: supple, full range of motion. No LAD Cardiovascular: normal rate, regular rhythm, S1/2, no murmurs, rubs, gallops. peripheral pulses intact bilaterally. no LE edema Pulmonary: LCTAB Abdomen: soft, nondistended, no TTP, no rebound/guarding. CVA tenderness on the L. Psych: normal mood and thought pattern. Pleasant affect. ED Course: - Patient seen under the supervision of the attending physician. - Medications, allergies, and past medical history reviewed. 1829: Patient seen by myself. She is currently afebrile, non-tachycardic and stable. I called [facility] in order to obtain CT (with reads) from patient's records before ordering any further test. 2042: Ordered formal read for CT sent over from [facility] to confirm or deny evidenceof stone and size of stone. 2230: Confirmation of 3mm stone on CT scan. Patient is no longer febrile and has had resolution of most of her pain. Patient can be discharged to home. Patient's son lives nearby and says that he is able to be at her disposal for care. Patient is advised to follow-up with outpatient urology. Returnprecautions are given in her discharge instructions. Recent Results (from the past 24 hour(s)) Urinalysis with reflex Culture Result Value Ref Range Glucose UA Negative Negative mg/dL Protein UA Negative Negative mg/dL Bilirubin UA Negative Negative mg/dL Urobilinogen UA Normal Normal mg/dL pH UA 5.0 5.0 - 8.0 Blood UA Large (A) Negative mg/dL Ketones UA Negative Negative mg/dL Nitrite UA Negative Negative Leukocytes UA Trace (A) Negative mcL Appearance UA Clear Clear Spec [place] UA 1.006 1.002 - 1.030 Color UA Yellow Yellow Culture Reflexed No Urinalysis Microscopic Exam Result Value Ref Range RBC UA 2 0 - 4 /HPF WBC UA 2 0 - 5 /HPF POCT Glucose Result Value Ref Range POC Glucose 132 65 - 199 mg/dL Basic Metabolic Panel (non-fasting) Result Value Ref Range Glucose Lvl 153 65 - 199 mg/dL BUN 34 (H) 8 - 18 mg/dL Creatinine 1.94 (H) 0.70 - 1.20 mg/dL Sodium 142 135 - 145 mmol/L Potassium 4.3 3.5 - 5.0 mmol/L Chloride 105 98 - 107 mmol/L CO2 24 22 - 31 mmol/L Anion Gap 13 5 - 15 mmol/L Calcium 10.0 8.5 - 10.5 mg/dL eGFR 26 (L) >=60 mL/min/1.73 m?? eGFR 30 (L) >=60 mL/min/1.73 m?? Hepatic Function Panel Result Value Ref Range Total Protein 8.0 6.1 - 8.0 gm/dL Albumin 4.5 3.2 - 5.2 gm/dL AST 14 0 - 30 unit/L ALT 13 0 - 30 unit/L Alk Phos 73 35 - 105 unit/L Total Bilirubin 0.3 0.2 - 1.3 mg/dL Bili, Direct 0.1 0.0 - 0.3 mg/dL Hemogram Result Value Ref Range WBC 6.8 4.0 - 9.5 x10(3)/mcL RBC 4.44 4.00 - 5.21 x10(6)/mcL Hemoglobin 12.6 11.7 - 15.5 gm/dL Hematocrit 39.4 35.7 - 45.8 % MCV 88.7 82.6 - 94.4 fL MCH 28.4 27.1 - 32.0 pg MCHC 32.0 31.7 - 35.0 gm/dL Platelets 158 145 - 357 x10(3)/mcL RDWSD 44.4 37.0 - 46.0 fL RDWCV 13.7 11.5 - 14.1 % MPV 12.0 7.6 - 12.9 fL nRBC % Auto 0.0 % nRBC Abs Auto 0.000 0.000 - 0.000 x10(3)/mcL Differential, Automated Result Value Ref Range Neutrophils % 80.6 % Neutr Abs (ANC) 5.44 1.70 - 6.10 x10(3)/mcL Lymphocytes % 15.0 % Lymphocytes Abs 1.0 0.9 - 3.2 x10(3)/mcL Monocytes % 3.4 % Monocyte Abs 0.2 (L) 0.3 - 0.9 x10(3)/mcL Eosinophils % 0.1 % Eosinophils Abs 0.0 0.0 - 0.4 x10(3)/mcL Basophils % 0.6 % Basophils Abs 0.0 0.0 - 0.1 x10(3)/mcL Immature Gran % 0.30 % Bree Gran Abs 0.02 0.00 - 0.04 x10(3)/mcL Imaging: CT abd/pelvis Consults: Urology Medications given: Medications - No data to display Discharge Medications: - Assessment and Plan: 68 y.o. female with PMHx of DM, CKD Stage III/IV, HTN, HLD, and secondary hyperparathyroidism who presents to [facility] ED due to possible infected kidney stones. Given patient's worsening presentation with fevers, chills, and new hematuria since initial onset, it is high yield to consider infectious nep hrolithiasis along with, ureteral obstruction, bladder infection, and possible kidney/bladder cancer. Plan 1). Order labs, U/A, obtain CT report from other ED. Keep patient NPO until we can decide on a course of action. Once receive CT results, we may consult urology for further evaluation and recommendations. 2). Given patient's small diameter of her stone (3mm) and resolution of fever and symptoms, patientcan be discharged and should follow-up with outpatient urology. Return precautions will be includedin patient's discharge instructions. Return precautions were verbally discussed and written in discharge instructions. The patient and/or family expressed understanding that they could come back to the ED at any time and agreed to the follow-up plan. documented in this encounter Plan of Treatment Upcoming Encounters Date Type Department Care Team (Late st Contact Info) Description 11/27/2024 9:00 AM EST Office Visit [place]ph[place] [address] Remi Winston MD [facility] [place] [address] Scheduled Orders Name Type Priority Associated Diagnoses Orde r Schedule Film Library- Storage Only CT Abdomen & Pelvis Imaging Storage Only STAT Once PRN (for Radian t use) for 1 Occurrences starting 08/14/2019 until 08/14/2019, 1 completed Scheduled Referrals Name Type Priority Associated Diagnoses Orde r Schedule Referral to Urology Outpatient Referral Routine Renal stone Ordered: 08/14/2019 documented as of this encounter Procedures Procedure Name Priority Date/Time Associated Diagnosis Comments HEMOGRAM STAT 08/14/2019 5:15 PM EDT DIFFERENTIAL, AUTOMATED STAT 08/14/2019 5:15 PM EDT HC CBC,PLT & AUTO DIFF STAT 08/14/2019 5:15 PM EDT HEPATIC FUNCTION PANEL STAT 08/14/2019 5:15 PM EDT BASIC METABOLIC PANEL STAT 08/14/2019 5:15 PM EDT POCT GLUCOSE Routine 08/14/2019 4:37 PM EDT URINALYSIS MICROSCOPIC EXAM STAT 08/14/2019 2:40 PM EDT URINALYSIS WITH REFLEX CULTURE STAT 08/14/2019 2:40 PM EDT FILM LIBRARY STORAGE ONLY CT ABDOMEN AND PELVIS STAT 08/12/2019 12:00 AM EDT documented in this encounter Results * (ABNORMAL) Differential, Automated (08/14/2019 5:15 PM EDT) Neutrophil % 80.6 % [facility] Neutrophil Absolute 5.44 1.70 - 6.10 x10(3)/mc L [facility] Lymph % 15.0 % [facility] Lymphocytes Abs 1.0 0.9 - 3.2 x10(3)/mc L [facility] Monocyte % 3.4 % [facility] Monocyte Abs 0.2(L) 0.3 - 0.9 x10(3)/mc L [facility] Eos % 0.1 % [facility] Eosinophils Abs 0.0 0.0 - 0.4 x10(3)/mc L [facility] Basophil % 0.6 % [facility] Baso Absolute 0.0 0.0 - 0.1 x10(3)/mc L [facility] Immature Gran % 0.30 % [facility] Comment: Immature granulocytes(IG's)percentage and absolute count will include metamyelocytes, myelocytes, and promyelocytes. Blood smears from CBCs yielding IG's will be scanned manually for concordance. If this scan disagrees with the automated IG or if promyelocytes are noted, a manual differential will be performed. Immature Gran Absolute 0.02 0.00 - 0.04 x10(3)/mc L [facility] Blood specimen (specimen) 08/14/2019 5:15 PM EDT 08/14/2019 5:45 PM EDT Narrative Resulting Agency Comment Spec In Lab Walter Barber MD HEMATOLOGY ORDERA BLES [facility] [place] [address] * Hemogram (08/14/2019 5:15 PM EDT) [facility] White Blood Cell 6.8 4.0 - 9.5 x10(3)/[facility] Red Blood Cell 4.44 4.00 - 5.21 x10(6)/[facility] Hemoglobin 12.6 11.7 - 15.5 gm/dL [facility] Hematocrit 39.4 35.7 - 45.8 % [facility] Mean Cell Volume 88.7 82.6 - 94.4 fL [facility] Mean Cell Hemoglobin 28.4 27.1 - 32.0 pg [facility] Mean Cell Hemoglobin Concentration 32.0 31.7 - 35.0 gm/dL [facility] Platelet 158 145 - 357 x10(3)/[facility] RDW Standard Deviation 44.4 37.0 - 46.0 [facility] RDW coefficient of variation 13.7 11.5 - 14.1 % [facility] Mean Platelet Volume 12.0 7.6 - 12.9 [facility] NRBC% auto 0.0 % [facility] NRBC Absolute 0.000 0.000 - 0.000 x10(3)/[facility] Blood specimen (specimen) 08/14/2019 5:15 PM EDT 08/14/2019 5:45 PM EDT Narrative Resulting Agency Comment Spec In Lab Walter Barber MD HEMATOLOGY ORDERA BLES [facility] [place] [address] * Hepatic Function Panel (08/14/2019 5:15 PM EDT) [facility] Protein, Total 8.0 6.1 - 8.0 gm/dL [facility] Albumin 4.5 3.2 - 5.2 gm/dL [facility] Aspartate Aminotransferase 14 0 - 30 unit/L [facility] Alanine Aminotransferase 13 0 - 30 unit/L [facility] Alkaline Phosphatase 73 35 - 105 unit/L [facility] Bilirubin, Total 0.3 0.2 - 1.3 mg/dL [facility] Bilirubin, Direct 0.1 0.0 - 0.3 mg/dL [facility] Blood specimen (specimen) 08/14/2019 5:15 PM EDT 08/14/2019 5:45 PM EDT Narrative Resulting Agency Comment Spec In Lab Walter Barber MD CHEMISTRY ORDERAB LES [facility] [place] [address] * (ABNORMAL) Basic Metabolic Panel (non-fasting) (08/14/2019 5:15 PM EDT) Glucose 153 65 - 199 mg/dL [facility] Comment:Diabetes: >=200 mg/d L plus symptoms Blood Urea Nitrogen 34(H) 8 - 18 mg/dL [facility] Creatinine 1.94(H) 0.70 - 1.20 mg/dL [facility] Sodium 142 135 - 145 mmol/L [facility] Potassium 4.3 3.5 - 5.0 mmol/L [facility] Comment: Please note: ??Patients with WBC >100,000 may have falsely elevated Potassium levels. ??For accurate Potassium quantification in these patients send serum separator tube (gold top) for subsequent determinations. ??Contact the Clinical Chemistry Laboratory if there are any questions. Chloride 105 98 - 107 mmol/L [facility] Carbon Dioxide 24 22 - 31 mmol/L [facility] Anion Gap 13 5 - 15 mmol/L [facility] Calcium 10.0 8.5 - 10.5 mg/dL [facility] Est Glomerular Filtration Rate 26(L) >=60 mL/min/1. 73 m?? [facility] Comment: The eGFR was calculated using the CKD-EPI equation. As with all creatinine based estimates of kidney function, eGFR values calculated with the CKD-EPI equation are not accurate in patients with acute kidney failure, extremes of body mass or the acutely ill. [email or web address]/[facility] eGFR 30(L) >=60 mL/min/1. 73 m?? [facility] Comment: The eGFR was calculated using the CKD-EPI equation. As with all creatinine based estimates of kidney function, eGFR values calculated with the CKD-EPI equation are not accurate in patients with acute kidney failure, extremes of body mass or the acutely ill. [email or web address]/[email or web address] Blood specimen (specimen) 08/14/2019 5:15 PM EDT 08/14/2019 5:45 PM EDT Narrative Resulting Agency Comment Spec In Lab Walter Barber MD CHEMISTRY ORDERAB LES [facility] [place] [address] * POCT Glucose (08/14/2019 4:37 PM EDT) Glucose, POC 132 65 - 199 mg/dL [facility] Comment: Supplemental ranges: <140 mg/dL before meals <180 mg/dL all other times of the day Blood specimen (specimen) 08/14/2019 4:37 PM EDT 08/14/2019 4:37 PM EDT Emergency Dept POINT OF CARE TEST ORDERABLES Performing Organization Address City/[facility]/ZIP Co de Phone Number [facility] [place] [address] * Urinalysis Microscopic Exam (08/14/2019 2:40 PM EDT) RBC, Urine 2 0 - 4 /HPF [facility] WBC, Urine 2 0 - 5 /HPF [facility] Urine specimen obtained by clean catch procedure (specimen) 08/14/2019 2:40 PM EDT 08/14/2019 3:39 PM EDT Narrative Resulting Agency Comment Spec In Lab Walter Barber MD URINE ORDERABLES Performing Organization Address [facility]/ZIP Co de Phone Number [facility] [place] [address] * (ABNORMAL) Urinalysis with reflex Culture (08/14/2019 2:40 PM EDT) Glucose, Urine Dipstick Negative Negative mg/dL [facility] Protein, Urine Dipstick Negative Negative mg/dL [facility] Bilirubin, Urine Dipstick Negative Negative mg/dL [facility] Comment: Clinical correlation required for positive Urine Bilirubin results as false positive may occur with some drugs and drug related products. If a false positive is suspected a serum total bilirubin should be considered if clinically indicated. Urobilinogen, Urine Dipstick Normal Normal mg/dL [facility] pH, Urn (dipstick) 5.0 5.0 - 8.0 [facility] Blood, Urine Dipstick Large(A) Negative mg/dL [facility] Ketone, Urine Dipstick Negative Negative mg/dL [facility] Nitrite, Urine Dipstick Negative Negative [facility] Leukocytes, Urine Dipstick Trace(A) Negative [facility] Appearance, Urine Dipstick Clear Clear [facility] Specific [place] Urine Automated 1.006 1.002 - 1.030 [facility] Color, Urine Dipstick Yellow Yellow [facility] Reflex to Culture No [facility] Urine specimen obtained by clean catch procedure (specimen) 08/14/2019 2:40 PM EDT 08/14/2019 3:39 PM EDT Narrative Resulting Agency Comment Spec In Lab Walter Barber MD URINE ORDERABLES [facility] [place] [address] * Film Library- Storage Only CT Abdomen & Pelvis (08/12/2019 12:00 AM EDT) Narrative DREW WASSERMAN - 08/14/2019 7:11 PM EDT This exam is auto-finalizing. It's purpose is for storage only. Walter Barber MD IMG FILM LIBRARY ORDERABLES [place], [place] documented in this encounter Visit Diagnoses Diagnosis Renal stone Calculus of kidney documented in this encounter Care Teams Interior Painter Relationship Specialty Start Date End Date Alexandr Youssef MD [address] [place] [id number] PCP - General 09/19/10 10/16/21 documented as of this encounter
--- OUTSIDE RECORDS SUMMARY | 2024-11-16 13:20 | XMS_ITS | Encounter Summary ---
Author Organization [facility] Address [address] [place] [address] Care Team Providers Care Core Assembly Supervisor Name Role Phone Rome Guerra MD Primary Care Provider [phone] Encounter Details Date Type Department Care Team (Late st Contact Info) Description 03/05/2022 Lab Requisition [facility] Pathology & Laboratory Medicine - [address] [address] Tyler Paige MD [address] [place] [address] [phone] Encounter for other general examination Social History Tobacco Use Types Packs/Day Years [...] Procedure Name Priority Date/Time Associated Diagnosis Comments SURGICAL PATHOLOGY Today 03/05/2022 9: 52 EDT Encounter for other general examination documented in this encounter Results * SURGICAL PATHOLOGY (03/05/2022 9:52 EDT) Note to Patient The following pathology results have been interpreted by your pathologist and may be available to you before your health provider has had the opportunity to review them. Please allow time for your provider to receive these results and explore management options, if applicable. 03/07/2022 8:10 EDT [facility] Final Diagnosis A. STOMACH, PYLORUS, BIOPSY: - Antral mucosa with reactive (chemical) gastropathy. - Negative for Helicobacter pylori on H&E stained sections. B. STOMACH, ANTRUM, BIOPSY: - Gastric fundic mucosa with no significant diagnostic abnormalities. - Negative for Helicobacter pylori on H&E stained sections. C. STOMACH, POLYP, BIOPSY: - Fundic gland polyp. D. GASTROESOPHAGEAL JUNCTION, BIOPSY: - Squamous mucosa with mild reactive changes. E. COLON, ASCENDING, POLYPS X2, BIOPSY: - Tubular adenomas. F. COLON, SIGMOID, POLYP, BIOPSY: - Tubular adenoma. 03/07/2022 8:10 [facility] Attestation By the signature below, the attending physician certifies that they have 1) personally conducted a gross and/or microscopic examination of the described specimen(s), and/or personally interpreted the results of laboratory testing of the described specimen(s), and 2) personally rendered or confirmed the above diagnosis. 03/07/2022 8:10 [facility] at 0810 Clinical History Anemia 03/07/2022 8:10 [facility] Gross Description A. Received in formalin labelled with proper patient identification (initials R, G) and 1. Pylorus Bx are 2 domingo-brown tissues (0.4 x 0.3 x 0.1 cm and 0.5 x 0.4 x 0.2 cm). Entirely submitted in A1. B. Received in formalin labelled with proper patient identification (initials R, G) and 2. Antrum Bx are 2 domingo-brown tissues (0.2 x 0.1 x 0.1 cm and 0.6 x 0.4 x 0.2 cm). Entirely submitted in B1. C. Received in formalin labelled with proper patient identification (initials R, G) and 3. Gastric polyp are 2 domingo-brown tissue fragments (0.6 x 0.4 x 0.2 cm in aggregate). Entirely submitted in C1. D. Received in formalin labelled with proper patient identification (initials R, G) and 4. GE junction Bx is a white-domingo tissue (0.7 x 0.4 x 0.2 cm). Entirely submitted in D1. E. Received in formalin labelled with proper patient identification (initials R, G) and 5. Ascending colon polyp x2 are 3 domingo tissue fragments (0.3 x 0.2 x 0.2 cm to 0.6 x 0.3 x 0.1 cm). Entirely submitted in E1. F. Received in formalin labelled with proper patient identification (initials R, G) and 6. Sigmoid polyp are 2 domingo-brown tissue fragments (0.4 x 0.3 x 0.1 cm and 0.6 x 0.4 x 0.4 cm). The larger tissue is bisected and the specimen is entirely submitted in F1. RAMYA GIVENS(ASCP) 03/06/2022 8:12 03/07/2022 8:10 EDT [facility] Performing Lab [facility] 8:10 EDT [facility] Scanned Images 03/07/2022 8:10 EDT [facility] Tissue ENTIRE SIGMOID COLON / Unknown 03/05/2022 9:52 EDT 03/05/2022 17:46 EDT Tissue specimen (specimen) STOMACH STRUCTURE / Unknown 03/05/2022 9:52 EDT 03/05/2022 17:46 EDT Tissue specimen (specimen) SPECIMEN FROM STOMACH OBTAINED BY TOTAL GASTRECTOMY / Unknown 03/05/2022 9:52 EDT 03/05/2022 17:46 EDT Tissue specimen (specimen) ESOPHAGEAL STRUCTURE / Unknown 03/05/2022 9:52 EDT 03/05/2022 17:46 EDT Tissue specimen (specimen) ASCENDING COLON STRUCTURE / Unknown 03/05/2022 9:52 EDT 03/05/2022 17:46 EDT Tissue specimen (specimen) SIGMOID COLON STRUCTURE / Unknown 03/05/2022 9:52 EDT 03/05/2022 17:46 EDT us Tyler Paige MD PATHOLOGY ORDERABLES Fin al Result [facility] [address] [place] [id number] documented in this encounter Visit Diagnoses Diagnosis Encounter for other general examination documented in this encounter Care Teams Core Assembly Supervisor Relationship Specialty Start Date End Date Rome Guerra MD [address] [facility] [address] [place] [address] PCP - General Emergency Medicine 01/26/22 documented as of this encounter
--- OUTSIDE RECORDS SUMMARY | 2024-11-16 13:20 | XMS_ITS | Encounter Summary ---
[place] [address] Care Team Providers Care Edging Machine Catcher Name Role Phone Alexandr Youssef MD Primary Care Provider [phone] Encounter Details Date Type Department Care Team (Latest Contact Info) Description 04/18/2015 11:12 AM EDT - 04/18/2015 11:59 PM EDT Hospital [place] [id number] CLINIC, Alexandr Goodwin MD [address] [place], [place] [address] CKD (chronic kidney disease), unspecified stage Discharge Disposition: Home Social History Tobacco Use Types Packs/Day Years Used Date Smoking Tobacco: Never Assessed Sex and Gender Information Value Date Recorded Sex Assigned at Not on file Gender Identity Not on file Sexual Orientation Not on file documented as of this encounter Last Filed Vital Signs Vital Sign Reading Time Taken Comments Blood Pressure 112/50 04/18/2015 2:15 PM EDT Pulse 92 04/18/2015 2:15 PM EDT Temperature 35.7 ??C (96.2 ??F) 04/18/2015 1:25 PM ED T Respiratory Rate 18 04/18/2015 2:15 PM EDT Oxygen Saturation 93% 04/18/2015 2:15 PM EDT Inhaled Oxygen Concentration - - Weight - - Height - - Body Mass Index - - documented in this encounter Discharge Instructions * Discharge Instructions* Dorys Banda RN - 04/18/2015 1:34 PM EDT [facility] Vascular and Interventional Radiology Biopsy Discharge Instructions ??? Adrenal mass biopsy: call your doctor immediately if you develop a sudden onset of weakness, increased pain or swelling at the biopsy site or heavy bleeding at the biopsy site. Activity And Diet: ??? Go home and rest quietly for the remainder of the day. You may resume your normal activities tomorrow. ??? Resume your usual diet after the procedure. ??? Do not drive, sign any important/legal documents, or make any important decisions for 24 hours following sedation medications. When to call your healthcare provider: ??? If you see any redness, swelling or drainage at the biopsy site. ??? If you develop chills. ??? If you have a fever greater than or equal to 101 degrees Fahrenheit. ??? If you develop pain around the biopsy site. Bandage: ??? Check the dressing/bandaid throughout the day for an increase in drainage. Keep the biopsy sitedry for 24 hours. Replace the bandaid as needed. You may shower 24 hours after the biopsy. Medication: ??? DO NOT take aspirin-containing products, ibuprofen, or blood-thinning medication for the next 24 hours unless your doctor says you may do so. ??? Generally you may use acetaminophen as needed for discomfort unless you have liver disease and are instructed not to take acetaminophen. Biopsy Results ??? The results of your biopsy should be available within 5 business days and will be reported to you by your primary healthcare customer service or the clinician who ordered the biopsy. Please do not call us forresults as we will not have them. ??? If you have not been contacted by your clinician within 5 business days you should call that office for further information. When to call the Interventional Radiology Department: Please call with any questions or concerns. If it is during regular office hours, please call [phone]. If it is after regular office hours, or on weekends or holidays, please call [phone] and ask to speak to the Track Vehicle Repairer microsoft application developer for Interventional Radiology. You have received medication during your procedure to help lesson anxiety and keep you comfortable.These medications affect judgement and reaction time. We recommend that you do not drive, operate equipment, sign any important documents, or smoke unattended for 24 hours following your procedure. Because of the sedation, be careful on stairs, as you may be unsteady on your feet. You may resume your regular diet as tolerated. IV site -- slight redness, or tenderness is normal, you can use a warm compress. If tenderness and redness increases or foul drainage occurs, please contact your M. D. Revised 11/09/11 documented in this encounter Medications at Time of Discharge Medication Sig Dispensed Refills Start Date End Date promethazine (Phenergan) 12.5 mg tablet 1 tab q 8 hr 02/28/2015 12/05/2023 simvastatin (ZOCOR) 80 mg tablet 12/23/19 09 05/23/2016 furosemide (LASIX) 20 mg tablet 9 04/09/2017 losartan (COZAAR) 100 mg tablet 9 04/09/2017 potassium chloride SA (KLOR-CON M10) 10 mEq tablet 12/23/2008 6 aspirin 81 mg EC tablet 12/23/200803/28 omeprazole (PRILOSEC OTC) 20 mg tablet 12/23/2008 05/23/2016 pregabalin (LYRICA) 50 mg capsule 12/23/2008 05/23/2016 naproxen (NAPROSYN) 500 mg tablet 12/23/2008 05/23/2016 ibuprofen (ADVIL) 200 mg tablet 9 04/09/2017 documented as of this encounter Progress Notes * Cami Gibson RN - 04/19/2015 7:50 AM EDT Interventional and Vascular Radiology Post-Procedure Call Name: Brynn Hernandez Age: 64 y.o. Sex; Female Date of : 1950 (home) No relevant phone numbers on file. PCP ALEXANDR YOUSSEF MD [phone] Date/Time of call: April 19, 2015/7:50 AM Procedure: CT left adrenal gland biopsy Procedural Provider: Dr Ahuja/Dr Self Contact with patient or if not, with whom? yes Are you having pain related to your procedure now? none Are you having any swelling or bleeding from the site? none Are there any improvement in your symptoms? n/a Are you having any other problems related to your procedure? none Comments: Did you understand the discharge instructions given and do you have any questions? None. Informed pt that she can take her bandage off this afternoon and to inspect site upon removal. Comments: Do you have any comments about your Nurse or Provider or the care you received? none Nurse Comments: * Terence Self MD - 04/18/2015 12:14 PM EDT PRE-SEDATION ASSESSMENT / FOCUSED H&P Addendum: The patient's history and physical exam have been reviewed and completed. There has been no interval change from that of the pre-operative history and physical exam done within the last 30 days. Risks (including hemorrhage, infection, allergic reaction, occlusion, respiratory depression), and benefits discussed and patient consented to the procedure. I have reviewed with the patient, their prior experience with sedation. The patient has been NPO per protocol I have reviewed the sedation plan for this patient???s case and concur that Fentanyl and Versed areappropriate choices for sedation and will be provided per the protocoled order set for this case Physical Exam Heart: RRR Lungs: clear ASA Classification: ASA 2 - Patient with mild systemic disease with no functional limitations Mallampati Classification: III (soft palate, base of uvula visible) * Christen Womack RN - 04/14/2015 5:07 PM EDT ANGIO/VIR NURSING DATABASE Name: BRYNN HERNANDEZ Date of : 1950 AGE 64 y.o. Address: [address] [place], [place] [address] (home) Mobile: No relevant phone numbers on file. Referring Provider: Alexandr Youssef PROCEDURE: CT guided left adrenal mass biopsy Patient Position: Left lateral decubitus. May require 3D Biopsy/drain access site: left adrenal mass Medications to discontinue (and days): [d/c ASA, naproxen, advil x 5d] Labs: [obtain per CT protocol] General anesthesia required: [no] Allergies Allergen Reactions ??? Guaifenesin CIS - Rash ??? Amlodipine Besylate Dizziness ??? Celebrex [Celecoxib] Acid reflux ??? Gabapentin Nausea Only ??? Lipitor [Atorvastatin] myalgia ??? Lisinopril Diarrhea ??? Prevacid [Lansoprazole] dizziness Per note signed 04/01/15 by Renata Harding MD Past Medical/Surgical History: HTN dyspepesia DM CKD smoker DATE/PROCEDURE MEDS GIVEN/COMMENTS 04/18/2015: Ct-guided (L) adrenal gland biopsy Versed 2.5 mg IV, Fentanyl 125 mcg IV, tolerated well Laboratory Results: No results found for: INR No components found for: PT/PTT No results found for: CREATININE No results found for: K Lab Results Component Value Date PLATELET 162 04/18/2015 Medications: Prior to Admission medications Medication Sig Start Date End Date Taking? Authorizing Provider simvastatin (ZOCOR) 80 mg tablet 12/23/08 furosemide (LASIX) 20 mg tablet 12/23/08 losartan (COZAAR) 100 mg tablet 12/23/08 potassium chloride SA (KLOR-CON M10) 10 mEq tablet 12/23/08 aspirin 81 mg EC tablet 12/23/08 omeprazole (PRILOSEC OTC) 20 mg tablet 12/23/08 pregabalin (LYRICA) 50 mg capsule 12/23/08 naproxen (NAPROSYN) 500 mg tablet 12/23/08 ibuprofen (ADVIL) 200 mg tablet 12/23/08 ++++ FOR OUTPATIENT SCAN'S: I have informed this patient that they require a cdl flatbed truck driver to be present and in the building to drive them home after this procedure. In the absence of a cdl flatbed truck driver, IR will not be able to perform this procedure and will need to reschedule. Pt verbalized understanding of these i nstructions during the pre-procedure education via phone. (initials) documented in this encounter Procedure Notes * Derek Ahuja MD - 04/18/2015 1:16 PM EDT VIR PROCEDURE NOTE : Procedure: CT-guided left adrenal gland mass biopsy Indication: left adrenal gland mass Technique: After discussing risks (including infection, hemorrhage,bowel perforation,) and benefits, patient consented to the procedure. Due to the painful nature of the procedure, split doses of fentanyl and versed were administered bythe IR nurse during continuous monitoring of pulse, blood pressure and oxygen saturation. Lesion was localized with CT. After sterile preparation of the overlying skin, 1% lidocaine SQ was administered for anesthesia, and a 19/20G coaxial needle system was advanced under CT guidance into the left adrenal gland mass. 5 core samples were obtained. Patient tolerated the procedure well. There were no immediate complications. Post-procedure images were acquired. Findings: 1) 5 core samples were obtained under CT guidance. 2) Post-procedure images demonstrate no complication. Meds: Fentanyl 125 mcg IV, Versed 2.5 mg IV, 1% Lidocaine 10ml Complications: no immediate Impression: CT guided biopsy of a left adrenal gland mass. Resident: cornel I, Dr. Ahuja performed the procedure. documented in this encounter Plan of Treatment Upcoming Encounters Date Type Department Care Team (Late st Contact Info) Description 11/27/2024 9:00 AM EST Office Visit [place] [address] Remi Winston MD [facility] [place] [address] documented as of this encounter Procedures Procedure Name Priority Date/Time Associated Diagnosis Comments NON-SOCIAL WORK JOB TITLES FINAL REPORT Routine 04/18/2015 1:[address] BIOPSY-ADRENAL Routine 04/18/2015 1:2 2 PM EDT POCT GLUCOSE Routine 04/18/2015 12:17 PM EDT CYTOPATHOLOGY NON-GYNECOLOGICAL Routine 04/18/2015 11:56 AM EDT documented in this encounter Results * Non-Cotton Tipper Final Report (04/18/2015 1:54 PM EDT) Diagnosis Discussion ? [facility] ? Provider: ?? ALEXANDR YOUSSEF ?? Pt. Name: ?? BRYNN HERNANDEZ ? Acc #: ?[id number] ? Pt. ? Col Date: ?? 04/18/2015 ? /Sex: ?1950,(64 years),Female ? Rec Date: ?? 04/18/2015 ? LOC: ?3ZC ? CYTOPATHOLOGY: ??NGYN ? ---Cytopathologic Diagnosis--- ? See Comment ? 04/19/15 ?Screened by: ? LMY ? Rescreened by: ?? SKG,SKG ? 04/21/15 ?Verified by: ? Elijah Roman MD ?Cytopathologist ?(Electronic Signature) ? ---Comment--- ? Adrenal: left (CT-guided needle core biopsy and touch imprint cytology): ? Adrenal cortical-like cells are present. The main differential is [place] ? adrenal cortex vs. an adrenal cortical neoplasm. Some acellular ? eosinophilic material is also focally seen. ? Recommend clinicopathologic correlation. ? special stain - [place] red: result is negative. ? Dr. Samuel has reviewed this case and concurs with the diagnosis. ? ---Clinical Information--- ? Specimen Source: ?Adrenal: left (CT-guided needle core biopsy and touch imprint cytology - ? assisted) ? Site: ?Adrenal: left ? Clinical History/Impression: ?Nausea, vomiting and abdominal pain. ? 64yo female with nausea, vomiting and abdominal pain. Imaging performed as ? part of her workup revealed an indeterminate left adrenal mass. ? Metanephrines are not elevated. ? Gross Description: ?Received in 50 mL of formalin, labeled with the patient's name and ? medical record number, are multiple yellow needle core biopsies ranging ? from 0.3 x 0.1 to 1.1 x 0.1 cm, submitted in cassette A1.(T1) ? [facility] ? Provider: ?? ALEXANDR YOUSSEF ?? Pt. Name: ?? BRYNN HERNANDEZ ? Acc #: ?[id number] ? Pt. ? Col Date: ?? 04/18/2015 ? /Sex: ?1950,(64 years),Female ? Rec Date: ?? 04/18/2015 ? LOC: ?[facility] ? CYTOPATHOLOGY: ??NGYN ?Total Preparation: Touch Imprint(s) 1; Needle Core Biopsy Block(s) 1. ? Intra-procedural Immediate Assessment: ? Immediate Assessment on: 1 ? Site 1 (1 slide): ? Adequate for final diagnosis. ? Adrenal cortical-like cells present. ? Immediate Assessment by: Fuentes Rey MD (fellow) and Julianna Roman MD. I have ? personally examined the cytologic slides. My interpretation is as stated. ? Note: Immediate Assessment results are preliminary assessments of adequacy ? and diagnosis. See final diagnosis and diagnostic comments for completed ? interpretation. 04/21/2015 3:18 PM EDT [facility] Misc. FNA 04/18/2015 1:54 PM EDT 04/18/2015 1:54 PM EDT Alexandr Youssef MD PATHOLOGY/CYTOLOGY O RDERAWESLY Performing Organization Address City/State/[facility] Co de Phone Number [facility] [place] [phone] * CT Biopsy-Adrenal (04/18/2015 1:22 PM EDT) Anatomical Region Laterality Modality Computed Tomogra phy 04/18/2015 1:22 PM EDT Impressions 04/18/2015 2:34 PM EDT Impression: CT guided biopsy of a left adrenal gland mass. Resident: none IDr. Ahuja performed the procedure. Narrative 04/18/2015 2:34 PM EDT VIR PROCEDURE NOTE : Procedure: CT-guided left adrenal gland mass biopsy Indication: left adrenal gland mass Technique: After discussing risks (including infection, hemorrhage,bowel perforation,) and benefits, patient consented to the procedure. Due to the painful nature of the procedure, split doses of fentanyl and versed were administered by the IR nurse during continuous monitoring of pulse, blood pressure and oxygen saturation. Lesion was localized with CT. After sterile preparation of the overlying skin, 1% lidocaine SQ was administered for anesthesia, and a 19/20G coaxial needle system was advanced under CT guidance into the left adrenal gland mass. 5 core samples were obtained. Patient tolerated the procedure well. There were no immediate complications. Post-procedure images were acquired. Findings: 1) 5 core samples were obtained under CT guidance. 2) Post-procedure images demonstrate no complication. Meds: Fentanyl 125 mcg IV, Versed 2.5 mg IV, 1% Lidocaine 10ml Complications: no immediate Procedure Note Derek Ahuja MD - 04/18/2015 VIR PROCEDURE NOTE : Procedure: CT-guided left adrenal gland mass biopsy Indication: left adrenal gland mass Technique: After discussing risks (including infection, hemorrhage,bowel perforation,) and benefits, patient consented to the procedure. Due to the painful nature of the procedure, split doses of fentanyl andversed were administered by the IR nurse during continuous monitoring of pulse,blood pressure and oxygen saturation. Lesion was localized with CT. After sterile preparation of the [place], 1% lidocaine SQ was administered for anesthesia, and a 19/20G coaxialneedle system was advanced under CT guidance into the left adrenal gland mass. 5core samples were obtained. Patient tolerated the procedure well. There wereno immediate complications. Post-procedure images were acquired. Findings: 1) 5 core samples were obtained under CT guidance. 2) Post-procedure images demonstrate no complication. Meds: Fentanyl 125 mcg IV, Versed 2.5 mg IV, 1% Lidocaine 10ml Complications: no immediate IMPRESSION Impression: CT guided biopsy of a left adrenal gland mass. Resident: cornel I, Dr. Ahuja performed the procedure. Alexandr Youssef MD [facility] CT ORDERABLES * (ABNORMAL) POCT Glucose (04/18/2015 12:17 PM EDT) Glucose, POC 205(H) 65 - 199 mg/dL [facility] Comment: Supplemental ranges: <140 mg/dL before meals <180 mg/dL all other times of the day Blood specimen (specimen) 04/18/2015 12:17 PM EDT 04/18/2015 12:17 PM EDT Alexandr Youssef MD POINT OF CARE TEST O RDERABLES [facility] * Cytopathology Non-Gynecological (04/18/2015 11:56 AM EDT) AP Specimen 04/18/2015 11:5 6 AM EDT 04/18/2015 11:56 AM EDT Narrative [facility] - 04/18/2015 11:56 AM EDT Specimen requisition ordered. ??Separate Pathology report to follow Alexandr Youssef MD PATHOLOGY/CYTOLOGY O RDERABLES Performing Organization Address [facility] Co de Phone Number [facility] * Platelet count (04/18/2015 11:00 AM EDT) Platelet 162 145 - 370 x10(3)/mcL [facility] Blood specimen (specimen) 04/18/2015 11:00 AM EDT 04/18/2015 11:07 AM EDT Narrative Resulting Agency Comment Spec In Lab Funmi Harding MD HEMATOLOGY ORDERABLE S Performing Organization Address [facility] Co de Phone Number [facility] documented in this encounter Visit Diagnoses Diagnosis CKD (chronic kidney disease), unspecified stage documented in this encounter Administered Medications Inactive Administered Medications - up to 3 most recent administrations Medication Order MAR Action Action Date Dose Rate Site fentaNYL 50 mcg/mL multi-dose injection 25-50 mcg, Intravenous, EVERY 5 MIN PRN, Starting on Sat04/18/15 at 1209, Until Sat04/18/15 at 1313, Pain, per unit protocol, For use in Interventional Radiology (IR) only for procedural sedation with direct provider supervision and verbal order., Angio/IR (Intra-Procedure), Routine Given 04/18/2015 1:03 PM EDT 25 mcg Given 04/18/2015 12:52 PM EDT 50 mcg Given 04/18/2015 12:40 PM EDT 50 mcg lidocaine (XYLOCAINE) 10 mg/mL (1 %) injection 10 mg 10 mg, Subcutaneous, ONCE, 1 dose, On Sat04/18/15 at 1230, For use in Interventional Radiology (IR) only for procedural sedation with direct provider supervision and verbal order., Angio/IR (Intra-Procedure), Routine Given 04/18/2015 12:55 PM EDT 10 mg midazolam (PF) (VERSED) 1 mg/mL multi-dose injection 0.5-1 mg 0.5-1 mg, Intravenous, EVERY 5 MIN PRN, Starting on Sat04/18/15 at 1209, Until Sat04/18/15 at 1313, Anxiety, per unit protocol, For use in Interventional Radiology (IR) only for procedural sedation with direct provider supervision and verbal order., Angio/IR (Intra-Procedure), Routine Given 04/18/2015 1:03 PM EDT 0.5 mg Given 04/18/2015 12:52 PM EDT 1 mg Given 04/18/2015 12:40 PM EDT 1 mg documented in this encounter Care Teams Edging Machine Catcher Relationship Specialty Start Date End Date Alexandr Youssef MD [address] [place] [address] PCP - General 09/19/10 10/16/21 documented as of this encounter
--- OUTSIDE RECORDS SUMMARY | 2024-11-16 13:20 | XMS_ITS | Encounter Summary ---
[place] [address] Care Team Providers Care Oil And Gas Recruiter Name Role Phone Alexandr Youssef MD Primary Care Provider [phone] Encounter Details Date Type Department Care Team (Late st Contact Info) Description 11/26/2017 Telephone Ne[place] [phone] Dorys Yun Social History Tobacco Use Types Packs/Day Years Used Date Smoking Tobacco: Former Cigarettes Q uit: 2013 Sex and Gender Information Value Date Recorded Sex Assigned at Not on file Gender Identity Not on file Sexual Orientation Not on file documented as of this encounter Miscellaneous Notes * Telephone Encounter - Dorys Yun - 11/26/2017 4:22 PM EST Spoke to pt to make a f/u apt. Pt stated that she just saw her PCP a Dr. Youssef and he told her shedid not need to come back. I advised that if she needs to come back, just call. I conveyed this message to Yancy Pereira our RN Nurse Chaperon. documented in this encounter Plan of Treatment Upcoming Encounters Date Type Department Care Team (Late st Contact Info) Description 11/27/2024 9:00 AM EST Office Visit Neph[place] [address] Remi Winston MD [facility] [place] [address] documented as of this encounter Visit Diagnoses Not on filedocumented in this encounter Care Teams Oil And Gas Recruiter Relationship Specialty Start Date End Date Alexandr Youssef MD [address] [place] [address] PCP - General 09/19/10 10/16/21 documented as of this encounter
--- OUTSIDE RECORDS SUMMARY | 2024-11-16 13:20 | XMS_ITS | Encounter Summary ---
Author Organization [facility] Address [address] [place] [address] Care Team Providers Care Parking Lot Chauffeur Name Role Phone Alexandr Youssef MD Primary Care Provider [phone] Encounter Details Date Type Department Care Team (Late st Contact Info) Description 11/08/2015 Results Only [facility] [phone] Rambo Lucas MD [facility] [place] [address] Social History Tobacco Use Types Packs/Day Years [...] Priority Date/Time Associated Diagnosis Comments SURGICAL PATHOLOGY Routine 11/08/2015 21 :03 EST documented in this encounter Results * SURGICAL PATHOLOGY (11/08/2015 21:03 EST) Pathology Report: SURGICAL PATHOLOGY REPORT Reports generated via electronic interface contain original data; however they are lacking the format of the original report. Caution should be taken when reading/interpret ing unformatted reports. Name: ? BRYNN HERNANDEZ ? Accession #: ? [id number] ? : ? 1950 (Age: 64) ??F ? Collect Date: ? 11/08/2015 ? Location: ? [facility] ? Receive Date: ? 11/08/2015 ? Provider: RAMBO LUCAS MD Copy to: ALEXANDR YOUSSEF MD ? Final Pathologic Diagnosis: A. COLON, SIGMOID, POLYPS, BIOPSY: - ??Fragments of tubular adenoma(s). B. RECTUM, POLYP, BIOPSY: - ??Fragments of hyperplastic polyp. Document reviewed and electronically signed by: JUAN DIEGO MEJIA MD Report ??Date: 11/14/2015 12:36 By the signature above, the attending physician certifies that he/she has personally conducted a gross and/or microscopic examination of the described specimens and rendered or confirmed the above diagnosis. Specimen(s) Received: A. ?Sigmoid polyps x2 B. ? Rectal polyp Clinical History: H/O colon adenoma Gross Description: A. ?Received in formalin labelled with proper patient identification (initials R, G) and sigmoid polyps x2 are five pink-domingo tissues (0.2 x 0.2 x 0.1 cm to 0.5 x 0.2 x 0.1 cm). Entirely submitted in blocks A1-A2. ? B. ?Received in formalin labelled with proper patient identification (initials R, G) and rectal polyp are two pink-domingo tissues (0.4 x 0.2 x 0.1 cm and 0.3 x 0.3 x 0.1 cm). Entirely submitted in block B1. Anayeli Chavez 11/09/2015 8:41 AM End of Report [facility] 11/08/2015 21:0 3 EST 11/08/2015 21:03 EST us Jessa-Venus Lucas MD PATHOLOGY ORDERABLES Fin al Result [facility] [address] [place] [address] documented in this encounter Visit Diagnoses Not on filedocumented in this encounter Care Teams Parking Lot Chauffeur Relationship Specialty Start Date End Date Alexandr Youssef MD [address] [place] [address] PCP - General 06/05/11 01/25/22 documented as of this encounter
--- OUTSIDE RECORDS SUMMARY | 2024-11-16 13:20 | XMS_ITS | Encounter Summary ---
Author Organization [facility] Address [address] [place] [id number] Care Team Providers Care Emergency Department Aide Name Role Phone Unavailable Primary Care Provider Unavailabl e Encounter Details Date Type Department Care Team (Late st Contact Info) Description 09/15/2008 Before PRISM Converted Visit ([place]) [address] [address] Belkis Johnson MD Social History Tobacco Use [...] Procedure Name Priority Date/Time Associated Diagnosis Comments CYTOPATHOLOGY Routine 09/15/2008 0:00 EST documented in this encounter Results * CYTOPATHOLOGY (09/15/2008 0:00 EST) Pathology Report: CYTOPATHOLOGY REPORT ? Reports generated via electronic interface contain original data; ? however they are lacking the format of the original report. ? Caution should be taken when reading/interpreti ng unformatted reports. ? Name: ? BRYNN HERNANDEZ ? Accession #: ? [id number] ? : ? 1950 (Age: 57) ??F ?Collect Date: ? 09/15/2008 ? Location: ? [facility] ? Receive Date: ? 09/16/2008 ? Provider: ?BELKIS D FINE MD ? Copy to: ? Specimen/Source: ?Pap Test, Endocervix, ThinPrep Imaging System with ? manual evaluation ? Last Menstrual Period: ? Other: ? HPVA - HPV testing requested if ASC-US on the current ThinPrep Pap test. ? SPECIMEN ADEQUACY ? Satisfactory for Evaluation ? - transformation zone component present ? GENERAL CATEGORIZATION ? Negative for Intraepithelial Lesion or Malignancy ? INTERPRETATION ? Reactive cellular changes associated with inflammation present (includes ?? repair). ? Document reviewed and electronically signed by: ? Sandra Pappas, MBBCh ? Report Date: ??09/21/2008 11:05 ? End of Report ? [facility] 09/15/2008 09/16/2008 us Belkis Johnson MD PATHOLOGY ORDERABLES Final Resul t [facility] [address] [place] [address] documented in this encounter Visit Diagnoses Not on filedocumented in this encounter
--- OUTSIDE RECORDS SUMMARY | 2024-11-16 13:20 | XMS_ITS | Encounter Summary ---
Author Organization Count Includes [facility] [address] Care Team Providers Care Wallpaper Installer Name Role Phone Alexandr Youssef MD Primary Care Provider [phone] Encounter Details Date Type Department Care Team (Late st Contact Info) Description 04/01/2015 [place] [address] Funmi Harding MD [facility] [place] [address] Social History Tobacco Use Types Packs/Day Years Used Date Smoking Tobacco: Never Assessed Sex and Gender Information Value Date Recorded Sex Assigned at Not on file Gender Identity Not on file Sexual Orientation Not on file documented as of this encounter Progress Notes * Funmi Harding MD - 04/01/2015 3:15 PM EDT Images from the original note were not included. PRE-PROCEDURE VIR NOTE: Referring Physician: PCP PCP: ALEXANDR YOUSSEF MD Planned Procedure: left adrenal mass biopsy Procedure Indication: mass Presenting Diagnosis/ Complaint: Brynn Khalil is a 64 y.o. female with nausea, vomiting and abdominal pain. Imaging performed as part of her workup revealed an indeterminate left adrenal mass. Metanephrines are not elevated. We are consulted for biopsy. Past Medical/Surgical History: HTN dyspepesia DM CKD smoker Medications: Current Outpatient Prescriptions on File Prior to Visit Medication Sig Dispense Refill ??? simvastatin (ZOCOR) 80 mg tablet ??? furosemide (LASIX) 20 mg tablet ??? losartan (COZAAR) 100 mg tablet ??? potassium chloride SA (KLOR-CON M10) 10 mEq tablet ??? aspirin 81 mg EC tablet ??? omeprazole (PRILOSEC OTC) 20 mg tablet ??? pregabalin (LYRICA) 50 mg capsule ??? naproxen (NAPROSYN) 500 mg tablet ??? ibuprofen (ADVIL) 200 mg tablet No current facility-administered medications on file prior to visit. Allergies: Guaifenesin Social History and Habits: History Social History ??? Marital Status: N/A Spouse Name: N/A Number of Children: N/A ??? Years of Education: N/A Occupational History ??? Not on file. Social History Main Topics ??? Smoking status: Not on file ??? Smokeless tobacco: Not on file ??? Alcohol Use: Not on file ??? Drug Use: Not on file ??? Sexual Activity: Not on file Other Topics Concern ??? Not on file Social History Narrative ??? No narrative on file Significant Family History: No family history on file. Physical Exam: Pending Labs: No results found for: WBC, ANC, HCT, PLATELET, INR, BUN, CREATININE, ALKPHOS, AST, ALBUMIN, BILIDIR, BILITOT, ALT, PROT Prior relevant imaging: MR 03/11/2015 CT 03/08/15 Assessment/Plan: CT guided left adrenal mass biopsy Patient Position: Left lateral decubitus. May require 3D Biopsy/drain access site: left adrenal mass Medications to discontinue (and days): [d/c ASA, naproxen, advil x 5d] Labs: [obtain per CT protocol] General anesthesia required: [no] documented in this encounter Plan of Treatment Upcoming Encounters Date Type Department Care Team (Late st Contact Info) Description 11/27/2024 9:00 AM EST Office Visit Neph[place] [phone] Remi Winston MD [facility] [place] [address] documented as of this encounter Visit Diagnoses Not on filedocumented in this encounter Care Teams Wallpaper Installer Relationship Specialty Start Date End Date Alexandr Youssef MD [address] [place] [address] PCP - General 09/19/10 10/16/21 documented as of this encounter
--- OUTSIDE RECORDS SUMMARY | 2024-11-16 13:20 | XMS_ITS | Encounter Summary ---
Author Organization [facility] Address [address] [place] [id number] Care Team Providers Care Research Interviewer Name Role Phone Alexandr Youssef MD Primary Care Provider [phone] Encounter Details Date Type Department Care Team (Latest Contact Info) Description 11/08/2015 17:17 EST - 11/08/2015 23:59 EST Hospital Encounter [address] [address] Unknown, Provider, MD Discharge Disposition: Home or Self Care Social History Tobacco Use Types Packs/Day Years Used Date Smoking Tobacco: Never Assessed Comments Unknown Sex and Gender Information Value Date Recorded Sex Assigned at Not on file Legal Sex Female 18:12 EST Gender Identity Not on file Sexual Orientation Not on file documented as of this encounter Discharge Disposition Disposition Code Departure Means Destination Home or Self [facility] documented in this encounter Plan of Treatment Not on file documented as of this encounter Visit Diagnoses Not on filedocumented in this encounter Care Teams Research Interviewer Relationship Specialty Start Date End Date Alexandr Youssef MD [address] [place] [id number] PCP - General 06/05/11 01/25/22 documented as of this encounter
--- OUTSIDE RECORDS SUMMARY | 2024-11-16 13:20 | XMS_ITS | Encounter Summary ---
Author Organization [facility] [place] [address] Care Team Providers Care Screen Printing Cloth Spreader Name Role Phone Alexandr Youssef MD Primary Care Provider [phone] Encounter Details Date Type Department Care Team (Latest Contact Info) Description 04/18/2015 10:45 AM EDT - 04/18/2015 11:59 PM EDT Hospital [place] [phone] Funmi Harding MD [facility] [place] [address] CKD (chronic kidney disease), unspecified stage Discharge [...] 9 04/09/2017 documented as of this encounter Plan of Treatment Upcoming Encounters Date Type Department Care Team (Late st Contact Info) Description 11/27/2024 9:00 AM EST Office Visit Nephrology [place] [address] Remi Winston MD [facility] [place] [place] [address] documented as of this encounter Procedures Procedure Name Priority Date/Time Associated Diagnosis Comments PLATELET COUNT STAT 04/18/2015 11:00 AM EDT CKD (chronic kidney disease), unspecified stage documented in this encounter Results * Platelet count (04/18/2015 11:00 AM EDT) Platelet 162 145 - 370 x10(3)/mcL [facility] Blood specimen (specimen) 04/18/2015 11:00 AM EDT 04/18/2015 11:07 AM EDT Narrative Resulting Agency Comment Spec In Lab Funmi Harding MD HEMATOLOGY ORDERABLE S [facility] documented in this encounter Visit Diagnoses Diagnosis CKD (chronic kidney disease), unspecified stage documented in this encounter Care Teams Screen Printing Cloth Spreader Relationship Specialty Start Date End Date Alexandr Youssef MD [address] [place] [address] PCP - General 09/19/10 10/16/21 documented as of this encounter
--- OUTSIDE RECORDS SUMMARY | 2024-11-16 13:20 | XMS_ITS | Encounter Summary ---
Author Organization [facility] [place] [address] Care Team Providers Care Wool Cleaner Name Role Phone Alexandr Youssef MD Primary Care Provider [phone] Reason for Visit * Reason Comments Chronic Kidney Disease Encounter Details Date Type Department Care Team (Latest Contact Info) Description 04/29/2017 9:40 AM EDT Office Visit [place] [address] Nelda Watts MD [facility] [place] [address] A, Nurse Clinician None CKD (chronic kidney disease) stage 3, GFR 30-59 ml/min; Type 2 diabetes mellitus with complication, unspecified skilled nursing insulin use status; CKD (chronic kidney disease), stage III/IV; Secondary hypertension; Obesity, unspecified obesity severity, unspecified obesity type; Non-nephrotic range proteinuria; Secondary hyperparathyroidism of renal origin; Vitamin D deficiency; Hyperlipidemia, unspecified hyperlipidemia type Social History Tobacco Use Types Packs/Day Years Used Date Smoking Tobacco: Former Cigarettes Q uit: 2013 Sex and Gender Information Value Date Recorded Sex Assigned at Not on file Gender Identity Not on file Sexual Orientation Not on file documented as of this encounter Last Filed Vital Signs Vital Sign Reading Time Taken Comments Blood Pressure 140/60 04/29/2017 9:36 AM EDT Pulse 60 04/29/2017 9:36 AM EDT Temperature - - Respiratory Rate - - Oxygen Saturation - - Inhaled Oxygen Concentration - - Weight 88.9 kg (196 lb) 04/29/2017 9:36 AM EDT Height 162.6 cm (5' 4) 04/29/2017 9:36 AM EDT Body Mass Index 33.64 04/29/2017 9:36 AM EDT documented in this encounter Progress Notes * Nelda Watts MD - 04/29/2017 9:40 AM EDT [facility] [address] [place] [address] Reason for Clinic Visit: Systems Review and CKD management. Seen in clinic with: Yancy Pereira RN, CNN, CKD RN Specialist CKD related to: Diabetes Mellitus, Hypertension History of Present Illness: As documented by RN Specialist. History obtained by RN Specialist: It has been one month since the last office visit. Dr Watts recommended that Brynn wear the blood pressure monitor for 24 hours, but she stated that it became verypainful and she took it off. She states her arm was bruised. She has been checking her blood pressures twice daily since then and they have been ~ 135/74 on average. She had two in the last 3 weeks th at were above 145 systolic. Her monitor has been checked at the office and it is accurate. She states she decreased the NPH insulin dose, she was taking a small amount at bedtime but was waking with low blood sugars during the night. She stopped taking the night dose and she finds she still wakes during the night with low blood sugars. She has eliminated salt in the diet, only uses a little on popcorn, using Mrs Dash instead. She has noticed less swelling in the feet. She also states she is eating less food, states she wants the blood sugar level to stay down. She has breakfast at 8, (two eggs and slice of toast), lunch at 1 pm(1/2 sandwich), and supper at 5 pm. Last night the blood sugar was 164 at bedtime. She states she newby s tried many different oral medications and other insulins. She has an appointment with Dr Youssef in the next month or so. 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 She has three knitting machines but one isn't working. She states it keeps her busy but finding there is less work coming in. She lives with her , cat and dog, [place]. She has sonswho live in the area. Review of Systems: Sign/Symptom Comments Energy level/fatigue: yes - no energy for years due to pain from fibromyalgia. She stopped taking lyrica as it was too difficult to get. Not taking any NSAIDs and not taking tylenol as it keeps her awake at night. Change in sleep patterns: No - trouble getting to sleep, can't turn off. Nocturia: Yes - 3 x, back to sleep ok Appetite changes: Yes - no salt now in the diet. Food aversions: No Nausea: No Vomiting: No Bowels: Yes - takes imodium AD daily, for many years. Had colonoscopy and found polyps. Edema: No - she notices less than in the past. Trace bilat LE on exam. Shortness of breath: Yes - comes on suddenly when doing anything, drinks water and is relieved. Takes dog out daily long walk, short walk in evening. Orthopnea/PND: No - one pillow, small. Muscle Cramping: yes - but not for a while. Restless legs when she relaxes, mostly in right leg, taking requip which helps. Cold intolerance: No - better now, less than in the past. Itching: No Bruising/bleeding: Yes - bruising, no nose bleeds, no black stools Mental Status Changes: No Recent Home Blood Pressure Control: 135/74 on average Recent Home Diabetic Management: < 130 most mornings, can have hypoglycemia at night, wakes her.Taking NPH in am only, glipizide twice daily. Recent Lipid Management: Rosuvastatin 40 mg daily. Advance Directives: No, states her knows what she wants, she doesn't want to complete forms. How has your health been in the last 4 weeks? Poor, Fair, Good, Very Good, Excellent. Additional CCM Comments: Hepatitis B Status: Serum Testing Date of Testing Results Hep B sAb/Hep B sAg Vaccination Status: Not vaccinated Education: AAKP Phase One Booklet, Options video, Kidney Beginnings, Decision Aid: None given yet. Anticipated Renal Replacement Therapy Plan: Not discussed, stable renal function. Transplant evaluation: Not indicated. Fistula Date/Type of Initial Access/Surgeon: Not discussed. PMH: Patient Active Problem List Diagnosis Code ??? Dyspepsia R10.13 ??? DM (diabetes mellitus) E11.9 ??? CKD (chronic kidney disease) N18.9 ??? CKD (chronic kidney disease), stage III N18.3 ??? HTN (hypertension) I10 ??? Hyperlipidemia E78.5 ??? Restless leg G25.81 ??? Vitamin D deficiency E55.9 ??? Low HDL (under 40) E78.6 ??? Secondary hyperparathyroidism of renal origin N25.81 ??? Non-nephrotic range proteinuria R80.9 ??? Nephrolithiasis N20.0 ??? GEOVANNA (obstructive sleep apnea) G47.33 ??? Diabetic retinopathy E11.319 ??? Obesity E66.9 Allergies Allergen Reactions ??? Guaifenesin Rash ??? Amlodipine Besylate Dizziness ??? Celebrex [Celecoxib] Acid reflux ??? Gabapentin Nausea Only ??? Lipitor [Atorvastatin] myalgia ??? Lisinopril Diarrhea ??? Prevacid [Lansoprazole] dizziness Medications 04/29/17 0935 Medication Sig Taking? aspirin 81 mg Tablet, Delayed Release (E.C.) Take 81 mg by mouth daily. Yes furosemide (LASIX) 20 mg Tablet Take 20 mg by mouth daily. Yes Ibuprofen 200 mg Capsule Take by mouth daily as needed. Yes insulin NPH (HUMULIN N;NOVOLIN N) Insulin Pen Inject 35 Units subcutaneously 2 times daily (before meals). Yes losartan (COZAAR) 100 mg Tablet Take 100 mg by mouth daily. Yes meTOPROLOL succinate (TOPROL-XL) 100 mg Tablet Sustained Release 24 hr Take 100 mg by mouth daily. Yes rOPINIRole (REQUIP) 0.5 mg Tablet Take 0.5 mg by mouth nightly as needed. Yes glipiZIDE (GLUCOTROL) 5 mg Tablet Take 10 mg by mouth 2 times daily (before meals). Yes rosuvastatin (CRESTOR) 40 mg Tablet Take 40 mg by mouth daily. Yes esomeprazole (NEXIUM) 40 mg Capsule, Delayed Release(E.C.) Take 40 mg by mouth every morning (before breakfast). Yes felodipine (PLENDIL) 5 mg Tablet Sustained Release 24 hr Take 5 mg by mouth daily. Yes Physical Exam: BP 140/60 (BP Location (NBP): Left arm, Patient Position: Sitting, BP Cuff Sizes: Large Adult (32-43 cm)) Pulse 60 Ht 162.6 cm (5' 4) Wt 88.9 kg (196 lb) BMI 33.64 kg/m2 General - Well-appearing woman. Appears her stated age. Neatly and appropriately groomed. Pleasant and cooperative. Much more relaxed this visit. Seated comfortably in a chair. HEENT - Bilateral conjunctival injection. Moist mucous membranes. Some teeth missing. Remaining teeth appear to be in fair to good condition. No overt evidence of infection. No oropharyngeal lesions or exudates. Neck - Supple. No lymphadenopathy. Respiratory - Lungs are clear to auscultation bilaterally. Cardiovascular - S1 and S2 are present. Regular rate and rhythm. No murmurs, rubs, or gallops. Abdomen - Benign. Extremities - Trace edema. Skin/Integument - Scattered telangiectasias. Psychiatric - Appropriate mood and affect. Neurological - No focal deficits. Labs Results for BRYNN HERNANDEZ ( ) Ref. Range 04/09/2017 13:16 04/29/2017 08:52 WBC Latest Ref Range: 4.0 - 9.5 x10(3)/mcL 6.4 5.6 RBC Latest Ref Range: 4.00 - 5.21 x10(6)/mcL 4.47 4.30 Hemoglobin Latest Ref Range: 11.7 - 15.5 gm/dL 13.0 12.7 Hematocrit Latest Ref Range: 35.7 - 45.8 % 40.3 38.8 MCV Latest Ref Range: 82.6 - 94.4 fL 90.2 90.2 MCH Latest Ref Range: 27.1 - 32.0 pg 29.1 29.5 MCHC Latest Ref Range: 31.7 - 35.0 gm/dL 32.3 32.7 RDWSD Latest Ref Range: 37.0 - 46.0 fL 43.9 43.9 RDWCV Latest Ref Range: 11.5 - 14.1 % 13.3 13.3 Platelets Latest Ref Range: 145 - 357 x10(3)/mcL 140 (L) 141 (L) MPV Latest Ref Range: 7.6 - 12.9 fL 12.3 12.2 nRBC % Auto Latest Units: % 0.0 0.0 nRBC Abs Auto Latest Ref Range: 0.000 - 0.000 x10(3)/mcL 0.000 0.000 Neutr Abs (ANC) Latest Ref Range: 1.70 - 6.10 x10(3)/mcL 3.63 3.45 Neutrophils % Latest Units: % 56.6 61.5 Immature Gran % Latest Units: % 0.30 0.20 Lymphocytes % Latest Units: % 30.5 28.4 Monocytes % Latest Units: % 9.1 6.1 Eosinophils % Latest Units: % 2.7 2.9 Basophils % Latest Units: % 0.8 0.9 Bree Gran Abs Latest Ref Range: 0.00 - 0.04 x10(3)/mcL 0.02 0.01 Lymphocytes Abs Latest Ref Range: 0.9 - 3.2 x10(3)/mcL 2.0 1.6 Monocyte Abs Latest Ref Range: 0.3 - 0.9 x10(3)/mcL 0.6 0.3 Eosinophils Abs Latest Ref Range: 0.0 - 0.4 x10(3)/mcL 0.2 0.2 Basophils Abs Latest Ref Range: 0.0 - 0.1 x10(3)/mcL 0.0 0.0 Sodium Latest Ref Range: 135 - 145 mmol/L 143 144 Potassium Latest Ref Range: 3.5 - 5.0 mmol/L 4.4 3.9 Chloride Latest Ref Range: 98 - 107 mmol/L 107 106 CO2 Latest Ref Range: 22 - 31 mmol/L 22 22 Anion Gap Latest Ref Range: 5 - 15 mmol/L 14 16 (H) BUN Latest Ref Range: 8 - 18 mg/dL 24 (H) 30 (H) Creatinine Latest Ref Range: 0.70 - 1.20 mg/dL 1.51 (H) 1.68 (H) Estimated GFR Latest Ref Range: >=60 34 (L) 30 (L) Glucose Lvl Latest Ref Range: 65 - 199 mg/dL 115 171 Calcium Latest Ref Range: 8.5 - 10.5 mg/dL 9.6 9.5 Phosphorus Latest Ref Range: 2.5 - 4.5 mg/dL 3.6 3.1 Uric Acid Latest Ref Range: 2.5 - 6.5 mg/dL 6.0 Albumin Latest Ref Range: 3.2 - 5.2 gm/dL 4.0 3.9 Ferritin Latest Ref Range: 30 - 400 ng/mL 55 Folate Lvl Latest Ref Range: 4.8 - 24.2 ng/mL 12.5 Iron Latest Ref Range: 30 - 150 mcg/dL 62 TIBC Latest Ref Range: 250 - 450 mcg/dL 316 Iron Saturation Latest Ref Range: 20 - 50 % 20 Vitamin B-12 Latest Ref Range: 207 - 974 pg/mL 315 25-OH Vit D Total Latest Ref Range: 30 - 100 ng/mL 23 (L) Chol, Total Latest Ref Range: <=239 mg/dL 166 HDL Latest Ref Range: >=40 mg/dL 32 (L) Chol/HDL Ratio Latest Units: ratio 5.2 LDL Chol Direct Latest Ref Range: <=190 mg/dL 95 Chol/HDL Interpretation Unknown See Note PTH Latest Ref Range: 15 - 65 pg/mL 72 (H) Methylmalonic Acid Latest Ref Range: <=0.40 nmol/mL 0.38 Problem/Goal/Assessment/Plan: Problem: Chronic Kidney Disease Goal: Reduce rate of progression Education for CKD Stage specific issues Results: Estimated GFR (MDRD): 30 ml/min/1.73m2 CKD Stage 3-4 - Potassium level - 3.9 - CO2 level - 22 Changes discussed with RN Specialist: A/P: Kidney function overall stable (see my initial consult note). - K+ well controlled. - Bicarb at goal (22-24). - Uric acid at goal (</= 6). Problem: Management of Anemia related to Chronic Kidney Disease (CKD) Goal:P Hgb 9.5-10.9 g/dl Ferritin>100ng/ml TSAT>20% Today's Results Hgb - 12.7 Ferritin - 55 on 04/09/17 TSAT - 20 on 04/09/17 Receiving erythropoetic stimulating agent? No Iron Supplement; Date : None received. Changes discussed with RN Specialist: A/P: Hgb and Tsat at goal. Iron/XAVIER not indicated. Problem: Hypertension Goal: Urine alb:cr ratio <30mg/g - 140/90, Urine alb:cr ratio > 30mg/g - 130/80 Sodium intake < 2 Gm per day. Results: BP today - 140/60 Changes discussed with RN Specialist: A/P: BP well controlled. No changes. Problem: Proteinuria Goal: Alb:Cr ratio < 30mg/g Today's results: Alb:Cr ratio - not tested, 10 on 04/09/17 Prot:Cr - 0.1 on 04/09/2017 Changes discussed with RN Specialist: taking losartan 100 mg daily. A/P: Scant proteinuria. On losartan. Problem: Bone Disease Goal: Stage 3 PTH: 35-70 pg/ml Phos 2.7-4.6 Ca 8.5-10.5mg/dl Stage 4 PTH: 70-110 pg/ml Phos 2.7-4.6 Ca 8.5-10.5mg/dl Stage 5 PTH: 150-300 pg/ml Phos 3.5-5.5 Ca 8.5-10.5mg/dl Results: PTH today - 72 (pt not taking calcitriol) Phos today - 3.1 (pt not taking binders) Calcium today - 9.5 Changes discussed with RN Specialist: A/P: Calcium and phosphorus normal; no binder. PTH minimally elevated; no calcitriol. 60-DG-lkkkguuE below goal (>/= 30); recommend OTC vitamin D 2000 units daily. Problem: Nutrition Goal: Albumin > 4.0gm/dl BMI 20-25 kg/m2 Results: Albumin today - 3.9 Changes discussed with RN Specialist: A/P: Albumin normal. Encouraged continued adequate protein intake. Problem: Diabetes Goal: HA1C ~ 7.0% Results: HA1C today - not tested Random Glucose - 171 Changes discussed with RN Specialist: A/P: Would appreciate past results of HgbA1c testing for our records. May want to consider discontinuing sulfonylurea due to risk of hypoglycemia and advanced CKD. Problem: Dyslipidemia Goal: LDL < 100 mg/dl Results: LDL today - 95 on 04/09/17 Changes discussed with RN Specialist: A/P: LDL at goal; continue current dose of statin. Other: Patient has documentation of pneumonia vaccine 05/01/2007, although not which vaccine specifically.Would appreciate any available vaccination history. Summary: Return to CKD clinic: 6 months documented in this encounter Plan of Treatment Upcoming Encounters Date Type Department Care Team (Late st Contact Info) Description 11/27/2024 9:00 AM EST Office Visit [place] [address] Remi Winston MD [facility] [place] [place] [address] documented as of this encounter Results * Albumin Level (04/29/2017 8:52 AM EDT) Albumin 3.9 3.2 - 5.2 gm/dL [facility] Blood specimen (specimen) 04/29/2017 8:52 AM EDT 04/29/2017 9:00 AM EDT Narrative Resulting Agency Comment Spec In Lab Nelda Watts MD CHEMISTRY ORDERABLE S Performing Organization Address [facility]/ZIP Co de Phone Number [facility] [place] [address] * Phosphorus (04/29/2017 8:52 AM EDT) Phosphorus 3.1 2.5 - 4.5 mg/dL [facility] Blood specimen (specimen) 04/29/2017 8:52 AM EDT 04/29/2017 9:00 AM EDT Narrative Resulting Agency Comment Spec In Lab Nelda Watts MD CHEMISTRY ORDERABLE S Performing Organization Address [facility]/ZIP Co de Phone Number [facility] [place] [address] * (ABNORMAL) Basic Metabolic Panel (non-fasting) (04/29/2017 8:52 AM EDT) Glucose 171 65 - 199 mg/dL [facility] Comment:Diabetes: >=200 mg/d L plus symptoms Blood Urea Nitrogen 30(H) 8 - 18 mg/dL [facility] Creatinine 1.68(H) 0.70 - 1.20 mg/dL [facility] Comment: Please note that the pediatric reference intervals supplied above were not validated at [facility]. Results from pediatric patients should be interpreted in conjunction to the patient's age, height and muscle mass. Sodium 144 135 - 145 mmol/L [facility] Potassium 3.9 3.5 - 5.0 mmol/L [facility] Comment: Please note: ??Patients with WBC >100,000 may have falsely elevated Potassium levels. ??For accurate Potassium quantification in these patients send serum separator tube (gold top) for subsequent determinations. ??Contact the Clinical Chemistry Laboratory if there are any questions. Chloride 106 98 - 107 mmol/L [facility] Carbon Dioxide 22 22 - 31 mmol/L [facility] Anion Gap 16(H) 5 - 15 mmol/L [facility] Calcium 9.5 8.5 - 10.5 mg/dL [facility] Est Glomerular Filtration Rate 30(L) >=60 [facility] Comment: This estimated GFR (eGFR) value was calculated using the MDRD equation which has been validated on patients between the ages of 18 and 70. The MDRD should not be used to assess kidney function in patients < 18 years of age or in patients with extremes of body mass, or in patients with acute kidney failure. This value should be multiplied by 1.2 for patients. For further information please copy and paste the following links into your internet browser. http://[employer]/DHnkdep http://[employer]/DHMCnkf Blood specimen (specimen) 04/29/2017 8:52 AM EDT 04/29/2017 9:00 AM EDT Narrative Resulting Agency Comment Spec In Lab Nelda Watts MD CHEMISTRY ORDERABLE S [facility] [place] [address] documented in this encounter Visit Diagnoses Diagnosis CKD (chronic kidney disease) stage 3, GFR 30-59 ml/min Chronic kidney disease, Stage III (moderate) Type 2 diabetes mellitus with complication, unspecified skilled nursing insulin use status CKD (chronic kidney disease), stage III/IV Chronic kidney disease, Stage III (moderate) Secondary hypertension Other secondary hypertension, unspecified Obesity, unspecified obesity severity, unspecified obesity type Non-nephrotic range proteinuria Proteinuria Secondary hyperparathyroidism of renal origin Secondary hyperparathyroidism (of renal origin) Vitamin D deficiency Unspecified vitamin D deficiency Hyperlipidemia, unspecified hyperlipidemia type documented in this encounter Care Teams Wool Cleaner Relationship Specialty Start Date End Date Alexandr Youssef MD [address] [place] [address] PCP - General 09/19/10 10/16/21 documented as of this encounter
--- OUTSIDE RECORDS SUMMARY | 2024-11-16 13:20 | XMS_ITS | Clinical Summary ---
Author Organization [facility] Address [address] [place] [address] Care Team Providers Care Wire Coiler Machine Operator Name Role Phone Rome Guerra MD Primary Care Provider [phone] Social History Tobacco Use Types Packs/Day Years Used Date Smoking Tobacco: Never Assessed Comments Unknown Sex and Gender Information Value Date Recorded Sex Assigned at Not on file Legal Sex Female 18:12 EST Gender Identity Not on file Sexual Orientation Not on file Plan of Treatment Health Maintenance Due Date Last Done Comments Hepatitis C Screen 1950 Fall Risk Screening 2014 COVID-19 Vaccine ( season) 2024 RSV Immunization ( o r 60+ Years) (1 - 1-dose 75+ series) 2024 Insurance [facility] [employer] Care Teams Wire Coiler Machine Operator Relationship Specialty Start Date End Date Rome Guerra MD [address] [facility] [address] [place] [address] PCP - General Emergency Medicine 01/26/22
--- OUTSIDE RECORDS SUMMARY | 2024-11-16 13:20 | XMS_ITS | Encounter Summary ---
Author Organization [facility] Address [address] [address] Care Team Providers Care Thermoforming Operator Name Role Phone Unavailable Primary Care Provider Unavailabl e Encounter Details Date Type Department Care Team (Late st Contact Info) Description 06/01/2011 Results Only [facility] Laboratory Services - [facility] ([facility] [address] [place], [place] [id number] Jose Juan Paez, DO [address] [facility] [address] [place], [place] [id number] Social History Tobacco Use Types Packs/Day Years [...] Date/Time Associated Diagnosis Comments SURGICAL PATHOLOGY Routine 06/01/2011 0:00 EDT documented in this encounter Results * SURGICAL PATHOLOGY (06/01/2011 0:00 EDT) Pathology Report: SURGICAL PATHOLOGY REPORT ? Reports generated via electronic interface contain original data; ? however they are lacking the format of the original report. ? Caution should be taken when reading/interpreti ng unformatted reports. ? Name: ? DAVID, BRYNN ? Accession #: ? [id number] ? : ? 1950 (Age: 60) ??F ? Collect Date: ? 06/01/2011 ? Location: ? [facility] ? Receive Date: ? 06/02/2011 ? Provider: JOSE JUAN PAEZ DO ? Copy to: GAYATRI SALEH MD ? Final Pathologic Diagnosis: ? A. ?Stomach, antrum, biopsy: ? 1. ?Gastric antral mucosa with no specific pathologic features. ? 2. ? Single piece of squamous mucosa with no specific pathologic features. ? B. ?Esophagus, distal, biopsy: ? 1. ?Squamous mucosa with histologic features suggestive of reflux ? esophagitis. ? C. ?Esophagus, mid, biopsy: ? 1. ?Squamous mucosa with no specific pathologic features. ? D. ?Esophagus, proximal, biopsy: ? 1. ?Squamous mucosa with no specific pathologic features. ? E. ?Colon, transverse, polyp, biopsy: ? 1. ?Superficial fragment of villous adenoma. ??See comment. ? F. ?Colon, 20 cm, polyp, biopsy: ? 1. ?Cauterized polypoid fragment of colonic mucosa with no specific ? pathologic features. ??See comment. ? Comment: ? The transverse colon specimen (E) shows only a single superficial fragment; however, what is present consists entirely of an adenoma with villous ? architecture. ??Deeper sections have been reviewed on part (F). ??(Dr. Mejia)/mms ? Document reviewed and electronically signed by: ? JUAN DIEGO MEJIA MD ? Report ??Date: 06/05/2011 16:29 ? By the signature above, the attending physician certifies that he/she has ? personally conducted a gross and/or microscopic examination of the described ? specimens and rendered or confirmed the above diagnosis. ? Specimen(s) Received: ? A. ?Antrum bx ? B. ? Distal esophagus bx ? C. ? Mid esophagus bx ? D. ? Prox esophagus bx ? E. ? Polyp transverse colon ? F. ? Polyp 20 cm ? Clinical History: ? GERD; rectal bleeding ? Gross Description: ? Received in formalin labelled David, Brynn and antrum biopsy are four ?? pink-domingo irregular soft tissues ranging from 0.2 x 0.2 x 0.2 cm to 0.3 x 0.3 x ?? 0.2 cm. ??[facility] and (A2). ? Received in formalin labelled David, Brynn and distal esophagus is a single ?? 0.2 x 0.2 x 0.1 cm domingo-white irregular soft tissue. ??Submitted in toto as (B). ? Received in formalin labelled David, Brynn and mid esophagus are two ? domingo-white irregular soft tissues, each 0.3 x 0.2 x 0.1 cm. ??Submitted in toto as (C). ? Received in formalin labelled David, Brynn and proximal esophagus are two ? domingo-white irregular soft tissues, 0.4 x 0.2 x 0.1 cm and 0.5 x 0.2 x 0.1 cm. ? Submitted in toto as (D). ? Received in formalin labelled David, Brynn and polyp transverse colon is a ?? single 0.3 x 0.3 x 0.2 cm pink-domingo irregular soft tissue. ??Submitted in toto as (E). ? Received in formalin labelled David, Brynn and polyp 20 cm is a single 0.1 x 0.1 x 0.1 cm pink-domingo irregular soft tissue. ??Submitted in toto as (F). ??(L. ? Nayan)/shashan ? End of Report ? [facility] 06/01/2011 06/02/2011 9:0 8 EDT us Jose Juan Paez DO PATHOLOGY ORDERABLES Fi nal Result [facility] [address] [place] [address] documented in this encounter Visit Diagnoses Not on filedocumented in this encounter
--- OUTSIDE RECORDS SUMMARY | 2024-11-16 13:20 | XMS_ITS | Encounter Summary ---
Author Organization [facility] [place] [address] Care Team Providers Care Sewer Pipe Layer Helper Name Role Phone Alexandr Youssef MD Primary Care Provider [phone] Encounter Details Date Type Department Care Team (Late st Contact Info) Description 03/11/2015 [place] [phone] Alexandr Youssef MD [address] [place], [place] [address] Social History Tobacco Use Types Packs/Day Years [...] AM EST Office Visit [place] [id number] Remi Winston MD [facility] [place] [place] [address] documented as of this encounter Procedures Procedure Name Priority Date/Time Associated Diagnosis Comments FILM LIBRARY STORAGE ONLY MR ABDOMEN Routine 03/11/2015 1:13 PM EDT documented in this encounter Results * Film Library- Storage only MR Abdomen (03/11/2015 1:13 PM EDT) Anatomical Region Laterality Modality Other 03/11/2015 1:13 PM EDT Narrative 03/28/2015 1:18 PM EDT This is a Non-reportable exam Procedure Note JASON, UNSIGNED REPORT - 03/28/2015 This is a Non-reportable exam Alexandr Youssef MD IMG FILM LIBRARY ORD ERABLES documented in this encounter Visit Diagnoses Not on filedocumented in this encounter Care Teams Sewer Pipe Layer Helper Relationship Specialty Start Date End Date Alexandr Youssef MD [address] [place] [address] PCP - General 09/19/10 10/16/21 documented as of this encounter
--- OUTSIDE RECORDS SUMMARY | 2024-11-16 13:20 | XMS_ITS | Encounter Summary ---
[place] [address] Care Team Providers Care Supervisor Stave Cutting Name Role Phone Alexandr Youssef MD Primary Care Provider [phone] Reason for Visit * Consultation (Routine) - Closed Specialty Diagnoses / Procedures Referred By Contlaura t Referred To Contact Endocrinology Diagnoses Adrenal Adenoma Alexandr Youssef MD [address] [place] [address] [facility] [address] [place] [address] Referral ID Status Reason Start Date Expiration Date V isits Requested Visits Authorized [id number] Closed Consult, [facility] 04/02/2016 04/02/2017 1 1 Encounter Details Date Type Department Care Team (Late st Contact Info) Description 05/23/2016 1:00 PM EDT Office [place] [address] Dorys Carter MD Lathief, Sanam, MD Adrenal mass, left; Axel's disease; Elevated blood pressure; Diabetes mellitus without complication Social History Tobacco Use Types Packs/Day Years Used Date Smoking Tobacco: Former Cigarettes Q uit: 2013 Sex and Gender Information Value Date Recorded Sex Assigned at Not on file Gender Identity Not on file Sexual Orientation Not on file documented as of this encounter Last Filed Vital Signs Vital Sign Reading Time Taken Comments Blood Pressure 149/67 05/23/2016 12:49 PM EDT Pulse 61 05/23/2016 12:49 PM EDT Temperature - - Respiratory Rate - - Oxygen Saturation - - Inhaled Oxygen Concentration - - Weight 91.2 kg (201 lb) 05/23/2016 12:49 PM EDT Height 162.6 cm (5' 4) 05/23/2016 12:49 PM EDT Body Mass Index 34.5 05/23/2016 12:49 PM EDT documented in this encounter Patient Instructions * Patient Instructions* Vandana Price MD - 05/23/2016 1:00 PM EDT We will check labs today. We will also give dexamethasone tablets- take 2 tablets of 0.5 mg between 11p and midnight then check AM cortisol the next morning at 8 am We will give instructions to your primary care doctor about transitioning you from your current BP pills to a new regimen to repeat blood testing for aldsterone levels documented in this encounter Progress Notes * Vandana Price MD - 05/23/2016 1:00 PM EDT ENDOCRINOLOGY OUTPATIENT CONSULTATION Patient Name: Brynn Hernandez Date of Consultation: 05/23/2016 Consulting Physician: Dr. Youssef Reason for Consultation: adrenal mass, mildly elevated Normetanephrine levels History of Presenting Illness: This is a 65 y.o. female patient who presents to clinic for adrenal mass, mildly elevated Normetanephrine levels. Previous care [facility]. [place], [place] 65Y of F referred for 2 clinical questions 1) whether or not slightly elevated serum NM level with known left adrenal mass and equivocal biopsy merits additional work up 2) whether empty sella noted on brain MRI needs additional w/u. This was done following brain CT to investigate elevated BP and flushing Brynn has a PMH of DM, HTN, GEOVANNA, CKD stage 2. Since the past year she has noticed worsening HTN requiring additional therapy. Diagnosed with HTN 10 years ago. - BP started increasing since February 2016. Reports 2 episodes of severe headaches in February. BP's > 200/100 in the ER, was given morphine and sent to PCP. PCP started verapamil 240 mg ER ( stopped on 03/29/2016 due to SOB and leg edema) Felodipine started 2 weeks ago, tolerating well, reports home BP 140/76 over the past 2 weeks Current regimen Metoprolol 100 mg ER 2 tab/ day (doubled in February 2016) Losartan 100 mg qd ( on for years) Verapamil- added but stopped in March Felodipine 5 mg R ( added 2 weeks ago) Lasix 20 mg daily (for years) 1 year ago, she reports diarrhea, and N/V resulting in a CT abdomen, which discovered a # HTN - was previously controlled - 2014 things started to go haywire - had diarrhea, vomiting for a month went for CT and found adrenal mass. No fever, chills or flu like symptoms. Continued to have diarrhea watery 3-4 X times/ day Has not seen a GI doctor. No N/V - underwent FNA biopsy as below report said cells c/w adrenal cortex, recommend clinico pathologic correlation - No hospitalizations for CHF, but has noticed Foot swelling since past couple weeks - No spells of headaches, palpitations, tremors, syncope/ pre-syncope - No flushing, not hot flashes, diarrhea since 1 year takes immodium prn which helps - Reports decreased exercise tolreance, can walk half a block before getting SOB and notes leg swelling, no orthopnea/ PND # DM - Diagnosed 5 years ago - most recently Fasting fingersticks- > 200 after stopping metformin in setting of renal function deterioration - A1C- 8.6 in March ( previously A1C was close to 7) Current regimen 24 u lantus ( started March 2016 ) Glipizde 5 mg 4 tab/day Metformin 500 mg qd ( taken off in ) Reports weight gain of 40 lbs over 2 years, appetite increased, has not been watching diet or exercising as well. No violaceous striae, no temp intolerance, no neck swelling. FH-neg thyroid disease. No galactorrhea. 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 No abnormal sweating or flushing. No galactorrhea or breast tenderness. Normal sexual desire. Integument: No excessive hair growth, balding, acne or oily skin. No ulcerations. No easily bruising. Neurological: No headache or weakness. No seizure, fainting or dizziness Eyes: No recent vision changes ENT: No dysphagia, dental issues Cardiovascular: No chest pain or palpitations Respiratory: No cough, wheezing, shortness of breath GI: Normal appetite. No nausea, vomiting, diarrhea, constipation : No frequent urinary tract infections or polyuria Musculoskeletal: No joint aches, muscle pain. No back pain Psychiatric: No depression, anxiety Past Medical History: Patient Active Problem List Diagnosis Code ??? Hypertension I10 ??? Dyspepsia R10.13 ??? DM (diabetes mellitus) E11.9 ??? CKD (chronic kidney disease) N18.9 ??? Cigarette smoker F17.210 Carpal tunnel Adrenal adenoma Colonic polyps adenomatous CKD stage 2 DM HLD HTN GEOVANNA Telnagiectasias Current Medications: Lantus 10 u qhs Verapamil ER 240 MG 1 tab qd Glipizide 5 mg BID Metoprolol 100 mg 2 tabs Lasix 20 mg Losartan 100 mg qd Social History: Alcohol use: no Cigarette use: quit 04/2014, 50 years smoking Illicit drug use: no Family History: FH neg thyroid, parathyrooid, adrenal pituitary Mom- had HTN, stroke at age 63 years Allergies: Allergies Allergen Reactions ??? Guaifenesin CIS - Rash ??? Amlodipine Besylate Dizziness ??? Celebrex [Celecoxib] Acid reflux ??? Gabapentin Nausea Only ??? Lipitor [Atorvastatin] myalgia ??? Lisinopril Diarrhea ??? Prevacid [Lansoprazole] dizziness Vitals Vitals: 05/23/16 1249 BP: 149/67 Pulse: 61 Physical Exam: General appearance: pleasant female pt, appears stated age, not in distress HEENT: anicteric, EOMI, ALONSO, no lymphadenopathy, moist mucus membranes CVS: +S1, S2. no murmurs, RRR Pulm: clear to auscultation BL Abd: soft, non-tender, non-distended, +bowel sounds, no rebound or guarding Extremities: 2+ pulses peripherally, no edema, no wounds over feet Spine: no spinal tenderness, + mild kyphosis Neurological: Non-focal, 2+ DTRs, monofilament testing WNL Skin: no lesions, noviolaceous striae, no acanthosis nigricans, no skin tags/freckling. Has multiple telangeictasias scattered throughout her back, arms, abdomen and legs Thyroid exam: no tTachycardia, lid lag, stare, proptosis, goiter, resting tremor, hyperreflexia, pre-tibial myxedema,or thyroid acropachy(clubbing). Warm dry skin. Thyroid gland: no goiter Pertinent Laboratory Findings: 03/22/2016 Na- 143 K- 4.2 Cl- 105 Bicarb- 26 BUN- 24 Cr- 1. 42 Ca- 9.5 03/18/2015 24 H urine collection Urine metanephrines 45 mcg ( 30-180) NMN- 746 ( 138- 521 normotensive, < 1300 hypertensive) Urine volume - 1400 ml Urine free cortisol- 20 mcg ( 3.5- 45) epineprhine < 0.7 ( < 21) NE- 60 ( 15-80) Dopamine- 234 ( 65-400) Results for BRYNN HERNANDEZ ( ) as of 05/24/2016 10:55 Ref. Range 05/23/2016 14:55 Free T4 Latest Ref Range: 0.93 - 1.70 ng/dL 1.05 TSH Latest Ref Range: 0.27 - 4.20 mcIU/mL 3.14 Estradiol Latest Units: pg/mL <10 FSH Latest Units: mlU/ML 83.7 LH Latest Units: mlU/ML 32.7 Cortisol Latest Units: mcg/dL 12.5 Results for BRYNN HERNANDEZ ( ) as of 05/25/2016 21:43 Ref. Range 05/23/2016 14:55 Free T4 Latest Ref Range: 0.93 - 1.70 ng/dL 1.05 TSH Latest Ref Range: 0.27 - 4.20 mcIU/mL 3.14 Estradiol Latest Units: pg/mL <10 FSH Latest Units: mlU/ML 83.7 LH Latest Units: mlU/ML 32.7 Cortisol Latest Units: mcg/dL 12.5 IgF-1 Latest Ref Range: 38 - 163 ng/mL [address] head 03/22/2016 Prominent sella with little visible pituitary tissue c/w empty sella CT Abdomen wo contrast 03/08/2015 Liver with mottled appearance, may represent fatty infiltration Impresson :Left adrenal mass 3.5 cm homogeneous DD MRI abdomen 03/11/2015 3.5 cm left adrenal mass which contains fat but is heterogeneous and could represent mets vs atypical adenoma vs myoplipoma vs liposarcoma. Further assessment with contrast enhanced abd MRI recommended Impression Left adrenal mass has MRI characterstics not typical for an adenoma and possibility of metastatic disease cannot be excludede. Further assesment with contrast enhanced MRI is recommended. B/L renal cysts CT guided left adrenal biopsy 04/18/2015 ?CYTOPATHOLOGY: ??NGYN ?---Cytopathologic Diagnosis--- ? See Comment ?04/19/15 ?Screened by: ? LMY ?Rescreened by: ?? SKG,SKG ?04/21/15 ?Verified by: ? Abel CARBAJAL, Elijah Patrick ? Cytopathologist ? (Electronic Signature) ?---Comment--- ?Adrenal: left (CT-guided needle core biopsy and touch imprint cytology): ?Adrenal cortical-like cells are present. The main differential is [place] ?adrenal cortex vs. an adrenal cortical neoplasm. Some acellular ?eosinophilic material is also focally seen. ?Recommend clinicopathologic??correlation. ?special stain - [place] red: result is negative. ?Dr. Samuel has reviewed this case and concurs with the diagnosis. ?---Clinical Information--- ?Specimen Source: ? Adrenal: left (CT-guided needle core biopsy and touch imprint cytology - ?assisted) ?Site: ? Adrenal: left ?Clinical History/Impression: ? Nausea, vomiting and abdominal pain. ?64yo female with nausea, vomiting and abdominal pain. Imaging performed as ?part of her workup revealed an indeterminate left adrenal mass. ?Metanephrines are not elevated. ?Gross Description: ? Received in 50 mL of formalin, labeled with the patient's name and ?medical record number, are multiple yellow needle core biopsies ranging ?from 0.3 x 0.1 to 1.1 x 0.1 cm, submitted in cassette A1.(T1) Assessment: This is a 65 y.o. year old female patient with h/o DMT2, HTN here to assess for endocrine etiologies for resistant HTN. DDx include adrenal- pheochromocytoma, primary hyperaldosteronism, Cushings, hyperthyroidism, acromegaly. Brynn has normal thyroid function tests. Her IGF-2 levels are within normal range making acromegaly unlikely. Her 24 h urine NMN was < 2 times elevated above the upper limit of normal. We will check plasma metanephrines which are more than 93 % sensitive and specific for to assess for pheochromocytoma which coupled with her lack of symptoms appears unlikely. For evaluation of primary hyperaldosteronism, she would need to be off loop diuretics/ spirinolactone for at least 4 weeks, and calcium channel blockers and beta blockers for at least 2 weeks. Her PCP may help transition her to medications that do not interfere with the renin angiotensin aldosterone axes namely Hydralazine, verapamil, prazosin or diltiazem per PCP discretion when deemed safe to do so from a cardiac and CHF standpoint. Once pt is off these interfering medications, aldosterone- renin levels to be checked either through PCP, or we may help order labs. Pt has had one 24 h urine free cortisol which was normal. To complete screening we will check a lowdose 1mg overnight dexamethasone suppression test to r/o Cushings. Re: diagnosis of empty sella- she shows no signs of pituitary dysfunction. Her TSH is normal with normal FT4, normal IGF-1, and her LH and FSH are appropriately elevated c/w post menopausal status.Hence this appears to be primarily a radiologic diagnosis without pituitary dysfunction. Brynn had an adrenal nodule biopsy that revealed adrenal cortical cells. Report differential is [place] ??adrenal cortex vs. an adrenal cortical neoplasm. Some acellular ??eosinophilic material is also focally seen. Will discuss at tumor board whether there is any clinical implication, need for additional imaging Brynn has a h/o telangiectasias, which may be seen as part of hereditary telangiectasias and CRESTsyndrome. No correlation with endocrine pathologies reported per literature search Plan: - F/u 1 mg low dose dexamethasone suppression test - f/u Plasma metanephrines - to check jacobo-renin ratio after 4 weeks of transition to non SPENCER axis interfering meds per PCP - discuss at tumor board radiologic and cytologic findings of adrenal biopsy Thank you for the consult. This case has been discussed with Dr. Carter of Endocrinology. Vandana Price MD Endocrinology Fellow Pager- [phone] * Vandana Price MD - 05/23/2016 1:00 PM EDT Results for BRYNN HERNANDEZ ( ) as of 05/28/2016 17:41 Ref. Range 05/23/2016 14:55 Normetane Free Latest Ref Range: <0.90 nmol/L 0.92 (H) Metanephr Free Latest Ref Range: <0.50 nmol/L <0.20 Confirmed metaneprines are less than 3 fold elevated. No evidence of pheochromocytoma. Await overnight 1 mg low dose DST results * Dorys Carter MD - 05/23/2016 1:00 PM EDT I saw this patient with Dr. Price. I reviewed the daly portions of the history and physical exam, and reviewed pertinent lab data. I answered all patient questions. I was involved in all medical decision making and agree with this plan. DORYS CARTER MD Procurement [employer] planner Section of Endocrinology [facility] [place] documented in this encounter Plan of Treatment Upcoming Encounters Date Type Department Care Team (Late st Contact Info) Description 11/27/2024 9:00 AM EST Office Visit [place] [address] Remi Winston MD [facility] [place] [address] documented as of this encounter Procedures Procedure Name Priority Date/Time Associated Diagnosis Comments INSULIN LIKE GF-1 Routine 05/23/2016 2:5 5 PM EDT Adrenal mass, left Fentress's disease Elevated blood pressure Diabetes mellitus without complication METANEPHRINES, FRACTIONATED FREE, PLASMA Routine 05/23/2016 2:55 PM EDT Adrenal mass, left Xael's disease Elevated blood pressure Diabetes mellitus without complication ESTRADIOL Routine 05/23/2016 2:55 PM EDT Adrenal mass, left Fentress's disease Elevated blood pressure Diabetes mellitus without complication TSH STAT 05/23/2016 2:55 PM EDT Adrenal mass, left Axel's disease Elevated blood pressure Diabetes mellitus without complication T4, FREE STAT 05/23/2016 2:55 PM EDT Adrenal mass, left Fentress's disease Elevated blood pressure Diabetes mellitus without complication LUTEINIZING HORMONE Routine 05/23/2016 2 :55 PM EDT Adrenal mass, left Fentress's disease Elevated blood pressure Diabetes mellitus without complication FOLLICLE STIMULATING HORMONE Routine 05/23/2016 2:55 PM EDT Adrenal mass, left Fentress's disease Elevated blood pressure Diabetes mellitus without complication CORTISOL Routine 05/23/2016 2:55 PM EDT Adrenal mass, left Axel's disease Elevated blood pressure Diabetes mellitus without complication documented in this encounter Results * Estradiol (05/23/2016 2:55 PM EDT) Estradiol <10 pg/mL [facility] Comment: rechecked by KB Reference ranges: Males: ??Adult: ? 26 to 61 pg/mL Females: Non- females: ?Follicular: ??12-233 pg/mL ?Ovulation: ?? 41-398 pg/mL ?Luteal: ?22-341 pg/mL ?Postmenopausal: ?? <5 -138 pg/mL females: ?1st trimester: ??154-3243 pg/mL ?2nd trimester: ??1561-53189 pg/mL ?3rd trimester: ??8525- >87883 pg/mL Blood specimen (specimen) 05/23/2016 2:55 PM EDT 05/23/2016 3:03 PM EDT Narrative Resulting Agency Comment Spec In Lab Dorys Carter MD CHEMISTRY ORDERABLES [facility] [place] [address] * Insulin Like GF-1 (05/23/2016 2:55 PM EDT) Igf-1 Z-Score (MAY) 74 38 - 163 ng/mL [facility] Comment: Mikael Scale Reference Intervals: Gender ?Mikael Stage ?IGF-1 [Somatomedin-C](ng/mL) Male ?I ?81-255 Male ? II ?106-432 Male ?III ?245-511 Male ? IV ?223-578 Male ?V ?227-518 Female ?I ?86-323 Female ? II ?118-451 Female ?III ?258-529 Female ? IV ?224-586 Female ?V ?188-512 IGF-1 [Somatomedin-C] Mikael Stage information from a cohort of 854 healthy children (including normal height and weight) were collected and analyzed on the IDS assay. ??All children were examined by an experienced physician and the pubertal stage was defined according to Mikael. Blood specimen (specimen) 05/23/2016 2:55 PM EDT 05/23/2016 3:03 PM EDT Narrative Resulting Agency Comment Spec In Lab Dorys Carter MD LAB SEND OUT ORDERAB LES [facility] [place] [address] * Follicle Stimulating Hormone (05/23/2016 2:55 PM EDT) Follicle Stimulating Hormone 83.7 mlU/ML [facility] Comment: Reference Ranges: Females: Follicular: ? 3.5-12.5 mIU/mL Ovulation: ?4.7-21.5 mIU/mL Luteal: ? 1.7-7.7 mIU/mL Postmenopausal: 25.8-134.8 mIU/mL Blood specimen (specimen) 05/23/2016 2:55 PM EDT 05/23/2016 3:03 PM EDT Narrative Resulting Agency Comment Spec In Lab Dorys Carter MD CHEMISTRY ORDERABLES Performing Organization Address [facility] Co de Phone Number [facility] [place] [address] * Luteinizing Hormone (05/23/2016 2:55 PM EDT) Luteinizing Hormone 32.7 mlU/ML [facility] Comment: Reference ranges: ?? Females ?? Follicular: ? 2.4-12.6 mIU/mL ?? Ovulation: ?14.0-95.6 mIU/mL ?? Luteal: ? 1.0-11.4 mIU/mL ?? Postmenopausal: ? 7.7-58.5 mIU/mL Blood specimen (specimen) 05/23/2016 2:55 PM EDT 05/23/2016 3:03 PM EDT Narrative Resulting Agency Comment Spec In Lab Dorys Carter MD CHEMISTRY ORDERABLES Performing Organization Address [facility] Co de Phone Number [facility] [place] [address] * Cortisol (05/23/2016 2:55 PM EDT) Cortisol 12.5 mcg/dL [facility] Comment: Reference ranges: ??AM (7-10am): ??6.2-19.4 mcg/dL ??PM (4-8pm): ??2.3-12.3 mcg/dL Blood specimen (specimen) 05/23/2016 2:55 PM EDT 05/23/2016 3:03 PM EDT Narrative Resulting Agency Comment Spec In Lab Dorys Carter MD CHEMISTRY ORDERABLES Performing Organization Address [facility] Co de Phone Number [facility] [place] [address] * (ABNORMAL) Metanephrines, Fractionated Free, plasma (05/23/2016 2:55 PM EDT) Pathologist [facility] [place] Normetanephrine, Free (FEBRUARY) 0.92(H) <0.90 nmol/L [facility] Comment: Test Performed by: [place] [address] Grades 1 Thru 5 Teacher: Robin Guallpa II, M.D., Ph.D. Metanephrine, Free (FEBRUARY) <0.20 <0.50 nmol/L [facility] Comment: Test Performed by: [place] [address] Grades 1 Thru 5 Teacher: Robin Guallpa II, M.D., Ph.D. Blood specimen (specimen) 05/23/2016 2:55 PM EDT 05/23/2016 4:41 PM EDT Narrative Resulting Agency Comment Spec In Lab Dorys Carter MD LAB SEND OUT ORDERAB LES [facility] [place] [address] * T4, free (05/23/2016 2:55 PM EDT) Free T4 1.05 0.93 - 1.70 ng/dL [facility] Blood specimen (specimen) 05/23/2016 2:55 PM EDT 05/23/2016 3:03 PM EDT Narrative Resulting Agency Comment Spec In Lab Dorys Carter MD CHEMISTRY ORDERABLES Performing Organization Address City/[facility]/ZIP Co de Phone Number [facility] [place] [address] * TSH (05/23/2016 2:55 PM EDT) Pathologist [facility] Thyroid Stimulating Hormone 3.14 0.27 - 4.20 mcIU/mL [facility] Blood specimen (specimen) 05/23/2016 2:55 PM EDT 05/23/2016 3:03 PM EDT Narrative Resulting Agency Comment Spec In Lab Dorys Carter MD CHEMISTRY ORDERABLES [facility] [place] [address] documented in this encounter Visit Diagnoses Diagnosis Adrenal mass, left Unspecified disorder of adrenal glands Axel's disease Axel's syndrome Elevated blood pressure Elevated blood pressure reading without diagnosis of hypertension Diabetes mellitus without complication Type II or unspecified type diabetes mellitus without mention of complication, not stated as uncontrolled documented in this encounter Care Teams Supervisor Stave Cutting Relationship Specialty Start Date End Date Alexandr Youssef MD [address] [place] [id number] PCP - General 09/19/10 10/16/21 documented as of this encounter
--- OUTSIDE RECORDS SUMMARY | 2024-11-16 13:20 | XMS_ITS | Encounter Summary ---
Author Organization [facility] Address [address] [place] [address] Care Team Providers Care Chemist Intern Name Role Phone Unavailable Primary Care Provider Unavailabl e Encounter Details Date Type Department Care Team (Late st Contact Info) Description 02/06/2002 Results Only [facility] - Maple conversion [address] [place] [address] Lucero Paez MD [address] [place] [id number] Social History Tobacco Use Types Packs/Day Years [...] Date/Time Associated Diagnosis Comments SURGICAL PATHOLOGY Routine 02/06/2002 0:00 EDT documented in this encounter Results * SURGICAL PATHOLOGY (02/06/2002 0:00 EDT) Pathology Report: SURGICAL PATHOLOGY REPORT Reports generated via electronic interface contain original data; however they are lacking the format of the original report. Caution should be taken when reading/interpreti ng unformatted reports. Name: ? BRYNN HERNANDEZ ? Accession #: ? [id number] ? : ? 1950 (Age: 51) ??F ? Collect Date: ? 02/06/2002 ? Location: ? [facility] ? Receive Date: ? 02/06/2002 ? Provider: LUCERO PAEZ MD Copy to: JODI SALEH MD ? Final Pathologic Diagnosis: ? Colon, sigmoid polyp, biopsy: - ??Fragments of hyperplastic polyp. Document reviewed and electronically signed by: NELL NARAYAN MD Report ??Date: 02/10/2002 21:19 By the signature above, the attending physician certifies that he/she has personally conducted a gross and/or microscopic examination of the described specimens and rendered or confirmed the above diagnosis. Specimen(s) Received: ? Bx transverse colon Clinical History: ? Hx polyps, rectal bleeding Gross Description: ? Received in Hollande' s fixative labelled Remi and bx transverse colon are two domingo-pan irregular soft tissue fragments measuring 0.3 x 0.2 x 0.2 cm. The specimen is entirely submitted in one cassette. ??(Merly Goel)/[facility] [place] End of Report SHAINA TITUS 02/06/2002 02/06/2002 15: 27 EDT us Lucero Paez MD PATHOLOGY ORDERABLES Final Result SHAINA TITUS [address] [place] [address] documented in this encounter Visit Diagnoses Not on filedocumented in this encounter
--- OUTSIDE RECORDS SUMMARY | 2024-11-16 13:20 | XMS_ITS | Encounter Summary ---
Author Organization [facility] [place] [address] Care Team Providers Care Capacity Management Specialist Name Role Phone Alexandr Youssef MD Primary Care Provider [phone] Encounter Details Date Type Department Care Team (Latest Contact Info) Description 04/29/2017 9:00 AM EDT Laboratory Appointment Lab [address] [place] [address] CKD (chronic kidney disease) stage 3, GFR 30-59 ml/min Social History Tobacco Use Types Packs/Day [...] AM EST Office Visit [place] [address] Remi Winston MD [facility] [place] [address] documented as of this encounter Procedures Procedure Name Priority Date/Time Associated Diagnosis Comments HEMOGRAM Routine 04/29/2017 8:52 AM EDT CKD (chronic kidney disease) stage 3, GFR 30-59 ml/min DIFFERENTIAL, AUTOMATED Routine 04/29/2017 8:52 AM EDT CKD (chronic kidney disease) stage 3, GFR 30-59 ml/min CBC (WITH DIFF) Routine 04/29/2017 8:52 AM EDT CKD (chronic kidney disease) stage 3, GFR 30-59 ml/min PHOSPHORUS Routine 04/29/2017 8:52 AM EDT CKD (chronic kidney disease) stage 3, GFR 30-59 ml/min ALBUMIN LEVEL Routine 04/29/2017 8:52 AM EDT CKD (chronic kidney disease) stage 3, GFR 30-59 ml/min BASIC METABOLIC PANEL Routine 04/29/2017 8:52 AM EDT CKD (chronic kidney disease) stage 3, GFR 30-59 ml/min documented in this encounter Results * Differential, Automated (04/29/2017 8:52 AM EDT) Neutrophil % 61.5 % [facility] Neutrophil Absolute 3.45 1.70 - 6.10 x10(3)/[facility] Lymph % 28.4 % [facility] Lymphocytes Abs 1.6 0.9 - 3.2 x10(3)/[facility] Monocyte % 6.1 % [facility] Monocyte Abs 0.3 0.3 - 0.9 x10(3)/[facility] Eos % 2.9 % [facility] Eosinophils Abs 0.2 0.0 - 0.4 x10(3)/[facility] Basophil % 0.9 % [facility] Baso Absolute 0.0 0.0 - 0.1 x10(3)/[facility] Immature Gran % 0.20 % [facility] Comment: Immature granulocytes(IG's)percentage and absolute count will include metamyelocytes, myelocytes, and promyelocytes. Blood smears from CBCs yielding IG's will be scanned manually for concordance. If this scan disagrees with the automated IG or if promyelocytes are noted, a manual differential will be performed. Immature Gran Absolute 0.01 0.00 - 0.04 x10(3)/mcL [facility] Blood specimen (specimen) 04/29/2017 8:52 AM EDT 04/29/2017 9:00 AM EDT Narrative Resulting Agency Comment Spec In Lab Nelda Watts MD HEMATOLOGY ORDERABL ES [facility] [place] [address] * (ABNORMAL) Hemogram (04/29/2017 8:52 AM EDT) White Blood Cell 5.6 4.0 - 9.5 x10(3)/ L [facility] Red Blood Cell 4.30 4.00 - 5.21 x10(6)/mc L [facility] Hemoglobin 12.7 11.7 - 15.5 gm/dL [facility] Hematocrit 38.8 35.7 - 45.8 % [facility] Mean Cell Volume 90.2 82.6 - 94.4 [facility] Mean Cell Hemoglobin 29.5 27.1 - 32.0 pg [facility] Mean Cell Hemoglobin Concentration 32.7 31.7 - 35.0 gm/dL [facility] Platelet 141(L) 145 - 357 x10(3)/mc L [facility] RDW Standard Deviation 43.9 37.0 - 46.0 [facility] RDW coefficient of variation 13.3 11.5 - 14.1 % [facility] Mean Platelet Volume 12.2 7.6 - 12.9 [facility] NRBC% auto 0.0 % [facility] NRBC Absolute 0.000 0.000 - 0.000 x10(3)/ L [facility] Blood specimen (specimen) 04/29/2017 8:52 AM EDT 04/29/2017 9:00 AM EDT Narrative Resulting Agency Comment Spec In Lab Nelda Watts MD HEMATOLOGY ORDERABL ES Performing Organization Address [facility] Co de Phone Number [facility] [place] [address] * Albumin Level (04/29/2017 8:52 AM EDT) Albumin 3.9 3.2 - 5.2 gm/dL [facility] Blood specimen (specimen) 04/29/2017 8:52 AM EDT 04/29/2017 9:00 AM EDT Narrative Resulting Agency Comment Spec In Lab Nelda Watts MD CHEMISTRY ORDERABLE S Performing Organization Address [facility] Co de Phone Number [facility] [place] [address] * Phosphorus (04/29/2017 8:52 AM EDT) Phosphorus 3.1 2.5 - 4.5 mg/dL [facility] Blood specimen (specimen) 04/29/2017 8:52 AM EDT 04/29/2017 9:00 AM EDT Narrative Resulting Agency Comment Spec In Lab Nelda Watts MD CHEMISTRY ORDERABLE S Performing Organization Address [facility] Co de Phone Number [facility] [place] [address] * (ABNORMAL) Basic Metabolic Panel (non-fasting) (04/29/2017 8:52 AM EDT) Glucose 171 65 - 199 mg/dL [facility] Comment:Diabetes: >=200 mg/d L plus symptoms Blood Urea Nitrogen 30(H) 8 - 18 mg/dL [facility] Creatinine 1.68(H) 0.70 - 1.20 mg/dL [facility] Comment: Please note that the pediatric reference intervals supplied above were not validated at [facility]. Results from pediatric patients should be interpreted in conjunction to the patient's age, height and muscle mass. Sodium 144 135 - 145 mmol/L [facility] Potassium 3.9 3.5 - 5.0 mmol/L [facility] Comment: Please note: ??Patients with WBC >100,000 may have falsely elevated Potassium levels. ??For accurate Potassium quantification in these patients send serum separator tube (gold top) for subsequent determinations. ??Contact the Clinical Chemistry Laboratory if there are any questions. Chloride 106 98 - 107 mmol/L [facility] Carbon Dioxide 22 22 - 31 mmol/L [facility] Anion Gap 16(H) 5 - 15 mmol/L [facility] Calcium 9.5 8.5 - 10.5 mg/dL [facility] Est Glomerular Filtration Rate 30(L) >=60 [facility] Comment: This estimated GFR (eGFR) [...] the following links into your internet browser. [email or web address] Blood specimen (specimen) 04/29/2017 8:52 AM EDT 04/29/2017 9:00 AM EDT Narrative Resulting Agency Comment Spec In Lab Nelda Watts MD CHEMISTRY ORDERABLE S [facility] [place] [address] documented in this encounter Visit Diagnoses Diagnosis CKD (chronic kidney disease) stage 3, GFR 30-59 ml/min Chronic kidney disease, Stage III (moderate) documented in this encounter Care Teams Capacity Management Specialist Relationship Specialty Start Date End Date Alexandr Youssef MD [address] [place] [address] PCP - General 09/19/10 10/16/21 documented as of this encounter
--- OUTSIDE RECORDS SUMMARY | 2024-11-16 13:20 | XMS_ITS | Encounter Summary ---
Author Organization [facility] Address [address] [place] [address] Care Team Providers Care Digital Controls Technical Officer Name Role Phone Unavailable Primary Care Provider Unavailabl e Encounter Details Date Type Department Care Team (Late st Contact Info) Description 12/12/2006 Results Only [facility] - Maple conversion [address] [place] [address] Lucero Paez MD [address] [place] [address] Social History Tobacco Use Types Packs/Day Years [...] Date/Time Associated Diagnosis Comments SURGICAL PATHOLOGY Routine 12/12/2006 0:00 EST documented in this encounter Results * SURGICAL PATHOLOGY (12/12/2006 0:00 EST) Pathology Report: SURGICAL PATHOLOGY REPORT Reports generated via electronic interface contain original data; however they are lacking the format of the original report. Caution should be taken when reading/interpreti ng unformatted reports. Name: ? BRYNN HERNANDEZ ? Accession #: ? [id number] ? : ? 1950 (Age: 56) ??F ? Collect Date: ? 12/12/2006 ? Location: ? [facility] ? Receive Date: ? 12/12/2006 ? Provider: LUCERO PAEZ MD Copy to: GAYATRI SALEH MD ? Final Pathologic Diagnosis: A. ?Duodenum, bulb, biopsies: 1. ?Duodenal mucosa with no specific pathologic features. B. ?Stomach, antrum, biopsies: 1. ?Antral mucosa with no specific pathologic features. C. ?Esophagus, 34 cm, biopsies: 1. ?Esophageal mucosa with no pathologic features. 2. ? Gastric-type mucosa with no intestinal metaplasia. Document reviewed and electronically signed by: YESSICA BUTTERFIELD MD Report ??Date: 12/17/2006 18:56 By the signature above, the attending physician certifies that he/she has personally conducted a gross and/or microscopic examination of the described specimens and rendered or confirmed the above diagnosis. Specimen(s) Received: A. ?Duodenal bulb B. ? Bx antrum ? C. ??Bx esophagus 34 cm. Clinical History: ? GERD Gross Description: ? Received in Hollande's fixative labelled Remi and duodenal bulb are four domingo-pink irregular soft tissue fragments ranging from 0.2 x 0.2 x 0.2 cm to 0.4 x 0.2 x 0.2 cm. ?? The specimen is entirely submitted as (A1) and (A2). ?? Received in Hollande's fixative labelled Remi and bx antrum are two domingo-pink irregular soft tissue fragments measuring 0.3 x 0.2 x 0.2 cm and 0.4 x 0.2 x 0.2 cm. ??The specimen is entirely submitted as (B). Received in Hollande's fixative labelled Remi and bx esophagus 34 cm are four domingo-pink irregular soft tissue fragments ranging from 0.2 x 0.2 x 0.2 cm to 0.3 x 0.2 x 0.2 cm. ??The specimen is entirely submitted as (C1) and (C2). (Merly Ames)/mpl End of Report SHAINA TITUS 12/12/2006 12/12/2006 5:5 6 EST us Lucero Paez MD PATHOLOGY ORDERABLES Final Result SHAINA TITUS [address] [place] [address] documented in this encounter Visit Diagnoses Not on filedocumented in this encounter
--- OUTSIDE RECORDS SUMMARY | 2024-11-16 13:20 | XMS_ITS | Encounter Summary ---
Author Organization [facility] [place] [address] Care Team Providers Care Program Evaluation Consultant Name Role Phone Alexandr Youssef MD Primary Care Provider [phone] Reason for Visit * Consultation (Routine) - Closed Specialty Diagnoses / Procedures Referred By Contac t Referred To Contact Nephrology Diagnoses Type 2 diabetes and hyperteinsion with worsening renal function. Alexandr Youssef MD [address] [place] [address] [facility] Nephrology [address] [place] [phone] Referral ID Status Reason Start Date Expiration Date V isits Requested Visits Authorized [id number] Closed Consult, Test & Treat Connection Center 03/15/2017 03/15/2018 1 1 Encounter Details Date Type Department Care Team (Latest Contact Info) Description 04/09/2017 11:00 AM EDT Office Visit [place] [address] Nelda Watts MD [facility] [place] [address] CKD (chronic kidney disease), unspecified stage; Chronic kidney disease, stage IV (severe) ; Vitamin B12 deficiency; CKD (chronic kidney disease), stage III; Type 2 diabetes mellitus with complication, unspecified director long term care insulin use status; Secondary hypertension; Hyperlipidemia, unspecified hyperlipidemia type; Low HDL (under 40); Non-nephrotic range proteinuria; Secondary hyperparathyroidism of renal origin; Vitamin D deficiency; Nephrolithiasis; Obesity, unspecified obesity severity, unspecified obesity type; GEOVANNA (obstructive sleep apnea) Social History Tobacco Use Types Packs/Day Years Used Date Smoking Tobacco: Former Cigarettes Q uit: 2013 Sex and Gender Information Value Date Recorded Sex Assigned at Not on file Gender Identity Not on file Sexual Orientation Not on file documented as of this encounter Last Filed Vital Signs Vital Sign Reading Time Taken Comments Blood Pressure 150/62 04/09/2017 8:46 AM EDT Pulse 64 04/09/2017 8:46 AM EDT Temperature - - Respiratory Rate - - Oxygen Saturation - - Inhaled Oxygen Concentration - - Weight 91.2 kg (201 lb) 04/09/2017 8:46 AM EDT Height 162.6 cm (5' 4) 04/09/2017 8:46 AM EDT Body Mass Index 34.5 04/09/2017 8:46 AM EDT documented in this encounter Progress Notes * Nelda Watts MD - 04/09/2017 11:00 AM EDT [facility]OLOG[facility] 04/09/2017 PRIMARY CARE/REFERRING PROVIDER: Alexandr Youssef MD [phone] REASON FOR CONSULT: Type 2 diabetes and hypertension with worsening renal function. HISTORY OF PRESENT ILLNESS: Brynn Khalil is a 66 y.o. woman with CKD (?III vs IV) who is seen in consultation for same. Her CKDis presumed secondary to DM and/or HTN. Brynn reports today that there had been no prior mention of her kidney function not being normal. She was diagnosed with diabetes about 8 years ago, but she is not really sure how long she had had it prior to that. She has both high and low blood sugars. She is no on Novolin insulin and is no longer on Jardiance (empagliflozin, a sodium glucose co transporter 2 (SGLT2) inhibitor). She has particularly been having problems with low blood sugar during the night. She has had HTN for many years, and she says it is currently well controlled. She checks it at homesometimes, and a typical reading is 180/80+. She has had the monitor calibrated at her PCPs office. She has been feeling tired since around September. She was not feeling well throughout that month -- bad cough, sluggish. Her appetite is good (I could eat a horse.). She has started eating Breakfast (2 eggs, toast, black coffee) and can then go the rest of the day without eating. She sometimes will have a slice of bread with ham during the day. For supper she will have a tossed salad and chicken strips. Other options might be potatoes, a vegetable, and hamburger/hot dog/chicken. She states,I drink water constantly -- she thinks almost a gallon a day. In addition to what is in her food,she adds salt. She denies fevers, chills, or night sweats, but says she is cold a lot. No dizziness or lightheadedness. No chest pain. She has had shortness of breath since September but says she has not undergoneevaluation. She vomits once in a great while. She has water diarrhea all the time, for which she takes Imodium. This has been a problem since 2014, initially intermittent, but now all the time. Shedoes not think this has been evaluated. She undergoes colonoscopy every 5 years and thinks that last one was about 2 years ago. She has swelling in her right foot constantly. She sometimes has swelling in her left foot, but not enough to be bothersome. She has a reddish-purple rash on her arms that were diagnosed as telangiectasia. She takes 2 Advil daily. PAST MEDICAL HISTORY: Past Medical History: Diagnosis Date ??? CKD (chronic kidney disease), stage III ??? HTN (hypertension) ??? Hyperlipidemia ??? Low HDL (under 40) 04/15/2017 ??? Nephrolithiasis Occurred in the ; single episode. ??? Non-nephrotic range proteinuria 04/15/2017 ??? Restless leg ??? Secondary hyperparathyroidism of renal origin 04/15/2017 ??? Vitamin D deficiency 04/15/2017 PAST SURGICAL HISTORY: History reviewed. No pertinent surgical history. MEDICATIONS: Current Outpatient Prescriptions Medication Sig Dispense Refill ??? aspirin 81 mg Tablet, Delayed Release (E.C.) Take 81 mg by mouth daily. ??? furosemide (LASIX) 20 mg Tablet Take 20 mg by mouth daily. ??? Ibuprofen 200 mg Capsule Take by mouth daily as needed. ??? insulin NPH (HUMULIN N;NOVOLIN N) Insulin Pen Inject subcutaneously 2 times daily (before meals). ??? losartan (COZAAR) 100 mg Tablet Take 100 mg by mouth daily. ??? meTOPROLOL succinate (TOPROL-XL) 100 mg Tablet Sustained Release 24 hr Take 100 mg by mouth daily. ??? rOPINIRole (REQUIP) 0.5 mg Tablet Take 0.5 mg by mouth nightly as needed. ??? glipiZIDE (GLUCOTROL) 5 mg Tablet Take 10 mg by mouth 2 times daily (before meals). ??? rosuvastatin (CRESTOR) 40 mg Tablet Take 40 mg by mouth daily. ??? esomeprazole (NEXIUM) 40 mg Capsule, Delayed Release(E.C.) Take 40 mg by mouth every morning (before breakfast). ??? felodipine (PLENDIL) 5 mg Tablet Sustained Release 24 hr Take 5 mg by mouth daily. No current facility-administered medications for this visit. ALLERGIES/ADVERSE REACTIONS: Allergies Allergen Reactions ??? Guaifenesin Rash ??? Amlodipine Besylate Dizziness ??? Celebrex [Celecoxib] Acid reflux ??? Gabapentin Nausea Only ??? Lipitor [Atorvastatin] myalgia ??? Lisinopril Diarrhea ??? Prevacid [Lansoprazole] dizziness FAMILY HISTORY: Family History Relation Problem Age of Onset ??? Mother Hypertension ??? Neg Hx Diabetes Kidney Disease SOCIAL HISTORY: Social History Social History Narrative Lives with her partner of >30 years. He has a spinal cord injury due to motorcycle accident <2 years ago; Brynn has been caring for him at home. Prior tobacco; quite in 2013. No EtOH. No recreational drugs. REVIEW OF SYSTEMS: Ten systems reviewed and negative except as noted in the HPI and PMHx. PHYSICAL EXAMINATION: Vitals: 04/09/17 0846 BP: 150/62 Pulse: 64 Weight: 91.2 kg (201 lb) Height: 162.6 cm (5' 4) Body mass index is 34.5 kg/(m^2). General - Fatigued-appearing woman. Appears her stated age. Neatly and appropriately groomed. Pleasant and cooperative, although slightly nervous. Seated comfortably in a chair. HEENT - Funduscopic exam grossly abnormal, but too limited to comment further. No icterus or conjunctival injection. Moist mucous membranes. No oropharyngeal lesions or exudates. Neck - Supple. No lymphadenopathy. Respiratory - Lungs are clear to auscultation bilaterally. Cardiovascular - S1 and S2 are present. Regular rate and rhythm. No murmurs, rubs, or gallops. Abdomen - Protuberant. Bowel sounds present. Soft, nontender. Extremities - No edema. Musculoskeletal - No joint tenderness or swelling. Skin/Integument - No rashes, ecchymoses, or petechiae on limited examination. Psychiatric - Appropriate mood and affect. Neurological - No focal deficits. LABORATORY STUDIES: Recent Results (from the past 170 hour(s)) Protein/Creatinine Ratio, urine Collection Time: 04/09/17 11:00 AM Result Value Ref Range U Creatinine 46 mg/dL U Protein Ran 6 0 - 12 mg/dL Prot/Cre Ratio 0.1 ratio U Albumin/Cre Ratio Collection Time: 04/09/17 11:00 AM Result Value Ref Range Alb/Cr Ratio, Random 10 0 - 29 mcg/mg Cr U Albumin Conc, Random 4.8 mg/L U Creatinine 46 mg/dL Basic Metabolic Panel (non-fasting) Collection Time: 04/09/17 1:16 PM Result Value Ref Range Glucose Lvl 115 65 - 199 mg/dL BUN 24 (H) 8 - 18 mg/dL Creatinine 1.51 (H) 0.70 - 1.20 mg/dL Sodium 143 135 - 145 mmol/L Potassium 4.4 3.5 - 5.0 mmol/L Chloride 107 98 - 107 mmol/L CO2 22 22 - 31 mmol/L Anion Gap 14 5 - 15 mmol/L Calcium 9.6 8.5 - 10.5 mg/dL Estimated GFR 34 (L) >=60 PTH Collection Time: 04/09/17 1:16 PM Result Value Ref Range PTH 72 (H) 15 - 65 pg/mL HDL/Cholesterol Profile Collection Time: 04/09/17 1:16 PM Result Value Ref Range Chol, Total 166 <=239 mg/dL HDL 32 (L) >=40 mg/dL Chol/HDL Ratio 5.2 ratio Chol/HDL Interpretation See Note LDL Cholesterol, Direct Collection Time: 04/09/17 1:16 PM Result Value Ref Range LDL Chol Direct 95 <=190 mg/dL Iron and TIBC Collection Time: 04/09/17 1:16 PM Result Value Ref Range Iron 62 30 - 150 mcg/dL TIBC 316 250 - 450 mcg/dL Iron Saturation 20 20 - 50 % Ferritin Collection Time: 04/09/17 1:16 PM Result Value Ref Range Ferritin 55 30 - 400 ng/mL Vitamin B12 Collection Time: 04/09/17 1:16 PM Result Value Ref Range Vitamin B-12 315 207 - 974 pg/mL Folate, serum Collection Time: 04/09/17 1:16 PM Result Value Ref Range Folate Lvl 12.5 4.8 - 24.2 ng/mL Albumin Level Collection Time: 04/09/17 1:16 PM Result Value Ref Range Albumin 4.0 3.2 - 5.2 gm/dL Uric acid Collection Time: 04/09/17 1:16 PM Result Value Ref Range Uric Acid 6.0 2.5 - 6.5 mg/dL Phosphorus Collection Time: 04/09/17 1:16 PM Result Value Ref Range Phosphorus 3.6 2.5 - 4.5 mg/dL Vitamin D, 25-Hydroxy Collection Time: 04/09/17 1:16 PM Result Value Ref Range 25-OH Vit D Total 23 (L) 30 - 100 ng/mL Hemogram Collection Time: 04/09/17 1:16 PM Result Value Ref Range WBC 6.4 4.0 - 9.5 x10(3)/mcL RBC 4.47 4.00 - 5.21 x10(6)/mcL Hemoglobin 13.0 11.7 - 15.5 gm/dL Hematocrit 40.3 35.7 - 45.8 % MCV 90.2 82.6 - 94.4 fL MCH 29.1 27.1 - 32.0 pg MCHC 32.3 31.7 - 35.0 gm/dL Platelets 140 (L) 145 - 357 x10(3)/mcL RDWSD 43.9 37.0 - 46.0 fL RDWCV 13.3 11.5 - 14.1 % MPV 12.3 7.6 - 12.9 fL nRBC % Auto 0.0 % nRBC Abs Auto 0.000 0.000 - 0.000 x10(3)/mcL Differential, Automated Collection Time: 04/09/17 1:16 PM Result Value Ref Range Neutrophils % 56.6 % Neutr Abs (ANC) 3.63 1.70 - 6.10 x10(3)/mcL Lymphocytes % 30.5 % Lymphocytes Abs 2.0 0.9 - 3.2 x10(3)/mcL Monocytes % 9.1 % Monocyte Abs 0.6 0.3 - 0.9 x10(3)/mcL Eosinophils % 2.7 % Eosinophils Abs 0.2 0.0 - 0.4 x10(3)/mcL Basophils % 0.8 % Basophils Abs 0.0 0.0 - 0.1 x10(3)/mcL Immature Gran % 0.30 % Bree Gran Abs 0.02 0.00 - 0.04 x10(3)/mcL Methylmalonic acid, serum Collection Time: 04/09/17 1:16 PM Result Value Ref Range Methylmalonic Acid 0.38 <=0.40 nmol/mL Creatinine (mg/dL) Date Value 04/09/2017 1.51 (H) 03/14/2017 - 2.18 09/14/2016 - 1.57 03/22/2016 - 1.42 ASSESSMENT AND PLAN: 66 y.o. woman with CKD III presenting for evaluation. 1) CKD III - Not sure what caused the sharp decline in kidney function in February, but she appears to now be at her previous baseline. We discussed risk factors for progression, including diabetes and HTN. Discussed use of PPI, which carries risk of OCTAVIO. However, would not discontinue if alternate agent not effective. She has scant proteinuria. Will continue to monitor. 2) Diabetes mellitus - Suspect her labile-seeming blood sugar is related to her eating habits. May benefit from referral to a dietitian and/or endocrinology for further education. Will defer to PCP. Would avoid metformin given risk of fairly rapid decline in kidney function to an eGFR <30. 3) HTN - BP here not bad for a first clinic visit. Will do 24-hour BP monitoring and also have her log her home BPs. We will review those data at her next visit. Would continue management of GEOVANNA, which can contribute to HTN. Needs to limit sodium to <2000 mg daily. 4) Anemia - Not anemic. Iron saturation at lower limit of normal; will monitor. B12 <400, and methylmalonic acid approaching 0.4, so will monitor need for B12 supplementation. Folate is normal. 5) Bone and mineral - Calcium and phosphorus normal. PTH modestly elevated; no calcitriol at this time. Vitamin D below goal (>30); will recommend starting [id number] vitamin D 4000 units daily and will recheck in 3 months. 6) Acid-base - Serum bicarbonate at goal (22-24). 7) Electrolytes - Potassium and sodium are normal. 8) Uric acid - At goal (</= 6). Will monitor. 9) Obesity/Dietary - Encouraged low-salt diet and continued efforts at stabilizing blood sugar (see#2). Normal serum albumin suggests adequate protein intake. 10) Lipid profile - Direct LDL at goal (<100); triglycerides not available as patient is not fasting. Continue rosuvastatin 40mg daily. 11) Health maintenance - * Vaccinations: - Hep B: not immunized - Influenza: 07/31/2016 - Pneumonia: PPSV23, 05/01/2007; PCV 04/13/2016 - Zostavax: 04/24/2012 12) Transplant/access referral - Not indicated. 13) Return to clinic - Will return 04/29/2017 for follow-up in our CKD clinic. Introduced her todayto Izabela James, one of our CKD Nurse Specialists. Provided her with my contact information, and encouraged her to let me know if she has any questions or concerns in the interim. Nelda Watts MD [facility] [place]phrology [place] [address] E-mail: [email or web address] documented in this encounter Plan of Treatment Upcoming Encounters Date Type Department Care Team (Late st Contact Info) Description 11/27/2024 9:00 AM EST Office Visit [place] [address] Remi Winston MD [facility] [place]PHR[place] [address] documented as of this encounter Procedures Procedure Name Priority Date/Time Associated Diagnosis Comments RESERVATIONS MANAGER SCAN 04/19/2017 12:00 AM EDT PTH Routine 04/09/2017 1:16 PM EDT CKD (chronic kidney disease), unspecified stage Chronic kidney disease, stage IV (severe) HEMOGRAM Routine 04/09/2017 1:16 PM EDT CKD (chronic kidney disease), unspecified stage Chronic kidney disease, stage IV (severe) DIFFERENTIAL, AUTOMATED Routine 04/09/2017 1:16 PM EDT CKD (chronic kidney disease), unspecified stage Chronic kidney disease, stage IV (severe) METHYLMALONIC ACID, SERUM Routine 04/09/2017 1:16 PM EDT IRON AND TIBC Routine 04/09/2017 1:16 PM EDT CKD (chronic kidney disease), unspecified stage Chronic kidney disease, stage IV (severe) VITAMIN D, 25-HYDROXY Routine 04/09/2017 1:16 PM EDT Chronic kidney disease, stage IV (severe) CKD (chronic kidney disease), unspecified stage CBC (WITH DIFF) Routine 04/09/2017 1:16 PM EDT CKD (chronic kidney disease), unspecified stage Chronic kidney disease, stage IV (severe) URIC ACID Routine 04/09/2017 1:16 PM EDT CKD (chronic kidney disease), unspecified stage Chronic kidney disease, stage IV (severe) PHOSPHORUS Routine 04/09/2017 1:16 PM EDT CKD (chronic kidney disease), unspecified stage Chronic kidney disease, stage IV (severe) LDL CHOLESTEROL, DIRECT Routine 04/09/2017 1:16 PM EDT CKD (chronic kidney disease), unspecified stage Chronic kidney disease, stage IV (severe) HDL/CHOL PROFILE Routine 04/09/2017 1:16 PM EDT CKD (chronic kidney disease), unspecified stage Chronic kidney disease, stage IV (severe) FOLATE, SERUM Routine 04/09/2017 1:16 PM EDT CKD (chronic kidney disease), unspecified stage Chronic kidney disease, stage IV (severe) FERRITIN Routine 04/09/2017 1:16 PM EDT CKD (chronic kidney disease), unspecified stage Chronic kidney disease, stage IV (severe) VITAMIN B12 Routine 04/09/2017 1:16 PM EDT CKD (chronic kidney disease), unspecified stage Chronic kidney disease, stage IV (severe) ALBUMIN LEVEL Routine 04/09/2017 1:16 PM EDT CKD (chronic kidney disease), unspecified stage Chronic kidney disease, stage IV (severe) BASIC METABOLIC PANEL Routine 04/09/2017 1:16 PM EDT CKD (chronic kidney disease), unspecified stage Chronic kidney disease, stage IV (severe) PROTEIN/CREATININE RATIO, URINE Routine 04/09/2017 11:00 AM EDT CKD (chronic kidney disease), unspecified stage Chronic kidney disease, stage IV (severe) U ALBUMIN/CRE RATIO Routine 04/09/2017 1 1:00 AM EDT CKD (chronic kidney disease), unspecified stage Chronic kidney disease, stage IV (severe) documented in this encounter Results * SCAN DOC: RESERVATIONS MANAGER (04/19/2017 12:00 AM EDT) Anatomical Region Laterality Modality Other Narrative 04/19/2017 12:00 AM EDT Ordered by an unspecified provider. Scanning Provider MEDIA MGR SCAN EXT O RDR/RSLT * Methylmalonic acid, serum (04/09/2017 1:16 PM EDT) Methylmalonic Acid (FEBRUARY) 0.38 <=0.40 nmol/mL [facility] Comment: ADDITIONAL INFORMATION This test was developed and its performance characteristics determined by [facility] in a manner consistent with CLIA requirements. This test has not been cleared or approved by the U.S. Food and Drug Administration. Test Performed by: [facility] - [address] [address] Blood specimen (specimen) Venous Draw / Unknown 04/09/2017 1:16 PM EDT 04/10/2017 8:13 AM EDT Narrative Resulting Agency Comment Spec In Lab Nelda Watts MD LAB SEND OUT ORDERA BLES [facility] [place] [address] * Differential, Automated (04/09/2017 1:16 PM EDT) Neutrophil % 56.6 % [facility] Neutrophil Absolute 3.63 1.70 - 6.10 x10(3)/[facility] Lymph % 30.5 % [facility] Lymphocytes Abs 2.0 0.9 - 3.2 x10(3)/[facility] Monocyte % 9.1 % [facility] Monocyte Abs 0.6 0.3 - 0.9 x10(3)/[facility] Eos % 2.7 % [facility] Eosinophils Abs 0.2 0.0 - 0.4 x10(3)/[facility] Basophil % 0.8 % [facility] Baso Absolute 0.0 0.0 - 0.1 x10(3)/[facility] Immature Gran % 0.30 % [facility] Comment: Immature granulocytes(IG's)percentage and absolute count will include metamyelocytes, myelocytes, and promyelocytes. Blood smears from CBCs yielding IG's will be scanned manually for concordance. If this scan disagrees with the automated IG or if promyelocytes are noted, a manual differential will be performed. Immature Gran Absolute 0.02 0.00 - 0.04 x10(3)/[facility] Blood specimen (specimen) 04/09/2017 1:16 PM EDT 04/09/2017 1:29 PM EDT Narrative Resulting Agency Comment Spec In Lab Nelda Watts MD HEMATOLOGY ORDERABL ES [facility] [place] [address] * (ABNORMAL) Hemogram (04/09/2017 1:16 PM EDT) White Blood Cell 6.4 4.0 - 9.5 x10(3)/ L [facility] Red Blood Cell 4.47 4.00 - 5.21 x10(6)/[facility] Hemoglobin 13.0 11.7 - 15.5 gm/dL [facility] Hematocrit 40.3 35.7 - 45.8 % [facility] Mean Cell Volume 90.2 82.6 - 94.4 [facility] Mean Cell Hemoglobin 29.1 27.1 - 32.0 pg [facility] Mean Cell Hemoglobin Concentration 32.3 31.7 - 35.0 gm/dL [facility] Platelet 140(L) 145 - 357 x10(3)/ L [facility] RDW Standard Deviation 43.9 37.0 - 46.0 [facility] RDW coefficient of variation 13.3 11.5 - 14.1 % [facility] Mean Platelet Volume 12.3 7.6 - 12.9 [facility] NRBC% auto 0.0 % [facility] NRBC Absolute 0.000 0.000 - 0.000 x10(3)/ L [facility] Blood specimen (specimen) 04/09/2017 1:16 PM EDT 04/09/2017 1:29 PM EDT Narrative Resulting Agency Comment Spec In Lab Nelda Watts MD HEMATOLOGY ORDERABL ES Performing Organization Address [facility] Co de Phone Number [facility] [place] [address] * (ABNORMAL) Vitamin D, 25-Hydroxy (04/09/2017 1:16 PM EDT) Vitamin D Total 25 OH 23(L) 30 - 100 ng/mL [facility] Comment: Deficient <10 ng/mL Insufficient 10 to 29 ng/mL Sufficient 30 to 100 ng/mL Potential Intoxication >100 ng/mL According to the [place] National Osteoporosis Foundation, Vitamin D concentrations >30 ng/mL are sufficient to protect bone health. ??The National Kidney Foundation has similarly stated that patients with Vitamin D concentrations <30ng/mL should be considered to be insufficient or deficient. http://Sepaton.BlueConic/nkf-guidelines http://Verid/nejm-VitD The [employer] i[employer] Vitamin D Immunoassay detects both 25-OH Vitamin D2 and 25-OH Vitamin D3, but only a total Vitamin D concentration is reported. Blood specimen (specimen) 04/09/2017 1:16 PM EDT 04/09/2017 2:53 PM EDT Narrative Resulting Agency Comment Spec In Lab Nelda Watts MD CHEMISTRY ORDERABLE S Performing Organization Address [facility]/ZIP Co de Phone Number [facility] [place] [address] * Phosphorus (04/09/2017 1:16 PM EDT) Phosphorus 3.6 2.5 - 4.5 mg/dL [facility] Blood specimen (specimen) 04/09/2017 1:16 PM EDT 04/09/2017 1:29 PM EDT Narrative Resulting Agency Comment Spec In Lab Nelda Watts MD CHEMISTRY ORDERABLE S [facility] [place] [address] * Uric acid (04/09/2017 1:16 PM EDT) Uric Acid 6.0 2.5 - 6.5 mg/dL [facility] Blood specimen (specimen) 04/09/2017 1:16 PM EDT 04/09/2017 1:29 PM EDT Narrative Resulting Agency Comment Spec In Lab Nelda Watts MD CHEMISTRY ORDERABLE S Performing Organization Address [facility]/ZIP Co de Phone Number [facility] [place] [address] * Albumin Level (04/09/2017 1:16 PM EDT) Albumin 4.0 3.2 - 5.2 gm/dL [facility] Blood specimen (specimen) 04/09/2017 1:16 PM EDT 04/09/2017 1:29 PM EDT Narrative Resulting Agency Comment Spec In Lab Nelda Watts MD CHEMISTRY ORDERABLE S Performing Organization Address [facility]/ZIP Co de Phone Number [facility] [place] [address] * Folate, serum (04/09/2017 1:16 PM EDT) Folate 12.5 4.8 - 24.2 ng/mL [facility] Blood specimen (specimen) 04/09/2017 1:16 PM EDT 04/09/2017 1:29 PM EDT Narrative Resulting Agency Comment Spec In Lab Nelda Watts MD CHEMISTRY ORDERABLE S [facility] [place] [address] * Vitamin B12 (04/09/2017 1:16 PM EDT) Vitamin B12 315 207 - 974 pg/mL [facility] Blood specimen (specimen) 04/09/2017 1:16 PM EDT 04/09/2017 1:29 PM EDT Narrative Resulting Agency Comment Spec In Lab Nelda Watts MD CHEMISTRY ORDERABLE S [facility] [place] [address] * Ferritin (04/09/2017 1:16 PM EDT) Ferritin 55 30 - 400 ng/mL [facility] Comment: Pediatric reference ranges not verified at [facility], interpret with caution. Reference ranges for females greater than 50 years of age approach values for men, i.e., 30-400 ng/mL. Blood specimen (specimen) 04/09/2017 1:16 PM EDT 04/09/2017 1:29 PM EDT Narrative Resulting Agency Comment Spec In Lab Nelda Watts MD CHEMISTRY ORDERABLE S Performing Organization Address City/[facility]/ZIP Co de Phone Number [facility] [place] [address] * Iron and TIBC (04/09/2017 1:16 PM EDT) Iron 62 30 - 150 mcg/dL [facility] TIBC 316 250 - 450 mcg/dL [facility] Iron Saturation 20 20 - 50 % [facility] Blood specimen (specimen) 04/09/2017 1:16 PM EDT 04/09/2017 1:29 PM EDT Narrative Resulting Agency Comment Spec In Lab Nelda Watts MD CHEMISTRY ORDERABLE S [facility] [place] [address] * LDL Cholesterol, Direct (04/09/2017 1:16 PM EDT) LDL Cholesterol, Direct 95 <=190 mg/dL [facility] Blood specimen (specimen) 04/09/2017 1:16 PM EDT 04/09/2017 1:29 PM EDT Narrative Resulting Agency Comment Spec In Lab Nelda Watts MD CHEMISTRY ORDERABLE S [facility] [place] [address] * (ABNORMAL) HDL/Cholesterol Profile (04/09/2017 1:16 PM EDT) Cholesterol, Total 166 <=239 mg/dL [facility] HDL Cholesterol 32(L) >=40 mg/dL [facility] Cholesterol/HDL Ratio 5.2 ratio [facility] Chol/HDL Interpretation See Note [facility] Comment: Lipid management should be guided by a patient? s ASCVD risk, goals and preferences. ACC/AHA Guidelines recommend high intensity statin if clinical ASCVD or LDL greater than or equal to 190 mg/dL. http://[email or web address].com/UHV-WYL-Tfksjhhwv Measure LDL if Total Cholesterol minus HDL Cholesterol is greater than 220 mg/dL. Adults aged 40-75 with LDL 70-189 mg/dL should have their 10 year ASCVD risk estimated with the ACC/AHA ASCVD risk patient registration clerk http://tools.acc.org/YQGOO-Prsb-Pimbwarwv/ Statin should be discussed if risk greater than or equal to 7.5% in non-diabetics. With diabetes, moderate intensity statin is recommended if risk less than 7.5%, high intensity if risk greater than or equal to 7.5%. Annual lipid monitoring on statins is not necessary. Lifestyle modification is a critical component of ASCVD risk reduction. Blood specimen (specimen) 04/09/2017 1:16 PM EDT 04/09/2017 1:29 PM EDT Narrative Resulting Agency Comment Spec In Lab Nelda Watts MD CHEMISTRY ORDERABLE S [facility] [place] [address] * (ABNORMAL) PTH (04/09/2017 1:16 PM EDT) Parathyroid Hormone 72(H) 15 - 65 pg/mL [facility] Blood specimen (specimen) 04/09/2017 1:16 PM EDT 04/09/2017 1:29 PM EDT Narrative Resulting Agency Comment Spec In Lab Nelda Watts MD CHEMISTRY ORDERABLE S Performing Organization Address City/[facility]/ZIP Co de Phone Number [facility] [place] [address] * (ABNORMAL) Basic Metabolic Panel (non-fasting) (04/09/2017 1:16 PM EDT) [facility] Glucose 115 65 - 199 mg/dL [facility] Comment:Diabetes: >=200 mg/d L plus symptoms Blood Urea Nitrogen 24(H) 8 - 18 mg/dL [facility] Creatinine 1.51(H) 0.70 - 1.20 mg/dL [facility] Comment: Please note that the pediatric reference intervals supplied above were not validated at [facility]. Results from pediatric patients should be interpreted in conjunction to the patient's age, height and muscle mass. Sodium 143 135 - 145 mmol/L [facility] Potassium 4.4 3.5 - 5.0 mmol/L [facility] Comment: Please note: ??Patients with WBC >100,000 may have falsely elevated Potassium levels. ??For accurate Potassium quantification in these patients send serum separator tube (gold top) for subsequent determinations. ??Contact the Clinical Chemistry Laboratory if there are any questions. Chloride 107 98 - 107 mmol/L [facility] Carbon Dioxide 22 22 - 31 mmol/L [facility] Anion Gap 14 5 - 15 mmol/L [facility] Calcium 9.6 8.5 - 10.5 mg/dL [facility] Est Glomerular Filtration Rate 34(L) >=60 [facility] Comment: This estimated GFR (eGFR) [...] the following links into your internet browser. [email or web address]/DHnkdep [email or web address]/[email or web address] Blood specimen (specimen) 04/09/2017 1:16 PM EDT 04/09/2017 1:29 PM EDT Narrative Resulting Agency Comment Spec In Lab Nelda Watts MD CHEMISTRY ORDERABLE S [facility] [place] [address] * U Albumin/Cre Ratio (04/09/2017 11:00 AM EDT) Albumin / Creatinin Ratio, Urine 10 0 - 29 mcg/mg Cr [facility] Comment: Reference Ranges: <30 [...] Supplements (2012) 2, 357? 362 Albumin, Urine 4.8 mg/L [facility] Creatinine, Urine 46 mg/dL [facility] Urine specimen (specimen) 04/09/2017 11:00 AM EDT 04/09/2017 2:14 PM EDT Narrative Resulting Agency Comment Spec In Lab Nelda Watts MD URINE ORDERABLES Performing Organization Address City/[facility]/ZIP Co de Phone Number [facility] [place] [address] * Protein/Creatinine Ratio, urine (04/09/2017 11:00 AM EDT) Creatinine, Urine 46 mg/dL [facility] Protein, Urine 6 0 - 12 mg/dL [facility] Protein / Creatinine Ratio, Urine 0.1 ratio [facility] Urine specimen (specimen) 04/09/2017 11:00 AM EDT 04/09/2017 2:14 PM EDT Narrative Resulting Agency Comment Spec In Lab Nelda Watts MD URINE ORDERABLES Performing Organization Address City/[facility] Co de Phone Number [facility] [place] [address] documented in this encounter Visit Diagnoses Diagnosis CKD (chronic kidney disease), unspecified stage Chronic kidney disease, stage IV (severe) Chronic kidney disease, Stage IV (severe) Vitamin B12 deficiency Other B-complex deficiencies CKD (chronic kidney disease), stage III Chronic kidney disease, Stage III (moderate) Type 2 diabetes mellitus with complication, unspecified director long term care insulin use status Secondary hypertension Other secondary hypertension, unspecified Hyperlipidemia, unspecified hyperlipidemia type Low HDL (under 40) Lipoprotein deficiencies Non-nephrotic range proteinuria Proteinuria Secondary hyperparathyroidism of renal origin Secondary hyperparathyroidism (of renal origin) Vitamin D deficiency Unspecified vitamin D deficiency Nephrolithiasis Calculus of kidney Obesity, unspecified obesity severity, unspecified obesity type GEOVANNA (obstructive sleep apnea) Obstructive sleep apnea (adult) (pediatric) documented in this encounter Care Teams Program Evaluation Consultant Relationship Specialty Start Date End Date Alexandr Youssef MD [address] [place] [address] PCP - General 09/19/10 10/16/21 documented as of this encounter
--- OUTSIDE RECORDS SUMMARY | 2024-11-16 13:20 | XMS_ITS | Encounter Summary ---
Author Organization [facility] [place] [address] Care Team Providers Care Computer Peripheral Equipment Operator Name Role Phone Alexandr Youssef MD Primary Care Provider [phone] Encounter Details Date Type Department Care Team (Late st Contact Info) Description 08/12/2019 Ancillary Procedure Radiology Library at [facility] [place] [address] Social History Tobacco Use Types Packs/Day Years [...] AM EST Office Visit Nephrology Hypertension at [facility] [place] [address] Remi Winston MD [facility] [place] [address] documented as of this encounter Procedures Procedure Name Priority Date/Time Associated Diagnosis Comments FILM LIBRARY STORAGE ONLY CT ABDOMEN AND PELVIS STAT 08/12/2019 12:00 AM EDT documented in this encounter Results * Film Library- Storage Only CT Abdomen & Pelvis (08/12/2019 12:00 AM EDT) Narrative RAD - 08/14/2019 7:11 PM EDT This exam is auto-finalizing. It's purpose is for storage only. Walter Barber MD IMG FILM LIBRARY ORDERABLES [place], [place] documented in this encounter Visit Diagnoses Not on filedocumented in this encounter Care Teams Computer Peripheral Equipment Operator Relationship Specialty Start Date End Date Alexandr Youssef MD [address] [place] [address] PCP - General 09/19/10 10/16/21 documented as of this encounter
--- OUTSIDE RECORDS SUMMARY | 2024-11-16 13:20 | XMS_ITS | Referral Summary ---
Author Organization [facility] Address [address] [place] [address] Care Team Providers Care Oil Gauger Name Role Phone Rome Guerra MD Primary Care Provider [phone] Social History Tobacco Use Types Packs/Day Years Used Date Smoking Tobacco: Never Assessed Comments Unknown Sex and Gender Information Value Date Recorded Sex Assigned at Not on file Legal Sex Female 18:12 EST Gender Identity Not on file Sexual Orientation Not on file Plan of Treatment Not on file Insurance [facility] MEDICARE [place] Care Teams Oil Gauger Relationship Specialty Start Date End Date Rome Guerra MD [address] [facility] [address] [place] [id number] PCP - General Emergency Medicine 01/26/22
--- OUTSIDE RECORDS SUMMARY | 2024-11-16 13:20 | XMS_ITS | Encounter Summary ---
Author Organization [facility] Address [address] [place] [address] Care Team Providers Care Medical Genetics Director Name Role Phone Unavailable Primary Care Provider Unavailabl e Encounter Details Date Type Department Care Team (Late st Contact Info) Description 09/27/2000 Results Only [facility] [address] [place] [address] Lucero Paez MD [address] [place] [address] Social History Tobacco Use Types Packs/Day Years [...] Date/Time Associated Diagnosis Comments SURGICAL PATHOLOGY Routine 09/27/2000 0:00 EST documented in this encounter Results * SURGICAL PATHOLOGY (09/27/2000 0:00 EST) Pathology Report: SURGICAL PATHOLOGY REPORT Reports generated via electronic interface contain original data; however they are lacking the format of the original report. Caution should be taken when reading/interpreti ng unformatted reports. Name: ? BRYNN HERNANDEZ ? Accession #: ? [id number] ? : ? 1950 (Age: 49) ??F ? Collect Date: ? 09/27/2000 ? Location: ? [facility] ? Receive Date: ? 09/28/2000 ? Provider: LUCERO PAEZ MD Copy to: JODI SALEH MD ? Final Pathologic Diagnosis: ? Colon, 20 cm, polyp, biopsy: - Fragment of tubular adenoma. Document reviewed and electronically signed by: BERNICE WHITAKER MD Report ??Date: 10/01/2000 16:27 By the signature above, the attending physician certifies that he/she has personally conducted a gross and/or microscopic examination of the described specimens and rendered or confirmed the above diagnosis. Specimen(s) Received: ? Polyp 20 cm Clinical History: ? Rectal bleeding Gross Description: ? Received in Hollande' s fixative labelled Remi and polyp at 20 cm is a 0.7 x 0.6 x 0.5 cm domingo-white and slightly granular ovoid piece of tissue. ??No definitive surgical resection margin is identified. ??The specimen is trisected and submitted entirely in one cassette. ??(Dr. Morel)/[place] End of Report [facility] TITUS 09/27/2000 09/28/2000 9:2 1 EST us Lucero Paez MD PATHOLOGY ORDERABLES Final Result [facility]AIN[facility] TITUS [address] [place] [address] documented in this encounter Visit Diagnoses Not on filedocumented in this encounter
--- OUTSIDE RECORDS SUMMARY | 2024-11-16 13:20 | XMS_ITS | Encounter Summary ---
Author Organization [facility] [place] [address] Care Team Providers Care Fence Supervisor Name Role Phone Alexandr Youssef MD Primary Care Provider [phone] Encounter Details Date Type Department Care Team (Late st Contact Info) Description 03/08/2015 [place] [phone] Alexandr Youssef MD [address] [place], [place] [address] Social History Tobacco Use Types Packs/Day Years [...] EST Office Visit [place] [phone] Remi Winston MD [facility] [place] [address] documented as of this encounter Procedures Procedure Name Priority Date/Time Associated Diagnosis Comments FILM LIBRARY STORAGE ONLY CT ABDOMEN Routine 03/08/2015 1:11 PM EDT documented in this encounter Results * Film Library- Storage only CT Abdomen (03/08/2015 1:11 PM EDT) Anatomical Region Laterality Modality Abdomen Other 03/08/2015 1:11 PM EDT Narrative 03/28/2015 1:16 PM EDT This is a Non-reportable exam Procedure Note JASON, UNSIGNED REPORT - 03/28/2015 This is a Non-reportable exam Alexandr Youssef MD IMG FILM LIBRARY ORD ERABLES documented in this encounter Visit Diagnoses Not on filedocumented in this encounter Care Teams Fence Supervisor Relationship Specialty Start Date End Date Alexandr Youssef MD [address] [place] [address] PCP - General 09/19/10 10/16/21 documented as of this encounter
[2024-11-16 14:44] LABS: HCT 44.2 % (36.0-46.0); HGB 14.2 g/dL (11.2-15.7); MCH 30.2 pg (27.0-33.0); MCHC 32.1 % (32.0-36.0); MCV 94 fL (80-95); MPV 12.4 fL (8.0-11.0); Platelet Count 138 10^3/uL (130-400); RDW 13.4 % (11.7-14.6); RDW-SD 46.5 fL; WBC 6.23 10^3/uL (4.4-10.8)
[2024-11-16 15:01] LABS: ALT 30 U/L (14-59); AST 16 U/L (15-37); Alkaline Phosphatase 81 U/L (46-116); Anion Gap 11.6 mmol/L (3-11); BUN 48 mg/dL (7-18); CO2 29.4 mmol/L (21.0-32.0); CREATININE 2.6 mg/dL (0.55-1.02); Calcium 10.2 mg/dL (8.5-10.1); Chloride 107 mmol/L (98-107); Estimated GFR 18.78 (mL/min/1.73m2); Glucose 141 mg/dL (74-106); PHOSPHORUS 4.1 mg/dL (2.6-4.7); Potassium 4.8 mmol/L (3.5-5.1); Sodium 148 mmol/L (136-145)
== END 2024-11-16 13:16 | disposition home or self-care (01) ==
LOC: NCHCN 13:15
PROVIDERS: PCP Family Medicine; Visit Provider Family Medicine
DX: N18.4 Chronic kidney disease, stage 4 (severe) (principal)
CPT/HCPCS: 80053; 85027; 83970; 84100

== ENCOUNTER 2025-09-27 11:59 | Outpatient (REF) | payer MEDICARE, OTHER, SELFPAY ==
[2025-09-27 15:45] LABS: HCT 42.0 % (36.0-46.0); HGB 13.3 g/dL (11.2-15.7); MCH 30.0 pg (27.0-33.0); MCHC 31.7 % (32.0-36.0); MCV 95 fL (80-95); MPV 12.4 fL (8.0-11.0); Platelet Count 121 10^3/uL (130-400); RBC 4.43 10^6/uL (3.93-5.22); RDW 13.2 % (11.7-14.6); RDW-SD 46.2 fL; WBC 4.91 10^3/uL (4.4-10.8)
[2025-09-27 15:52] LABS: ESR 21 mm/hr (0-30)
[2025-09-27 16:11] LABS: ALT 26 U/L (10-49); AST 22 U/L (<34); Albumin 4.5 g/dL (3.2-5.0); Alkaline Phosphatase 76 U/L (46-116); Anion Gap 10.4 mmol/L (3-11); BUN 32 mg/dL (9-23); Bilirubin, Total 0.30 mg/dL (0.2-1.2); CO2 27.6 mmol/L (20.0-31.0); Calcium 9.8 mg/dL (8.3-10.6); Chloride 109 mmol/L (98-107); Glucose 131 mg/dL (74-106); Potassium 4.1 mmol/L (3.5-5.1); Sodium 147 mmol/L (136-145); Total Protein 7.8 g/dL (5.7-8.2)
[2025-09-27 19:35] LABS: Microalb ug/mg Crea 35.1 ug/mg Cr
[2025-09-28 10:29] LABS: Lyme Ab w Rflx to Lyme Confirm Negative (Negative)
[2025-09-30 13:13] LABS: B. miyamotoi PCR Negative (Negative); Babesia divergens/MO-1 Negative (Negative); Ehrlichia muris eauclairensis Negative (Negative)
== END 2025-09-27 12:00 | disposition home or self-care (01) ==
LOC: NCHCN 11:59
PROVIDERS: PCP Family Medicine; Visit Provider Family Medicine
DX: N18.4 Chronic kidney disease, stage 4 (severe) (principal); M79.18 Myalgia, other site; E11.8 Type 2 diabetes mellitus with unspecified complications
CPT/HCPCS: 80053; 85027; 85652; 87798; 82043; 82570; 86618